=== PATIENT | female | born 1955 | race Caucasian/White ===

== ENCOUNTER → 2020-07-12 11:39 | Outpatient (BNVA) | payer MEDICARE, MEDICAID, SELFPAY | PROVIDERS: Family Provider General Practice; Referring Provider Family Medicine; Visit Provider Specialist | DX: M71.22 Synovial cyst of popliteal space [Baker], left knee (principal) | CPT/HCPCS: 73560; 73565 ==

== ENCOUNTER 2021-01-11 21:04 | Inpatient (IN) | payer MEDICARE, MEDICAID, SELFPAY ==
--- NOTE | 2021-01-11 21:05 | W.ED.GENADLT ---
Documented by User: Sandeep Waldron MD 01/14/21 09:36 HPI - General Adult General: Chief complaint: Chest Pain Stated complaint: RESP DISTRESS, PAIN BETWEEN SHOULDERS Time Seen by Provider: 01/11/21 21:04 History of Present Illness: HPI narrative: Ms. Lira is a 65-year-old lady with history of tobaccoism who presents emergency department due to shortness of breath. Symptom onset was 4 5 days ago and gradual. She initially endorses upper respiratory mild congestion and sore throat however this is since resolved. She does now have progressive worsening shortness of breath. There is no associated cough. Her symptoms are worse with exertion and what changed today that brought her in was midsternal chest pain with radiation to left arm. She denies history of chest pain. Overall the intensity symptoms is moderate to severe. The course has been worsening. She now requires supplemental oxygen. She denies other infectious symptoms or sick contacts. She has a throat swelling allergy to aspirin. Review of Systems General: Reports: 10 or more systems reviewed and unremarkable except in HPI and below PFSH ED PFSH: Medical History (Updated 01/12/21 @ 15:49 by Rose Mary Pan MD) Osteoarthritis of left knee Sciatic pain Surgical History History of History of partial hysterectomy Social History Smoking and tobacco status: current every day smoker cigarettes Packs smoked per day: 0.5 Second hand smoke exposure: Yes Alcohol intake: never Marital status: / Number of children: 2 Number of grandchildren: 8 Current occupational status: retired Physical Exam Narrative: EXAM NARRATIVE: GENERAL/CONSTITUTIONAL -mildly ill-appearing. No acute distress. Eyes - PERRL, no conjunctival injection ENMT - Atraumatic external nose and ears. Moist mucous membranes NECK - supple. trachea midline CARDIOVASCULAR - regular rate and rhythm. Peripheral pulses 2+ and equal RESPIRATORY -coarse to auscultation bilaterally. Diminished. Expiratory wheezes. Tachypnea with mild increased work at respiratory effort. ABDOMEN/GI - Nontender. Nondistended. No tenderness to percussion or evidence of peritonitis MSK - Extremities without obvious deformity or tenderness to palpation SKIN - Warm, Dry NEURO - alert and appropriately oriented. Moves all extremities equally. PSYCH - Appropriate mood and affect Course ED course: - Patient was seen and evaluated by me at bedside - Patient placed on cardiac monitors, IV access obtained - Initial evaluation notable for exam as noted above, increased respiratory effort with abnormal lung sounds concerning for COPD exacerbation versus infectious etiology versus other - Patient has allergies of throat swelling to aspirin. - Labs notable for No leukocytosis, No significant metabolic abnormality. Initial troponin is elevated, no evidence of STEMI correlating this on EKG. - Imaging notable for mild abnormalities as noted in x-ray read. Overall not impressive given patient's degree of respiratory symptoms. Given abnormal finding, elevated BNP and troponin CTA obtained for concern over PE. Negative for PE - Patient care handed off to Dr. Padilla pending repeat troponin for disposition. Vital Signs: Vital signs: Vital Signs Temperature 97.7 F 01/14/21 04:35 Pulse Rate 84 01/14/21 08:42 Respiratory Rate 26 H 01/14/21 08:42 Blood Pressure 105/65 01/14/21 08:42 Pulse Oximetry 95 01/14/21 08:42 [facility] - General Adult Medical Records: Attestation: I reviewed the patient's medical records. Lab Data: Attestation: I reviewed the patient's lab results. Labs: Lab Results 01/11/21 01/11/21 01/11/21 21:30 21:30 21:30 WBC 9.8 10^3/uL 10^3/ uL (4.0-10.0) RBC 4.16 10^6/uL 10^6 /uL (4.1-5.3) Hgb 13.3 g/dL g/dL (11.5-15.3) Hct 41.1 % % (37.0-47.0) MCV 98.8 fl fl (81-99) MCH 32.0 pg pg (28.0-34.0) MCHC 32.4 g/dL g/dL (30.0-36.0) RDW 13.2 % % (12.1-15.1) Plt Count 257 10^3/cmm 10^3 /cmm (130-400) MPV 9.6 fL fL (7.4-10.4) Neut % (Auto) 90.2 % % Lymph % (Auto) 5.4 % % [place] % (Auto) 3.6 % % Eos % (Auto) 0.0 % % Baso % (Auto) 0.5 % % Neut # (Auto) 8.79 10^3/uL H 10 ^3/uL (1.8-7.7) Lymph # (Auto) 0.5 10^3/uL L 10^ 3/uL (0.8-4.8) [place] # (Auto) 0.4 10^3/uL 10^3/ uL (0.2-0.9) Eos # (Auto) 0.0 10^3/uL 10^3/ uL (0.0-0.8) Baso # (Auto) 0.1 10^3/uL 10^3/ uL (0.0-0.1) Nucleated RBC % (a uto) 0 % % Nucleated RBCs # 0.0 /100WBC /100W BC Sodium 135 mmol/L L mmol /L (136-145) Potassium 4.6 mmol/L mmol/L (3.5-5.1) Chloride 95 mmol/L L mmol/ L (98-107) Carbon Dioxide 26 mmol/L mmol/L (22-29) Anion Gap 18.6 (5-19) BUN 11 mg/dL mg/dL (8-23) Creatinine 0.4 mg/dL L mg/dL (0.5-0.9) GFR Calculation 159.2 mL/min H mL /min (90-130) Glucose 130 mg/dL H mg/dL (65-115) Calculated Osmolal ity 281 mOsm/kg L mOs m/kg (285-295) Lactate 1.1 mmol/L mmol/L (0.5-2.2) Calcium 9.6 mg/dL mg/dL (8.5-10.5) Total Bilirubin 0.2 mg/dL mg/dL (0.15-1.2) AST 22 U/L U/L (0-32) ALT 13 U/L U/L (0-33) Alkaline Phosphata se 80 IU/L IU/L (35-105) Troponin T Baselin e Troponin T 120 Min [place] Troponin T C-Reactive Protein 1.8 mg/L mg/L (0.0-4.9) NT-Pro-B Natriuret Pep 341 pg/mL H pg/mL (0-125) Total Protein 7.5 g/dL g/dL (6.6-8.7) Albumin 4.3 g/dL g/dL (3.5-5.2) Globulin 3.2 g/dL g/dL (1.3-4.6) Procalcitonin 0.03 ng/mL ng/mL (0-0.5) SARS-CoV-2 RNA (RT -PCR) SARS-CoV-2 Ag (Rap id) 01/11/21 01/11/21 01/11/21 21:30 21:30 21:30 WBC RBC Hgb Hct MCV MCH MCHC RDW Plt Count MPV Neut % (Auto) Lymph % (Auto) [place] % (Auto) Eos % (Auto) Baso % (Auto) Neut # (Auto) Lymph # (Auto) [place] # (Auto) Eos # (Auto) Baso # (Auto) Nucleated RBC % (a uto) Nucleated RBCs # Sodium Potassium Chloride Carbon Dioxide Anion Gap BUN Creatinine GFR Calculation Glucose Calculated Osmolal ity Lactate Calcium Total Bilirubin AST ALT Alkaline Phosphata se Troponin T Baselin e 108 ng/L H* ng/L (0-10) Troponin T 120 Min [place] Troponin T C-Reactive Protein NT-Pro-B Natriuret Pep Total Protein Albumin Globulin Procalcitonin SARS-CoV-2 RNA (RT -PCR) Not detected (NOT DETECTED) SARS-CoV-2 Ag (Rap id) Negative (Negative) 01/11/21 23:27 WBC RBC Hgb Hct MCV MCH MCHC RDW Plt Count MPV Neut % (Auto) Lymph % (Auto) [place] % (Auto) Eos % (Auto) Baso % (Auto) Neut # (Auto) Lymph # (Auto) [place] # (Auto) Eos # (Auto) Baso # (Auto) Nucleated RBC % (a uto) Nucleated RBCs # Sodium Potassium Chloride Carbon Dioxide Anion Gap BUN Creatinine GFR Calculation Glucose Calculated Osmolal ity Lactate Calcium Total Bilirubin AST ALT Alkaline Phosphata se Troponin T Baselin e Troponin T 120 Min [place] 253.4 ng/L H ng/L (0-10) Delta Troponin T 145.4 ABS# H* ABS # (0-10) C-Reactive Protein NT-Pro-B Natriuret Pep Total Protein Albumin Globulin Procalcitonin SARS-CoV-2 RNA (RT -PCR) SARS-CoV-2 Ag (Rap id) EKG Data^: EKG 1: Attestation: I personally reviewed and interpreted this EKG as follows: EKG interpretation date: 01/11/21 EKG interpretation time: 21:17 Interpretation: Twelve-lead EKG shows regular sinus rhythm at a rate of 89. DE interval 183, QRS duration 97, QTc 421. Normal axis. Interpretation: Sinus rhythm, mild irregularity. Computer generated interpretation: Chest X-Ray 01/11/21 21:20 IMPRESSION: 1. Right hilar fullness with concern for potential right hilar mass or lymphadenopathy. 2. Marked bullous emphysema with probable associated COPD/chronic bronchitis. 3. Microcardia. 4. Arteriosclerosis. Chest CTA 01/11/21 22:32 IMPRESSION: 1. No visible evidence of pulmonary embolism/pulmonary arterial thrombus. 2. Advanced bullous emphysema with COPD/chronic bronchitis. 3. Bilateral upper lobe subsegmental alveolar airspace disease as detailed in text above. This finding could simply reflect parenchymal scar; however, without prior studies available for review unable to exclude early scar carcinoma and would recommend repeat imaging of the chest in 3-6 months to assess stability. 4. Cor pulmonale/pulmonary hypertension. 5. Marginally prominent mediastinal and hilar lymph nodes to include calcified complexes of antecedent granulomatous disease. Radiation Dose CTDIVOL = (mGy): DLP = 409.09 (mGy-cm) Gallbladder Ultrasound 01/14/21 06:00 IMPRESSION: No significant abnormality identified. Discharge Plan Discharge Patient Disposition: Admitted As Inpatient Admit Provider: Jh Phan Clinical Impression: NSTEMI (non-ST elevated myocardial infarction) Condition: Stable Coding Level of Care Code ED Plug Sorter for Chg Fwd Documented by User: Jagjit Padilla DO 01/12/21 03:08 HPI - General Adult General: Chief complaint: Chest Pain Stated complaint: RESP DISTRESS, PAIN BETWEEN SHOULDERS Time Seen by Provider: 01/11/21 21:04 PFSH ED PFSH: Medical History (Updated 01/12/21 @ 15:49 by Rose Mary Pan MD) Osteoarthritis of left knee Sciatic pain Surgical History History of History of partial hysterectomy Social History Smoking and tobacco status: current every day smoker cigarettes Packs smoked per day: 0.5 Second hand smoke exposure: Yes Alcohol intake: never Marital status: / Number of children: 2 Number of grandchildren: 8 Current occupational status: retired Course Consultations: Consultation #1: colten Vital Signs: Vital signs: Vital Signs Temperature 97.7 F 01/14/21 04:35 Pulse Rate 84 01/14/21 08:42 Respiratory Rate 26 H 01/14/21 08:42 Blood Pressure 105/65 01/14/21 08:42 Pulse Oximetry 95 01/14/21 08:42 MDM - General Adult MDM Narrative: Medical decision making narrative: 65-year-old female checked out to me by Dr. Waldron at shift change. This lady has had discomfort between her shoulder blades, and shortness of breath. Pain radiates to her left arm EKG shows a sinus rhythm with a normal axis. Rate is 90. There are no acute ST changes. First troponin is elevated above 100. 2-hour troponin change significantly to 253 other laboratory is benign. Chest x-ray is negative. She will be admitted for non-STEMI. She has been given Lovenox and Plavix in the ER. She is allergic to aspirin. Lab Data: Labs: Lab Results 01/11/21 01/11/21 01/11/21 21:30 21:30 21:30 WBC 9.8 10^3/uL 10^3/ uL (4.0-10.0) RBC 4.16 10^6/uL 10^6 /uL (4.1-5.3) Hgb 13.3 g/dL g/dL (11.5-15.3) Hct 41.1 % % (37.0-47.0) MCV 98.8 fl fl (81-99) MCH 32.0 pg pg (28.0-34.0) MCHC 32.4 g/dL g/dL (30.0-36.0) RDW 13.2 % % (12.1-15.1) Plt Count 257 10^3/cmm 10^3 /cmm (130-400) MPV 9.6 fL fL (7.4-10.4) Neut % (Auto) 90.2 % % Lymph % (Auto) 5.4 % % [place] % (Auto) 3.6 % % Eos % (Auto) 0.0 % % Baso % (Auto) 0.5 % % Neut # (Auto) 8.79 10^3/uL H 10 ^3/uL (1.8-7.7) Lymph # (Auto) 0.5 10^3/uL L 10^ 3/uL (0.8-4.8) [place] # (Auto) 0.4 10^3/uL 10^3/ uL (0.2-0.9) Eos # (Auto) 0.0 10^3/uL 10^3/ uL (0.0-0.8) Baso # (Auto) 0.1 10^3/uL 10^3/ uL (0.0-0.1) Nucleated RBC % (a uto) 0 % % Nucleated RBCs # 0.0 /100WBC /100W BC Sodium 135 mmol/L L mmol /L (136-145) Potassium 4.6 mmol/L mmol/L (3.5-5.1) Chloride 95 mmol/L L mmol/ L (98-107) Carbon Dioxide 26 mmol/L mmol/L (22-29) Anion Gap 18.6 (5-19) BUN 11 mg/dL mg/dL (8-23) Creatinine 0.4 mg/dL L mg/dL (0.5-0.9) GFR Calculation 159.2 mL/min H mL /min (90-130) Glucose 130 mg/dL H mg/dL (65-115) Calculated Osmolal ity 281 mOsm/kg L mOs m/kg (285-295) Lactate 1.1 mmol/L mmol/L (0.5-2.2) Calcium 9.6 mg/dL mg/dL (8.5-10.5) Total Bilirubin 0.2 mg/dL mg/dL (0.15-1.2) AST 22 U/L U/L (0-32) ALT 13 U/L U/L (0-33) Alkaline Phosphata se 80 IU/L IU/L (35-105) Troponin T Baselin e Troponin T 120 Min [place] Troponin T C-Reactive Protein 1.8 mg/L mg/L (0.0-4.9) NT-Pro-B Natriuret Pep 341 pg/mL H pg/mL (0-125) Total Protein 7.5 g/dL g/dL (6.6-8.7) Albumin 4.3 g/dL g/dL (3.5-5.2) Globulin 3.2 g/dL g/dL (1.3-4.6) Procalcitonin 0.03 ng/mL ng/mL (0-0.5) SARS-CoV-2 RNA (RT -PCR) SARS-CoV-2 Ag (Rap id) 01/11/21 01/11/21 01/11/21 21:30 21:30 21:30 WBC RBC Hgb Hct MCV MCH MCHC RDW Plt Count MPV Neut % (Auto) Lymph % (Auto) [place] % (Auto) Eos % (Auto) Baso % (Auto) Neut # (Auto) Lymph # (Auto) [place] # (Auto) Eos # (Auto) Baso # (Auto) Nucleated RBC % (a uto) Nucleated RBCs # Sodium Potassium Chloride Carbon Dioxide Anion Gap BUN Creatinine GFR Calculation Glucose Calculated Osmolal ity Lactate Calcium Total Bilirubin AST ALT Alkaline Phosphata se Troponin T Baselin e 108 ng/L H* ng/L (0-10) Troponin T 120 Min [place] Troponin T C-Reactive Protein NT-Pro-B Natriuret Pep Total Protein Albumin Globulin Procalcitonin SARS-CoV-2 RNA (RT -PCR) Not detected (NOT DETECTED) SARS-CoV-2 Ag (Rap id) Negative (Negative) 01/11/21 23:27 WBC RBC Hgb Hct MCV MCH MCHC RDW Plt Count MPV Neut % (Auto) Lymph % (Auto) [place] % (Auto) Eos % (Auto) Baso % (Auto) Neut # (Auto) Lymph # (Auto) [place] # (Auto) Eos # (Auto) Baso # (Auto) Nucleated RBC % (a uto) Nucleated RBCs # Sodium Potassium Chloride Carbon Dioxide Anion Gap BUN Creatinine GFR Calculation Glucose Calculated Osmolal ity Lactate Calcium Total Bilirubin AST ALT Alkaline Phosphata se Troponin T Baselin e Troponin T 120 Min [place] 253.4 ng/L H ng/L (0-10) [place] Troponin T 145.4 ABS# H* ABS # (0-10) C-Reactive Protein NT-Pro-B Natriuret Pep Total Protein Albumin Globulin Procalcitonin SARS-CoV-2 RNA (RT -PCR) SARS-CoV-2 Ag (Rap id) EKG Data^: EKG 1: Computer generated interpretation: Chest X-Ray 01/11/21 21:20 IMPRESSION: 1. Right hilar fullness with concern for potential right hilar mass or lymphadenopathy. 2. Marked bullous emphysema with probable associated COPD/chronic bronchitis. 3. Microcardia. 4. Arteriosclerosis. Chest CTA 01/11/21 22:32 IMPRESSION: 1. No visible evidence of pulmonary embolism/pulmonary arterial thrombus. 2. Advanced bullous emphysema with COPD/chronic bronchitis. 3. Bilateral upper lobe subsegmental alveolar airspace disease as detailed in text above. This finding could simply reflect parenchymal scar; however, without prior studies available for review unable to exclude early scar carcinoma and would recommend repeat imaging of the chest in 3-6 months to assess stability. 4. Cor pulmonale/pulmonary hypertension. 5. Marginally prominent mediastinal and hilar lymph nodes to include calcified complexes of antecedent granulomatous disease. Radiation Dose CTDIVOL = (mGy): DLP = 409.09 (mGy-cm) Gallbladder Ultrasound 01/14/21 06:00 IMPRESSION: No significant abnormality identified. Discharge Plan Discharge Patient Disposition: Admitted As Inpatient Admit Provider: Jh Phan Clinical Impression: NSTEMI (non-ST elevated myocardial infarction) Condition: Stable Coding Level of Care Code ED Plug Sorter for Laura Bonilla
[2021-01-11 21:07] VITALS: BP 199/83; PULSE 85; RESP 24; TEMP 36.6; O2SAT 98
[2021-01-11 21:20] VITALS: BP 199/83; PULSE 88; RESP 27; TEMP 37.1; O2SAT 97
--- NOTE | 2021-01-11 21:20 | ECG_ITS ---
[facility] Test Date: 2021-01-11 Pat Name: Sheba Lira Department: Room: Gender: Female Consulting Senior Practice Director: : 1955 Requested By: Sandeep Waldron Order Number: [id number] Latricia MD: JUSTIN BRIAN Measurements Intervals [place] Rate: 89 P: 78 MO: 183 QRS: 88 QRSD: 97 T: 86 QT: 344 QTc: 421 Interpretive Statements SINUS RHYTHM WITH OCCASIONAL SUPRAVENTRICULAR PREMATURE COMPLEXES POSSIBLE LEFT ATRIAL ENLARGEMENT [-0.1mV P-WAVE IN V1/V2] INCOMPLETE RIGHT BUNDLE BRANCH BLOCK [90+ ms QRS DURATION, TERMINAL R IN V1/V2, 40+ ms S IN I/aVL/V4/V5/V6] INTERPRETATION BASED ON A DEFAULT AGE OF 40 YEARS No previous ECG available for comparison Electronically Signed On 01-12-2021 18:23:57 CDT by JUSTIN BRIAN [id number] f
--- NOTE | 2021-01-11 21:20 | XRR_ITS ---
PROCEDURE INFORMATION: Exam: XR Chest Exam date and time: 01/11/2021 9:20 PM Age: 65 years old Clinical indication: Shortness of breath and wheezing; Additional info: SOB TECHNIQUE: Imaging protocol: XR of the chest. Views: 1 view. Total images: 1 COMPARISON: CR XR knees AP WB w LT lmt ORTH 07/12/2020 11:45 AM FINDINGS: Lungs: Marked bullous emphysema with probable associated COPD/chronic bronchitis.. Mild right upper lobe parenchymal scarring. Right hilar fullness with concern for potential right hilar mass or lymphadenopathy. Associated tracheal deviation to the right from potential traction. Pleural spaces: Unremarkable. No pleural effusion. No pneumothorax. Heart/Mediastinum: Microcardia. Arteriosclerosis. Bones/joints: Unremarkable. XR/XR chest 1V portable [id number] IMPRESSION: 1. Right hilar fullness with concern for potential right hilar mass or lymphadenopathy. 2. Marked bullous emphysema with probable associated COPD/chronic bronchitis. 3. Microcardia. 4. Arteriosclerosis.
[2021-01-11 21:52] VITALS: PULSE 118; RESP 26; O2SAT 95
[2021-01-11] MEDS: ipratropium-albuterol 3 mL Neb INHALATION (21:52)
[2021-01-11 21:54] LABS: Basophils # 0.1 10^3/uL (0.0-0.1); Basophils % 0.5 %; Hematocrit 41.1 % (37.0-47.0); Hemoglobin 13.3 g/dL (11.5-15.3); Lymphocytes # 0.5 10^3/uL (0.8-4.8); Lymphocytes % 5.4 %; Mean Corpuscular HGB Conc 32.4 g/dL (30.0-36.0); Mean Corpuscular Volume 98.8 fl (81-99); Mean Platelet Volume 9.6 fL (7.4-10.4); Monocytes # 0.4 10^3/uL (0.2-0.9); Monocytes % 3.6 %; Neutrophils # 8.79 10^3/uL (1.8-7.7); Neutrophils % 90.2 %; Nucleated Red Blood Cells % 0 %; Platelet Count 257 10^3/cmm (130-400); Red Blood Count 4.16 10^6/uL (4.1-5.3); Red Cell Distribution Width 13.2 % (12.1-15.1); White Blood Count 9.8 10^3/uL (4.0-10.0)
[2021-01-11 21:56] VITALS: PULSE 106; RESP 26; O2SAT 97
[2021-01-11 22:15] LABS: SARS Covid-2 Antigen Negative (Negative)
[2021-01-11 22:16] LABS: Lactate (Lactic Acid level) 1.1 mmol/L (0.5-2.2)
[2021-01-11 22:19] VITALS: BP 115/83; PULSE 91; RESP 29; O2SAT 96
[2021-01-11 22:21] LABS: Troponin(5th) Baseline 108 ng/L (0-10)
[2021-01-11 22:25] LABS: NT Pro B Type Natriuretic Pept 341 pg/mL (0-125); Procalcitonin 0.03 ng/mL (0-0.5)
--- NOTE | 2021-01-11 22:32 | CTR_ITS ---
PROCEDURE INFORMATION: Exam: CTA Chest With Contrast Exam date and time: 01/11/2021 10:32 PM Age: 65 years old Clinical indication: Pain; Shortness of breath; Radiating; Additional info: SOB, new o2 TECHNIQUE: Imaging protocol: Computed tomographic angiography of the chest with contrast. 3D rendering (Not supervised by radiologist): MIP and/or 3D reconstructed images were created by the technologist. Total images: 851 Radiation optimization: All CT scans at this facility use at least one of these dose optimization techniques: automated exposure control; mA and/or kV adjustment per patient size (includes targeted exams where dose is matched to clinical indication); or iterative reconstruction. Contrast material: OMNI 350; Contrast volume: 69 ml; Contrast route: INTRAVENOUS (IV); COMPARISON: CR (CHEST, ) 01/11/2021 9:29 PM RADIATION DOSE METRICS: Total DLP (mGy-cm): 409.09 FINDINGS: Pulmonary arteries: No visible evidence of pulmonary embolism/pulmonary arterial thrombus. Aorta: The thoracic aorta is nonaneurysmal. Mild arteriosclerosis. Lungs: Advanced bullous emphysema with COPD/chronic bronchitis. Bullous emphysema most advanced bilateral upper lobes, right greater than left. Significant bilateral apical parenchymal scarring, right greater than left. Bilateral upper lobe subsegmental alveolar airspace disease involving primarily the apical and posterior segment right upper lobe in the apicoposterior segment left upper lobe, right lung more involved than left. This finding could simply reflect parenchymal scar; however, without prior studies available for review unable to exclude early scar carcinoma and would recommend repeat imaging of the chest in 3-6 months to assess stability. Cor pulmonale/pulmonary hypertension. Pleural spaces: No pneumothorax. No pleural effusion. Heart: No cardiomegaly. No visible pericardial effusion. Coronary artery disease. Lymph nodes: Marginally prominent mediastinal and hilar lymph nodes. Calcified complexes of antecedent granulomatous disease. Bones/joints: No visible acute osseous abnormality. Soft tissues: Unremarkable. CT/CT angio chest PE protcl [id number] IMPRESSION: 1. No visible evidence of pulmonary embolism/pulmonary arterial thrombus. 2. Advanced bullous emphysema with COPD/chronic bronchitis. 3. Bilateral upper lobe subsegmental alveolar airspace disease as detailed in text above. This finding could simply reflect parenchymal scar; however, without prior studies available for review unable to exclude early scar carcinoma and would recommend repeat imaging of the chest in 3-6 months to assess stability. 4. Cor pulmonale/pulmonary hypertension. 5. Marginally prominent mediastinal and hilar lymph nodes to include calcified complexes of antecedent granulomatous disease. Radiation Dose CTDIVOL = (mGy): DLP = 409.09 (mGy-cm)
[2021-01-11 22:36] LABS: Alanine Aminotransferase 13 U/L (0-33); Albumin Level 4.3 g/dL (3.5-5.2); Alkaline Phosphatase 80 IU/L (35-105); Aspartate Amino Transferase 22 U/L (0-32); Blood Urea Nitrogen 11 mg/dL (8-23); C Reactive Protein 1.8 mg/L (0.0-4.9); Calcium 9.6 mg/dL (8.5-10.5); Carbon Dioxide 26 mmol/L (22-29); Chloride 95 mmol/L (98-107); Globulin 3.2 g/dL (1.3-4.6); Glomerular Filtration Rate 159.2 mL/min (90-130); Glucose 130 mg/dL (65-115); Osmolality Calculated 281 mOsm/kg (285-295); Sodium 135 mmol/L (136-145); Total Bilirubin 0.2 mg/dL (0.15-1.2); Total Protein 7.5 g/dL (6.6-8.7)
[2021-01-11 22:38] LABS: Anion Gap 18.6 (5-19); Potassium 4.6 mmol/L (3.5-5.1)
[2021-01-11] MEDS: iohexol 350 mg/mL 100 mL Btl IV (22:53)
[2021-01-11 23:17] VITALS: BP 127/78; PULSE 95; RESP 22; O2SAT 97
--- NOTE | 2021-01-11 23:20 | ECG_ITS ---
[facility] Test Date: 2021-01-11 Pat Name: Sheba Lira Department: Room: 108 Gender: Female Ocean Biologist: : 1955 Requested By: Sandeep Waldron Order Number: [id number] Reading MD: JUSTIN BRIAN Measurements Intervals [place] Rate: 89 P: 78 ID: [id number] QRS: 88 QRSD: 97 T: 86 QT: 344 QTc: 421 Interpretive Statements SINUS RHYTHM WITH OCCASIONAL SUPRAVENTRICULAR PREMATURE COMPLEXES POSSIBLE LEFT ATRIAL ENLARGEMENT [-0.1mV P-WAVE IN V1/V2] INCOMPLETE RIGHT BUNDLE BRANCH BLOCK [90+ ms QRS DURATION, TERMINAL R IN V1/V2, 40+ ms S IN I/aVL/V4/V5/V6] INTERPRETATION BASED ON A DEFAULT AGE OF 40 YEARS No previous ECG available for comparison Electronically Signed On 01-12-2021 18:25:49 CDT by JUSTIN BRIAN [id number] f
[2021-01-11 23:55] LABS: Troponin 5 2HR 253.4 ng/L (0-10); Troponin 5 2HR Delta 145.4 ABS# (0-10)
[2021-01-12] VITALS (18 sets, daily range): BP systolic 86–107; BP diastolic 6–73; PULSE 84–107; RESP 18–28; TEMP 36.6–36.8; O2SAT 91–99; BMI 25.0
[2021-01-12] MEDS: enoxaparin 60 mg/0.6 mL Syringe SUBCUT ×2 (01:04→14:04)
[2021-01-12] MEDS: clopidogrel 300 mg Tablet PO (01:04)
--- NOTE | 2021-01-12 01:35 | PM.HP ---
Providers/Chief Complaint Admitting Physician: Jh Phan Chief Complaint: RESP DISTRESS, PAIN BETWEEN SHOULDERS History of Present Illness 65-year-old female with past medical history significant for tobacco abuse wh presented to the hospital with Respiratory distress. Progressively worsening for the past week. Noted productive cough, No fever or chills. Denied nausea or vomiting. This was also associated with midsternal chest pain radiating to the left upper extremity. Patient stated some radiation to her back. No prior cardiac history. Laboratory workup on arrival showed a WBC of 9.8, hemoglobin of 13.3, hematocrit 41.1 and a platelet count of 257. Sodium 135, potassium 4.6, chloride 95, bicarb 26, BUN 11 and creatinine of 0.4. Lactic acid of 1.1. Covid-19 ag negative. Troponin T baseline of 108, increased to 253 at 2hr with a delta of 145.4. ProBnp of 341. Imaging studies included a chest x-ray which showed right hilar fullness considered for potential right hilar mass or lymphadenopathy with marked bolus emphysema.CTA of chest did not show any evidence of pulmonary embolism however was noted to have advanced bullous emphysema, bilateral upper lobe sub segmental alveolar airspace disease and evidence of pulmonary hypertension leading to cor pulmonale. In ER patient was given plavix 75 mg PO x 1 and lovenox 60 mg SQ x 1. Aspirin was not given due to prior hx of aspirin allergy. Review of Systems General: Reports: 10 or more systems reviewed and unremarkable except in HPI and below Medications/Allergies Allergies Allergy/AdvReac Type Severity Reaction Status Date / Time aspirin Allergy Intermediate ADR/ALGY-Pa Verified 08/13/20 11:11 lpitations codeine AdvReac ADR-Nausea Verified 08/13/20 11:11 PFSH Acute PFSH: Medical History (Updated 01/12/21 @ 03:08 by Jagjit Padilla DO) Osteoarthritis of left knee Sciatic pain Surgical History History of History of partial hysterectomy Social History Smoking and tobacco status: current every day smoker cigarettes Packs smoked per day: 0.5 Second hand smoke exposure: Yes Alcohol intake: never Marital status: / Number of children: 2 Number of grandchildren: 8 Current occupational status: retired Vitals/I&O/Wt Last Vital Signs Temp 98.7 F 01/11/21 21:20 Pulse 88 01/12/21 01:30 Resp 22 H 01/12/21 01:30 BP 99/53 01/12/21 01:30 Pulse Ox 99 01/12/21 01:30 Physical Exam Narrative: EXAM NARRATIVE: General : alert awake on o2 via NC HEENT : Grossly unremarkable CVS; NSR Chest : non labored respiration Abd Non-distended Ext no edema Data : 01/11/21 21:30 01/11/21 21:30 A&P Assessment and plan (1) NSTEMI (non-ST elevated myocardial infarction): Delta troponin 145.5 Follow up on 6hr Cardiac tele Lovenox 1mg/kg BID Aspirin allergy Plavix 300 mg PO x 1 in ER Nitro PRN for chest pain Cardiac tele ECHO Cardiology consulted Status: Acute (2) COPD exacerbation: Noted to have evidence of bullos emphysema on CT Duoneb q6hr O2 as needed Levaquin empirically Pro-marie in am Will need outpatient pulmonary folllow up Status: Acute Additional A&P Information DVT ppx - On full dose lovenox Attestations Medical Necessity Statement*: Will require over 2 midnight stay in hospital for eval and treatment Time Spent in Patient Care: Greater than 35 minutes (>than 50% of time spent in counselling and/or direct pt care on unit). Coding Level of Care Code Acute Placement Secretary for Laura Bonilla Diagnoses NSTEMI (non-ST elevated myocardial infarction) I21.4 COPD exacerbation J44.1
[2021-01-12] MEDS: levofloxacin-dextrose 5 % 750 MG/150 ML PREMIX 100 MG IV (01:56)
[2021-01-12] MEDS: ondansetron 2 mg/ML SDV 2 mL 4 MG IVP (01:56)
--- NOTE | 2021-01-12 03:20 | ECG_ITS ---
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
[2021-01-12 04:35] LABS: Troponin 5 6HR 350.4 ng/L (0-10); Troponin 5 6HR Delta 242.4 ng/L (0-12)
[2021-01-12] MEDS: nitroglycerin 0.4 mg sublingual Tablet SUBLINGUAL (06:10)
--- NOTE | 2021-01-12 06:12 | ECG_ITS ---
[facility] Test Date: 2021-01-12 Pat Name: Sheba Lira Department: Room: 108 Gender: Female Warehouseman: : 1955 Requested By: Jh Phan Order Number: [id number] Reading MD: JUSTIN BRIAN Measurements Intervals [place] Rate: 90 P: 76 WA: 169 QRS: 75 QRSD: 93 T: 88 QT: 369 QTc: 453 Interpretive Statements SINUS RHYTHM POSSIBLE RIGHT VENTRICULAR CONDUCTION DELAY [RSR (QR) IN V1/V2] SEPTAL MYOCARDIAL INFARCTION , OF INDETERMINATE AGE [40+ ms Q WAVE IN V1/V2] Compared to ECG 01/12/2021 03:13:33 No significant changes Electronically Signed On 01-12-2021 18:23:20 CDT by JUSTIN BRIAN [id number]
--- NOTE | 2021-01-12 06:20 | PC.NURSE ---
Patient c/o chest pain 10/20. EKG ordered. Patient given one SL nitro PRN. Patient states pain in now 07/21. Blood pressure 86/56. Dr. Phan notified that a second SL nitro was not given due to blood pressure. Patient states that this is a tolerable pain level for her. Ordered to continue to monitor.
--- NOTE | 2021-01-12 06:50 | PC.NURSE ---
Patient states, I don't take any medications at home except for a Tylenol or an Ibuprofen once in a while.
[2021-01-12] MEDS: pantoprazole DR 40 mg Tablet PO (08:27)
[2021-01-12] MEDS: pneumococcal (23 valent) SDV 0.5 mL IM (08:28)
--- NOTE | 2021-01-12 11:14 | P.PN_ITS ---
Subjective Medications: Medication Review Details: Seen this morning at bedside. Case also reviewed with Dr. Crum who was also present. Patient has been having chest pressure since morning and has had a positive delta troponin. Exertion makes the pain worse and rest relieves it. She also received 1 nitro overnight. Patient will be going for angiogram this afternoon. She did have wheezing on exam and is a smoker 1 pack/day. Vitals/I&O/Wt Last Vital Signs Temp 98.2 F 01/12/21 07:05 Pulse 107 H 01/12/21 07:05 Resp 22 H 01/12/21 07:05 BP 105/6 01/12/21 07:05 Pulse Ox 94 01/12/21 07:05 01/11/21 01/12/21 01/12/21 22:59 06:59 14:59 Intake Total 150 / 150 Balance 150 / 150 Weight last 48 hrs Weight 59.92 kg Weight 59.92 kg Physical Exam Narrative: EXAM NARRATIVE: General: Alert oriented x3, seen sitting up in bed complaining of chest pressure. HEENT: Normocephalic, atraumatic, EOMI, on nasal cannula Cardio: Regular rate rhythm, normal S1-S2, no murmurs rubs gallops, Respiratory: Significant wheezing bilaterally throughout all lung renee, GI: Abdomen soft, nontender, nondistended, bowel sounds + Behavior: Appropriate and cooperative Extremities: no edema, no cyanosis Data : 01/11/21 21:30 01/11/21 21:30 A&P Assessment and plan (1) COPD exacerbation: Status: Acute (2) NSTEMI (non-ST elevated myocardial infarction): Status: Acute Additional A&P Information Patient is having typical chest pain. Case reviewed with cardiology. She will be going for angiogram this afternoon. Delta troponin I 43. Rapid Covid test negative x2. PCR has been sent out to [facility] and is pending. Will back in 72 hours. I will put her on scheduled DuoNeb every 4 hours with respiratory therapy and ordered Solu-Medrol 40 mg daily. will check procal and bacterial antigens Fluids: None indicated Electrolytes: Replete as needed Nutrition: N.p.o. for procedure and afterwards cardiac diet Activity: Bedrest for now DVT prophylaxis: on full dose Lovenox. Attestations Medical Necessity Statement*: angiogram today Time Spent in Patient Care: 16 - 35 minutes Coding Level of Care Code Acute Respiratory Supervisor for Laura Fwd Diagnoses COPD exacerbation J44.1 NSTEMI (non-ST elevated myocardial infarction) I21.4
[2021-01-12 11:23] LABS: SARS Covid-2 Antigen Negative (Negative)
[2021-01-12] MEDS: ipratropium-albuterol 3 mL Neb INHALATION ×2 (11:49→18:03)
[2021-01-12 14:52] LABS: Procalcitonin 0.03 ng/mL (0-0.5)
--- NOTE | 2021-01-12 15:43 | PM.CONSULT ---
Providers/Reason For Consult Consulting Physician/Specialty*: Cardiology Reason for Consult*: Non-ST ovation OK Attending Physician: Babs Ayala MD History of Present Illness History of Present Illness Sheba Lira is a 65 year old female past medical history significant for continuous tobacco abuse COPD presented with worsening of shortness of breath and chest pain. She was noted to have non-ST elevation OK as she was ruled in. Due to respiratory distress she is on rule out for Covid. She is under Covid precautions however I saw the patient she denies any fever chills cough sputum sore throat. For strep a test is negative. At the moment she denies chest pain she is on anticoagulation aspirin beta-james and loaded with Plavix. She would like to eat now. We discussed regarding performing left heart cath for non-ST elevation OK. She understood all risk benefit and alternative for the procedure she would like to proceed with it. We are planning to proceed with left heart cath tomorrow morning. I will repeat Covid rapid stress test however PCR is pending which may not be available until next 72 hours due to weekend Review of Systems General: Reports: 10 or more systems reviewed and unremarkable except in HPI and below Meds/Allergies Home Medications and Allergies Allergies Allergy/AdvReac Type Severity Reaction Status Date / Time aspirin Allergy Intermediate ADR/ALGY-Pa Verified 08/13/20 11:11 lpitations codeine AdvReac ADR-Nausea Verified 08/13/20 11:11 Current Medications Current Medications Generic Name Dose Route Start Last Admin Trade Name Freq PRN Reason Stop Dose Admin Albuterol/Ipratropium 3 ml 01/12/21 01:29 01/12/21 11:49 Ipratropium-Albuterol 3 Ml Neb INHALATION 3 ml Q6H PRN Administration SHORTNESS OF BREATH Enoxaparin Sodium 60 mg 01/12/21 13:30 01/12/21 14:04 Enoxaparin 60 Mg/0.6 Ml Syringe SUBCUT 60 mg Q12H YARON Administration Levofloxacin/Dextrose 750 mg in 150 mls @ 100 mls/hr 01/12/21 01:30 01/12/21 03:29 Levaquin-D5w IV Infused Q24H YARON Infusion Protocol Nitroglycerin 0.4 mg 01/12/21 06:08 01/12/21 06:10 Nitroglycerin 0.4 Mg Sublingual Tablet SUBLINGUAL 1 tab Q5M PRN Administration CHEST PAIN Ondansetron HCl 4 mg 01/12/21 01:29 01/12/21 01:56 Ondansetron 2 Mg/Ml Sdv 2 Ml IVP 4 mg Q8H PRN Administration vomiting, or N/V if npo Pantoprazole Sodium 40 mg 01/12/21 09:00 01/12/21 08:[address] 40 Mg Tablet PO 40 mg DAILY YARON Administration Additional Medication Information Seen this morning at bedside. Case also reviewed with Dr. Crum who was also present. Patient has been having chest pressure since morning and has had a positive delta troponin. Exertion makes the pain worse and rest relieves it. She also received 1 nitro overnight. Patient will be going for angiogram this afternoon. She did have wheezing on exam and is a smoker 1 pack/day. PFSH Acute PFSH: Medical History (Updated 01/12/21 @ 15:49 by Rose Mary Pan MD) Osteoarthritis of left knee Sciatic pain Surgical History History of History of partial hysterectomy Social History Smoking and tobacco status: current every day smoker cigarettes Packs smoked per day: 0.5 Second hand smoke exposure: Yes Alcohol intake: never Marital status: / Number of children: 2 Number of grandchildren: 8 Current occupational status: retired Vitals/I&O/Wt Last Vital Signs Temp 98.2 F 01/12/21 07:05 Pulse 100 01/12/21 11:56 Resp 22 H 01/12/21 11:52 BP 105/6 01/12/21 07:05 Pulse Ox 96 01/12/21 11:52 01/12/21 01/12/21 01/12/21 06:59 14:59 22:59 Intake Total 150 / 150 360 / 360 Balance 150 / 150 360 / 360 Weight last 48 hrs Weight 132 lb 1.6 oz Weight 132 lb 1.6 oz Physical Exam Narrative: EXAM NARRATIVE: GENERAL: Patient is alert, awake and oriented x3. NECK: No jugular vein distension. HEENT: No cyanosis. No icterus. No pallor. HEART: Regular S1 and S2. No murmur, rub or gallop. LUNGS: Reduced breath sound bilaterally with wheezing and expiratory prolonged. ABDOMEN: Soft, nontender and nondistended. Positive bowel sounds. No guarding, rebound or tenderness. CENTRAL NERVOUS SYSTEM: Grossly nonfocal. EXTREMITIES: Lower extremities without edema bilaterally. A&P Assessment and plan (1) NSTEMI (non-ST elevated myocardial infarction): As defined above we will proceed with left heart cath. Continue aspirin statin and beta-james anticoagulation. Patient is going through acute COPD exacerbation she will not be able to lay flat on the bed. Once lungs are more clear hopefully by tomorrow we will plan to perform left heart cath. Until then continue current regimen. She is chest pain-free troponin is trending down from 350 downward. Status: Acute (2) COPD exacerbation: As per medicine Status: Acute (3) Acute maxillary sinusitis: Continue as per medicine Status: Acute Qualifiers: Recurrence: not specified as recurrent Qualified Code(s): J01.00 - Acute maxillary sinusitis, unspecified Consult Attestations Medical Necessity Statement: Patient require continuation hospitalization for above defined care. 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
--- NOTE | 2021-01-12 19:49 | PC.NURSE ---
Shift Note Frequent safety and comfort rounds continue. Orders and/or nursing care completed as indicated. Patient monitored for response to intervention and treatment(s). Education provided includes[pre-cardiac cath instructions]. Patient and/or route service representative verb understanding of instructions Will continue to monitor. pt c/o substernal chest tightness off and on today.no pain parse.cardiology consult with dr bender.pt to go to cardiac rags laborer tomorrow for angiogram
[2021-01-12] MEDS: atorvastatin 40 mg Tablet PO (20:25)
[2021-01-13] VITALS (47 sets, daily range): BP systolic 79–107; BP diastolic 55–72; PULSE 65–102; RESP 13–36; TEMP 36.4–36.8; O2SAT 78–100
[2021-01-13] MEDS: levofloxacin-dextrose 5 % 750 MG/150 ML PREMIX 100 MG IV (00:53)
[2021-01-13] MEDS: enoxaparin 60 mg/0.6 mL Syringe SUBCUT (01:19)
--- NOTE | 2021-01-13 01:42 | USCV_ITS ---
Sheba Lira Age: 65 Gender: F : 1955 Exam Date: 01/13/2021 07:03 Ordering Phys: Jh Phan MD Technologist: Rebecca Benson [place] [facility] [place]: Chest pain, NSTEMI BP: 91 / 60 HR: 69 Rhythm: Sinus Technical Quality: Suboptimal MEASUREMENTS (Male / Female) Normal Values 2D ECHO LV Diastolic Diameter PLAX 3.5 cm 4.2 - 5.9 / 3.9 - 5.3 cm LV Systolic Diameter PLAX 2.6 cm LV Chamber Size 4.2 cm IVS Diastolic Thickness 0.9 cm 0.6 - 1.0 / 0.6 - 0.9 cm IVS Systolic Thickness 1.8 cm LVPW Diastolic Thickness 1.3 cm 0.6 - 1.0 / 0.6 - 0.9 cm LVPW Systolic Thickness 1.1 cm RV Chamber Size 1.6 cm LVOT Diameter 2.0 cm LV Ejection Fraction 2D Teich 53.7 % LV Ejection Fraction MOD 2C 62.1 % LV Ejection Fraction 2C AL 61.6 % LA Diameter 2.1 cm LA Width 2.6 cm LA Height 2.9 cm RA Width 2.1 cm RA Height 3.1 cm M-MODE LV Diastolic Diameter MM 4.6 cm 4.2 - 5.9 / 3.9 - 5.3 cm LV Systolic Diameter MM 3.4 cm LV Ejection Fraction MM Teich 52.8 % IVS Diastolic Thickness MM 1.2 cm 0.6 - 1.0 / 0.6 - 0.9 cm IVS Systolic Thickness MM 1.5 cm LVPW Diastolic Thickness MM 1.1 cm 0.6 - 1.0 / 0.6 - 0.9 cm LVPW Systolic Thickness MM 1.2 cm Aortic Annulus Diameter 3.1 cm LA Ao Ratio MM 0.8 MV E Point Septal Separation 1.3 cm DOPPLER AV Peak Velocity 110.0 cm/s LVOT Peak Velocity 67.0 cm/s AV Area Cont Eq vti 2.1 cm squared AV Area Cont Eq pk 1.9 cm squared MV Area PHT 5.9 cm squared Mitral E to A Ratio 1.2 MV E' Velocity 37.0 cm/s Mitral E to MV E' Ratio 9.6 Mitral E to LV E' Lateral Ratio 9.8 Mitral E to LV E' Septal Ratio 9.6 TR Peak Velocity 279.0 cm/s TR Peak Gradient 31.1 mmHg TV Peak E Velocity 50.0 cm/s Right Atrial Pressure 3.0 mmHg Pulmonary Artery Systolic Pressu 34.1 mmHg PV Peak Velocity 57.0 cm/s QpQs Shunt Ratio 0.8 RV Acceleration Time 0.1 s RV Ejection Time 0.2 s RV AcT/ET 0.3 FINDINGS Left Ventricle Normal left ventricular cavity size. Moderately decreased left ventricular systolic function. Mid to distal anterior septal and apical hypokinesis.left ventricular ejection fraction is estimated at 40 %. There appeared to be foreshortening of apex therefore left ventricle ejection fraction may not be accurate.Grade II/IV diastolic dysfunction, moderately elevated filling pressures. Right Ventricle The right ventricle is normal in size and function. Mild pulmonary hypertension, RVSP 34.1 mmHg. Right Atrium The right atrium is normal in size. Left Atrium The left atrium is normal in size. Mitral Valve Structurally normal mitral valve without significant stenosis or prolapse. There is no mitral regurgitation. Aortic Valve Structurally normal aortic valve without significant sclerosis or stenosis. There is no aortic regurgitation. Tricuspid Valve Moderate tricuspid valve regurgitation. Pulmonic Valve Structurally normal pulmonic valve without significant stenosis. There is no pulmonic regurgitation. Pericardium Normal pericardium without effusion. Aorta Normal ascending aorta dimension. CONCLUSIONS 1-Normal left ventricular cavity size. Moderately decreased left ventricular systolic function. Mid to distal anterior septal and apical hypokinesis.left ventricular ejection fraction is estimated at 40 %. There appeared to be foreshortening of apex therefore left ventricle ejection fraction may not be accurate.Grade II/IV diastolic dysfunction, moderately elevated filling pressures. 2-Moderate tricuspid valve regurgitation. 3-The right ventricle is normal in size and function. Mild pulmonary hypertension, RVSP 34.1 mmHg plus RA pressure. 4-There is no pericardial effusion. 5-Right atrial pressure is around 15 mm of mercury. 6- There are no prior echocardiogram studies to compare. Rose Mary Pan MD (Electronically Signed) Final Date: 17 January 2021 16:28 S
[2021-01-13 04:19] LABS: Basophils % 0.1 %; Hematocrit 35.5 % (37.0-47.0); Hemoglobin 11.5 g/dL (11.5-15.3); Lymphocytes # 0.4 10^3/uL (0.8-4.8); Lymphocytes % 4.6 %; Mean Corpuscular HGB Conc 32.4 g/dL (30.0-36.0); Mean Corpuscular Volume 98.9 fl (81-99); Mean Platelet Volume 9.7 fL (7.4-10.4); Monocytes # 0.3 10^3/uL (0.2-0.9); Monocytes % 3.7 %; Neutrophils # 8.19 10^3/uL (1.8-7.7); Neutrophils % 91.3 %; Nucleated Red Blood Cells % 0 %; Platelet Count 242 10^3/cmm (130-400); Red Blood Count 3.59 10^6/uL (4.1-5.3); Red Cell Distribution Width 13.2 % (12.1-15.1)
[2021-01-13 04:47] LABS: Estmated Average Glucose 103; Hemoglobin A1C 5.2 % (4.0-6.0)
[2021-01-13 04:56] LABS: Chol HDL Ratio 2.54 mg/dL (0.0-4.40); Cholesterol 175 mg/dL (0-200); HDL Cholesterol 69 mg/dL (60-100); LDL Cholesterol Calculated 98 mg/dL (50-129); LDL HDL Ratio 1.42 RATIO (0.00-3.22); Triglycerides 42 mg/dL (0-150)
[2021-01-13 04:58] LABS: Procalcitonin 0.04 ng/mL (0-0.5)
[2021-01-13 05:07] LABS: Alanine Aminotransferase 20 U/L (0-33); Albumin Level 3.9 g/dL (3.5-5.2); Alkaline Phosphatase 69 IU/L (35-105); Anion Gap 13.4 (5-19); Aspartate Amino Transferase 41 U/L (0-32); Blood Urea Nitrogen 14 mg/dL (8-23); Calcium 9.3 mg/dL (8.5-10.5); Carbon Dioxide 30 mmol/L (22-29); Chloride 98 mmol/L (98-107); Glomerular Filtration Rate 123.1 mL/min (90-130); Glucose 112 mg/dL (65-115); Osmolality Calculated 285 mOsm/kg (285-295); Potassium 4.4 mmol/L (3.5-5.1); Sodium 137 mmol/L (136-145); Thyroid Stimulating Hormone 0.25 uIU/mL (0.27-4.20); Total Bilirubin 0.2 mg/dL (0.15-1.2); Total Protein 6.9 g/dL (6.6-8.7)
[2021-01-13] MEDS: sodium chloride 0.9% 1,000 ML 50 ML IV (05:14)
[2021-01-13] MEDS: diphenhydrAMINE 50 mg Capsule PO (07:13)
--- NOTE | 2021-01-13 07:39 | XACV_ITS ---
Exam Room: [facility] Ht: 155 cm Wt: 61 kg BSA: 1.63 m2 Gender: Female : 1955 Any Known Allergies: Codeine Exam Priority: Routine Procedure(s): Procedure Description: Diagnostic procedure Procedure Description: Left Heart Catheterization Procedure Description: Left ventriculography Procedure Description: Coronary Angiography PAULINAViviane MAN; Diagnostic Cath Status: Urgent Diagnostic Findings * No disease noted in the Left Main, Left Anterior Descending, Right, or Circumflex coronary arteries. * Coronary angiography shows right dominance. Conclusions 1. No disease noted in the Left Main, Left Anterior Descending, Right, or Circumflex coronary arteries. 2. The apex, mid posterior, mid septum, anterolateral, mid inferior brown are hypokinetic. 3. All other visualized brown normal. 4. Moderate left ventricular systolic dysfunction. Ejection fraction of 30%. Recommendations * Continue current medical management and risk factor modification. Ventriculography Ejection Fraction: 30.0 % Left Ventriculography Findings: * Severely depressed LV function with apical ballooning suggestive of Takotsubo syndrome. Left ventricular LV function around 30%. Pressures Phase:Rest AO : 106 / 68 ( 86 ) @ 8:16:00 AM 107 / 32 ( 62 ) @ 8:28:00 AM 106 / 66 ( 84 ) @ 8:29:00 AM LV : 104 / @ 8:27:00 AM 105 / @ 8:28:00 AM Clinical Evaluation EBL: 5mL-10mL Procedural Details Procedure Consent Obtained. Pre-Procedure Time Out. Identified patient by full name and date of as verbalized by the patient/guarantor. Does the consent match the physician's order: Yes. Accurate & Complete Informed Consent: Yes. Inpatient/Outpatient History & Physical on Chart: Yes. If H&P is completed, is and addenduem needed: No; If yes, is the addendum complete: N/A. Visualize and Verify Site with Patient/Guarantor: N/A. Relevant Radiology Images available: N/A. Pre-op teaching completed and patient verbalized understanding. The risks, benefits, and alternatives of sedation and/or procedure were discussed by physician. The patient agrees to continue. Equipment: 6F - Radial. Cardiac Cath Pack. ACIST Manifold Kit Model BT 2000. Heparinized Saline (2 units/mL), 1000 mL bag. Procedure started. [facility] Clinical Fraility Score: 3: Managing Well. Ems Helicopter Pilot Indications: ACS > 24 hours, NSTEMI. Chest Pain Symptom Assessment: Typical Angina Symptoms. Cardiovascular Instability: No. Correct patient, site and procedure confirmed by cath team. PERRLA. Strong, equal hand professor of theater bilaterally. Lungs clear x 5 lobes. IV Site on Arrival: 20 gauge in the left anticubital. IV Fluids: 0.9% NaCl at KVO. 0 mL infused prior to laborer brush clearing. Oxygen started at 2liters/min via nasal canula. right groin was prepped with chloroprep then draped in the usual sterile fashion. right radial was prepped with chloroprep then draped in the usual sterile fashion. Baseline sample Acquired. HR: 64 BPM. Physician notified. Physician arrived. Physician scrubbed in. Immediate Pre-Procedure Time Out. Correct Patient: Yes; Correct Procedure: Yes; Correct Site: Yes; Correct Patient Position: Yes; Correct Supplies: Yes; Dried Flammable Prep: Yes; Blood Products Available: N/A;. Lidocaine 1% infiltrated to the right radial. Arterial access obtained. A 5 monegasque TIG catheter in over wire. Multiple views taken of left coronary artery. Catheter redirected to the RCA. Multiple views taken of right coronary artery. Catheter removed over the exchange wire. A 5 monegasque Angled Pig catheter in over wire. LV gram performed in GARCIA @ 10 mL/second for a total of 20 mL. EDP Sample taken: LV 104/10,29; HR: 79 BPM; SpO2: 96%. EDP Sample taken: LV 105/10,29; HR: 77 BPM; SpO2: 97%. Pullback taken: LV Off; AO Off; Mean: , Peak to Peak: , SEP: ; HR: 78 BPM; SpO2: 97%. Catheter removed over the exchange wire. Physician scrubbed out. A TR Band was successful obtaining hemostatsis at the Right Radial artery insertion site. TR band placed. Hemostasis obtained. Post Procedure: Pulses reassessed and unchanged. PERRLA. Strong, equal hand professor of theater bilaterally. PERRLA. Strong, equal hand professor of theater bilaterally. No VTE prophylaxis required. Contrast type used: Visipaque 320 mgI/mL, 500 mL bottle. Medication's Wasted: Lidocaine 1% = 16 mg. Medication's Wasted: Heparin = 1000 units. Medication's Wasted: Other = fentanyl 100 mcg. Total IV fluids: 69 mL. Post-op diagnosis: takutsubo. Complications: none. Estimated blood loss: 5mL-10mL. Procedure completed. Patient transferred by wheelchair to 1st floor. Vital chart was stopped. Access Site Site: Right Radial artery Sheath Size: 6 Fr Hemostasis Method: TR Band Hemostasis Success: Successful Procedure Medications Start: 9:03 AM Stop: 9:03 AM Medication: Versed Amount: 1 mg Route: I.V. Start: 9:13 AM Stop: 9:13 AM Medication: Versed Amount: 1 mg Route: I.V. I, the attending physician, have reviewed and verified all procedure medications. Yes, all medications given per verbal order History/Risk Factors Hypertension: No Dyslipidemia: No Peripheral Arterial Disease (PAD): No Myocardial Infarction (LA): No Obesity: No Renal Disease: No Tobacco Use: Current/Recent(w/in 1 year) Prior Interventions PCI: No CABG: No Valve Surgery: No Report Signatures Finalized by Rose Mary Pan MD on 01/27/2021 05:55 PM
--- NOTE | 2021-01-13 07:46 | PC.NURSE ---
Shift Note Frequent safety and comfort rounds continue. Orders and/or nursing care completed as indicated. Patient monitored for response to intervention and treatment(s). Education provided includes plan of care. Patient and/or lead generation representative verbalized understanding. Will continue to monitor.
--- NOTE | 2021-01-13 08:27 | PM.PN ---
Subjective Subjective: Interval history: Seen and examined today after angiogram procedure. Approach was through the right wrist. Compression Band-Aid present. Nurse reported that coronary arteries per clean and no evidence of ischemic disease. Final report is pending. Patient appears very comfortable and is happy that her angiogram was okay. She states her breathing has improved. She is wondering when she can go home. She denies any recent stressors or anxiety or depression. Vitals/I&O/Wt Last Vital Signs Temp 97.5 F L 01/13/21 07:56 Pulse 89 01/13/21 08:10 Resp 18 01/13/21 08:10 BP 97/67 01/13/21 07:56 Pulse Ox 100 01/13/21 08:10 01/12/21 01/13/21 01/13/21 22:59 06:59 14:59 Intake Total 120 / 480 150 / 630 Balance 120 / 480 150 / 630 Weight last 48 hrs Weight 61.19 kg Weight 59.92 kg Weight 59.92 kg Physical Exam Narrative: EXAM NARRATIVE: General: Alert oriented x3, seen sitting up in bed eating breakfast appearing quite comfortable. HEENT: Normocephalic, atraumatic, EOMI, on nasal cannula Cardio: Regular rate rhythm, normal S1-S2, no murmurs rubs gallops, Respiratory: Mild rhonchi at bases of lungs bilaterally, rest clear to auscultation., GI: Abdomen soft, nontender, nondistended, bowel sounds + Behavior: Appropriate and cooperative Extremities: no edema, no cyanosis, right wrist compression bandage present. Data : 01/13/21 03:49 01/13/21 03:49 Micro: Microbiology 01/12/21 15:00 Legionella Urinary Antigen - Final Urine,Voided Bacterial Antigens - Final A&P Assessment and plan (1) COPD exacerbation: Status: Acute (2) NSTEMI (non-ST elevated myocardial infarction): Status: Acute Additional A&P Information Patient is having typical chest pain. Case reviewed with cardiology. Delta troponin I 43. Rapid Covid test negative x2. PCR has been sent out to [employer] and is pending. Will back in 72 hours. She was taken for angiogram this morning. Final report is pending. Nurse did report that she Morena from [employer] that coronary arteries were clean. CT scan chest did show bullous emphysema on admission. I will continue DuoNeb every 4 hours with respiratory therapy as needed. She did get Solu-Medrol 40 twice daily IV. I will switch her to prednisone 40 daily for total of 5 days. Procalcitonin negative. Will stop Levaquin at this time. Bacterial antigens were also negative. Fluids: None indicated Electrolytes: Replete as needed Nutrition: N.p.o. for procedure and afterwards cardiac diet Activity: Bedrest for now DVT prophylaxis: on full dose Lovenox. Attestations Medical Necessity Statement*: DC in AM Time Spent in Patient Care: 16 - 35 minutes Coding Level of Care Code Acute Vocational Training Instructor for [facility] Fwd Diagnoses COPD exacerbation J44.1 NSTEMI (non-ST elevated myocardial infarction) I21.4
--- NOTE | 2021-01-13 10:02 | PC.NURSE ---
return from cardiac geophysical laboratory chief at 0955 via w/c.report received .no intervention performed.pt is awake and alert and oriented x 4.sr on monitor.right wrist with tr band on and inflated.right hand is warm to touch and with brisk capillary refill.no hematoma noted.palpable radial pulse noted distal to tr band.instructed in activity restrictions..and instructed to notify staff for any bleeding,pain,numbness..or for any concerns at all.pt verb understanding of instructions
--- NOTE | 2021-01-13 11:20 | PM.PN ---
Subjective Subjective: Interval history: Status post left heart cath showing normal coronaries with moderately depressed LV function around 40%. Presentation consistent with stress-induced cardiomyopathy Takotsubo syndrome Medications: Medication Review Details: Seen this morning at bedside. Case also reviewed with Dr. Crum who was also present. Patient has been having chest pressure since morning and has had a positive delta troponin. Exertion makes the pain worse and rest relieves it. She also received 1 nitro overnight. Patient will be going for angiogram this afternoon. She did have wheezing on exam and is a smoker 1 pack/day. Vitals/I&O/Wt Last Vital Signs Temp 97.5 F L 01/13/21 07:56 Pulse 89 01/13/21 08:10 Resp 18 01/13/21 08:10 BP 97/67 01/13/21 07:56 Pulse Ox 100 01/13/21 08:10 01/12/21 01/13/21 01/13/21 22:59 06:59 14:59 Intake Total 120 / 480 150 / 630 Balance 120 / 480 150 / 630 Weight last 48 hrs Weight 134 lb 14.4 oz Weight 132 lb 1.6 oz Weight 132 lb 1.6 oz Physical Exam Narrative: EXAM NARRATIVE: GENERAL: Patient is alert, awake and oriented x3. NECK: No jugular vein distension. HEENT: No cyanosis. No icterus. No pallor. HEART: Regular S1 and S2. No murmur, rub or gallop. LUNGS: Reduced breath sound bilaterally with wheezing and expiratory prolonged. ABDOMEN: Soft, nontender and nondistended. Positive bowel sounds. No guarding, rebound or tenderness. CENTRAL NERVOUS SYSTEM: Grossly nonfocal. EXTREMITIES: Lower extremities without edema bilaterally. Data : 01/13/21 03:49 01/13/21 03:49 Micro: Microbiology 01/12/21 15:00 Legionella Urinary Antigen - Final Urine,Voided Bacterial Antigens - Final A&P Assessment and plan (1) NSTEMI (non-ST elevated myocardial infarction): Patient underwent left heart cath showing normal coronaries with moderately depressed LV function ballooning of apex consistent with Takotsubo. Advised beta-james aspirin statin and Plavix for 1 year. If blood pressure tolerates add lisinopril 2.5 mg once a day. Status: Acute (2) COPD exacerbation: As per medicine Status: Acute (3) Acute maxillary sinusitis: Continue as per medicine Status: Acute Qualifiers: Recurrence: not specified as recurrent Qualified Code(s): J01.00 - Acute maxillary sinusitis, unspecified Attestations Medical Necessity Statement*: Patient require continuation hospitalization for above defined care. Coding Level of Care Code Established Pt Acute Regional Geodetic Advisor for Laura Bonilla Patient Type Established History Detailed Exam Detailed Medical Decision Making Moderate Complexity Diagnoses NSTEMI (non-ST elevated myocardial infarction) I21.4 COPD exacerbation J44.1 Acute maxillary sinusitis J01.00 Recurrence: not specified as recurrent
--- NOTE | 2021-01-13 12:43 | PM.TOC ---
Transition of Care Summary Hospital Course: Patient is a 65-year-old female with past medical history significant for smoking, COPD who presented with worsening shortness of breath and chest pain. She was admitted for non-ST elevation [place]. She was placed on full dose Lovenox.. When seen she did complain of chest pressure. Patient did get nitroglycerin overnight which did relieve the pressure/pain a little bit. Case was discussed with cardiology and it was decided to take patient for angiogram but due to her COPD exacerbation and her being unable to lay flat it was deferred till the next morning. Patient did go for angiogram today and it was normal as per nursing staff. Final report is pending. There is a question of Takotsubo cardiomyopathy at this point. Echo is pending. From COPD exacerbation standpoint patient has improved. She is getting duo nebs every 4 hours and did get Solu-Medrol 40 twice daily initially. She has been switched to prednisone 40 oral daily. Patient was also placed on Levaquin initially as an empiric measure. Her procalcitonin is normal and I am not suspecting pneumonia at this time. I have discontinued that. Possible discharge tomorrow. Pending Results: Pending labs and procedures: Pending at discharge Category Date Time Status DIRECTOR WORKERS COMPENSATION request for service Routin e Exams 01/13/21 07:39 Ordered Basic Metabolic P uma AM LABS Lab 01/14/21 04:00 Ordered Complete Blood Co unt w/Auto AM LABS Lab 01/14/21 04:00 Ordered Free T4 Free Thyr oxine AM LABS Lab 01/14/21 04:00 Ordered [facility] SARS-CoV-2 RNA Stat Lab 01/11/21 21:30 Received Sputum Culture an d Gram Stain Stat Lab 01/12/21 16:42 Uncollected CV. echo complete * [id number] Routine Ultrasound 01/13/21 01:42 Taken Provider Assuming Care: Next clinician assuming care: Rose Mary Lira
[2021-01-13 14:47] LABS: Quest SARS-CoV-2 RNA NOT DETECTED (NOT DETECTED)
[2021-01-13] MEDS: lidocaine 2% viscous 15 ML, aluminum-mag hydrox-simethicon 30 ML, sucralfate oral liq 1 GM PO (14:48)
--- NOTE | 2021-01-13 14:54 | PC.NURSE ---
pt c/o right epigastric pain..radiating to chest and right neck area.rates 3/.vss.pt states this pain is similar to pain that brought her to the e.r..states if she rubs the area a bit..it eases up.dr dominguez notified.she ordered a gi cocktail and ultrasound of gallbladder
--- NOTE | 2021-01-13 15:20 | PC.NURSE ---
pt states gi cocktail relieved the epigastric pain.
[2021-01-13] MEDS: ipratropium-albuterol 3 mL Neb INHALATION (16:13)
--- NOTE | 2021-01-13 18:31 | PC.NURSE ---
Shift Note right wrist tr band was slowly deflated and finally removed at 1630.no hematoma noted.site dressed with 2 x 2 gauze and secured with biocclusive drsg. Frequent safety and comfort rounds continue. Orders and/or nursing care completed as indicated. Patient monitored for response to intervention and treatment(s). Education provided includes[medications and post angiogram instructions]. Patient and/or compliance representative verb understanding of instructions. Will continue to monitor.
[2021-01-13] MEDS: alum-mag-hydroxide-sime 30 mL UDC PO (20:23)
[2021-01-13] MEDS: atorvastatin 40 mg Tablet PO (20:23)
[2021-01-14] VITALS (9 sets, daily range): BP systolic 92–105; BP diastolic 55–72; PULSE 75–89; RESP 16–26; TEMP 36.5–36.8; O2SAT 87–96
[2021-01-14] MEDS: levofloxacin-dextrose 5 % 750 MG/150 ML PREMIX 100 MG IV (00:59)
[2021-01-14 04:52] LABS: Basophils % 0.5 %; Eosinophils # 0.1 10^3/uL (0.0-0.8); Eosinophils % 1.3 %; Hematocrit 36.5 % (37.0-47.0); Hemoglobin 11.7 g/dL (11.5-15.3); Lymphocytes # 1.1 10^3/uL (0.8-4.8); Lymphocytes % 14.4 %; Mean Corpuscular HGB Conc 32.1 g/dL (30.0-36.0); Mean Corpuscular Hemoglobin 32.1 pg (28.0-34.0); Mean Corpuscular Volume 100.3 fl (81-99); Mean Platelet Volume 9.5 fL (7.4-10.4); Monocytes # 0.7 10^3/uL (0.2-0.9); Monocytes % 9.3 %; Neutrophils # 5.68 10^3/uL (1.8-7.7); Neutrophils % 74.1 %; Nucleated Red Blood Cells % 0 %; Platelet Count 211 10^3/cmm (130-400); Red Blood Count 3.64 10^6/uL (4.1-5.3); Red Cell Distribution Width 13.3 % (12.1-15.1); White Blood Count 7.7 10^3/uL (4.0-10.0)
[2021-01-14 05:24] LABS: Anion Gap 10.9 (5-19); Blood Urea Nitrogen 16 mg/dL (8-23); Calcium 8.7 mg/dL (8.5-10.5); Carbon Dioxide 33 mmol/L (22-29); Chloride 100 mmol/L (98-107); Free T4 Free Thyroxine 1.29 ng/dL (0.82-1.77); Glomerular Filtration Rate 123.1 mL/min (90-130); Glucose 82 mg/dL (65-115); Osmolality Calculated 290 mOsm/kg (285-295); Potassium 3.9 mmol/L (3.5-5.1); Sodium 140 mmol/L (136-145)
--- NOTE | 2021-01-14 06:00 | US_ITS ---
WS: [id number] ABDOMINAL ULTRASOUND LIMITED REASON FOR VISIT: epigastric pain TECHNIQUE: Grayscale and Doppler ultrasound examination of the abdomen. FINDINGS: Pancreas: No mass, ductal dilatation, or calcification. Abdominal aorta and IVC: Normal Liver: Liver measures 15.6 cm in length. Normal echotexture without focal lesion. Gallbladder: Gallbladder wall thickness measures 0.1 mm. No calculi. Common bile duct measures 5 mm, within normal limits. Right kidney: Right kidney measures 11.0 cm x 4.9 cm x 4.1 cm. No mass, calculus, or hydronephrosis. US/US gall bladder [id number] IMPRESSION: No significant abnormality identified.
--- NOTE | 2021-01-14 06:41 | PC.NURSE ---
Shift Note Frequent safety and comfort rounds continue. Orders and/or nursing care completed as indicated. Patient monitored for response to intervention and treatment(s). Education provided includes plan of care. Patient and/or cash posting representative verbalized understanding. Will continue to monitor.
[2021-01-14] MEDS: predniSONE 20 mg Tablet 40 MG PO (08:07)
[2021-01-14] MEDS: pantoprazole DR 40 mg Tablet PO (08:08)
[2021-01-14] MEDS: azithromycin 250 mg Tablet PO (08:08)
--- NOTE | 2021-01-14 10:20 | PM.PN ---
Subjective Subjective: Interval history: Denies any complaint. Appear to be stable Medications: Medication Review Details: Seen this morning at bedside. Case also reviewed with Dr. Crum who was also present. Patient has been having chest pressure since morning and has had a positive delta troponin. Exertion makes the pain worse and rest relieves it. She also received 1 nitro overnight. Patient will be going for angiogram this afternoon. She did have wheezing on exam and is a smoker 1 pack/day. Vitals/I&O/Wt Last Vital Signs Temp 97.7 F 01/14/21 04:35 Pulse 84 01/14/21 08:42 Resp 26 H 01/14/21 08:42 BP 105/65 01/14/21 08:42 Pulse Ox 95 01/14/21 08:42 01/13/21 01/14/21 01/14/21 22:59 06:59 14:59 Intake Total 1360 / 1360 150 / 1510 Balance 1360 / 1360 150 / 1510 Weight last 48 hrs Weight 130 lb 12.8 oz Weight 134 lb 14.4 oz Physical Exam Narrative: EXAM NARRATIVE: GENERAL: Patient is alert, awake and oriented x3. NECK: No jugular vein distension. HEENT: No cyanosis. No icterus. No pallor. HEART: Regular S1 and S2. No murmur, rub or gallop. LUNGS: Reduced breath sound bilaterally with wheezing and expiratory prolonged. ABDOMEN: Soft, nontender and nondistended. Positive bowel sounds. No guarding, rebound or tenderness. CENTRAL NERVOUS SYSTEM: Grossly nonfocal. EXTREMITIES: Lower extremities without edema bilaterally. Data : 01/14/21 04:07 01/14/21 04:07 A&P Assessment and plan (1) NSTEMI (non-ST elevated myocardial infarction): Denies any chest pressure continue current regimen. Continue to optimize medicine Status: Resolved (2) COPD exacerbation: As per medicine Status: Resolved (3) Acute maxillary sinusitis: Continue as per medicine Status: Resolved Qualifiers: Recurrence: not specified as recurrent Qualified Code(s): J01.00 - Acute maxillary sinusitis, unspecified Attestations Medical Necessity Statement*: Patient require continuation hospitalization for above defined care. Coding Level of Care Code Established Pt Acute Raised Printer for Laura Bonilla Patient Type Established History Detailed Exam Detailed Medical Decision Making Moderate Complexity Diagnoses NSTEMI (non-ST elevated myocardial infarction) I21.4 COPD exacerbation J44.1 Acute maxillary sinusitis J01.00 Recurrence: not specified as recurrent
[2021-01-14] MEDS: metoprolol succinate ER (24 HR) 25 mg Tablet 12.5 MG PO (11:01)
--- NOTE | 2021-01-14 11:29 | PM.DCS ---
Discharge Providers Date of Admission: 01/12/21 00:49 Date of Discharge: January 14, 2021 Attending Provider at Admission: Jh Phan Attending Provider at Discharge: Rose Mary Lira MD Diagnoses at Discharge Discharge Diagnosis (1) NSTEMI (non-ST elevated myocardial infarction): Status: Acute (2) COPD exacerbation: Status: Acute (3) Acute maxillary sinusitis: Status: Acute Qualifiers: Recurrence: not specified as recurrent Qualified Code(s): J01.00 - Acute maxillary sinusitis, unspecified Reason for Visit Reason for Visit: RESP DISTRESS, PAIN BETWEEN SHOULDERS Hospital Course Hospital Course Patient is a 65-year-old female with past medical history significant for smoking, COPD who presented with worsening shortness of breath and chest pain. She was admitted for non-ST elevation [place]. She was placed on full dose Lovenox.. Case was discussed with cardiology and it was decided to take patient for angiogram but due to her COPD exacerbation and her being unable to lay flat it was deferred till the next morning. Patient did go for angiogram next day which was unremarkable. There is a question of Takotsubo cardiomyopathy at this point. Echo is pending. From COPD exacerbation standpoint patient has improved. She will be discharged on medications for COPD such as rescue inhaler, Symbicort, Medrol pack and azithromycin. She will also get lisinopril, Toprol, aspirin and Plavix because of significant troponin leakage Follow-up with insurance administrative assistant Did qualify for 2 L home O2 Physical Exam Narrative: EXAM NARRATIVE: Patient was saturating well on 2 L nasal cannula No active wheezing S1, S2 sinus rhythm Awake alert oriented x3 Abdomen soft No focal deficit Discharge Data Data Completed and Pending: Completed Studies During Hospitalization Category Date Time Status CT angio chest PE protcl [id number] Urge nt Cat Scan 01/11/21 22:32 Completed XR chest 1V [place] ble [id number] Urgent Exams 01/11/21 21:20 Completed US gall bladder 7 [id number] Routine Ultrasound 01/14/21 06:00 Completed Pending at discharge Category Date Time Status PRECISION DEVICES INSPECTOR/TESTER request for service Routin e Exams 01/13/21 07:39 Taken Sputum Culture an d Gram Stain Stat Lab 01/12/21 16:42 Uncollected CV. echo complete * [id number] Routine Ultrasound 01/13/21 01:42 Taken Labs from last 24 hours 10/08/0101/14/21 01/11/21 04:07 04:07 21:30 WBC 7.7 RBC 3.64 L Hgb 11.7 Hct 36.5 L MCV 100.3 H MCH 32.1 MCHC 32.1 RDW 13.3 Plt Count 211 MPV 9.5 Neut % (Auto) 74.1 Lymph % (Auto) 14.4 Coos % (Auto) 9.3 Eos % (Auto) 1.3 Baso % (Auto) 0.5 Neut # (Auto) 5.68 Lymph # (Auto) 1.1 [place]os # (Auto) 0.7 Eos # (Auto) 0.1 Baso # (Auto) 0.0 Nucleated RBC % (a uto) 0 Nucleated RBCs # 0.0 Sodium 140 Potassium 3.9 Chloride 100 Carbon Dioxide 33 H Anion Gap 10.9 BUN 16 Creatinine 0.5 GFR Calculation 123.1 Glucose 82 Calculated Osmolal ity 290 Calcium 8.7 Free T4 1.29 SARS-CoV-2 RNA (RT -PCR) Not detected Vitals: Last Vital Signs Temp 97.7 F 01/14/21 04:35 Pulse 89 01/14/21 09:10 Resp 18 01/14/21 09:10 BP 105/65 01/14/21 08:42 Pulse Ox 92 01/14/21 09:10 Discharge Plan Discharge Patient Disposition: Home Condition: Stable Prescriptions: New atorvastatin 40 mg Tablet 40 mg PO BEDTIME 30 Days Qty: 30 RF: 3 clopidogrel 75 mg tablet 75 mg PO DAILY 30 Days Qty: 90 RF: 4 metoprolol succinate 25 mg tablet extended release 24 hr 12.5 mg PO DAILY 30 Days Qty: 30 RF: 4 lisinopril 2.5 mg tablet 2.5 mg PO DAILY 30 Days Qty: 30 RF: 4 Aspirin Low Dose 81 mg tablet,delayed release (DR/EC) 81 mg PO DAILY Qty: 30 RF: 6 metoprolol succinate 25 mg Tablet Extended Release 24 Hr 12.5 mg PO DAILY 30 Days Qty: 30 RF: 0 lisinopril 2.5 mg Tablet 2.5 mg PO DAILY 30 Days Qty: 30 RF: 0 Plavix 75 mg tablet 75 mg PO DAILY 30 Days Qty: 30 RF: 3 Medrol (Yordan) 4 mg tablets,dose pack See Rx Instructions .ROUTE .COMPLEX Qty: 21 RF: 0 azithromycin 500 mg tablet 500 mg PO DAILY 3 Days Qty: 3 RF: 0 ProAir HFA 90 mcg/actuation HFA aerosol inhaler 2 inh inhalation Q8H PRN (Reason: shortness of breath or wheezing) Qty: 6.7 RF: 2 Symbicort 80-4.5 mcg/actuation HFA aerosol inhaler 2 inh inhalation BID Qty: 10.2 RF: 2 Discharge Orders: Discharge Order (Routine); Ordered 01/14/21 Ordered By: Rose Mary Lira Other Ambulatory Orders: CV. echo complete* [id number] (Routine) Timeframe: 3 Months Facility: [facility] - Location: Radiology Ordered By: Rose Mary Lira DME: Oxygen (Order) Location: None Selected Ordered By: Rose Mary Lira Referrals: Rose Mary Pan MD [Physician] - (You will see Dr. Pan on Thursday, March 11, at 3:45.) Lucia Myers FNP [Nurse Practitioner] - 6 Weeks (You have a follow up with Lucia Myers on Thursday, January 21, at 8:30 am. ) Discharge Diet: Cardiac and Low Salt Discharge Activity: Increase activity as tolerated Patient Instructions: Metoprolol (By mouth), Lisinopril (By mouth), Aspirin (By mouth), Atorvastatin (By mouth), Clopidogrel (By mouth), Opioid Safety Activity Restrictions/Additional Instructions: Follow-up with Ms. Lucia Myers cardiac with Dr. Pan in 6 to 8 weeks. You will be scheduled for echocardiogram in 3 months as an outpatient. If you have any question regarding medicine please call Dr. Pan's office. Discharge Attestations Time Spent in Discharge Care*: less than 30 min Quality Metrics Clinical Quality Measures During this hospital stay, did patient experience: None Coding Level of Care Code Acute [facility] note Diagnoses NSTEMI (non-ST elevated myocardial infarction) I21.4 COPD exacerbation J44.1 Acute maxillary sinusitis J01.00 Recurrence: not specified as recurrent
--- NOTE | 2021-01-14 13:46 | PC.NURSE ---
pt education provided. No questions or concerns, oxygen was delivered by HOME. Brother accompanied patient home.
--- NOTE | 2021-01-14 14:19 | PC.RESP ---
sent smoking cessation information
--- NOTE | 2021-01-15 13:34 | PC.SOCIAL ---
discharge follow up call made, spoke with sister. she reports patient is better, continues to cough. patient is able to hear nurse, she denies chest pain or sob, reports she is better. mediations were picked up from the pharmacy, patient is taking medications as prescribed. patient didn't get atorvastatin, nurse will call into the pharmacy. patient is aware of follow up appointments. patient and sister both deny questions or concerns.
--- NOTE | 2021-01-16 12:21 | PC.SOCIAL ---
policy writer called and gave patient her date and time for echo 04-16-21 @ 5638 and to check in at the main entrance of [facility].
== END 2021-01-14 13:47 | disposition home or self-care (01) | DRG 281 ==
LOC: ER 22:35 → CSU 01-12 01:08
PROVIDERS: Internal Medicine; Internal Medicine Cardiovascular Disease; Admitting Provider Hospitalist; Emergency Provider Emergency Medicine; Visit Provider Internal Medicine
PROC: 4A023N7 Measurement of Cardiac Sampling and Pressure, Left Heart, Percutaneous Approach (ICD-10-PCS; principal; 2021-01-13 08:00)
DX: I21.4 Non-ST elevation (NSTEMI) myocardial infarction (principal); I51.81 Takotsubo syndrome; J01.00 Acute maxillary sinusitis, unspecified; F17.210 Nicotine dependence, cigarettes, uncomplicated; J43.9 Emphysema, unspecified
CPT/HCPCS: 36415; 71045; 71275; 76705; 80048; 80053; 80061; 83036; 83605; 83735; 83880; 84145; 84439; 84443; 84484; 85025; 86140; 86403; 87426; 87449; 87635; 90471; 90732; 93005; 93306; 93452; 94640; 96372; 99285; C1769; C1887; C1894; J1644; J1650; J1956; J2250; J2405; J2920; J3010; J3490; J7030; J7512; Q0144; Q0163; Q9967

== ENCOUNTER → 2021-01-21 16:05 | Outpatient (BNVA) | payer MEDICARE, MEDICAID, SELFPAY | PROVIDERS: Visit Provider Nurse Practitioner Family | DX: Z09 Encounter for follow-up examination after completed treatment for conditions other than malignant neoplasm (principal); J44.9 Chronic obstructive pulmonary disease, unspecified; I51.81 Takotsubo syndrome | CPT/HCPCS: 80048 ==

== ENCOUNTER 2021-04-16 11:48 | Outpatient (CLI) | payer MEDICARE, MEDICAID, SELFPAY ==
--- NOTE | 2021-04-16 12:45 | USCV_ITS ---
Sheba Lira Age: 65 Gender: F : 1955 Exam Date: 04/16/2021 12:07 Ordering Phys: Rose Mary Lira MD Technologist: April Abdalla Exam Location: [facility] [place] Indication: NSTEMI BP: 118 / 58 HR: 50 Rhythm: Sinus Technical Quality: Poor secondary to COPD MEASUREMENTS (Male / Female) Normal Values 2D ECHO LV Diastolic Diameter PLAX 3.6 cm 4.2 - 5.9 / 3.9 - 5.3 cm LV Systolic Diameter PLAX 2.2 cm IVS Diastolic Thickness 1.0 cm 0.6 - 1.0 / 0.6 - 0.9 cm IVS Systolic Thickness 1.4 cm LVPW Diastolic Thickness 1.2 cm 0.6 - 1.0 / 0.6 - 0.9 cm LVPW Systolic Thickness 1.4 cm LVOT Diameter 2.0 cm LV Ejection Fraction 2D Teich 69.9 % LA Diameter 1.6 cm Aorta at Sinotubular Diameter 2.2 cm M-MODE Aortic Annulus Diameter 2.6 cm LA Ao Ratio MM 0.6 MV E Point Septal Separation 0.3 cm DOPPLER Right Atrial Pressure 3.0 mmHg PV Peak Velocity 75.0 cm/s RV Acceleration Time 0.1 s RV Ejection Time 0.4 s RV AcT/ET 0.2 FINDINGS Left Ventricle Normal left ventricular cavity size. Normal left ventricular systolic function. No regional wall motion abnormalities. Left ventricular ejection fraction is estimated at 60 %. Right Ventricle The right ventricle is normal in size and function. Right Atrium The right atrium is normal in size. Left Atrium The left atrium is normal in size. Mitral Valve Structurally normal mitral valve without significant stenosis or prolapse. There is no mitral regurgitation. Aortic Valve Moderate aortic valve calcification. No aortic valve stenosis. No aortic valve regurgitation. Tricuspid Valve Thickened tricuspid valve. Moderate tricuspid valve regurgitation. Pulmonic Valve Structurally normal pulmonic valve without significant stenosis. There is no pulmonic regurgitation. Pericardium Normal pericardium without effusion. Aorta Normal ascending aorta dimension. CONCLUSIONS 1-Normal left ventricular cavity size. Normal left ventricular systolic function. No regional wall motion abnormalities. Left ventricular ejection fraction is estimated at 60 %. 2-Thickened tricuspid valve. Moderate tricuspid valve regurgitation. 3-Moderate aortic valve calcification. No aortic valve stenosis. No aortic valve regurgitation. 4-There is no pericardial effusion. 5-Right atrial pressure is around 5 mm of mercury. 6-When compared to the prior echocardiogram dated January there is improvement in left ventricle function from moderately depressed 40% to normal 60% now Rose Mary Pan MD (Electronically Signed) Final Date: 16 April 2021 18:34 S
== END 2021-04-16 11:49 | disposition home or self-care (01) ==
LOC: RAD 11:50
PROVIDERS: PCP Family Medicine; Visit Provider Internal Medicine
DX: I21.4 Non-ST elevation (NSTEMI) myocardial infarction (principal); I08.2 Rheumatic disorders of both aortic and tricuspid valves
CPT/HCPCS: 93306

== ENCOUNTER → 2021-06-27 15:19 | Outpatient (BNVA) | payer MEDICARE, MEDICAID, SELFPAY | PROVIDERS: PCP Family Medicine; Visit Provider Nurse Practitioner Family | DX: M25.572 Pain in left ankle and joints of left foot (principal) | CPT/HCPCS: 73610; 73630 ==

== ENCOUNTER → 2021-08-01 00:01 | Outpatient (BNVA) | payer MEDICARE, MEDICAID, SELFPAY | PROVIDERS: PCP Family Medicine; Visit Provider Internal Medicine Critical Care Medicine | DX: J44.9 Chronic obstructive pulmonary disease, unspecified (principal) | CPT/HCPCS: 87635 ==

== ENCOUNTER → 2021-08-02 10:26 | Outpatient (BNVA) | payer MEDICARE, MEDICAID, SELFPAY | PROVIDERS: PCP Family Medicine; Visit Provider Internal Medicine Critical Care Medicine | DX: R06.02 Shortness of breath (principal); J44.9 Chronic obstructive pulmonary disease, unspecified; F17.210 Nicotine dependence, cigarettes, uncomplicated; I51.81 Takotsubo syndrome | CPT/HCPCS: 99214 ==

== ENCOUNTER 2021-08-08 11:02 | Outpatient (CLI) | payer MEDICARE, MEDICAID, SELFPAY ==
--- NOTE | 2021-08-08 13:02 | PFTS_ITS ---
Date of Study:08/08/21 Date of Dictation: 08/08/2021 MECHANICS: Postbronchodilator forced vital capacity (FVC) is normal. Postbronchodilator FEV1 is severely reduced 43% FEV1/FVC is reduced There is significant response to bronchodilators. FLOW VOLUME LOOP: Sloping of expiratory limb suggestive of severe airway obstruction LUNG VOLUMES: Total lung capacity (TLC) is increased. Residual volume (RV) is significantly increased. DIFFUSING CAPACITY FOR CARBON MONOXIDE: Moderately reduced . INTERPRETATION: The spirometry consistent with severe obstructive ventilatory disease.? There is significant response to bronchodilators.? Lung volumes suggestive of severe air trapping and hyperinflation There is moderate gas transfer defect. Constellation of findings suggestive of obstructive ventilatory disease is likely emphysema. Please correlate clinically. MTDD
== END 2021-08-08 11:03 | disposition home or self-care (01) ==
LOC: RT 11:04
PROVIDERS: PCP Family Medicine; Visit Provider Internal Medicine Critical Care Medicine
DX: J44.9 Chronic obstructive pulmonary disease, unspecified (principal)
CPT/HCPCS: 94060; 94726; 94729; J7611

== ENCOUNTER → 2021-11-01 11:15 | Outpatient (BNVA) | payer MEDICARE, MEDICAID, SELFPAY | PROVIDERS: PCP Family Medicine; Visit Provider Internal Medicine | DX: I95.0 Idiopathic hypotension (principal); I51.81 Takotsubo syndrome | CPT/HCPCS: 99214 ==

== ENCOUNTER 2022-02-16 17:12 | Emergency (ER) | payer MEDICARE, MEDICAID, SELFPAY ==
[2022-02-16] VITALS (7 sets, daily range): BP systolic 116–130; BP diastolic 62–77; PULSE 77–98; RESP 15–21; O2SAT 95–100
--- NOTE | 2022-02-16 17:26 | ECG_ITS ---
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 Measurements Intervals [place] Rate: 79 P: 50 IA: 131 QRS: 82 QRSD: 106 T: 73 QT: 379 QTc: 435 Interpretive Statements SINUS RHYTHM WITH OCCASIONAL SUPRAVENTRICULAR PREMATURE COMPLEXES INCOMPLETE RIGHT BUNDLE BRANCH BLOCK Compared to ECG 01/12/2021 06:23:06 Incomplete right bundle-branch block now present Myocardial infarct finding no longer present Electronically Signed On 02-18-2022 12:14:38 CLIENT TECHNOLOGIES ANALYST by Sapphire Harrison M.D. [id number]
--- NOTE | 2022-02-16 17:52 | CTR_ITS ---
PROCEDURE INFORMATION: Exam: CT Abdomen And Pelvis With Contrast Exam date and time: 02/16/2022 8:49 PM Age: 66 years old Clinical indication: Abdominal pain; Localized; Right; Prior surgery; Surgery date: 6+ months; Surgery type: Partial hysterectomy; Additional info: Right sided abdominal pain TECHNIQUE: Imaging protocol: Computed tomography of the abdomen and pelvis with contrast. Radiation optimization: All CT scans at this facility use at least one of these dose optimization techniques: automated exposure control; mA and/or kV adjustment per patient size (includes targeted exams where dose is matched to clinical indication); or iterative reconstruction. Contrast material: OMNI 350; Contrast volume: 100 ml; Contrast route: INTRAVENOUS (IV); COMPARISON: US gall bladder [id number] 01/14/2021 7:36 AM RADIATION DOSE METRICS: Total DLP (mGy-cm): 369.9 FINDINGS: Lungs: Lung bases are clear. Liver: There is geographic focal hypoattenuation of the liver parenchyma along the distal portion of the fissure for the falciform ligament consistent with focal fat infiltration. Gallbladder and bile ducts: The gallbladder is normal. There is no biliary dilation. Pancreas: The pancreas is unremarkable. Spleen: The spleen is unremarkable. Adrenal glands: The adrenal glands are unremarkable. Kidneys and ureters: The kidneys are unremarkable. No hydronephrosis or stones. No ureteral dilation. Stomach and bowel: The stomach is decompressed, preventing meaningful evaluation of wall thickness. The small bowel is nondilated. The colon is unremarkable. Appendix: The appendix is normal. Intraperitoneal space: There is no free air or significant intraperitoneal free fluid. Vasculature: There is moderate aortic atherosclerotic disease. The portal, splenic and superior mesenteric veins are patent. Lymph nodes: There is no lymphadenopathy in the retroperitoneum, mesentery, pelvis or inguinal regions. Urinary bladder: The urinary bladder is unremarkable. Reproductive: The remaining portion of the uterus is unremarkable. There is no adnexal mass or large cyst. Bones/joints: There is mild degenerative disease in the lumbar spine. The pelvis and hips are unremarkable. Soft tissues: The abdominal wall is intact. CT/CT abdomen pelvis w con* [id number] IMPRESSION: No acute findings.
--- NOTE | 2022-02-16 17:53 | ED_ITS ---
HPI - Abdominal Pain General: Chief Complaint: Abdominal Pain Stated Complaint: CHEST PAIN; SOB Time Seen by Provider: 02/16/22 17:38 History of Present Illness: 58-year-old female who comes in with onset of right upper quadrant and right upper quadrant abdominal pain. The pain started earlier this morning. She has had associated nausea but no vomiting. Bowel movements have been normal. No dysuria, hematuria increased urinary frequency. No fever. She states the pain is worse with walking and standing upright. She has had a previous but no other abdominal surgeries. Associated Symptoms: Reports nausea; Denies chills, constipation, diarrhea, dysuria, fever(s), hematuria and vomiting Review of Systems Const: Denies: fever(s), chills or change in appetite Eyes: Denies: yellow eyes Card: Denies: chest pain, dyspnea on exertion or orthopnea Resp: Reports: dyspnea, non-productive cough and wheezing GI: Reports: abdominal pain and nausea; Denies: vomiting, diarrhea or constipation : Reports: flank pain; Denies: dysuria, urinary frequency, urinary urgency or hematuria Musc: Denies: extremity pain or extremity swelling Skin/Breast: Denies: rash Bunny/Lymph: Denies: easy bruising PFSH ED PFSH: Medical History COPD (chronic obstructive pulmonary disease) Osteoarthritis of left knee Sciatic pain Takotsubo cardiomyopathy Surgical History History of History of partial hysterectomy Social History (Updated 01/14/22 @ 11:00 by Annie Jamil LPN, RT) Smoking and tobacco status: former smoker (quit 2 months ago) Quit status (tobacco): has quit using tobacco Year quit tobacco: quit 2 months ago Second hand smoke exposure: No Alcohol intake: never Marital status: / Number of children: 2 Number of grandchildren: 8 Current occupational status: retired Physical Exam Const: COMMON NORMALS: no acute distress, average body habitus, patient oriented x3, alert and well nourished HENMT: COMMON NORMALS: normocephalic, atraumatic and Normal external nose present HEAD & SCALP: normal to inspection, normocephalic and atraumatic NOSE: Normal external nose present MOUTH: Normal oral and palatal mucosa present Eye: COMMON NORMALS: Equal, round and reactive pupils present, EOMs intact bilaterally, conjunctivae normal and no scleral icterus CONJUNCTIVA: Yes conjunctivae normal PUPIL: Yes Equal, round and reactive pupils present Neck/C-Spine: COMMON NORMALS: full ROM and supple Resp: COMMON NORMALS: normal respiratory effort and No use of accessory mus cles; negative for clear to auscultation bilaterally AUSCULTATION: not clear to auscultation bilaterally and wheezes (Bilateral expiratory wheezes) Cardio: COMMON NORMALS: regular rate and regular rhythm RATE: regular rate RHYTHM: regular rhythm GI: COMMON NORMALS: Normal to inspection, nondistended, normoactive bowel sounds present and Soft to palpation; negative for non-tender (Diffuse tenderness, most tender in the right upper right lower quadrant. N) PALPATION: Yes Soft to palpation : OTHER: Bilateral CVA tenderness Extremity: OTHER: No deformity, no edema. Neuro: COMMON NORMALS: patient oriented x3 SENSORIUM/ORIENTATION: Yes alert Skin: COMMON NORMALS: no rashes or lesions noted GENERAL SKIN EXAM: no rashes or lesions noted Course ED course: Patient had an IV placed. She has been given IV Solu-Medrol. Laboratory studies have been obtained. She does have a urinary tract infection but otherwise her labs are fairly unremarkable. She does have mild hyponatrem ia. her chest x-ray shows hyperinflation, changes consistent with COPD as well as right upper lobe scarring versus infiltrate which is unchanged from prior. CT of her abdomen and pelvis has been obtained and is unremarkable. Patient's been given IV Rocephin for her urinary tract infection with 40-55 white blood cells, 4+ bacteria. Urine is contaminated with epithelial cells so culture has been sent. We will treat with Keflex. After IV Solu-Medrol and 2 DuoNeb treatments, the patient's breathing is much improved. Do not feel she needs antibiotics for pneumonia. We will treat her with prednisone taper for her COPD exacerbation. Have given her DuoNeb nebulizer solution to use 4 times daily and her nebulizer. I recommended she also take Flonase no spray as well as Mucinex to help with her's cough and sputum production. Return precautions have been discussed. Vital Signs: Vital signs: Vital Signs Pulse Rate 98 02/16/22 21:00 Respiratory Rate 21 H 02/16/22 21:00 Blood Pressure 116/62 02/16/22 21:00 Pulse Oximetry 98 02/16/22 21:00 Oxygen Delivery Me thod 02/16/22 20:25 Oxygen Flow Rate 4 02/16/22 20:25 MDM - Abdominal Pain Medical Decision Making Patient presents with right upper right lower quadrant abdominal pain. Abdomen is soft. She has a negative Terry sign. Diffuse tenderness on abdominal examination. Differential includes diverticulitis colitis, biliary colic, pancreatitis, constipation, urinary tract infection, kidney stone. We will place an IV and obtain labs. Will obtain a CT with contrast. Patient's pain is under control at this time. She was given pain medication per EMS. Lab Data : 02/16/22 17:25 02/16/22 17:25 Labs/Radiology: Radiology Impressions Abdomen/Pelvis CT 02/16/22 17:52 IMPRESSION: No acute findings. Chest X-Ray 02/16/22 21:37 IMPRESSION: No acute findings. Laboratory Results WBC 7.0 10^3/uL (4.0-10.0) 02/16/22 17:25 RBC 3.71 10^6/uL (4.1-5.3) L 02/16/22 17:25 Hgb 11.9 g/dL (11.5-15.3) 02/16/22 17:25 Hct 36.5 % (37.0-47.0) L 02/16/22 17:25 MCV 98.4 fl (81-99) 02/16/22 17:25 MCH 32.1 pg (28.0-34.0) 02/16/22 17:25 MCHC 32.6 g/dL (30.0-36.0) 02/16/22 17:25 RDW 12.4 % (12.1-15.1) 02/16/22 17:25 Plt Count 244 10^3/cmm (130-400) 02/16/22 17:25 MPV 10.3 fL (7.4-10.4) 02/16/22 17:25 Neut % (Auto) 74.2 % 02/16/22 17:25 Lymph % (Auto) 13.7 % 02/16/22 17:25 [place] % (Auto) 7.4 % 02/16/22 17:25 Eos % (Auto) 3.7 % 02/16/22 17:25 Baso % (Auto) 0.7 % 02/16/22 17:25 Neut # (Auto) 5.18 10^3/uL (1.8-7.7) 02/16/22 17:25 Lymph # (Auto) 1.0 10^3/uL (0.8-4.8) 02/16/22 17:25 [place] # (Auto) 0.5 10^3/uL (0.2-0.9) 02/16/22 17:25 Eos # (Auto) 0.3 10^3/uL (0.0-0.8) 02/16/22 17:25 Baso # (Auto) 0.1 10^3/uL (0.0-0.1) 02/16/22 17:25 Nucleated RBC % (auto) 0 % 02/16/22 17:25 Nucleated RBCs # 0.0 /100WBC 02/16/22 17:25 Sodium 131 mmol/L (136-145) L 02/16/22 17:25 Potassium 4.0 mmol/L (3.5-5.1) 02/16/22 17:25 Chloride 94 mmol/L (98-107) L 02/16/22 17:25 Carbon Dioxide 26 mmol/L (22-29) 02/16/22 17:25 Anion Gap 15.0 (5-19) 02/16/22 17:25 BUN 7 mg/dL (8-23) L 02/16/22 17:25 Creatinine 0.4 mg/dL (0.5-0.9) L 02/16/22 17:25 GFR Calculation 158.7 mL/min (90-130) H 02/16/22 17:25 Glucose 97 mg/dL (65-115) 02/16/22 17:25 Calculated Osmolality 270 mOsm/kg (285-295) L 02/16/22 17:25 Calcium 8.9 mg/dL (8.5-10.5) 02/16/22 17:25 Total Bilirubin 0.2 mg/dL (0.15-1.2) 02/16/22 17:25 AST 24 U/L (0-32) 02/16/22 17:25 ALT 12 U/L (0-33) 02/16/22 17:25 Alkaline Phosphatase 87 U/L (35-105) 02/16/22 17:25 Total Protein 6.9 g/dL (6.6-8.7) 02/16/22 17:25 Albumin 4.1 g/dL (3.5-5.2) 02/16/22 17:25 Globulin 2.8 g/dL (1.3-4.6) 02/16/22 17:25 Lipase 16 U/L (13-60) 02/16/22 17:25 Urine Color Yellow (Yellow) 02/16/22 19:35 Urine Appearance Sl hazy (CLEAR) A 02/16/22 19:35 Urine pH 5 (5-7) 02/16/22 19:35 Ur Specific [place] 1.020 (1.005-1.030) 02/16/22 19:35 Urine Protein Neg (Negative) 02/16/22 19:35 Urine Glucose (UA) Norm (Normal) 02/16/22 19:35 Urine Ketones 2+ (Negative) H 02/16/22 19:35 Urine Blood Neg (Negative) 02/16/22 19:35 Urine Nitrate Positive (Negative) H 02/16/22 19:35 Urine Bilirubin Neg (Negative) 02/16/22 19:35 Urine Urobilinogen Norm mg/dL (Negative) 02/16/22 19:35 Ur Leukocyte Esterase 1+ (Negative) H 02/16/22 19:35 Urine RBC None /hpf (0-2) 02/16/22 19:35 Urine WBC 40-55 /hpf (0-5) H 02/16/22 19:35 Ur Squamous Epith Cells 15-25 /hpf (0-5) H 02/16/22 19:35 Amorphous Sediment Not Reportable 02/16/22 19:35 Urine Bacteria 4+ /hpf (NONE) H 02/16/22 19:35 Imaging Data CXR: My impression: hyperinflation; flattened diaphragms; ? mass vs scarring in right upper lobe - unchanged from previous Discharge Plan Discharge Patient Disposition: Home Clinical Impression: Acute exacerbation of chronic obstructive pulmonary disease, Urinary tract infection Condition: Stable Prescriptions: New ipratropium-albuterol 0.5 mg-3 mg(2.5 mg base)/3 mL solution for nebulization 3 ml inhalation Q6H PRN (Reason: wheezing) Qty: 180 0RF cephalexin 500 mg tablet 500 mg PO Q8H 10 Days Qty: 30 0RF prednisone 10 mg tablets,dose pack See Rx Instructions .ROUTE .COMPLEX Qty: 48 0RF Rx Instructions: prednisone 5 mg: take 8 tablets (40 mg) for 2 days; 7 tablets (35 mg) for 2 days; then 6 tablets for 2 days; then decrease by 1 tablet every day until fi nished No Action budesonide-formoterol [Symbicort] 160-4.5 mcg/actuation HFA aerosol inhaler 2 puff inhalation BID Qty: 10.2 3RF azithromycin [Zithromax Z-Yordan] 250 mg tablet See Rx Instructions PO .COMPLEX Qty: 6 0RF Rx Instructions: take 500 mg today (day 1), then 250 mg for 4 days (days 2-5) PO (DME) nebulizer compressor with kit See Rx Instructions .Route .MEDSUPPLY Qty: 1 0RF Rx Instructions: As directed albuterol sulfate 2.5 mg /3 mL (0.083 %) solution for nebulization 2.5 mg inhalation Q6H PRN (Reason: shortness of breath or wheezing) Qty: 360 5RF (DME) nebulizer accessories Kit See Rx Instructions .Route Qty: 1 0RF Rx Instructions: nebulizer kit/accessories/tubing albuterol sulfate 90 mcg/actuation HFA aerosol inhaler See Rx Instructions .ROUTE .COMPLEX Qty: 8.5 0RF Dose Instruction: inhale TWO puffs BY MOUTH EVERY 8 HOURS NEEDED FOR SHORTNESS OF BREATH OR wheezing Rx Instructions: inhale TWO puffs BY MOUTH EVERY 8 HOURS NEEDED FOR SHORTNESS OF BREATH OR wheezing Discharge Orders: Discharge ED (Routine); Ordered 02/16/22 Ordered By: Alejandra Meredith Referrals: Jessi Prabhakar MD [Primary Care Provider] - Discharge Diet: Advance as tolerated Discharge Activity: Increase activity as tolerated Patient Instructions: Urinary Tract Infection in Women (ED), COPD (Chronic Obstructive Pulmonary Disease) (DC), Opioid Safety, Pain Management Activity Restrictions/Additional Instructions: Take the Keflex 3 times daily until gone. Taper the prednisone as prescribed. Continue your regular inhalers. Use the DuoNeb nebulizer solution in your nebulizer 4 times daily as needed. Use Flonase no spray twice daily. Take Mucinex twice daily. Take Zyrtec daily. Return if your symptoms are worsening. Follow-up this week with your primary care doctor. Coding Level of Care Code ED Unix Engineer for Laura Fwd Exam Comprehensive
[2022-02-16 18:09] LABS: Basophils # 0.1 10^3/uL (0.0-0.1); Basophils % 0.7 %; Eosinophils # 0.3 10^3/uL (0.0-0.8); Eosinophils % 3.7 %; Hematocrit 36.5 % (37.0-47.0); Hemoglobin 11.9 g/dL (11.5-15.3); Lymphocytes % 13.7 %; Mean Corpuscular HGB Conc 32.6 g/dL (30.0-36.0); Mean Corpuscular Hemoglobin 32.1 pg (28.0-34.0); Mean Corpuscular Volume 98.4 fl (81-99); Mean Platelet Volume 10.3 fL (7.4-10.4); Monocytes # 0.5 10^3/uL (0.2-0.9); Monocytes % 7.4 %; Neutrophils # 5.18 10^3/uL (1.8-7.7); Neutrophils % 74.2 %; Nucleated Red Blood Cells % 0 %; Platelet Count 244 10^3/cmm (130-400); Red Blood Count 3.71 10^6/uL (4.1-5.3); Red Cell Distribution Width 12.4 % (12.1-15.1)
[2022-02-16 18:24] LABS: Alanine Aminotransferase 12 U/L (0-33); Albumin Level 4.1 g/dL (3.5-5.2); Alkaline Phosphatase 87 U/L (35-105); Blood Urea Nitrogen 7 mg/dL (8-23); Calcium 8.9 mg/dL (8.5-10.5); Carbon Dioxide 26 mmol/L (22-29); Chloride 94 mmol/L (98-107); Globulin 2.8 g/dL (1.3-4.6); Glomerular Filtration Rate 158.7 mL/min (90-130); Glucose 97 mg/dL (65-115); Lipase 16 U/L (13-60); Osmolality Calculated 270 mOsm/kg (285-295); Sodium 131 mmol/L (136-145); Total Bilirubin 0.2 mg/dL (0.15-1.2); Total Protein 6.9 g/dL (6.6-8.7)
[2022-02-16 19:01] LABS: Aspartate Amino Transferase 24 U/L (0-32)
[2022-02-16] MEDS: iohexol 350 mg/mL 500 mL Btl (per mL) IV (19:46)
[2022-02-16] MEDS: ipratropium-albuterol 3 mL Neb INHALATION (20:25)
[2022-02-16 20:48] LABS: Glucose Urine UA Norm (Normal); Protein Urine Neg (Negative); Urine Appearance SL Hazy (CLEAR); Urine Color Yellow (Yellow); pH Urine 5 (5-7)
[2022-02-16 20:49] LABS: Add Urine Microscopic? YES; Bilirubin Urine Neg (Negative); Blood Urine Neg (Negative); Ketones Urine 2+ (Negative); Leukocyte Esterase Urine 1+ (Negative); Nitrate Urine Positive (Negative); Urobilinogen Urine Norm (Negative)
[2022-02-16 20:51] LABS: Add Urine Culture? No; Bacteria Urine 4+ /hpf; Squamous Epithelial Cell Urine 15-25 /hpf (0-5); WBC Urine 40-55 /hpf (0-5)
[2022-02-16] MEDS: cefTRIAXone 2,000 MG in sodium chloride 0.9% (plus) 50 ML 100 MG IV (21:32)
--- NOTE | 2022-02-16 21:37 | XRR_ITS ---
PROCEDURE INFORMATION: Exam: XR Chest Exam date and time: 02/16/2022 10:51 PM Age: 66 years old Clinical indication: Cough TECHNIQUE: Imaging protocol: Radiologic exam of the chest. Views: 1 view. COMPARISON: CR XR chest 1V portable [id number] 01/11/2021 9:29 PM FINDINGS: Lungs: There is mild bilateral apical subpleural scarring. There is no consolidation. There is architectural distortion in the right upper lobe which is stable. Pleural spaces: Unremarkable. No pleural effusion. No pneumothorax. Heart/Mediastinum: Cardiomediastinal contours are unremarkable. Bones/joints: Bones are unremarkable. XR/XR chest 1V portable [id number] IMPRESSION: No acute findings.
--- NOTE | 2022-02-17 10:35 | PC.NURSE ---
PT DID NOT RECEIVE HER PAPER PRESCRIPTIONS IN HER DISCHARGE PACKET PER PT AND HER FAMILY. [facility] in [facility], [place] on phone - verbal prescriptions given over the phone to pharmacist at [facility] Patient and family are aware that they are called in.
== END 2022-02-16 22:35 | disposition home or self-care (01) ==
PROVIDERS: Emergency Provider Emergency Medicine; PCP Family Medicine
DX: N39.0 Urinary tract infection, site not specified (principal); E87.1 Hypo-osmolality and hyponatremia; J44.9 Chronic obstructive pulmonary disease, unspecified; R10.31 Right lower quadrant pain
CPT/HCPCS: 71045; 74177; 80053; 81001; 83690; 85025; 93005; 94640; 96365; 96375; 99285; J0696; J2930; Q9967

== ENCOUNTER 2022-02-18 22:53 | Observation (INO) | payer MEDICARE, MEDICAID, SELFPAY ==
[2022-02-18 22:56] VITALS: BP 126/89; PULSE 93; RESP 22; TEMP 36.8; O2SAT 99; BMI 24.5
--- NOTE | 2022-02-18 22:59 | ECG_ITS ---
[facility] Test Date: 2022-02-18 Pat Name: Sheba Lira Department: Room: Gender: Female Header Operator: : 1955 Requested By: Karime Jaimes Order Number: [id number] Latricia MD: Sapphire Harrison M.D. Measurements Intervals [place] Rate: 86 P: HI: QRS: 77 QRSD: 106 T: 74 QT: 343 QTc: 410 Interpretive Statements ATRIAL FIBRILLATION POSSIBLE RIGHT VENTRICULAR CONDUCTION DELAY [RSR (QR) IN V1/V2] ABNORMAL RHYTHM ECG Compared to ECG 02/16/2022 17:26:21 Sinus rhythm no longer present Incomplete right bundle-branch block no longer present Electronically Signed On 02-20-2022 11:38:37 INSIDE [employer] by Sapphire Harrison M.D. [id number]
[2022-02-18 23:00] VITALS: BP 130/96; PULSE 89; RESP 23; O2SAT 98
--- NOTE | 2022-02-18 23:00 | XRR_ITS ---
PROCEDURE INFORMATION: Exam: XR Chest Exam date and time: 02/19/2022 12:09 AM Age: 66 years old Clinical indication: Shortness of breath; Patient HX: C/O SOB TECHNIQUE: Imaging protocol: Radiologic exam of the chest. Views: 1 view. COMPARISON: CR (CHEST, ) 02/16/2022 10:51 PM FINDINGS: Lungs: Stable right upper lobe airspace opacities may reflect a persistent pneumonic infiltrate with associated pleuroparenchymal scarring. Emphysematous changes. Pleural spaces: Unremarkable. No pleural effusion. No pneumothorax. Heart/Mediastinum: Cardiomegaly. Bones/joints: Unremarkable. XR/XR chest 1V portable [id number] IMPRESSION: 1. Stable right upper lobe airspace opacities may reflect a persistent pneumonic infiltrate with associated pleuroparenchymal scarring. 2. Emphysematous changes. 3. Cardiomegaly.
--- NOTE | 2022-02-18 23:05 | W.ED.SOB ---
HPI - SOB/Dyspnea General: Chief Complaint: Shortness of Breath/Dyspnea Stated Complaint: SOB Time Seen by Provider: 02/18/22 22:56 Source: patient and EMS Mode of arrival: EMS Limitations: no limitations History of Present Illness: HPI Narrative: 66-year-old female who states that she has been having cough along with increasing shortness of breath over the last 3 to 4 days she seen her 2 days ago states she has been using albuterol she is placed on a steroid she states she has had no improvement she is having some pain she has had a slight cough denies any fever denies any vomiting or diarrhea. Associated symptoms: Reports chest pain; Deny abdominal pain, fever(s), nausea or vomiting Review of Systems Const: Denies: fever(s), chills, body aches or change in appetite Eyes: Denies: blurry vision or eye discomfort ENMT: Denies: throat pain or dental pain Card: Reports: chest pain Resp: Reports: dyspnea GI: Denies: abdominal pain, nausea, vomiting or diarrhea : Denies: dysuria Musc: Denies: neck pain or back pain Skin/Breast: Denies: rash Neuro: Denies: headache(s) Psych: Denies: depression Bunny/Lymph: Denies: easy bruising All/Imm: Denies: urticaria PFSH ED PFSH: Medical History COPD (chronic obstructive pulmonary disease) Osteoarthritis of left knee Sciatic pain Takotsubo cardiomyopathy Surgical History History of History of partial hysterectomy Social History Smoking and tobacco status: former smoker (quit 2 months ago) Quit status (tobacco): has quit using tobacco Year quit tobacco: quit 2 months ago Second hand smoke exposure: No Alcohol intake: never Marital status: / Number of children: 2 Number of grandchildren: 8 Current occupational status: retired Physical Exam Const: COMMON NORMALS: patient oriented x3 GENERAL APPEARANCE: in distress and ill appearing HENMT: COMMON NORMALS: normocephalic and atraumatic HEAD & SCALP: normocephalic and atraumatic Eye: COMMON NORMALS: Equal, round and reactive pupils present and EOMs intact bilaterally PUPIL: Yes Equal, round and reactive pupils present Neck/C-Spine: COMMON NORMALS: full ROM and supple Chest: COMMONS NORMALS: normal inspection of the chest and normal palpation of entire chest wall Resp: COMMON NORMALS: No retractions EFFORT & INSPECTION: Yes tachypneic AUSCULTATION: wheezes Cardio: COMMON NORMALS: regular rate, regular rhythm and No murmurs present (Cardio) RATE: regular rate RHYTHM: regular rhythm GI: COMMON NORMALS: Normal to inspection, nondistended, normoactive bowel sounds present, Soft to palpation, non-tender and no masses PALPATION: Yes Soft to palpation Extremity: COMMON NORMALS: normal to inspection and full ROM Neuro: COMMON NORMALS: patient oriented x3, moves all extremities and no focal motor deficits Psych: COMMON NORMALS: mental status grossly normal, Normal thought process present and cooperative THOUGHT PROCESS: Normal thought process present Skin: COMMON NORMALS: no rashes or lesions noted and no wounds GENERAL SKIN EXAM: no rashes or lesions noted Course Vital Signs: Vital signs: Vital Signs Temperature 98.2 F 02/18/22 22:56 Pulse Rate 99 02/18/22 23:34 Respiratory Rate 24 H 02/18/22 23:34 Blood Pressure 130/96 02/18/22 23:00 Pulse Oximetry 100 02/18/22 23:34 Oxygen Delivery Me thod 02/18/22 23:34 Oxygen Flow Rate 2 02/18/22 23:34 MDM - SOB/Dyspnea Medical Decision Making Patient presents here with dyspnea with a history of COPD she is seen here 2 days ago has been on steroids she is requiring more oxygen at home states she usually only wears her oxygen as needed she did have to wear 2 L at all times CT does show a very small pneumothorax does not require chest tube will admit for observation. Lab Data : 02/18/22 23:03 02/18/22 23:03 Labs/Radiology: Radiology Impressions Chest X-Ray 02/18/22 23:00 IMPRESSION: 1. Stable right upper lobe airspace opacities may reflect a persistent pneumonic infiltrate with associated pleuroparenchymal scarring. 2. Emphysematous changes. 3. Cardiomegaly. Chest CTA 02/18/22 23:46 IMPRESSION: 1. Negative for pulmonary embolus. 2. Small left upper anterior lung field pneumothorax measuring 13 mm in thickness. 3. Emphysematous changes. 4. Patchy bilateral airspace infiltrates. 5. Several prominent mediastinal lymph nodes measuring 10 mm, nonspecific. ADDENDUM: 02/19/22 0043 THIS REPORT CONTAINS FINDINGS THAT MAY BE CRITICAL TO PATIENT CARE. The findings were verbally communicated via telephone conference with GRIFFIN LENNON at 12:42 AM OPERATIONS REPRESENTATIVE on 02/19/2022. The findings were acknowledged and understood. Laboratory Results WBC 11.9 10^3/uL (4.0-10.0) H 02/18/22 23:03 RBC 3.71 10^6/uL (4.1-5.3) L 02/18/22 23:03 Hgb 12.1 g/dL (11.5-15.3) 02/18/22 23:03 Hct 37.1 % (37.0-47.0) 02/18/22 23:03 MCV 100.0 fl (81-99) H 02/18/22 23:03 MCH 32.6 pg (28.0-34.0) 02/18/22 23:03 MCHC 32.6 g/dL (30.0-36.0) 02/18/22 23:03 RDW 12.6 % (12.1-15.1) 02/18/22 23:03 Plt Count 276 10^3/cmm (130-400) 02/18/22 23:03 MPV 9.2 fL (7.4-10.4) 02/18/22 23:03 Neut % (Auto) 82.5 % 02/18/22 23:03 Lymph % (Auto) 6.7 % 02/18/22 23:03 [place] % (Auto) 10.2 % 02/18/22 23:03 Eos % (Auto) 0.0 % 02/18/22 23:03 Baso % (Auto) 0.1 % 02/18/22 23:03 Neut # (Auto) 9.84 10^3/uL (1.8-7.7) H 02/18/22 23:03 Lymph # (Auto) 0.8 10^3/uL (0.8-4.8) 02/18/22 23:03 [place] # (Auto) 1.2 10^3/uL (0.2-0.9) H 02/18/22 23:03 Eos # (Auto) 0.0 10^3/uL (0.0-0.8) 02/18/22 23:03 Baso # (Auto) 0.0 10^3/uL (0.0-0.1) 02/18/22 23:03 Nucleated RBC % (auto) 0 % 02/18/22 23:03 Nucleated RBCs # 0.0 /100WBC 02/18/22 23:03 PT 14.00 SECONDS (12.1-14.9) 02/18/22 23:03 INR 1.05 (0.8-1.2) 02/18/22 23:03 Sodium 135 mmol/L (136-145) L 02/18/22 23:03 Potassium 4.2 mmol/L (3.5-5.1) 02/18/22 23:03 Chloride 92 mmol/L (98-107) L 02/18/22 23:03 Carbon Dioxide 33 mmol/L (22-29) H 02/18/22 23:03 Anion Gap 14.2 (5-19) 02/18/22 23:03 BUN 12 mg/dL (8-23) 02/18/22 23:03 Creatinine 0.4 mg/dL (0.5-0.9) L 02/18/22 23:03 GFR Calculation 158.7 mL/min (90-130) H 02/18/22 23:03 Glucose 130 mg/dL (65-115) H 02/18/22 23:03 Calculated Osmolality 282 mOsm/kg (285-295) L 02/18/22 23:03 Calcium 9.3 mg/dL (8.5-10.5) 02/18/22 23:03 Total Bilirubin 0.2 mg/dL (0.15-1.2) 02/18/22 23:03 AST 33 U/L (0-32) H 02/18/22 23:03 ALT 22 U/L (0-33) 02/18/22 23:03 Alkaline Phosphatase 86 U/L (35-105) 02/18/22 23:03 Troponin T Baseline 7 ng/L (0-10) 02/18/22 23:03 NT-Pro-B Natriuret Pep 1750 pg/mL (0-125) H 02/18/22 23:03 Total Protein 7.2 g/dL (6.6-8.7) 02/18/22 23:03 Albumin 4.1 g/dL (3.5-5.2) 02/18/22 23:03 Globulin 3.1 g/dL (1.3-4.6) 02/18/22 23:03 Lipase 215 U/L (13-60) H 02/18/22 23:03 EKG Data EKG 1: I personally reviewed and interpreted this EKG as follows: EKG Interpretation Date: 02/18/22 EKG interpretation time: 23:13 Interpretation: afib hr [address] or t wave abnormalities qrs 106 qtc 386 Discharge Plan Discharge Patient Disposition: Admitted As Inpatient Clinical Impression: COPD (chronic obstructive pulmonary disease), Dyspnea, Pneumothorax Condition: Stable Coding Level of Care Code ED Social Sciences Instructor for Chg Fwd Exam Comprehensive
[2022-02-18 23:12] LABS: Basophils % 0.1 %; Hematocrit 37.1 % (37.0-47.0); Hemoglobin 12.1 g/dL (11.5-15.3); Lymphocytes # 0.8 10^3/uL (0.8-4.8); Lymphocytes % 6.7 %; Mean Corpuscular HGB Conc 32.6 g/dL (30.0-36.0); Mean Corpuscular Hemoglobin 32.6 pg (28.0-34.0); Mean Platelet Volume 9.2 fL (7.4-10.4); Monocytes # 1.2 10^3/uL (0.2-0.9); Monocytes % 10.2 %; Neutrophils # 9.84 10^3/uL (1.8-7.7); Neutrophils % 82.5 %; Nucleated Red Blood Cells % 0 %; Platelet Count 276 10^3/cmm (130-400); Red Blood Count 3.71 10^6/uL (4.1-5.3); Red Cell Distribution Width 12.6 % (12.1-15.1); White Blood Count 11.9 10^3/uL (4.0-10.0)
[2022-02-18 23:25] LABS: INR 1.05 (0.8-1.2)
[2022-02-18] MEDS: ipratropium-albuterol 3 mL Neb INHALATION (23:30)
[2022-02-18 23:32] LABS: Troponin(5th) Baseline 7 ng/L (0-10)
[2022-02-18 23:34] VITALS: PULSE 99; RESP 24; O2SAT 100
--- NOTE | 2022-02-18 23:46 | CTR_ITS ---
PROCEDURE INFORMATION: Exam: CTA Chest With Contrast Exam date and time: 02/19/2022 12:03 AM Age: 66 years old Clinical indication: Cough and shortness of breath; Patient HX: Cough with SOB TECHNIQUE: Imaging protocol: Computed tomographic angiography of the chest with contrast. 3D rendering (Not supervised by radiologist): MIP and/or 3D reconstructed images were created by the technologist. Radiation optimization: All CT scans at this facility use at least one of these dose optimization techniques: automated exposure control; mA and/or kV adjustment per patient size (includes targeted exams where dose is matched to clinical indication); or iterative reconstruction. Contrast material: OMNI 350; Contrast volume: 72 ml; Contrast route: INTRAVENOUS (IV); COMPARISON: CT angio chest PE protcl [id number] 01/11/2021 10:51 PM RADIATION DOSE METRICS: Total DLP (mGy-cm): 207.45 FINDINGS: Pulmonary arteries: Normal. No pulmonary emboli. Aorta: Unremarkable. No aortic aneurysm. No aortic dissection. Lungs: Small left upper anterior lung field pneumothorax measuring 13 mm in thickness. Emphysematous changes. Patchy bilateral airspace infiltrates. Pleural spaces: See Lungs finding. Heart: Unremarkable. No cardiomegaly. No pericardial effusion. Lymph nodes: Several prominent mediastinal lymph nodes measuring 10 mm, nonspecific. Bones/joints: Unremarkable. No acute fracture. Soft tissues: Unremarkable. CT/CT angio chest PE protcl [id number] IMPRESSION: 1. Negative for pulmonary embolus. 2. Small left upper anterior lung field pneumothorax measuring 13 mm in thickness. 3. Emphysematous changes. 4. Patchy bilateral airspace infiltrates. 5. Several prominent mediastinal lymph nodes measuring 10 mm, nonspecific.
[2022-02-18 23:52] LABS: Alanine Aminotransferase 22 U/L (0-33); Albumin Level 4.1 g/dL (3.5-5.2); Alkaline Phosphatase 86 U/L (35-105); Anion Gap 14.2 (5-19); Aspartate Amino Transferase 33 U/L (0-32); Blood Urea Nitrogen 12 mg/dL (8-23); Calcium 9.3 mg/dL (8.5-10.5); Carbon Dioxide 33 mmol/L (22-29); Chloride 92 mmol/L (98-107); Globulin 3.1 g/dL (1.3-4.6); Glomerular Filtration Rate 158.7 mL/min (90-130); Glucose 130 mg/dL (65-115); Lipase 215 U/L (13-60); NT Pro B Type Natriuretic Pept 1750 pg/mL (0-125); Osmolality Calculated 282 mOsm/kg (285-295); Potassium 4.2 mmol/L (3.5-5.1); Sodium 135 mmol/L (136-145); Total Bilirubin 0.2 mg/dL (0.15-1.2); Total Protein 7.2 g/dL (6.6-8.7)
[2022-02-19] VITALS (15 sets, daily range): BP systolic 106–122; BP diastolic 61–81; PULSE 86–113; RESP 17–25; TEMP 36.4–37; O2SAT 94–100; BMI 26.4
--- NOTE | 2022-02-19 00:59 | ECG_ITS ---
[facility] Test Date: 2022-02-19 Pat Name: Sheba Lira Department: Room: Gender: Female Video Coordinator: : 1955 Requested By: Karime Jaimes Order Number: [id number] Latricia MD: Sapphire Harrison M.D. Measurements Intervals [place] Rate: 103 P: HI: QRS: 85 QRSD: 101 T: 77 QT: 311 QTc: 409 Interpretive Statements SINUS RHYTHM WITH FREQUENT PAC'S AND SHORT ATRIAL RUNS INCOMPLETE RIGHT BUNDLE BRANCH BLOCK [90+ ms QRS DURATION, TERMINAL R IN V1/V2, 40+ ms S IN I/aVL/V4/V5/V6] ABNORMAL RHYTHM ECG Compared to ECG 02/18/2022 23:13:34 Incomplete right bundle-branch block now present Electronically Signed On 02-20-2022 11:43:15 MOLD HOISTER by Sapphire Harrison M.D. [id number]
[2022-02-19] MEDS: cefTRIAXone 1,000 MG in sodium chloride 0.9% (plus) 50 ML 100 MG IV (01:10)
--- NOTE | 2022-02-19 01:21 | P.HP_ITS ---
Providers/Chief Complaint Primary Care Provider: Jessi Prabhakar MD Chief Complaint: SOB History of Present Illness Pleasant 58-year-old lady with history of COPD, normally using oxygen only as needed at home over the last week being more short of breath, with productive cough, was seen in ER on 03/18 found to be in COPD exacerbation, on antibiotic, prednisone, return to the hospital due to worsening shortness of breath, as well as pleuritic chest pain and upper chest, particular left side. In ER she is noted with respiratory rate in the low to mid 20s. Saturating in the 90s on 2 L nasal cannula. Again, the chest without PE but with small left Anterior pneumothorax showing 13 mm plate emphysema. Patchy bilateral airspace inf iltrates. Several prominent mediastinal lymph nodes measuring 10 mm, nonspecific. Review of Systems Const: Denies: fever(s), chills, body aches or malaise Eyes: Denies: change in vision, eye discomfort or eye redness ENMT: Denies: throat pain, oral sores or ear or mastoid pain Card: Denies: chest pain, edema, pre-syncope or dyspnea on exertion Resp: Reports: dyspnea, productive cough and pain on inspiration; Denies: hemoptysis GI: Denies: abdominal pain, nausea, vomiting, diarrhea, constipation, hematochezia or melena : Denies: flank pain, urinary frequency or hematuria Musc: Denies: back pain, joint swelling or joint redness Skin/Breast: Denies: rash or new lesions Neuro: Denies: headache(s), numbness in extremities, weakness in extremities, dizziness, confusion or seizure-like activity Endo: Denies: polyuria or polydipsia Bunny/Lymph: Denies: easy bleeding or tender lymph nodes All/Imm: Denies: urticaria or tongue swelling Medications/Allergies Home Medications Medication Instructions Recorded Confirmed Last Taken Type nebulizer compressor with kit #1 ea 02/18/21 11/01/21 Unknown Rx albuterol sulfate 2.5 mg/3 mL 2.5 mg (3 mL) inhalation Q6H PRN 08/06/21 11/01/21 Unknown Rx (0.083 %) solution for nebulization shortness of breath or wheezing #360 mL nebulizer accessories #1 ea 12/06/21 Unknown Rx albuterol sulfate 90 mcg/actuation See Rx Instructions .Route 01/13/22 Unknown Rx aerosol inhaler .COMPLEX #8.5 grams azithromycin 250 mg tablet See Rx Instructions PO .COMPLEX #6 01/14/22 01/14/22 Unknown Rx (Zithromax Z-Yordan) tabs budesonide-formoterol HFA 160 2 puff inhalation BID #10.2 grams 01/14/22 01/14/22 Unknown Rx mcg-4.5 mcg/actuation aerosol inhaler (Symbicort) Allergies Allergy/AdvReac Type Severity Reaction Status Date / Time aspirin Allergy Intermediate ADR/ALGY-Pa Verified 02/18/22 23:00 lpitations fluticasone furoate Allergy Intermediate hives Verified 02/18/22 23:00 [From Trelegy Ellipta] umeclidinium Allergy Intermediate hives Verified 02/18/22 23:00 [From Trelegy Ellipta] vilanterol Allergy Intermediate hives Verified 02/18/22 23:00 [From Trelegy Ellipta] codeine AdvReac ADR-Nausea Verified 02/18/22 23:00 PFSH Acute PFSH: Medical History COPD (chronic obstructive pulmonary disease) Osteoarthritis of left knee Sciatic pain Takotsubo cardiomyopathy Surgical History (Updated 02/19/22 @ 01:24 by Matheus Ross MD) H/O eye surgery History of History of partial hysterectomy Family History (Updated 02/19/22 @ 01:23 by Matheus Ross MD) Other CAD (coronary artery disease) Cancer Social History (Updated 02/19/22 @ 01:32 by Matheus Ross MD) Smoking and tobacco status: former smoker (quit 2 months ago) Quit status (tobacco): has quit using tobacco Year quit tobacco: quit 2 months ago Second hand smoke exposure: No Alcohol intake: never Lives independently: Yes Household members: none Marital status: / Number of children: 2 Number of grandchildren: 8 Current occupational status: retired Vitals/I&O/Wt Last Vital Signs Temp 98.2 F 02/18/22 22:56 Pulse 99 02/18/22 23:34 Resp 24 H 02/18/22 23:34 BP 130/96 02/18/22 23:00 Pulse Ox 100 02/18/22 23:34 O2 Del Method 02/18/22 23:34 O2 Flow Rate 2 02/18/22 23:34 Weight last 48 hrs Weight 58.967 kg Physical Exam Narrative: Family bedside Const: COMMON NORMALS: patient oriented x3 and alert GENERAL APPEARANCE: cooperative ORIENTATION/CONSCIOUSNESS: Yes awake HENMT: COMMON NORMALS: oropharynx normal Eye: OTHER: Min anisocoria, R>L Neck/C-Spine: COMMON NORMALS: no JVD Resp: AUSCULTATION: wheezes and diminished lung sounds Cardio: COMMON NORMALS: no JVD, regular rhythm, S1 normal heart sound present, S2 normal heart sound present and No murmurs present (Cardio) RHYTHM: regular rhythm HEART SOUNDS: S1 normal heart sound present and S2 normal heart sound present GI: COMMON NORMALS: Normal to inspection, nondistended, normoactive bowel sounds present, Soft to palpation and non-tender PALPATION: Yes Soft to palpation Extremity: COMMON NORMALS: no joint enlargement and no pedal edema Neuro: COMMON NORMALS: patient oriented x3 and moves all extremities SENSORIUM/ORIENTATION: Yes alert Skin: COMMON NORMALS: no rashes or lesions noted GENERAL SKIN EXAM: no rashes or lesions noted Data : 02/18/22 23:03 02/18/22 23:03 A&P Assessment and plan (1) Pneumothorax: Started on nonrebreather oxygen to help reduce size. We will follow-up chest x- ray in the morning. Noted emphysema. Depending on follow-up and condition consider discussing with pulmonology. (2) Acute exacerbation of chronic obstructive pulmonary disease: COPD is admission with wheezing, productive cough, improving so far since last visit. Does also have some patchy bilateral infiltrates. We will test for COVID/viral PCR. For now empirically coverage with ceftriaxone, azithromycin for possible superimposed pneumonia. Collect sputum culture. Discussed with her also with prednisone. Budesonide and DuoNeb Previously wearing oxygen only as needed. Recently has been having to wear 2 L at all times. Plan Mediastinal lymphadenopathy: Incidentally noted on CT, nonspecific, up to 2 mm. Lymph nodes. Consider outpatient follow-up She is recently quit smoking: Continue to support abstinence. COPD Takotsubo cardiomyopathy Other chronic problems noted Attestations Medical Necessity Statement*: Place in observation for reassessment of pneumothorax, treatment of COPD exacerbation. Coding Level of Care Code Acute Director Religious Education for [facility] Fwd Diagnoses Pneumothorax J93.9 Acute exacerbation of chronic obstructive pulmonary disease J44.1
[2022-02-19] MEDS: azithromycin 500 MG in sodium chloride 0.9% 250 ML 250 MG IV (01:33)
[2022-02-19 01:42] LABS: Troponin 5 2HR 8.45 ng/L (0-10)
[2022-02-19 01:57] LABS: Troponin 5 2HR Delta 1.45 ABS# (0-10)
[2022-02-19] MEDS: heparin 5,000 unit/mL INJ 1 mL 5000 UNIT SUBCUT ×2 (02:29→14:40)
--- NOTE | 2022-02-19 02:34 | PC.NURSE ---
Admission note: Patient is up to the floor, patient is currently on 15L nonrebreather. Patient is experiencing a productive cough, tachypnea and labored breathing. Physical assessment is and admission assessment are complete. Patient does have the following belongings in pixis: Purse with set of keys, checkbook and wallet with credit card, food stamp card and 20 dollar bill.
[2022-02-19] MEDS: ipratropium-albuterol 3 mL Neb INHALATION ×5 (02:42→19:43)
[2022-02-19 04:18] LABS: Adenovirus Not Detected (NOT DETECT); Chlamydia Pneumoniae Not Detected (NOT DETECT); Coronavirus 229E,HKU1,NL63,OC4 Not Detected (NOT DETECT); Human Metapneumovirus Not Detected (NOT DETECT); Human Rhinovirus/Enterovirus Not Detected (NOT DETECT); Influenza A Not Detected (NOT DETECT); Influenza A H1 Not Detected (NOT DETECT); Influenza A H1-2009 Not Detected (NOT DETECT); Influenza A H3 Not Detected (NOT DETECT); Influenza B Not Detected (NOT DETECT); Mycoplasma Pneumoniae Not Detected (NOT DETECT); Parainfluenza Virus Type 1 Not Detected (NOT DETECT); Parainfluenza Virus Type 2 Not Detected (NOT DETECT); Parainfluenza Virus Type 3 Not Detected (NOT DETECT); Parainfluenza Virus Type 4 Not Detected (NOT DETECT); Respiratory Syncytial Virus A Not Detected (NOT DETECT); Respiratory Syncytial Virus B Not Detected (NOT DETECT); SARS-COV-2 Not Detected (NOT DETECT)
--- NOTE | 2022-02-19 05:22 | ECG_ITS ---
[facility] Test Date: 2022-02-19 Pat Name: Sheba Lira Department: Room: Gender: Female Corporate Development Associate: : [id number] Requested By: Karime Jaimes Order Number: [id number] Latricia MD: Sapphire Harrison M.D. Measurements Intervals [place] Rate: 91 P: 78 MT: 137 QRS: 91 QRSD: 105 T: 66 QT: 334 QTc: 411 Interpretive Statements SINUS RHYTHM WITH OCCASIONAL VENTRICULAR PREMATURE COMPLEXES WITH FREQUENT SUPRAVENTRICULAR PREMATURE COMPLEXES BORDERLINE RIGHT AXIS DEVIATION [QRS AXIS > 90] INCOMPLETE RIGHT BUNDLE BRANCH BLOCK [90+ ms QRS DURATION, TERMINAL R IN V1/V2, 40+ ms S IN I/aVL/V4/V5/V6] ABNORMAL RHYTHM ECG Compared to ECG 02/19/2022 01:17:04 Ventricular premature complex(es) now present Atrial fibrillation no longer present Electronically Signed On 02-19-2022 8:50:05 BUSINESS INTELLIGENCE ADMINISTRATOR by Sapphire Harrison M.D. [id number]
[2022-02-19 06:11] LABS: Troponin 5 6HR 7.24 ng/L (0-10)
[2022-02-19 07:24] LABS: Troponin 5 6HR Delta 0.24 ng/L (0-12)
--- NOTE | 2022-02-19 07:59 | PC.PHAR ---
pt states she takes care of her own medications-pt states she is no longer taking metoprolol tartrate 25mg take 12.5mg bid ext med history shows last filled 11/01/21 30d/s pt states not taken in months-
[2022-02-19] MEDS: budesonide 0.5 mg/2 mL Neb 0.25 MG INHALATION ×2 (08:28→19:43)
--- NOTE | 2022-02-19 09:00 | XR_ITS ---
WS: [id number] Portable AP upright chest, 02/19/2022, 0850 hours Clinical Data: Follow up on PTX Comparison: Portable chest, are described today, 2422 hours Findings: There are parenchymal scars in the right upper lobe which have not changed. There is minima l scarring in the left upper lobe. The diaphragms are flattened. The heart is normal. No pneumothorax or pneumonia is seen. Monitor leads leads are on the chest wall. The pulmonary vascularity is not in creased. XR/XR chest 1V portable [id number] Impression: 1. Negative for pneumothorax. 2. No change in bilateral apical scarring.
--- NOTE | 2022-02-19 14:51 | PM.MISC ---
Miscellaneous Note Note: Continue management as per history physical. Transition to nasal cannula at this time. Pneumothorax has resolved on x-ray from today. Patient seen. Not in any respiratory distress appearing comfortable sitting up in bed.
[2022-02-19] MEDS: ALPRAZolam 0.5 mg Tablet 0.25 MG PO (16:27)
[2022-02-19] MEDS: acetaminophen 325 mg Tablet 650 MG PO (23:32)
[2022-02-20] VITALS (9 sets, daily range): BP systolic 116–131; BP diastolic 72–77; PULSE 67–99; RESP 17–26; TEMP 36.7–36.9; O2SAT 95–99; BMI 23.1
[2022-02-20] MEDS: ipratropium-albuterol 3 mL Neb INHALATION ×4 (00:58→11:27)
[2022-02-20] MEDS: heparin 5,000 unit/mL INJ 1 mL 5000 UNIT SUBCUT (02:01)
[2022-02-20] MEDS: acetaminophen 325 mg Tablet 650 MG PO (05:45)
[2022-02-20 06:06] LABS: Basophils # 0.1 10^3/uL (0.0-0.1); Basophils % 0.9 %; Eosinophils % 0.2 %; Hematocrit 38.5 % (37.0-47.0); Hemoglobin 12.1 g/dL (11.5-15.3); Lymphocytes # 1.1 10^3/uL (0.8-4.8); Lymphocytes % 13.4 %; Mean Corpuscular HGB Conc 31.4 g/dL (30.0-36.0); Mean Corpuscular Hemoglobin 32.3 pg (28.0-34.0); Mean Corpuscular Volume 102.7 fl (81-99); Mean Platelet Volume 9.5 fL (7.4-10.4); Monocytes # 0.8 10^3/uL (0.2-0.9); Monocytes % 9.7 %; Neutrophils # 6.21 10^3/uL (1.8-7.7); Neutrophils % 75.6 %; Nucleated Red Blood Cells % 0 %; Platelet Count 280 10^3/cmm (130-400); Red Blood Count 3.75 10^6/uL (4.1-5.3); Red Cell Distribution Width 12.7 % (12.1-15.1); White Blood Count 8.2 10^3/uL (4.0-10.0)
[2022-02-20 06:20] LABS: Alanine Aminotransferase 31 U/L (0-33); Albumin Level 3.9 g/dL (3.5-5.2); Alkaline Phosphatase 80 U/L (35-105); Anion Gap 9.3 (5-19); Aspartate Amino Transferase 34 U/L (0-32); Blood Urea Nitrogen 11 mg/dL (8-23); Calcium 9.2 mg/dL (8.5-10.5); Carbon Dioxide 39 mmol/L (22-29); Chloride 95 mmol/L (98-107); Globulin 2.7 g/dL (1.3-4.6); Glomerular Filtration Rate 158.7 mL/min (90-130); Glucose 107 mg/dL (65-115); Osmolality Calculated 288 mOsm/kg (285-295); Potassium 4.3 mmol/L (3.5-5.1); Sodium 139 mmol/L (136-145); Total Bilirubin 0.2 mg/dL (0.15-1.2); Total Protein 6.6 g/dL (6.6-8.7)
[2022-02-20] MEDS: budesonide 0.5 mg/2 mL Neb 0.25 MG INHALATION (08:12)
--- NOTE | 2022-02-20 09:58 | P.DS_ITS ---
Discharge Providers Date of Admission: 02/19/22 01:22 Date of Discharge: February 20, 2022 Attending Provider at Admission: Matheus Ross Attending Provider at Discharge: Babs Ayala MD Primary Care Provider: Jessi Prabhakar MD Diagnoses at Discharge Discharge Diagnosis (1) Pneumothorax: Status: Acute (2) Acute exacerbation of chronic obstructive pulmonary disease: Status: Acute Reason for Visit Reason for Visit: SOB Brief History: Pleasant 58-year-old lady with history of COPD, normally using oxygen only as needed at home over the last week being more short of breath, with productive cough, was seen in ER on 03/18 found to be in COPD exacerbation, on antibiotic, prednisone, return to the hospital due to worsening shortness of breath, as well as pleuritic chest pain and upper chest, particular left side.? In ER she is noted with respiratory rate in the low to mid 20s.? Saturating in the 90s on 2 L nasal cannula.? Again, the chest without PE but with small left Anterior pneumothorax showing 13 mm plate emphysema.? Patchy bilateral airspace infiltrates.? Several prominent mediastinal lymph nodes measuring 10 mm, nonspecific. Hospital Course Hospital Course Patient initially admitted for small pneumothorax and COPD exacerbation. COVID- negative. She was placed empirically on ceftriaxone and azithromycin for possible superimposed pneumonia. Patient had a repeat chest x-ray done which did not show any pneumothorax. Discussed with pulmonology as well. Recommended to send patient home on Yumegan, Perforomist, budesonide nebulizer and pulmonary rehab in there along with physical therapy. I also gave patient prednisone taper along with cefpodoxime and oral azithromycin at discharge. Patient on 2 L nasal cannula and is at her baseline. She states she would like to go home and feels comfortable. Sounds better on lung auscultation as well compared to yesterday. No longer wheezing. Does have mild rhonchi at bases. Has fair bilateral air entry. Patient to be discharged home in stable condition. She will follow-up with pulmonology as an outpatient. Physical Exam Const: COMMON NORMALS: patient oriented x3 and alert GENERAL APPEARANCE: cooperative ORIENTATION/CONSCIOUSNESS: Yes awake HENMT: COMMON NORMALS: oropharynx normal Eye: OTHER: Min anisocoria, R>L Neck/C-Spine: COMMON NORMALS: no JVD Resp: AUSCULTATION: diminished lung sounds and other (Very mild rhonchi at bases.) Cardio: COMMON NORMALS: no JVD, regular rhythm, S1 normal heart sound present, S2 normal heart sound present and No murmurs present (Cardio) RHYTHM: regular rhythm HEART SOUNDS: S1 normal heart sound present and S2 normal heart sound present GI: COMMON NORMALS: Normal to inspection, nondistended, normoactive bowel sounds present, Soft to palpation and non-tender PALPATION: Yes Soft to palpation Extremity: COMMON NORMALS: no joint enlargement and no pedal edema Neuro: COMMON NORMALS: patient oriented x3 and moves all extremities SENSORIUM/ORIENTATION: Yes alert Skin: COMMON NORMALS: no rashes or lesions noted GENERAL SKIN EXAM: no rashes or lesions noted Discharge Data Studies Completed and Pending Completed Studies During Hospitalization Category Date Time Status CTA chest [CT angio chest PE protcl [id number]] Stat Cat Scan 02/18/22 23:46 Completed CXRP [XR chest 1V portable [id number]] Routine Exams 02/19/22 09:00 Completed XR chest 1V portable [id number] Stat Exams 02/18/22 23:00 Completed Pending at discharge Category Date Time Status Blood Culture Stat Lab 02/18/22 23:31 Results Complete Blood Count w/Auto AM LABS Lab 02/21/22 04:00 Ordered Complete Blood Count w/Auto AM LABS Lab 02/22/22 04:00 Ordered Comprehensive Metabolic Panel AM LABS Lab 02/21/22 04:00 Ordered Comprehensive Metabolic Panel AM LABS Lab 02/22/22 04:00 Ordered Sputum Culture and Gram Stain Routine Lab 02/19/22 04:15 Results Radiology Impressions Chest CTA 02/18/22 23:46 IMPRESSION: 1. Negative for pulmonary embolus. 2. Small left upper anterior lung field pneumothorax measuring 13 mm in thickness. 3. Emphysematous changes. 4. Patchy bilateral airspace infiltrates. 5. Several prominent mediastinal lymph nodes measuring 10 mm, nonspecific. ADDENDUM: 02/19/22 0043 THIS REPORT CONTAINS FINDINGS THAT MAY BE CRITICAL TO PATIENT CARE. The findings were verbally communicated via telephone conference with GRIFFIN LENNON at 12:42 AM BRUSH FABRICATION SUPERVISOR on 02/19/2022. The findings were acknowledged and understood. Chest X-Ray 02/19/22 09:00 Impression: 1. Negative for pneumothorax. 2. No change in bilateral apical scarring. Laboratory Results WBC 8.2 10^3/uL (4.0-10.0) 02/20/22 05:47 RBC 3.75 10^6/uL (4.1-5.3) L 02/20/22 05:47 Hgb 12.1 g/dL (11.5-15.3) 02/20/22 05:47 Hct 38.5 % (37.0-47.0) 02/20/22 05:47 MCV 102.7 fl (81-99) H 02/20/22 05:47 MCH 32.3 pg (28.0-34.0) 02/20/22 05:47 MCHC 31.4 g/dL (30.0-36.0) 02/20/22 05:47 RDW 12.7 % (12.1-15.1) 02/20/22 05:47 Plt Count 280 10^3/cmm (130-400) 02/20/22 05:47 MPV 9.5 fL (7.4-10.4) 02/20/22 05:47 Neut % (Auto) 75.6 % 02/20/22 05:47 Lymph % (Auto) 13.4 % 02/20/22 05:47 [place] % (Auto) 9.7 % 02/20/22 05:47 Eos % (Auto) 0.2 % 02/20/22 05:47 Baso % (Auto) 0.9 % 02/20/22 05:47 Neut # (Auto) 6.21 10^3/uL (1.8-7.7) 02/20/22 05:47 Lymph # (Auto) 1.1 10^3/uL (0.8-4.8) 02/20/22 05:47 [place] # (Auto) 0.8 10^3/uL (0.2-0.9) 02/20/22 05:47 Eos # (Auto) 0.0 10^3/uL (0.0-0.8) 02/20/22 05:47 Baso # (Auto) 0.1 10^3/uL (0.0-0.1) 02/20/22 05:47 Nucleated RBC % (auto) 0 % 02/20/22 05:47 Nucleated RBCs # 0.0 /100WBC 02/20/22 05:47 PT 14.00 SECONDS (12.1-14.9) 02/18/22 23:03 INR 1.05 (0.8-1.2) 02/18/22 23:03 Sodium 139 mmol/L (136-145) 02/20/22 05:47 Potassium 4.3 mmol/L (3.5-5.1) 02/20/22 05:47 Chloride 95 mmol/L (98-107) L 02/20/22 05:47 Carbon Dioxide 39 mmol/L (22-29) H 02/20/22 05:47 Anion Gap 9.3 (5-19) 02/20/22 05:47 BUN 11 mg/dL (8-23) 02/20/22 05:47 Creatinine 0.4 mg/dL (0.5-0.9) L 02/20/22 05:47 GFR Calculation 158.7 mL/min (90-130) H 02/20/22 05:47 Glucose 107 mg/dL (65-115) 02/20/22 05:47 Calculated Osmolality 288 mOsm/kg (285-295) 02/20/22 05:47 Calcium 9.2 mg/dL (8.5-10.5) 02/20/22 05:47 Total Bilirubin 0.2 mg/dL (0.15-1.2) 02/20/22 05:47 AST 34 U/L (0-32) H 02/20/22 05:47 ALT 31 U/L (0-33) 02/20/22 05:47 Alkaline Phosphatase 80 U/L (35-105) 02/20/22 05:47 Troponin T Baseline 7 ng/L (0-10) 02/18/22 23:03 Troponin T 120 Minute 8.45 ng/L (0-10) 02/19/22 01:05 Delta Troponin T 1.45 ABS# (0-10) 02/19/22 01:05 Troponin T Hi Sens 6Hr 7.24 ng/L (0-10) 02/19/22 05:35 Troponin T Hi Sens 6Hr Delta 0.24 ng/L (0-12) 02/19/22 05:35 NT-Pro-B Natriuret Pep 1750 pg/mL (0-125) H 02/18/22 23:03 Total Protein 6.6 g/dL (6.6-8.7) 02/20/22 05:47 Albumin 3.9 g/dL (3.5-5.2) 02/20/22 05:47 Globulin 2.7 g/dL (1.3-4.6) 02/20/22 05:47 Lipase 215 U/L (13-60) H 02/18/22 23:03 Coronavirus 229E (PCR) Not detected (NOT DETECT) 02/19/22 02:30 SARS-CoV-2 (PCR) Not detected (NOT DETECT) 02/19/22 02:30 Vitals Last Vital Signs Temp 98.1 F 02/20/22 08:00 Pulse 77 02/20/22 08:22 Resp 22 H 02/20/22 08:22 BP 116/72 02/20/22 08:00 Pulse Ox 98 02/20/22 08:22 O2 Del Method 02/20/22 08:22 O2 Flow Rate 2 02/20/22 08:22 FiO2 100 02/19/22 02:36 Discharge Plan Discharge Patient Disposition: Home Condition: Stable Prescriptions: New azithromycin 500 mg tablet 500 mg PO DAILY 5 Days Qty: 5 0RF Yupelri 175 mcg/3 mL solution for nebulization 175 mcg inhalation DAILY 30 Days Qty: 90 0RF Pulmicort 0.5 mg/2 mL suspension for nebulization 0.5 mg inhalation BID 30 Days Qty: 120 0RF prednisone 10 mg tablet See Rx Instructions .ROUTE .COMPLEX 30 Days Qty: 60 0RF Rx Instructions: 40 mg x 3 days 30 mg x 3 days 20 mg x 3 days 10 mg x 3 days 5 mg daily cefpodoxime 200 mg tablet 200 mg PO BID 5 Days Qty: 10 0RF Rx Instructions: must administer with a meal/food Continued budesonide-formoterol [Symbicort] 160-4.5 mcg/actuation HFA aerosol inhaler 2 puff inhalation BID Qty: 10.2 3RF (DME) nebulizer compressor with kit See Rx Instructions .Route .MEDSUPPLY Qty: 1 0RF Rx Instructions: As directed albuterol sulfate 2.5 mg /3 mL (0.083 %) solution for nebulization 2.5 mg inhalation Q6H PRN (Reason: shortness of breath or wheezing) Qty: 360 5RF (DME) nebulizer accessories Kit See Rx Instructions .Route Qty: 1 0RF Rx Instructions: nebulizer kit/accessories/tubing ipratropium-albuterol 0.5 mg-3 mg(2.5 mg base)/3 mL solution for nebulization 3 ml INHALATION Q6H PRN (Reason: Wheezing) albuterol sulfate 90 mcg/actuation HFA aerosol inhaler 2 puff inhalation Q8H PRN (Reason: Shortness Of Breath) Discontinued prednisone 10 mg tablet See Rx Instructions .ROUTE .COMPLEX Rx Instructions: as directed cephalexin 500 mg capsule 500 mg PO Q8H Rx Instructions: for 10 days(rx filled 02/17/22) Discharge Orders: Discharge Order (Routine); Ordered 02/20/22 Ordered By: Babs Eastman Ambulatory Orders: Physical Therapy Eval and Treat Outpatient (Order) Timeframe: 4 Weeks Facility: [facility] - Location: Physical Therapy Ordered By: Babs Ayala Referrals: [facility] [Other] [facility] ([facility]) [Other] [facility] [Other] (Pulmonary rehab will be contacting you about a time to arrange your therapies at the [facility]. If you don't hear from them by 02/24/22 please call them at [phone] [phone].) Datar,Eb Higgins MD [Physician] - 04/24/22 2:30 pm Jessi Prabhakar MD [Primary Care Provider] - 02/24/22 10:40 am Discharge Diet: Usual diet Discharge Activity: Increase activity as tolerated and Oxygen as instructed Patient Instructions: COPD, Prednisone (By mouth), Azithromycin (By mouth), Cefpodoxime Proxetil (By mouth), Budesonide (By breathing), Revefenacin (By breathing) ( Yulpelri), Urinary Tract Infection in Women (ED), COPD Stoplight, Opioid Safety Discharge Attestations Time Spent in Discharge Care*: less than 30 min Quality Metrics Clinical Quality Measures [ No reported AMI, CVA or VTE this stay] Coding Level of Care Code Acute Chg FW DC note Diagnoses Pneumothorax J93.9 Acute exacerbation of chronic obstructive pulmonary disease J44.1
--- NOTE | 2022-02-20 11:02 | PC.CHAP ---
Pastoral Care Encounter/Spiritual Assessment Type of Contact [] Declined restorative care technician visit [] Patient/Family/Request visit [] Outpatient visit [] Follow-up visit [] Physician referral [] Code/Alert [x] Routine visit [] Staff referral [] Actively dying [] Patient sleeping [] Family support [] [] Out of room [] Palliative care [] [x] Receiving care in room [] Pre-surgical visit [] Trauma [x] Long length of stay [] ICU visit [] Other: Relational/Emotional Strength [x] Patient feels connected with others/family/visitors/staff [] Distress [] Loneliness/isolation [] Abandonment Spirituality of Patient [x] Person of Jeanie [] Attends Tenriism of their Jeanie [x] Believes in Prayer [] Reads Bible or Mormonism materials [] There are Spiritual issues to be addressed Digital Developer Interventions [x] Prayer [x] Active listening [x] Non-anxious presence [x] Spiritual/emotional support [] Crisis/trauma care [x] Spiritual counseling [] Bereavement support [] Provided bereavement packet [] Provided Bible/devotional materials [] Provided toy/stuffed animal, coloring book to patient or family member [] Provided Communion [] Anointing/Bus[place] [] Salvation [x] Completed spiritual assessment [] Other: Impact on Illness or Injury [] Angry [] Fearful [x] Anxious [] Often cries [] Exhaustion [x] Unable to work [] Unable to attend orthodox [] Unable to walk/stand [] Unable to read [] Unable to drive [] Unable to eat/drink [] Unable to sleep [] Unable to be with family [] Patient intubated [] Other: Summary SOB in some pain waiting to see if there can be anything to help will go home and deaL [facility] has good attitude Time spent with patient 10 mins
== END 2022-02-20 12:55 | disposition home or self-care (01) ==
LOC: ER 02-19 00:54 → MEDSURG 02-19 01:22
PROVIDERS: Admitting Provider Internal Medicine; Emergency Provider Emergency Medicine; PCP Family Medicine; Visit Provider Internal Medicine
DX: J93.9 Pneumothorax, unspecified (principal); J44.1 Chronic obstructive pulmonary disease with (acute) exacerbation; I51.81 Takotsubo syndrome; M71.20 Synovial cyst of popliteal space [Baker], unspecified knee; R53.1 Weakness; S93.402A Sprain of unspecified ligament of left ankle, initial encounter; Z99.81 Dependence on supplemental oxygen; Z87.891 Personal history of nicotine dependence
CPT/HCPCS: 36415; 71045; 71275; 80053; 83690; 83880; 84484; 85025; 85610; 87040; 87070; 87205; 87635; 93005; 94640; 94664; 96365; 96367; 96372; 99285; G0378; J0456; J0696; J1644; J7050; J7626; Q9967

== ENCOUNTER 2022-02-21 10:19 | Inpatient (IN) | payer MEDICARE, MEDICAID, SELFPAY ==
[2022-02-21] VITALS (62 sets, daily range): BP systolic 94–134; BP diastolic 55–82; PULSE 87–119; RESP 10–32; TEMP 36.6–36.9; O2SAT 78–98; BMI 24.5
--- NOTE | 2022-02-21 10:47 | XRR_ITS ---
PROCEDURE INFORMATION: Exam: XR Chest Exam date and time: 02/21/2022 12:00 PM Age: 66 years old Clinical indication: Dyspnea and shortness of breath; Patient HX: SOB, nauseous; Additional info: Dyspnea/cough TECHNIQUE: Imaging protocol: Radiologic exam of the chest. Views: 1 view. COMPARISON: 1. CR XR chest 1V portable [id number] 02/19/2022 8:[address] examination 02/19/2022 FINDINGS: Lungs: Chronic parenchymal densities are present in the right upper lobe stable since prior. The lungs are otherwise clear. Pleural spaces: Unremarkable. No pleural effusion. No pneumothorax. Heart/Mediastinum: Unremarkable. No cardiomegaly. Bones/joints: Unremarkable. XR/XR chest 1V portable [id number] IMPRESSION: 1. Chronic parenchymal density right upper lobe 2. Otherwise negative chest examination
[2022-02-21 11:21] LABS: Basophils % 0.3 %; Hematocrit 40.7 % (37.0-47.0); Hemoglobin 12.8 g/dL (11.5-15.3); Lymphocytes # 0.3 10^3/uL (0.8-4.8); Lymphocytes % 2.7 %; Mean Corpuscular HGB Conc 31.4 g/dL (30.0-36.0); Mean Corpuscular Hemoglobin 32.3 pg (28.0-34.0); Mean Corpuscular Volume 102.8 fl (81-99); Mean Platelet Volume 9.2 fL (7.4-10.4); Monocytes # 0.2 10^3/uL (0.2-0.9); Monocytes % 2.3 %; Neutrophils # 8.97 10^3/uL (1.8-7.7); Neutrophils % 94.2 %; Nucleated Red Blood Cells % 0 %; Platelet Count 279 10^3/cmm (130-400); Red Blood Count 3.96 10^6/uL (4.1-5.3); Red Cell Distribution Width 12.3 % (12.1-15.1); White Blood Count 9.5 10^3/uL (4.0-10.0)
--- NOTE | 2022-02-21 11:26 | ED_ITS ---
HPI - SOB/Dyspnea General: Chief Complaint: Shortness of Breath/Dyspnea Stated Complaint: SOB Time Seen by Provider: 02/21/22 10:22 Source: patient Mode of arrival: ambulatory History of Present Illness: HPI Narrative: 58-year-old female presents emergency room complaining of shortness of breath. She has a history of COPD and is on oxygen at home usually uses 2 L/min. She was discharged home yesterday with steroids and antibiotics sounds like she was hospitalized for an exacerbation of COPD. Her symptoms worsen overnight her normal 2 L/min is no longer adequately maintaining her oxygen saturation. MD elicited complaint: shortness of breath and cough Pertinent past history: COPD Onset (ago): day(s) Context: recent illness Timing: constant Severity: moderate Exacerbating factors: exertion and coughing Relieving factors: oxygen and bronchodilators Known history of: COPD Associated symptoms: Reports cough; Deny abdominal pain, chest congestion, chest pain, diaphoresis, dizziness, extremity pain, fever(s), hemoptysis, lightheadedness, myalgias, nausea, orthopnea, palpitations, paresthesias, polydipsia, polyuria, rash, sense of impending doom, syncope or vomiting Treatment prior to arrival: oxygen and bronchodilator Review of Systems Const: Denies: fever(s) or diaphoresis ENMT: Denies: throat pain, ear or mastoid pain, nasal discharge or nasal congestion Card: Denies: chest pain, palpitations, lightheadedness, syncope or orthopnea Resp: Denies: hemoptysis or chest congestion GI: Denies: abdominal pain, nausea or vomiting : Denies: flank pain, difficulty voiding, dysuria, urinary frequency or urinary urgency Musc: Denies: neck pain, back pain or extremity pain Skin/Breast: Denies: rash or pruritus Neuro: Denies: dizziness Endo: Denies: polyuria or polydipsia PFSH ED PFSH: Medical History COPD (chronic obstructive pulmonary disease) Osteoarthritis of left knee Sciatic pain Takotsubo cardiomyopathy Surgical History H/O eye surgery History of History of partial hysterectomy Family History Other CAD (coronary artery disease) Cancer Social History Smoking and tobacco status: former smoker (quit 2 months ago) Quit status (tobacco): has quit using tobacco Year quit tobacco: quit 2 months ago Second hand smoke exposure: No Alcohol intake: never Lives independently: Yes Household members: none Marital status: / Number of children: 2 Number of grandchildren: 8 Current occupational status: retired Physical Exam Const: GENERAL APPEARANCE: cooperative and comfortable ORIENTATION/CONSCIOUSNESS: Yes awake, Yes oriented to person, Yes oriented to pl cara and Yes oriented to time HENMT: COMMON NORMALS: normocephalic, atraumatic and hearing grossly normal bilaterally HEAD & SCALP: normocephalic and atraumatic Resp: AUSCULTATION: rhonchi and wheezes Cardio: COMMON NORMALS: regular rate, regular rhythm and No murmurs present (Cardio) RATE: regular rate RHYTHM: regular rhythm GI: COMMON NORMALS: Soft to palpation and No hepatosplenomegaly present AUSCULTATION: Yes normoactive bowel sounds PALPATION: Yes Soft to palpation, No Tenderness to palpation present (GI), No Guarding due to palpation present (GI) and Yes No hepatosplenomegaly present Extremity: COMMON NORMALS: normal to inspection, capillary refill normal, no clubbing, cyanosis or edema, no calf tenderness and no pedal edema Neuro: SENSORIUM/ORIENTATION: Yes oriented to person, Yes oriented to place and Yes oriented to time Skin: COMMON NORMALS: no rashes or lesions noted GENERAL SKIN EXAM: no rashes or lesions noted Course Vital Signs: Vital signs: Vital Signs Temperature 98.4 F 02/27/22 10:20 Pulse Rate 69 02/27/22 10:20 Respiratory Rate 17 02/27/22 10:20 Blood Pressure 137/74 02/27/22 03:29 Pulse Oximetry 86 L 02/27/22 10:20 Oxygen Delivery Me thod 02/27/22 07:33 Oxygen Flow Rate 2 02/27/22 07:33 Fraction of Inspir ed Oxygen 32 02/24/22 16:00 MDM - SOB/Dyspnea Medical Decision Making Acute exacerbation COPD with hypercapnic respiratory failure discussed with hospitalist will admit Medical Records I reviewed the patient's medical records. Lab Data I reviewed the patient's lab results. 02/27/22 05:10 02/27/22 05:10 Labs/Radiology: Radiology Impressions Chest X-Ray 02/23/22 14:44 IMPRESSION: 1. Stable COPD . 2. Continued [id number] paraseptal emphysema. 3. Continued chronic appearing pulmonary opacities in the upper lobes bilaterally, right greater than left. 4. Continued unusual right heart contour noted on previous CTA chest. THIS REPORT CONTAINS FINDINGS THAT MAY BE CRITICAL TO PATIENT CARE. The findings were verbally communicated via telephone conference with Dr. Soto at 3:29 PM KEYBOARDING TEACHER on 02/23/2022. The findings were acknowledged and understood. Laboratory Results WBC 9.5 10^3/uL (4.0-10.0) 02/21/22 11:14 RBC 3.96 10^6/uL (4.1-5.3) L 02/21/22 11:14 Hgb 12.8 g/dL (11.5-15.3) 02/21/22 11:14 Hct 40.7 % (37.0-47.0) 02/21/22 11:14 MCV 102.8 fl (81-99) H 02/21/22 11:14 MCH 32.3 pg (28.0-34.0) 02/21/22 11:14 MCHC 31.4 g/dL (30.0-36.0) 02/21/22 11:14 RDW 12.3 % (12.1-15.1) 02/21/22 11:14 Plt Count 279 10^3/cmm (130-400) 02/21/22 11:14 MPV 9.2 fL (7.4-10.4) 02/21/22 11:14 Neut % (Auto) 94.2 % 02/21/22 11:14 Lymph % (Auto) 2.7 % 02/21/22 11:14 [place] % (Auto) 2.3 % 02/21/22 11:14 Eos % (Auto) 0.0 % 02/21/22 11:14 Baso % (Auto) 0.3 % 02/21/22 11:14 Neut # (Auto) 8.97 10^3/uL (1.8-7.7) H 02/21/22 11:14 Lymph # (Auto) 0.3 10^3/uL (0.8-4.8) L 02/21/22 11:14 [place] # (Auto) 0.2 10^3/uL (0.2-0.9) 02/21/22 11:14 Eos # (Auto) 0.0 10^3/uL (0.0-0.8) 02/21/22 11:14 Baso # (Auto) 0.0 10^3/uL (0.0-0.1) 02/21/22 11:14 Nucleated RBC % (auto) 0 % 02/21/22 11:14 Nucleated RBCs # 0.0 /100WBC 02/21/22 11:14 Specimen Type Arterial 02/21/22 18:11 Sample Site Radial, right 02/21/22 18:11 ABG pH 7.32 (7.35-7.45) L 02/21/22 18:11 ABG pCO2 77.0 mmHg (35-45) H* 02/21/22 18:11 ABG pO2 65.7 mmHg (80.0-100.0) L 02/21/22 18:11 ABG HCO3 39.8 mmol/L (22-26) H 02/21/22 18:11 ABG O2 Saturation 92.9 02/21/22 18:11 ABG Base Excess 10.8 mmol/L (-2.0-2.0) H 02/21/22 18:11 Edgardo Test Pos 02/21/22 18:11 A-a O2 Gradient 7.4 mmHg (5-10) 02/21/22 18:11 Hematocrit 37.4 % (37-47) 02/21/22 18:11 Hgb O2 Saturation 91.4 % (95-100) L 02/21/22 18:11 Carboxyhemoglobin 1.3 %THgb (0.4-20.1) 02/21/22 18:11 Methemoglobin 0.3 % (0.4-1.5) L 02/21/22 18:11 Total Hemoglobin 12.2 g/dL (12-16) 02/21/22 18:11 Sodium 138.0 mmol/L (131-143) 02/21/22 18:11 Potassium 4.7 mmol/L (3.5-5.0) 02/21/22 18:11 Glucose 126.0 mg/dL (70-115) H 02/21/22 18:11 Ionized Calcium 1.2 mmol/L (1.1-1.4) 02/21/22 18:11 O2 Delivery Device Bipap 02/21/22 18:11 O2 Liters/Min 3.0 % 02/21/22 11:29 FiO2 30.0 % 02/21/22 18:11 Devops Developer ID Monro 02/21/22 18:11 Sodium 136 mmol/L (136-145) 02/21/22 11:14 Potassium 4.2 mmol/L (3.5-5.1) 02/21/22 11:14 Chloride 90 mmol/L (98-107) L 02/21/22 11:14 Carbon Dioxide 39 mmol/L (22-29) H 02/21/22 11:14 Anion Gap 11.2 (5-19) 02/21/22 11:14 BUN 7 mg/dL (8-23) L 02/21/22 11:14 Creatinine 0.4 mg/dL (0.5-0.9) L 02/21/22 11:14 GFR Calculation 158.7 mL/min (90-130) H 02/21/22 11:14 Glucose 150 mg/dL (65-115) H 02/21/22 11:14 Calculated Osmolality 283 mOsm/kg (285-295) L 02/21/22 11:14 Lactic Acid 0.8 mmol/L (0.5-2.2) 02/21/22 14:14 Calcium 9.6 mg/dL (8.5-10.5) 02/21/22 11:14 Magnesium 2.2 mg/dL (1.7-2.3) 02/21/22 11:14 Total Bilirubin 0.2 mg/dL (0.15-1.2) 02/21/22 11:14 AST 26 U/L (0-32) 02/21/22 11:14 ALT 27 U/L (0-33) 02/21/22 11:14 Alkaline Phosphatase 88 U/L (35-105) 02/21/22 11:14 Troponin T Baseline 6 ng/L (0-10) 02/21/22 11:14 Troponin T 120 Minute 6.33 ng/L (0-10) 02/21/22 13:29 Delta Troponin T 0.33 ABS# (0-10) 02/21/22 13:29 Troponin T Hi Sens 6Hr 6.00 ng/L (0-10) 02/21/22 17:01 Troponin T Hi Sens 6Hr Delta 0 ng/L (0-12) 02/21/22 17:01 NT-Pro-B Natriuret Pep 539 pg/mL (0-125) H 02/21/22 11:14 Total Protein 7.3 g/dL (6.6-8.7) 02/21/22 11:14 Albumin 4.3 g/dL (3.5-5.2) 02/21/22 11:14 Globulin 3.0 g/dL (1.3-4.6) 02/21/22 11:14 Procalcitonin 0.02 ng/mL (0-0.5) 02/21/22 11:14 Urine Color Straw (Yellow) 02/21/22 11:00 Urine Appearance Clear (CLEAR) 02/21/22 11:00 Urine pH 7 (5-7) 02/21/22 11:00 Ur Specific [place] 1.015 (1.005-1.030) 02/21/22 11:00 Urine Protein Neg (Negative) 02/21/22 11:00 Urine Glucose (UA) Norm (Normal) 02/21/22 11:00 Urine Ketones Negative (Negative) 02/21/22 11:00 Urine Blood Neg (Negative) 02/21/22 11:00 Urine Nitrate Negative (Negative) 02/21/22 11:00 Urine Bilirubin Neg (Negative) 02/21/22 11:00 Urine Urobilinogen Neg mg/dL (Negative) 02/21/22 11:00 Ur Leukocyte Esterase Negative (Negative) 02/21/22 11:00 Discharge Plan Discharge Patient Disposition: Admitted As Inpatient Admit Provider: Babs Ayala Clinical Impression: Acute exacerbation of chronic obstructive airways disease, Acute hypercapnic respiratory failure Condition: Stable Discharge Diet: Cardiac Discharge Activity: Resume usual activity Coding Level of Care Code ED Aoc Operations Intelligence Chief for Laura Bonilla
[2022-02-21 11:38] LABS: Troponin(5th) Baseline 6 ng/L (0-10)
[2022-02-21 11:39] LABS: Alanine Aminotransferase 27 U/L (0-33); Albumin Level 4.3 g/dL (3.5-5.2); Alkaline Phosphatase 88 U/L (35-105); Anion Gap 11.2 (5-19); Aspartate Amino Transferase 26 U/L (0-32); Blood Urea Nitrogen 7 mg/dL (8-23); Calcium 9.6 mg/dL (8.5-10.5); Carbon Dioxide 39 mmol/L (22-29); Chloride 90 mmol/L (98-107); Glomerular Filtration Rate 158.7 mL/min (90-130); Glucose 150 mg/dL (65-115); Osmolality Calculated 283 mOsm/kg (285-295); Potassium 4.2 mmol/L (3.5-5.1); Sodium 136 mmol/L (136-145); Total Bilirubin 0.2 mg/dL (0.15-1.2); Total Protein 7.3 g/dL (6.6-8.7)
[2022-02-21 11:40] LABS: ABG PCO2 88.8 mmHg (35-45); ABG PH Result 7.26 (7.35-7.45); Alveolar-Arterial Oxygen Gradi 5.9 mmHg (5-10); Arterial Blood Gas Hematocrit 39.1 % (37-47); Base Excess ABG 9.3 mmol/L (-2.0-2.0); Blood Gas Allen Test Pos; Blood Gas Operator Identificat CAK; Blood Gas Sample Site Brachial, left; Blood Gas Sample Type Arterial; Carboxyhemoglobin 1.1 %THgb (0.4-20.1); HCO3 ABG 39.8 mmol/L (22-26); HGB O2 Sat 92.7 % (95-100); Ionized Calcium Level - ABG 1.3 mmol/L (1.1-1.4); Methemoglobin 0.8 % (0.4-1.5); Oxygen Device NC; Oxygen Saturation ABG 94.6; PO2 ABG 76.6 mmHg (80.0-100.0); Total Hemoglobin 12.7 g/dL (12-16)
--- NOTE | 2022-02-21 12:47 | ECG_ITS ---
[facility] Test Date: 2022-02-21 Pat Name: Sheba Lira Department: Room: Gender: Female Currency Examiner: : 1955 Requested By: Kyler Webster Order Number: [id number] Latricia MD: Shan Hernandez M.D. Measurements Intervals [place] Rate: 89 P: 82 VT: 146 QRS: 86 QRSD: 102 T: 74 QT: 338 QTc: 413 Interpretive Statements SINUS RHYTHM WITH FREQUENT SUPRAVENTRICULAR PREMATURE COMPLEXES INCOMPLETE RIGHT BUNDLE BRANCH BLOCK [90+ ms QRS DURATION, TERMINAL R IN V1/V2, 40+ ms S IN I/aVL/V4/V5/V6] ABNORMAL RHYTHM ECG Compared to ECG 02/19/2022 05:22:45 Ventricular premature complex(es) no longer present Electronically Signed On 02-22-2022 14:49:33 ACCOUNTING SYSTEMS MANAGER by Shan Hernandez M.D. [id number]
--- NOTE | 2022-02-21 12:47 | ECG_ITS ---
[facility] Test Date: 2022-02-21 Pat Name: Sheba Lira Department: Room: Gender: Female Bun Panner: : 1955 Requested By: Kyler Webster Order Number: [id number] Latricia MD: Shan Hernandez M.D. Measurements Intervals [place] Rate: 89 P: 0 SD: 0 QRS: 85 QRSD: 100 T: 81 QT: 340 QTc: 415 Interpretive Statements Sinus rhythm with frequent PACs in the form of trigeminy NINCOMPLETE RIGHT BUNDLE BRANCH BLOCK [90+ ms QRS DURATION, TERMINAL R IN V1/V2, 40+ ms S IN I/aVL/V4/V5/V6] ABNORMAL RHYTHM ECG Compared to ECG 02/21/2022 12:47:03 Sinus rhythm no longer present Electronically Signed On 02-22-2022 15:25:24 PARCEL CARRIER by Shan Hernandez M.D. [id number]
--- NOTE | 2022-02-21 13:36 | PM.HP ---
Providers/Chief Complaint Primary Care Provider: Jessi Prabhakar MD Chief Complaint: SOB History of Present Illness Sheba Lira is a 66 year old female with past medical history of COPD, osteoarthritis presented to the hospital today for shortness of breath. She is usually at 2 L of nasal cannula [id number] at home. She was discharged yesterday with prednisone taper, nebulized inhalation treatments, referral to pulmonary rehab and antibiotics to cover empirically for pneumonia. Patient presented back to the hospital today for worsening of symptoms overnight and not adequately maintaining her saturations. She is well known to me from previous admissions and will be admitted at this time for AHHRF. Will place on bipap. ROS negative except noted above. Family states he could not get all the prescribed medications yesterday. They are requesting to transfer patient to [place]. ER physician and myself and told him that it will be difficult to do so due to bed availability. We will be discussing the case with pulmonology here. Discussed with comfort station attendant on-call. He will see the patient in consultation. Medications/Allergies Home Medications Medication Instructions Recorded Confirmed Last Taken Type nebulizer compressor with kit #1 ea 02/18/21 02/21/22 Unknown Rx albuterol sulfate 2.5 mg/3 mL 2.5 mg (3 mL) inhalation Q6H PRN 08/06/21 02/21/22 02/21/22 Rx (0.083 %) solution for nebulization shortness of breath or wheezing #360 mL nebulizer accessories #1 ea 12/06/21 02/21/22 Unknown Rx budesonide-formoterol HFA 160 2 puff inhalation BID #10.2 grams 01/14/22 02/21/22 Unknown Rx mcg-4.5 mcg/actuation aerosol inhaler (Symbicort) albuterol sulfate 90 mcg/actuation 2 puff inhalation Q8H PRN 02/19/22 02/21/22 02/21/22 History aerosol inhaler Shortness Of Breath ipratropium 0.5 mg-albuterol 3 mg 3 ml inhalation Q6H PRN Wheezing 02/19/22 02/21/22 Unknown History (2.5 mg base)/3 mL nebulization soln budesonide 0.5 mg/2 mL suspension 0.5 mg (2 mL) inhalation BID 30 1102/21/22 02/21/22 Rx for nebulization (Pulmicort) days #120 mL cefpodoxime 200 mg tablet 200 mg PO BID 5 days #10 tabs 02/20/22 02/21/22 02/21/22 Rx revefenacin 175 mcg/3 mL solution 175 mcg (3 mL) inhalation DAILY 30 02/20/22 02/21/22 02/21/22 Rx for nebulization (Yupelri) days #90 mL Allergies Allergy/AdvReac Type Severity Reaction Status Date / Time aspirin Allergy Intermediate ADR/ALGY-Pa Verified 02/21/22 10:52 lpitations fluticasone furoate Allergy Intermediate hives Verified 02/21/22 10:52 [From Trelegy Ellipta] umeclidinium Allergy Intermediate hives Verified 02/21/22 10:52 [From Trelegy Ellipta] vilanterol Allergy Intermediate hives Verified 02/21/22 10:52 [From Trelegy Ellipta] codeine AdvReac ADR-Nausea Verified 02/21/22 10:52 PFSH Acute PFSH: Medical History (Updated 02/21/22 @ 13:52 by Babs Ayala MD) COPD (chronic obstructive pulmonary disease) Osteoarthritis of left knee Sciatic pain Takotsubo cardiomyopathy Surgical History (Updated 02/19/22 @ 01:24 by Matheus Ross MD) H/O eye surgery History of History of partial hysterectomy Family History (Updated 02/19/22 @ 01:23 by Matheus Ross MD) Other CAD (coronary artery disease) Cancer Social History (Updated 02/19/22 @ 01:32 by Matheus Ross MD) Smoking and tobacco status: former smoker (quit 2 months ago) Quit status (tobacco): has quit using tobacco Year quit tobacco: quit 2 months ago Second hand smoke exposure: No Alcohol intake: never Lives independently: Yes Household members: none Marital status: / Number of children: 2 Number of grandchildren: 8 Current occupational status: retired Vitals/I&O/Wt Last Vital Signs Temp 98.5 F 02/21/22 10:23 Pulse 101 H 02/21/22 11:57 Resp 20 H 02/21/22 10:23 BP 128/69 02/21/22 10:23 Pulse Ox 96 02/21/22 11:57 O2 Del Method 02/21/22 10:23 O2 Flow Rate 4 02/21/22 10:23 FiO2 40 02/21/22 11:57 Weight last 48 hrs Weight 58.967 kg Physical Exam Narrative: General: Alert oriented x3, seen laying in bed with BiPAP placed. Appears comfortable. Not altered. HEENT: Normocephalic, atraumatic, EOMI, on nasal cannula Cardio: Regular rate rhythm, normal S1-S2, no murmurs rubs gallops, Respiratory: Rhonchi bilaterally diffusely present. GI: Abdomen soft, nontender, nondistended, bowel sounds + Behavior: Appropriate and cooperative Extremities: no cyanosis, right wrist compression bandage present. B/l LE edema present trace. Data : 02/21/22 11:14 02/21/22 11:14 A&P Assessment and plan (1) Acute exacerbation of chronic obstructive pulmonary disease: (2) COPD (chronic obstructive pulmonary disease): (3) Respiratory failure: Plan #Acute hypercapnic hypoxic respiratory failure, requiring bipap #COPD Exacerbation - Solumedrol 40 q8H IV. Solumedrol 125 x1 now - Duoneb q4H scheduled - Pulmicort BID inh scheduled - Continue bipap- ABG . - Resp eval and tx - Diet after bipap - Continue empiric pneumonia coverage. Ceftriaxone + azithro - Check MRSA nares, legionella, strep, sputum culture gm stain - Consult pulmnology. #Mediastinal lymphadenopathy: Incidentally noted on CT, nonspecific, up to 2 mm.? Lymph nodes.? Consider outpatient follow-up #She is recently quit smoking: Continue to support abstinence. FUll Code DVT PPX: heparin Attestations Medical Necessity Statement*: Will cross > 2 midnight stay for management of COPD exacerbation and AHRF. Coding Level of Care Code Acute Weapons Specialist for Laura Bonilla Diagnoses Acute exacerbation of chronic obstructive pulmonary disease J44.1 COPD (chronic obstructive pulmonary disease) J44.9 Respiratory failure J96.90
[2022-02-21 13:54] LABS: Troponin 5 2HR 6.33 ng/L (0-10)
[2022-02-21 14:01] LABS: Troponin 5 2HR Delta 0.33 ABS# (0-10)
[2022-02-21 14:09] LABS: NT Pro B Type Natriuretic Pept 539 pg/mL (0-125); Procalcitonin 0.02 ng/mL (0-0.5)
[2022-02-21] MEDS: cefTRIAXone 1,000 MG in sodium chloride 0.9% (plus) 50 ML 100 MG IV (14:14)
[2022-02-21] MEDS: pantoprazole 40 mg SDV IVP (14:17)
[2022-02-21] MEDS: heparin 5,000 unit/mL INJ 1 mL 5000 UNIT SUBCUT (14:18)
[2022-02-21 14:20] LABS: Magnesium 2.2 mg/dL (1.7-2.3)
--- NOTE | 2022-02-21 14:38 | USCV_ITS ---
Sheba Lira Age: 66 Gender: F : 1955 Exam Date: 02/21/2022 14:52 Ordering Phys: Babs Ayala MD Technologist: KEISHA Exam Location: [facility] [place] Indication: HEART FAILURE BP: 113 / 67 HR: 97 Rhythm: Sinus Technical Quality: Very poor MEASUREMENTS (Male / Female) Normal Values 2D ECHO LVOT Diameter 2.0 cm LA Diameter 2.3 cm Aorta at Sinotubular Diameter 2.7 cm IVC Diameter 1.3 cm M-MODE Aortic Annulus Diameter 2.9 cm LA Ao Ratio MM 0.8 MV E Point Septal Separation 0.4 cm DOPPLER TR Peak Velocity 317.5 cm/s TR Peak Gradient 40.3 mmHg TR Mean Velocity 258.2 cm/s TR Mean Gradient 30.1 mmHg TR Velocity Time Integral 76.4 cm Right Atrial Pressure 3.0 mmHg Pulmonary Artery Systolic Pressu 43.3 mmHg PV Peak Velocity 137.0 cm/s RV Acceleration Time 0.1 s RV Ejection Time 0.2 s RV AcT/ET 0.7 FINDINGS Left Ventricle Normal left ventricular size and systolic function, EF 60%.mild left ventricular hypertrophy. No regional wall motion abnormalities. Right Ventricle The right ventricle is normal in size and function. Right Atrium The right atrium is normal in size. Left Atrium The left atrium is normal in size. Mitral Valve No gross abnormalities noted Aortic Valve Thickened aortic valve. Tricuspid Valve Trace to mild tricuspid valve regurgitation. Pulmonic Valve Pulmonic valve sclerosis. Pericardium Normal pericardium without effusion. Aorta Normal ascending aorta dimension. IVC The inferior vena cava appears normal. CONCLUSIONS Normal left ventricular size and systolic function, EF 60%.mild left ventricular hypertrophy. No regional wall motion abnormalities. Trace to mild tricuspid valve regurgitation. Thickened aortic valve. There is no pericardial effusion. There are no intracardiac masses. Technically difficult study because of the poor ultrasonic window. Compared to the study from 04/16/2021, there may not be significant change Dr Shan Hernandez MD [facility] (Electronically Signed) Final Date: 24 February 2022 08:16 S
[2022-02-21 14:45] LABS: Add Urine Microscopic? NO; Charge for UA Resulting for Rev
[2022-02-21 14:46] LABS: Lactic Sepsis W/Reflex 0.8 mmol/L (0.5-2.2)
[2022-02-21 14:51] LABS: Bilirubin Urine Neg (Negative); Blood Urine Neg (Negative); Glucose Urine UA Norm (Normal); Ketones Urine Negative (Negative); Leukocyte Esterase Urine Negative (Negative); Nitrate Urine Negative (Negative); Protein Urine Neg (Negative); Specific Gravity, Urine 1.015 (1.005-1.030); Urine Appearance Clear (CLEAR); Urine Color Straw (Yellow); Urobilinogen Urine Neg (Negative); pH Urine 7 (5-7)
[2022-02-21 15:23] LABS: ABG PH Result 7.28 (7.35-7.45); Alveolar-Arterial Oxygen Gradi 13.5 mmHg (5-10); Arterial Blood Gas Hematocrit 38.3 % (37-47); Blood Gas Allen Test Pos; Blood Gas Operator Identificat CAK; Blood Gas Sample Site Brachial, left; Blood Gas Sample Type Arterial; Carboxyhemoglobin 1.2 %THgb (0.4-20.1); HGB O2 Sat 93.6 % (95-100); Ionized Calcium Level - ABG 1.2 mmol/L (1.1-1.4); Methemoglobin 0.9 % (0.4-1.5); Oxygen Device BIPAP; Oxygen Saturation ABG 95.6; PO2 ABG 79.6 mmHg (80.0-100.0); Potassium Level - ABG 4.8 mmol/L (3.5-5.0); Total Hemoglobin 12.5 g/dL (12-16)
--- NOTE | 2022-02-21 15:41 | PC.SOCIAL ---
Dr. Buitrago spoke to ALY and states that patient is staying that she was delivered an empty tank yesterday and her home tanks are empty and patient is back in the ER. ALY spoke to Configuration Management Analyst Nicki and notified her of the issue. ALY called HOME and spoke to Dawson and updated him of the information and that if patient discharges from the ER that they will likely be calling him to bring over a tank for her to discharge with. He verbalized an understanding.
[2022-02-21] MEDS: azithromycin 500 MG in sodium chloride 0.9% 250 ML 250 MG IV (15:52)
[2022-02-21] MEDS: ipratropium-albuterol 3 mL Neb INHALATION ×3 (16:30→23:20)
--- NOTE | 2022-02-21 16:47 | ECG_ITS ---
[facility] Test Date: 2022-02-21 Pat Name: Sheba Lira Department: Room: Gender: Female Profile Grinder Technician: : 1955 Requested By: Kyler Webster Order Number: [id number] Latricia MD: Shan Hernandez M.D. Measurements Intervals [place] Rate: 95 P: 0 CO: 0 QRS: 81 QRSD: 102 T: 78 QT: 334 QTc: 420 Interpretive Statements Sinus rhythm with a frequent PACs in the form of trigeminy INCOMPLETE RIGHT BUNDLE BRANCH BLOCK [90+ ms QRS DURATION, TERMINAL R IN V1/V2, 40+ ms S IN I/aVL/V4/V5/V6] ABNORMAL RHYTHM ECG Compared to ECG 02/21/2022 14:08:48 No significant changes Electronically Signed On 02-22-2022 15:29:11 MOTOR HOME ELECTRICAL FOREMAN by Shan Hernandez M.D. [id number]
[2022-02-21 18:12] LABS: Troponin 5 6HR Delta 0 ng/L (0-12)
[2022-02-21 18:23] LABS: ABG PH Result 7.32 (7.35-7.45); Arterial Blood Gas Hematocrit 37.4 % (37-47); Base Excess ABG 10.8 mmol/L (-2.0-2.0); Blood Gas Allen Test Pos; Blood Gas Sample Type Arterial; Carboxyhemoglobin 1.3 %THgb (0.4-20.1); HCO3 ABG 39.8 mmol/L (22-26); HGB O2 Sat 91.4 % (95-100); Ionized Calcium Level - ABG 1.2 mmol/L (1.1-1.4); Methemoglobin 0.3 % (0.4-1.5); Oxygen Saturation ABG 92.9; PO2 ABG 65.7 mmHg (80.0-100.0); Potassium Level - ABG 4.7 mmol/L (3.5-5.0); Total Hemoglobin 12.2 g/dL (12-16)
[2022-02-21 18:25] LABS: Alveolar-Arterial Oxygen Gradi 7.4 mmHg (5-10); Blood Gas Operator Identificat MONRO; Blood Gas Sample Site Radial, right; Oxygen Device BIPAP
[2022-02-21] MEDS: budesonide 0.5 mg/2 mL Neb INHALATION (19:48)
--- NOTE | 2022-02-21 21:11 | PM.CONSULT ---
Providers/Reason For Consult Consulting Physician/Specialty*: Eb Soto MD/Pulmonary Reason for Consult*: COPD exacerbation Requesting Physician: Babs Ayala MD Attending Physician: Babs Ayala MD Primary Care Provider: Jessi Prabhakar MD History of Present Illness History of Present Illness Sheba Lira is a 66 year old female with past medical history of Severe COPD, chronic hypoxic respiratory failure, Takotsubo Cardiomyopathy came to ER for worsening shortness of breath and wheezing admitted for COPD exacerbation. Upon review of records patient had a PFT July 2021 which showed severe airflow obstruction with FEV1 770 cc 37% predicted and FVC 1.94 L 74% predicted with FEV1/FVC ratio 40. There is significant response to bronchodilators. Lung volumes suggestive of severe air trapping and hyperinflation. Gas transfer is significantly gas transfer is moderately reduced at 49%. Constellation of findings consistent with advanced obstructive ventilatory diseases like emphysema. She was previously seen by Dr. Orozco as outpatient and recommended Perforomist and revefenacin nebulization but her insurance did not approve when she started using Incruse, which she stopped as she did not like dry powder. She was using only albuterol and later followed up with her PCP January 14, 2022 who has given her supplemental oxygen as she was desaturating to 82% on exercise. She was given prescription for Symbicort She had an ED visit on 02/16/2022 - with COPD exacerbation responded to IV Steroids, Duoneb nebulizations, and was discharged with keflex and Po steroids. she is requiring 2L Nasal cannula. she comes back again on 02/18/2022 with worsening shortness of breath and pleuritic chest pain. This time CT chest ruled out PE but showed small left anterior pneumothorax showing 13 and diffuse emphysema. There are patchy bilateral airspace infiltrates. several non specific prominent mediastinal lymph nodes seen. she admitted this time treated with scheduled nebulizations, iv steroids, antibiotics. Patient had a repeat chest x-ray done which did not show any pneumothorax.?Once clinically improved she was discharged home yesterday on 2L nasal cannula, with Cefpodoxime, oral azithromycin, with prescriptions for Yupelri, Perforomist, budesonide nebulizer and referral to start pulmonary rehab along with physical therapy in her home town [place]. She returns to ED today with worsening shortness of breath and wheezing. Patient's sister and brother were at bedside and her daughter came from [place]. Family were concerned about patient's recurrent admissions and daughter wanted to transfer patient to [place] as it would be easy for her and her family to take care of her there. ED physician has tried contacting several places in [place] but there was no bed available. Pulmonary consulted for recurrent COPD admission. Patient reports having dyspnea and wheezing.Her ABG on arrival showed ph 7.26 and PCO2 88; she was given nebulizations and iv steroids, and placed on BIPAP 20/8 fio2 40%. On BiPAP for 3 hrs - ABG slightly improved to 7.28 with PCO2 85, -IPAP increased to 22 - and repeat ABG after 3 hrs showed PH 7.32 and PCO2 77. Chest x ray did not show any new infiltrate. there is chronic parenchymal density in right upper lobe. She was started on ceftriaxone and azithromycin and scheduled for nebulizations and IV steroids. Upon inquiry with patient's sister and brother, who took her home after yesterday's discharge, informed that patient did not get her prescribed medications Yupelri, Perforomist, budesonide and her home oxygen tank and the one delivered from [facility] both were empty. Overnight patient did not take any treatment and without supplemental oxygen her breathing just got worse and so they had to bring her to emergency room.She had extensive history of smoking 1.5 pack for 42 years and continues to smoke 5 cigarettes a day. I had an extensive discussion with patient's daughter about current medical condition, her advance COPD-that it is not safe for daughter to take patient to [place] in this condition and it is better to stay in the hospital and get treated over the weekend for COPD exacerbation and once patient has clinically improved-we will again involve our case management/social organization professor to make arrangements for safe discharge to home. At that point daughter can take her to [place] and establish care with a entertainment musician and pulmonary rehabilitation. Accordingly patient was admitted to [facility] floor. Patient had hospitalization in January 2021 with chest pain-cardiac cath at that time did not show any evidence of CAD but showed moderate LV systolic dysfunction with EF 30%. Repeat CV echo April 16, 2021 showed normal LV size and systolic function with EF 60%. Moderate aortic valve calcification. EF has improved compared to January 2021. Other labs and imaging reviewed. Review of Systems General: Reports: 10 or more systems reviewed and unremarkable except in HPI and below Medications/Allergies Home Medications Medication Instructions Recorded Confirmed Last Taken Type nebulizer compressor with kit #1 ea 02/18/21 02/21/22 Unknown Rx albuterol sulfate 2.5 mg/3 mL 2.5 mg (3 mL) inhalation Q6H PRN 08/06/21 02/21/22 02/21/22 Rx (0.083 %) solution for nebulization shortness of breath or wheezing #360 mL nebulizer accessories #1 ea 12/06/21 02/21/22 Unknown Rx budesonide-formoterol HFA 160 2 puff inhalation BID #10.2 grams 01/14/22 02/21/22 Unknown Rx mcg-4.5 mcg/actuation aerosol inhaler (Symbicort) albuterol sulfate 90 mcg/actuation 2 puff inhalation Q8H PRN 02/19/22 02/21/22 02/21/22 History aerosol inhaler Shortness Of Breath ipratropium 0.5 mg-albuterol 3 mg 3 ml inhalation Q6H PRN Wheezing 02/19/22 02/21/22 Unknown History (2.5 mg base)/3 mL nebulization soln budesonide 0.5 mg/2 mL suspension 0.5 mg (2 mL) inhalation BID 30 02/20/22 02/21/22 02/21/22 Rx for nebulization (Pulmicort) days #120 mL cefpodoxime 200 mg tablet 200 mg PO BID 5 days #10 tabs 02/20/22 02/21/22 02/21/22 Rx revefenacin 175 mcg/3 mL solution 175 mcg (3 mL) inhalation DAILY 30 02/20/22 02/21/22 02/21/22 Rx for nebulization (Yupelri) days #90 mL Allergies Allergy/AdvReac Type Severity Reaction Status Date / Time aspirin Allergy Intermediate ADR/ALGY-Pa Verified 02/21/22 10:52 lpitations fluticasone furoate Allergy Intermediate hives Verified 02/21/22 10:52 [From Trelegy Ellipta] umeclidinium Allergy Intermediate hives Verified 02/21/22 10:52 [From Trelegy Ellipta] vilanterol Allergy Intermediate hives Verified 02/21/22 10:52 [From Trelegy Ellipta] codeine AdvReac ADR-Nausea Verified 02/21/22 10:52 Current Medications Generic Name Dose Route Start Last Admin Trade Name Janeth PRN Reason Stop Dose Admin Albuterol/Ipratropium 3 ml 02/21/22 16:00 02/21/22 19:48 Ipratropium-Albuterol 3 Ml Neb INHALATION 3 ml QID.RESPIRATORY YARON Administration Budesonide 0.5 mg 02/21/22 20:00 02/21/22 19:48 Budesonide 0.5 Mg/2 Ml Neb INHALATION 0.5 mg BID.RESPIRATORY YARON Administration Heparin Sodium (Porcine) 5,000 unit 02/21/22 13:45 02/21/22 14:18 Heparin 5,000 Unit/Ml Inj 1 Ml SUBCUT 5,000 unit Q12H YARON Administration Azithromycin 500 mg/ Sodium 250 mls @ 250 mls/hr 02/21/22 14:00 02/21/22 16:52 Chloride IV Infused Q24H YARON Infusion Protocol Pantoprazole Sodium 40 mg 02/21/22 13:45 02/21/22 14:17 Pantoprazole 40 Mg Sdv IVP 40 mg Q24H YARON Administration PFSH Acute PFSH: Medical History COPD (chronic obstructive pulmonary disease) Osteoarthritis of left knee Sciatic pain Takotsubo cardiomyopathy Surgical History H/O eye surgery History of History of partial hysterectomy Family History Other CAD (coronary artery disease) Cancer Social History Smoking and tobacco status: former smoker (quit 2 months ago) Quit status (tobacco): has quit using tobacco Year quit tobacco: quit 2 months ago Second hand smoke exposure: No Alcohol intake: never Lives independently: Yes Household members: none Marital status: / Number of children: 2 Number of grandchildren: 8 Current occupational status: retired Vitals/I&O/Wt Last Vital Signs Temp 97.8 F 02/21/22 20:00 Pulse 94 02/21/22 20:00 Resp 18 02/21/22 20:00 BP 123/58 02/21/22 20:00 Pulse Ox 94 02/21/22 20:00 O2 Del Method 02/21/22 20:45 O2 Flow Rate 2 02/21/22 21:00 FiO2 30 02/21/22 16:32 02/21/22 02/21/22 02/21/22 06:59 14:59 22:59 Intake Total 50 / 50 250 / 300 Balance 50 / 50 250 / 300 Weight last 48 hrs Weight 130 lb Physical Exam Narrative: General: alert, NAD HEENT: conj clear, EOMI, PERRL, mmm, Neck: supple, no meningismus Heme: no cervical LAP Respiratory: Inspection: No visible deformity of the chest wall Palpation: Trachea is mildly deviated to the right, bilateral symmetric expansion Percussion: Bilateral tympanic percussion note both anterior and posteriorly Auscultation: Bilateral diffuse wheeze on auscultation both anterior and posteriorly, no crackles wheezing or rhonchi Cardiovascular: rrr, nl s1s2, no mrg Abdomen: soft, nt, nd, no r/g, bs+ Extremities: pulses +, no edema, no c/c : no CVA tenderness Skin: intact, no rash MSK: no back or neck pain Neurologic: grossly intact Data : 02/21/22 11:14 02/21/22 11:14 Other Labs: Radiology Impressions Chest X-Ray 02/21/22 10:47 IMPRESSION: 1. Chronic parenchymal density right upper lobe 2. Otherwise negative chest examination Laboratory Results WBC 9.5 10^3/uL (4.0-10.0) 02/21/22 11:14 RBC 3.96 10^6/uL (4.1-5.3) L 02/21/22 11:14 Hgb 12.8 g/dL (11.5-15.3) 02/21/22 11:14 Hct 40.7 % (37.0-47.0) 02/21/22 11:14 MCV 102.8 fl (81-99) H 02/21/22 11:14 MCH 32.3 pg (28.0-34.0) 02/21/22 11:14 MCHC 31.4 g/dL (30.0-36.0) 02/21/22 11:14 RDW 12.3 % (12.1-15.1) 02/21/22 11:14 Plt Count 279 10^3/cmm (130-400) 02/21/22 11:14 MPV 9.2 fL (7.4-10.4) 02/21/22 11:14 Neut % (Auto) 94.2 % 02/21/22 11:14 Lymph % (Auto) 2.7 % 02/21/22 11:14 Ritchie % (Auto) 2.3 % 02/21/22 11:14 Eos % (Auto) 0.0 % 02/21/22 11:14 Baso % (Auto) 0.3 % 02/21/22 11:14 Neut # (Auto) 8.97 10^3/uL (1.8-7.7) H 02/21/22 11:14 Lymph # (Auto) 0.3 10^3/uL (0.8-4.8) L 02/21/22 11:14 Ritchie # (Auto) 0.2 10^3/uL (0.2-0.9) 02/21/22 11:14 Eos # (Auto) 0.0 10^3/uL (0.0-0.8) 02/21/22 11:14 Baso # (Auto) 0.0 10^3/uL (0.0-0.1) 02/21/22 11:14 Nucleated RBC % (auto) 0 % 02/21/22 11:14 Nucleated RBCs # 0.0 /100WBC 02/21/22 11:14 Specimen Type Arterial 02/21/22 18:11 Sample Site Radial, right 02/21/22 18:11 ABG pH 7.32 (7.35-7.45) L 02/21/22 18:11 ABG pCO2 77.0 mmHg (35-45) H* 02/21/22 18:11 ABG pO2 65.7 mmHg (80.0-100.0) L 02/21/22 18:11 ABG HCO3 39.8 mmol/L (22-26) H 02/21/22 18:11 ABG O2 Saturation 92.9 02/21/22 18:11 ABG Base Excess 10.8 mmol/L (-2.0-2.0) H 02/21/22 18:11 Edgardo Test Pos 02/21/22 18:11 A-a O2 Gradient 7.4 mmHg (5-10) 02/21/22 18:11 Hematocrit 37.4 % (37-47) 02/21/22 18:11 Hgb O2 Saturation 91.4 % (95-100) L 02/21/22 18:11 Carboxyhemoglobin 1.3 %THgb (0.4-20.1) 02/21/22 18:11 Methemoglobin 0.3 % (0.4-1.5) L 02/21/22 18:11 Total Hemoglobin 12.2 g/dL (12-16) 02/21/22 18:11 Sodium 138.0 mmol/L (131-143) 02/21/22 18:11 Potassium 4.7 mmol/L (3.5-5.0) 02/21/22 18:11 Glucose 126.0 mg/dL (70-115) H 02/21/22 18:11 Ionized Calcium 1.2 mmol/L (1.1-1.4) 02/21/22 18:11 O2 Delivery Device Bipap 02/21/22 18:11 O2 Liters/Min 3.0 % 02/21/22 11:29 FiO2 30.0 % 02/21/22 18:11 Asphalt Plant Operator ID Monro 02/21/22 18:11 Sodium 136 mmol/L (136-145) 02/21/22 11:14 Potassium 4.2 mmol/L (3.5-5.1) 02/21/22 11:14 Chloride 90 mmol/L (98-107) L 02/21/22 11:14 Carbon Dioxide 39 mmol/L (22-29) H 02/21/22 11:14 Anion Gap 11.2 (5-19) 02/21/22 11:14 BUN 7 mg/dL (8-23) L 02/21/22 11:14 Creatinine 0.4 mg/dL (0.5-0.9) L 02/21/22 11:14 GFR Calculation 158.7 mL/min (90-130) H 02/21/22 11:14 Glucose 150 mg/dL (65-115) H 02/21/22 11:14 Calculated Osmolality 283 mOsm/kg (285-295) L 02/21/22 11:14 Lactic Acid 0.8 mmol/L (0.5-2.2) 02/21/22 14:14 Calcium 9.6 mg/dL (8.5-10.5) 02/21/22 11:14 Magnesium 2.2 mg/dL (1.7-2.3) 02/21/22 11:14 Total Bilirubin 0.2 mg/dL (0.15-1.2) 02/21/22 11:14 AST 26 U/L (0-32) 02/21/22 11:14 ALT 27 U/L (0-33) 02/21/22 11:14 Alkaline Phosphatase 88 U/L (35-105) 02/21/22 11:14 Troponin T Baseline 6 ng/L (0-10) 02/21/22 11:14 Troponin T 120 Minute 6.33 ng/L (0-10) 02/21/22 13:29 Delta Troponin T 0.33 ABS# (0-10) 02/21/22 13:29 Troponin T Hi Sens 6Hr 6.00 ng/L (0-10) 02/21/22 17:01 Troponin T Hi Sens 6Hr Delta 0 ng/L (0-12) 02/21/22 17:01 NT-Pro-B Natriuret Pep 539 pg/mL (0-125) H 02/21/22 11:14 Total Protein 7.3 g/dL (6.6-8.7) 02/21/22 11:14 Albumin 4.3 g/dL (3.5-5.2) 02/21/22 11:14 Globulin 3.0 g/dL (1.3-4.6) 02/21/22 11:14 Procalcitonin 0.02 ng/mL (0-0.5) 02/21/22 11:14 Urine Color Straw (Yellow) 02/21/22 11:00 Urine Appearance Clear (CLEAR) 02/21/22 11:00 Urine pH 7 (5-7) 02/21/22 11:00 Ur Specific [place] 1.015 (1.005-1.030) 02/21/22 11:00 Urine Protein Neg (Negative) 02/21/22 11:00 Urine Glucose (UA) Norm (Normal) 02/21/22 11:00 Urine Ketones Negative (Negative) 02/21/22 11:00 Urine Blood Neg (Negative) 02/21/22 11:00 Urine Nitrate Negative (Negative) 02/21/22 11:00 Urine Bilirubin Neg (Negative) 02/21/22 11:00 Urine Urobilinogen Neg mg/dL (Negative) 02/21/22 11:00 Ur Leukocyte Esterase Negative (Negative) 02/21/22 11:00 Micro: Microbiology 02/21/22 14:14 Blood Culture - Preliminary Blood SPECIMEN COLLECTED 02/21/22 14:04 Blood Culture - Preliminary Blood SPECIMEN COLLECTED A&P Assessment and plan (1) Acute exacerbation of chronic obstructive pulmonary disease: (2) Acute on chronic respiratory failure with hypoxia and hypercapnia: (3) Nicotine addiction: Plan #Acute hypoxic/hypercapnic respiratory failure in patient with underlying severe COPD -PFTs July 2021 showed severe obstructive ventilatory disease with moderate gas transfer defect and severe air trapping -Recent CT angiogram 02/18/2022-ruled out PE, showed right upper lobe chronic disease-no evidence of pneumonia -ABG on admission pH 7.26/PCO2 88-improved with BiPAP and 40% FiO2 for few hours to pH 7.32/PCO2 77-recommended to continue BiPAP overnight -Recommended to continue DuoNeb nebulization every 4 hour scheduled and budesonide 0.5 mg twice daily -Continue Rocephin and azithromycin -IV Solu-Medrol 40 Mg every 8 hours scheduled -Patient had prescriptions for Pulmicort/Perforomist/Yupelri during discharge along with tapering dose of p.o. steroids; and supplemental oxygen -She needs pulmonary rehabilitation as well as use BiPAP at nighttime at home to prevent recurrent exacerbations and admissions -Once patient clinically improves-need social organization professor evaluation for safe discharge #Elevated BNP -Current troponins are negative -Patient's echocardiogram in April showed normal ejection fraction 60% which has improved from 40% in January 2021 and at that time cardiac cath negative for CAD Medical condition and plan of care discussed in detail with patient's daughter and family. She verbalized understanding and agreed with the plan Recommendations conveyed to hospitalist, RT taking care of the patient Consult Attestations Medical Necessity Statement: Needs close monitoring for COPD exacerbation Time Spent in Patient Care: Greater than 35 minutes (>than 50% of time spent in counselling and/or direct pt care on unit). Critical Care Time: The high probability of a clinically significant, sudden or life threatening deterioration of the patient's [respiratory] system(s) required my full and direct attention, intervention and personal management. The critical care time is as shown. This time is in addition to time spent performing any reported procedures but includes the following: [x] Data and vital sign review and interpretation [x] Patient assessment, examination and intervention [x] Documentation [x] Medication orders and management Critical Care Time (min): 65 Coding Level of Care Code New Pt Acute Upholste[employer] [place] for Chg Fwd Patient Type New History Comprehensive Exam Comprehensive Medical Decision Making High Complexity Diagnoses Acute exacerbation of chronic obstructive pulmonary disease J44.1 Acute on chronic respiratory failure with hypoxia and hypercapnia J96.21; J96.22 Nicotine addiction F17.200 Time Spent (min) 65 Comment Including family meeting
[2022-02-21 23:12] LABS: Adenovirus Not Detected (NOT DETECT); Chlamydia Pneumoniae Not Detected (NOT DETECT); Coronavirus 229E,HKU1,NL63,OC4 Not Detected (NOT DETECT); Human Metapneumovirus Not Detected (NOT DETECT); Human Rhinovirus/Enterovirus Not Detected (NOT DETECT); Influenza A Not Detected (NOT DETECT); Influenza A H1 Not Detected (NOT DETECT); Influenza A H1-2009 Not Detected (NOT DETECT); Influenza A H3 Not Detected (NOT DETECT); Influenza B Not Detected (NOT DETECT); Mycoplasma Pneumoniae Not Detected (NOT DETECT); Parainfluenza Virus Type 1 Not Detected (NOT DETECT); Parainfluenza Virus Type 2 Not Detected (NOT DETECT); Parainfluenza Virus Type 3 Not Detected (NOT DETECT); Parainfluenza Virus Type 4 Not Detected (NOT DETECT); Respiratory Syncytial Virus A Not Detected (NOT DETECT); Respiratory Syncytial Virus B Not Detected (NOT DETECT); SARS-COV-2 Not Detected (NOT DETECT)
[2022-02-22] VITALS (17 sets, daily range): BP systolic 114–129; BP diastolic 66–73; PULSE 94–121; RESP 16–26; TEMP 36.4–36.9; O2SAT 90–99
[2022-02-22] MEDS: heparin 5,000 unit/mL INJ 1 mL 5000 UNIT SUBCUT ×2 (00:48→14:22)
[2022-02-22] MEDS: guaiFENesin 600 mg Tablet PO ×2 (01:33→18:30)
--- NOTE | 2022-02-22 02:15 | XRR_ITS ---
PROCEDURE INFORMATION: Exam: XR Chest Exam date and time: 02/22/2022 4:28 AM Age: 66 years old Clinical indication: Other: Hypoxia; Additional info: Hypoxia reassessment TECHNIQUE: Imaging protocol: Radiologic exam of the chest. Views: 1 view. COMPARISON: CR XR chest 1V portable [id number] 02/21/2022 12:00 PM FINDINGS: Lungs: Hyperinflation of the lungs with changes of COPD/emphysema. Chronic appearing pleuroparenchymal changes noted at the lung apices, similar to prior exam. Superimposed infiltrates not excluded. Pleural spaces: No large pneumothorax. Heart/Mediastinum: No cardiomegaly. Bones/joints: No acute fracture. XR/XR chest 1V portable [id number] IMPRESSION: 1. Chronic appearing pleuroparenchymal changes noted at the lung apices, similar to prior exam. Superimposed infiltrates not excluded. 2. Previously demonstrated small anterior left pneumothorax on recent chest CT is not identified on radiographs.
--- NOTE | 2022-02-22 02:27 | ECG_ITS ---
[facility] Test Date: 2022-02-22 Pat Name: Sheba Lira Department: Room: 262 Gender: Female Apple Turner: : 1955 Requested By: Matheus Ross Order Number: [id number] Latricia MD: Shan Hernandez M.D. Measurements Intervals [place] Rate: 96 P: 0 OR: 0 QRS: 78 QRSD: 102 T: 72 QT: 317 QTc: 402 Interpretive Statements Multifocal atrial rhythm INCOMPLETE RIGHT BUNDLE BRANCH BLOCK [90+ ms QRS DURATION, TERMINAL R IN V1/V2, 40+ ms S IN I/aVL/V4/V5/V6] ABNORMAL RHYTHM ECG Compared to ECG 02/21/2022 16:57:48 No significant changes Electronically Signed On 02-22-2022 15:09:35 TRIPE COOKER by Shan Hernandez M.D. [email or web address] Healthsimpson general hospitalBeijing Yiyang Huizhi Technologyselect medical specialty hospital - [facility] [place].PlasmaSi/store/OM/[id number]
[2022-02-22 02:48] LABS: Basophils % 0.1 %; Hematocrit 37.9 % (37.0-47.0); Hemoglobin 11.7 g/dL (11.5-15.3); Lymphocytes # 0.2 10^3/uL (0.8-4.8); Lymphocytes % 3.1 %; Mean Corpuscular HGB Conc 30.9 g/dL (30.0-36.0); Mean Corpuscular Hemoglobin 31.9 pg (28.0-34.0); Mean Corpuscular Volume 103.3 fl (81-99); Mean Platelet Volume 9.6 fL (7.4-10.4); Monocytes # 0.4 10^3/uL (0.2-0.9); Monocytes % 5.1 %; Neutrophils # 6.74 10^3/uL (1.8-7.7); Neutrophils % 90.8 %; Nucleated Red Blood Cells % 0 %; Platelet Count 263 10^3/cmm (130-400); Red Blood Count 3.67 10^6/uL (4.1-5.3); Red Cell Distribution Width 12.2 % (12.1-15.1); White Blood Count 7.4 10^3/uL (4.0-10.0)
[2022-02-22 03:08] LABS: Alanine Aminotransferase 38 U/L (0-33); Albumin Level 3.8 g/dL (3.5-5.2); Alkaline Phosphatase 84 U/L (35-105); Aspartate Amino Transferase 37 U/L (0-32); Blood Urea Nitrogen 11 mg/dL (8-23); Calcium 9.3 mg/dL (8.5-10.5); Carbon Dioxide 40 mmol/L (22-29); Chloride 90 mmol/L (98-107); Globulin 2.8 g/dL (1.3-4.6); Glomerular Filtration Rate 122.7 mL/min (90-130); Glucose 154 mg/dL (65-115); Magnesium 1.9 mg/dL (1.7-2.3); Osmolality Calculated 282 mOsm/kg (285-295); Sodium 135 mmol/L (136-145); Total Bilirubin 0.2 mg/dL (0.15-1.2); Total Protein 6.6 g/dL (6.6-8.7)
[2022-02-22 03:09] LABS: Troponin(5th) Baseline 7 ng/L (0-10)
[2022-02-22 03:11] LABS: Anion Gap 9.4 (5-19); Potassium 4.4 mmol/L (3.5-5.1)
[2022-02-22] MEDS: ipratropium-albuterol 3 mL Neb INHALATION ×5 (03:14→19:39)
--- NOTE | 2022-02-22 03:21 | ECG_ITS ---
[facility] Test Date: 2022-02-22 Pat Name: Sheba Lira Department: Room: 262 Gender: Female Sports Broadcaster: : 1955 Requested By: Matheus Ross Order Number: [id number] Reading MD: Shan Hernandez M.D. Measurements Intervals [place] Rate: 102 P: 71 WI: 132 QRS: 83 QRSD: 104 T: 79 QT: 313 QTc: 408 Interpretive Statements SINUS TACHYCARDIA WITH OCCASIONAL VENTRICULAR PREMATURE COMPLEXES WITH OCCASIONAL SUPRAVENTRICULAR PREMATURE COMPLEXES INCOMPLETE RIGHT BUNDLE BRANCH BLOCK [90+ ms QRS DURATION, TERMINAL R IN V1/V2, 40+ ms S IN I/aVL/V4/V5/V6] ABNORMAL RHYTHM ECG Compared to ECG 02/22/2022 02:27:05 Ventricular premature complex(es) now present Atrial fibrillation no longer present Electronically Signed On 02-22-2022 15:31:14 MIXER WET POUR by Shan Hernandez M.D. [id number]
--- NOTE | 2022-02-22 04:09 | PC.NURSE ---
Patient found without oxygen, oxygen sats were in the 60's patient complaining of chest pain. Telemetry sinus tach 118 with PAC's placed on 4L of oxygen sats improved to 91%. Dr. Gonzalez notified orders received, patient placed on continuous pulse ox, labs drawn and EKG performed. Will continue to monitor patient.
[2022-02-22 05:16] LABS: Troponin 5 2HR 6.91 ng/L (0-10)
[2022-02-22 05:22] LABS: Troponin 5 2HR Delta -0.09 ABS# (0-10)
--- NOTE | 2022-02-22 08:15 | ECG_ITS ---
[facility] Test Date: 2022-02-22 Pat Name: Sheba Lira Department: Room: 262 Gender: Female Sign Manufacturer: : 1955 Requested By: Matheus Ross Order Number: [id number] Reading MD: Shan Hernandez M.D. Measurements Intervals [place] Rate: 95 P: 0 LA: 0 QRS: 144 QRSD: 98 T: 150 QT: 320 QTc: 403 Interpretive Statements Multifocal atrial rhythm INCOMPLETE RIGHT BUNDLE BRANCH BLOCK [90+ ms QRS DURATION, TERMINAL R IN V1/V2, 40+ ms S IN I/aVL/V4/V5/V6] POSSIBLE RIGHT VENTRICULAR HYPERTROPHY [SOME/ALL OF: PROMINENT R IN V1, LATE TRANSITION, RAD, MARIAELENA, SSS] Compared to ECG 02/22/2022 03:21:40 Sinus tachycardia no longer present Ventricular premature complex(es) no longer present Electronically Signed On 02-22-2022 15:32:42 PROPELLER LAYOUT WORKER by Shan Hernandez M.D. [email or web address] Search/[id number]
[2022-02-22] MEDS: budesonide 0.5 mg/2 mL Neb INHALATION ×2 (08:21→19:39)
--- NOTE | 2022-02-22 08:21 | XRR_ITS ---
PROCEDURE INFORMATION: Exam: XR Chest Exam date and time: 02/22/2022 9:50 AM Age: 66 years old Clinical indication: Condition or disease; Lung condition and disease; Pneumothorax; Additional info: Follow up on left apical pneumo TECHNIQUE: Imaging protocol: Radiologic exam of the chest. Views: 1 view. COMPARISON: CR (CHEST, ) 02/22/2022 4:28 AM FINDINGS: Lungs: Similar chronic biapical pleuroparenchymal scarring, right greater than left. No focal airspace consolidation. The lungs appear hyperinflated. Calcified hilar lymph node. Pleural spaces: Unremarkable. No pleural effusion. No pneumothorax. Heart/Mediastinum: Unremarkable. No cardiomegaly. Bones/joints: Unremarkable. XR/XR chest 1V portable [id number] IMPRESSION: No acute findings.
[2022-02-22] MEDS: acetaminophen 325 mg Tablet 650 MG PO (08:30)
[2022-02-22 09:29] LABS: Troponin 5 6HR 7.68 ng/L (0-10)
[2022-02-22 09:37] LABS: Troponin 5 6HR Delta 0.68 ng/L (0-12)
[2022-02-22] MEDS: lanolin oint 7 gm 1 APPLIC TOPICAL (11:19)
[2022-02-22] MEDS: ALPRAZolam 0.5 mg Tablet 0.25 MG PO ×2 (11:19→18:30)
--- NOTE | 2022-02-22 12:46 | P.PN_ITS ---
Subjective Subjective: seen this am at bedside overnight event noted. possible MAT Patient did not wear her bipap overnight she says she is claustrophobic and hates that mask she is very anxious. she is ok with trying xanax she feels short of breath plan to go to [facility] after this hospitalization Vitals/I&O/Wt Last Vital Signs Temp 98.4 F 02/22/22 12:30 Pulse 97 02/22/22 12:30 Resp 16 02/22/22 12:30 BP 126/73 02/22/22 12:30 Pulse Ox 96 02/22/22 12:30 O2 Del Method 02/22/22 11:34 O2 Flow Rate 3 02/22/22 08:20 FiO2 30 02/22/22 11:35 02/21/22 02/22/22 02/22/22 22:59 06:59 14:59 Intake Total 610 / 660 240 / 900 Balance 610 / 660 240 / 900 Weight last 48 hrs Weight 58.967 kg Physical Exam Narrative: General: Alert oriented x3, seen sitting up in bed, appears slightly anxious HEENT: Normocephalic, atraumatic, EOMI, on nasal cannula Cardio: Regular rate rhythm, normal S1-S2, no murmurs rubs gallops, Respiratory: Rhonchi bilaterally diffusely present. B/l decreased air entry with wheezes present. b/l chest rise symmetric GI: Abdomen soft, nontender, nondistended, bowel sounds + Behavior: Appropriate and cooperative Extremities: no cyanosis, right wrist compression bandage present. B/l LE edema present trace. Data : 02/22/22 02:32 02/22/22 02:32 Micro: Microbiology 02/21/22 11:00 Legionella Urinary Antigen - Final Urine,Voided 02/21/22 14:14 Blood Culture - Preliminary Blood SPECIMEN COLLECTED 02/21/22 14:04 Blood Culture - Preliminary Blood SPECIMEN COLLECTED A&P Assessment and plan (1) Acute exacerbation of chronic obstructive pulmonary disease: (2) COPD (chronic obstructive pulmonary disease): (3) Respiratory failure: Plan #Acute hypercapnic hypoxic respiratory failure, requiring bipap #COPD Exacerbation - Solumedrol 40 q8H IV. - Duoneb q6H scheduled - Pulmicort BID inh scheduled - Continue bipap as needed for respiratory distress. Patient may need to be intubated if she continues to refuse bipap and respiratory status worsens. Discussed this with her at admission as well. - Start xanax .25 TID PRN for anxiety. - Resp eval and tx - Continue empiric pneumonia coverage. Ceftriaxone + azithro - Check MRSA nares, legionella, strep, sputum culture gm stain - Consult pulmnology. Recommendations appreciated - Patient will need pulm rehab, night time bipap, pulmicort/yupleri/perforomist nebs at discharge. - Family planning to take her to [facility] after discharge so she can be closer to her daughter. - Echo ordered repeat is pending but echo from apr showed improved EF to 60%. SEe reports. #Mediastinal lymphadenopathy: Incidentally noted on CT, nonspecific, up to 2 mm.? Lymph nodes.? Consider outpatient follow-up #She is recently quit smoking 3 weeks ago: Continue to support abstinence. FUll Code DVT PPX: heparin Family updated at bedside. Attestations Medical Necessity Statement*: Will cross > 2 midnight stay for management of COPD exacerbation and AHRF. Coding Level of Care Code Acute Interventional Radiology Rn for Laura Bonilla Diagnoses Acute exacerbation of chronic obstructive pulmonary disease J44.1 COPD (chronic obstructive pulmonary disease) J44.9 Respiratory failure J96.90
[2022-02-22] MEDS: azithromycin 500 MG in sodium chloride 0.9% 250 ML 250 MG IV (14:22)
[2022-02-22] MEDS: pantoprazole 40 mg SDV IVP (14:22)
[2022-02-22] MEDS: ondansetron 2 mg/ML SDV 2 mL 4 MG IVP (18:30)
--- NOTE | 2022-02-22 18:48 | PC.NURSE ---
Notified Dr. Ayala about Xanax order. She gave verbal today for 0.25 TID PRN. This evening she changed order verbally for Xanax 0.25 Q8H. Keo in Pharmacy dosed order.
[2022-02-23] VITALS (16 sets, daily range): BP systolic 108–134; BP diastolic 59–74; PULSE 72–112; RESP 17–28; TEMP 36.4–36.8; O2SAT 92–99
[2022-02-23] MEDS: ALPRAZolam 0.5 mg Tablet 0.25 MG PO (02:17)
[2022-02-23] MEDS: heparin 5,000 unit/mL INJ 1 mL 5000 UNIT SUBCUT ×2 (02:17→13:45)
[2022-02-23] MEDS: ipratropium-albuterol 3 mL Neb INHALATION ×4 (05:41→19:44)
[2022-02-23] MEDS: budesonide 0.5 mg/2 mL Neb INHALATION ×2 (07:56→19:44)
--- NOTE | 2022-02-23 08:05 | PC.NURSE ---
Patient received at 0415. She was resting quietly at that time but shortly after c/o of shortness of breath and being concerned about her oxygen saturation being low. The [employer] IN[employer] showed 85% but when probe was secured it came up to mid 90s. Patient appeared more relaxed after seeing higher oxygen saturation level. She was adamant about now BiPap for now.
[2022-02-23] MEDS: ALPRAZolam 0.5 mg Tablet PO ×2 (10:19→21:05)
--- NOTE | 2022-02-23 11:30 | P.PN_ITS ---
Subjective Subjective: Patient seen at bedside-sitting in her bed breathing comfortably currently on 2.5 L oxygen Did not wear BiPAP overnight-reported she is not comfortable wearing it -Yesterday Xanax 0.25 helped her with anxiety for couple of hours - Medications: Reviewed: Yes Vitals/I&O/Wt Last Vital Signs Temp 97.9 F 02/23/22 11:27 Pulse 103 H 02/23/22 11:27 Resp 20 H 02/23/22 11:27 BP 130/70 02/23/22 11:27 Pulse Ox 96 02/23/22 11:27 O2 Del Method 02/23/22 11:27 O2 Flow Rate 2.5 02/23/22 11:27 FiO2 40 02/23/22 02:44 02/22/22 02/23/22 02/23/22 22:59 06:59 14:59 Intake Total 250 / 250 500 / 750 480 / 480 Output Total 1200 / 1200 1500 / 2700 Balance -950 / -950 -1000 / -1950 480 / 480 Physical Exam Narrative: General: alert, NAD HEENT: conj clear, EOMI, PERRL, mmm, Neck: supple, no meningismus Heme: no cervical LAP Respiratory: Inspection: No visible deformity of the chest wall Palpation: Trachea is mildly deviated to the right, bilateral symmetric expansion Percussion: Bilateral tympanic percussion note both anterior and posteriorly Auscultation: Bilateral diffuse wheeze on auscultation both anterior and posteriorly, no crackles wheezing or rhonchi Cardiovascular: rrr, nl s1s2, no mrg Abdomen: soft, nt, nd, no r/g, bs+ Extremities: pulses +, no edema, no c/c : no CVA tenderness Skin: intact, no rash MSK: no back or neck pain Neurologic: grossly intact Data : 02/22/22 02:32 02/22/22 02:32 Other Labs: Radiology Impressions Chest X-Ray 02/22/22 08:21 IMPRESSION: No acute findings. Laboratory Results WBC 7.4 10^3/uL (4.0-10.0) 02/22/22 02:32 RBC 3.67 10^6/uL (4.1-5.3) L 02/22/22 02:32 Hgb 11.7 g/dL (11.5-15.3) 02/22/22 02:32 Hct 37.9 % (37.0-47.0) 02/22/22 02:32 MCV 103.3 fl (81-99) H 02/22/22 02:32 MCH 31.9 pg (28.0-34.0) 02/22/22 02:32 MCHC 30.9 g/dL (30.0-36.0) 02/22/22 02:32 RDW 12.2 % (12.1-15.1) 02/22/22 02:32 Plt Count 263 10^3/cmm (130-400) 02/22/22 02:32 MPV 9.6 fL (7.4-10.4) 02/22/22 02:32 Neut % (Auto) 90.8 % 02/22/22 02:32 Lymph % (Auto) 3.1 % 02/22/22 02:32 Hanson % (Auto) 5.1 % 02/22/22 02:32 Eos % (Auto) 0.0 % 02/22/22 02:32 Baso % (Auto) 0.1 % 02/22/22 02:32 Neut # (Auto) 6.74 10^3/uL (1.8-7.7) 02/22/22 02:32 Lymph # (Auto) 0.2 10^3/uL (0.8-4.8) L 02/22/22 02:32 Hanson # (Auto) 0.4 10^3/uL (0.2-0.9) 02/22/22 02:32 Eos # (Auto) 0.0 10^3/uL (0.0-0.8) 02/22/22 02:32 Baso # (Auto) 0.0 10^3/uL (0.0-0.1) 02/22/22 02:32 Nucleated RBC % (auto) 0 % 02/22/22 02:32 Nucleated RBCs # 0.0 /100WBC 02/22/22 02:32 Specimen Type Arterial 02/21/22 18:11 Sample Site Radial, right 02/21/22 18:11 ABG pH 7.32 (7.35-7.45) L 02/21/22 18:11 ABG pCO2 77.0 mmHg (35-45) H* 02/21/22 18:11 ABG pO2 65.7 mmHg (80.0-100.0) L 02/21/22 18:11 ABG HCO3 39.8 mmol/L (22-26) H 02/21/22 18:11 ABG O2 Saturation 92.9 02/21/22 18:11 ABG Base Excess 10.8 mmol/L (-2.0-2.0) H 02/21/22 18:11 Edgardo Test Pos 02/21/22 18:11 A-a O2 Gradient 7.4 mmHg (5-10) 02/21/22 18:11 Hematocrit 37.4 % (37-47) 02/21/22 18:11 Hgb O2 Saturation 91.4 % (95-100) L 02/21/22 18:11 Carboxyhemoglobin 1.3 %THgb (0.4-20.1) 02/21/22 18:11 Methemoglobin 0.3 % (0.4-1.5) L 02/21/22 18:11 Total Hemoglobin 12.2 g/dL (12-16) 02/21/22 18:11 Sodium 138.0 mmol/L (131-143) 02/21/22 18:11 Potassium 4.7 mmol/L (3.5-5.0) 02/21/22 18:11 Glucose 126.0 mg/dL (70-115) H 02/21/22 18:11 Ionized Calcium 1.2 mmol/L (1.1-1.4) 02/21/22 18:11 O2 Delivery Device Bipap 02/21/22 18:11 O2 Liters/Min 3.0 % 02/21/22 11:29 FiO2 30.0 % 02/21/22 18:11 Fiscal Services Manager ID Monro 02/21/22 18:11 Sodium 135 mmol/L (136-145) L 02/22/22 02:32 Potassium 4.4 mmol/L (3.5-5.1) 02/22/22 02:32 Chloride 90 mmol/L (98-107) L 02/22/22 02:32 Carbon Dioxide 40 mmol/L (22-29) H 02/22/22 02:32 Anion Gap 9.4 (5-19) 02/22/22 02:32 BUN 11 mg/dL (8-23) 02/22/22 02:32 Creatinine 0.5 mg/dL (0.5-0.9) 02/22/22 02:32 GFR Calculation 122.7 mL/min (90-130) 02/22/22 02:32 Glucose 154 mg/dL (65-115) H 02/22/22 02:32 Calculated Osmolality 282 mOsm/kg (285-295) L 02/22/22 02:32 Lactic Acid 0.8 mmol/L (0.5-2.2) 02/21/22 14:14 Calcium 9.3 mg/dL (8.5-10.5) 02/22/22 02:32 Magnesium 1.9 mg/dL (1.7-2.3) 02/22/22 02:32 Total Bilirubin 0.2 mg/dL (0.15-1.2) 02/22/22 02:32 AST 37 U/L (0-32) H 02/22/22 02:32 ALT 38 U/L (0-33) H 02/22/22 02:32 Alkaline Phosphatase 84 U/L (35-105) 02/22/22 02:32 Troponin T Baseline 7 ng/L (0-10) 02/22/22 02:32 Troponin T 120 Minute 6.91 ng/L (0-10) 02/22/22 04:30 Delta Troponin T -0.09 ABS# (0-10) L 02/22/22 04:30 Troponin T Hi Sens 6Hr 7.68 ng/L (0-10) 02/22/22 08:29 Troponin T Hi Sens 6Hr Delta 0.68 ng/L (0-12) 02/22/22 08:29 NT-Pro-B Natriuret Pep 539 pg/mL (0-125) H 02/21/22 11:14 Total Protein 6.6 g/dL (6.6-8.7) 02/22/22 02:32 Albumin 3.8 g/dL (3.5-5.2) 02/22/22 02:32 Globulin 2.8 g/dL (1.3-4.6) 02/22/22 02:32 Procalcitonin 0.02 ng/mL (0-0.5) 02/21/22 11:14 Urine Color Straw (Yellow) 02/21/22 11:00 Urine Appearance Clear (CLEAR) 02/21/22 11:00 Urine pH 7 (5-7) 02/21/22 11:00 Ur Specific [place] 1.015 (1.005-1.030) 02/21/22 11:00 Urine Protein Neg (Negative) 02/21/22 11:00 Urine Glucose (UA) Norm (Normal) 02/21/22 11:00 Urine Ketones Negative (Negative) 02/21/22 11:00 Urine Blood Neg (Negative) 02/21/22 11:00 Urine Nitrate Negative (Negative) 02/21/22 11:00 Urine Bilirubin Neg (Negative) 02/21/22 11:00 Urine Urobilinogen Neg mg/dL (Negative) 02/21/22 11:00 Ur Leukocyte Esterase Negative (Negative) 02/21/22 11:00 Coronavirus 229E (PCR) Not detected (NOT DETECT) 02/21/22 21:15 SARS-CoV-2 (PCR) Not detected (NOT DETECT) 02/21/22 21:15 Micro: Microbiology 02/22/22 00:50 Gram Stain - Final Sputum - Expectorated Sputum Sputum Culture - Preliminary 02/21/22 21:15 MRSA Culture - Final Nose 02/21/22 14:14 Blood Culture - Preliminary Blood NEGATIVE TO DATE 02/21/22 14:04 Blood Culture - Preliminary Blood NEGATIVE TO DATE A&P Assessment and plan (1) Acute exacerbation of chronic obstructive pulmonary disease: (2) Acute on chronic respiratory failure with hypoxia and hypercapnia: (3) Nicotine addiction: (4) Physical deconditioning: (5) Anxiety: Plan #Acute hypoxic/hypercapnic respiratory failure in patient with underlying severe COPD about #Anxiety #COPD deconditioning -PFTs July 2021 showed severe obstructive ventilatory disease with moderate gas transfer defect and severe air trapping -Recent CT angiogram 02/18/2022-ruled out PE, showed right upper lobe chronic disease-no evidence of pneumonia -ABG on admission pH 7.26/PCO2 88-improved with BiPAP and 40% FiO2 for few hours to pH 7.32/PCO2 77-recommended to continue BiPAP overnight but patient refuses to wear and says it makes her claustrophobic -Recommended to continue DuoNeb nebulization every 4 hour scheduled and budesonide 0.5 mg twice daily -Continue Rocephin and azithromycin -IV Solu-Medrol 40 Mg every 8 hours scheduled and taper as needed -Patient has significant anxiety-recommended Xanax 0.5 mg 3 times daily as needed anxiety -Given her low FEV1 on her previous PFTs-I would recommend Pulmicort/Perforomist/Shadi during discharge along with tapering dose of p.o. steroids; and supplemental oxygen -She needs pulmonary rehabilitation as well as use BiPAP at nighttime at home to prevent recurrent exacerbations and admissions -Once patient clinically improves-she needs to subacute rehab for deconditioning -Had extensive discussion with the patient's daughter at bedside-about compliance with BiPAP at nighttime as well as placement to a subacute rehab. Daughter agreed to patient was discharged to subacute rehab nearby [place] so that they can visit her. Also conveyed the same to the rehabilitation caseworker taking care of the patient. #Elevated BNP -Current troponins are negative -Patient's echocardiogram in April showed normal ejection fraction 60% which has improved from 40% in January 2021 and at that time cardiac cath negative for CAD -Clinically she is euvolemic Medical condition and plan of care discussed in detail with patient's daughter and family. She verbalized understanding and agreed with the plan Recommendations conveyed to hospitalist, RT taking care of the patient Attestations Medical Necessity Statement*: Needs 24-48 hrs hospitalization Coding Level of Care Code Acute Stock Transfer Clerk for Laura Bonilla Diagnoses Acute exacerbation of chronic obstructive pulmonary disease J44.1 Acute on chronic respiratory failure with hypoxia and hypercapnia J96.21; J96.22 Nicotine addiction F17.200 Physical deconditioning R53.81 Anxiety F41.9
--- NOTE | 2022-02-23 11:44 | P.PN_ITS ---
Subjective Subjective: sitting up in bed with NC on 2.5-3L. Did not wear bipap overnight. Sister at bedside trying to tell patient the importance of bipap xanax helped. will be going up on dose today pt plans to go to SNF around [facility]. case mgmt working on this. Vitals/I&O/Wt Last Vital Signs Temp 97.9 F 02/23/22 11:27 Pulse 103 H 02/23/22 11:27 Resp 20 H 02/23/22 11:27 BP 130/70 02/23/22 11:27 Pulse Ox 96 02/23/22 11:27 O2 Del Method 02/23/22 11:27 O2 Flow Rate 2.5 02/23/22 11:27 FiO2 40 02/23/22 02:44 02/22/22 02/23/22 02/23/22 22:59 06:59 14:59 Intake Total 250 / 250 500 / 750 480 / 480 Output Total 1200 / 1200 1500 / 2700 Balance -950 / -950 -1000 / -1950 480 / 480 Physical Exam Narrative: General: Alert oriented x3, seen sitting up in bed, appears slightly anxious but generally comfrotable HEENT: Normocephalic, atraumatic, EOMI, on nasal cannula Cardio: Regular rate rhythm, normal S1-S2, no murmurs rubs gallops, Respiratory: Wheezing bilaterally diffusely present. B/l decreased air entryb/l chest rise symmetric GI: Abdomen soft, nontender, nondistended, bowel sounds + Behavior: Appropriate and cooperative Extremities: no cyanosis, right wrist compression bandage present. B/l LE edema present trace. Data : 02/22/22 02:32 02/22/22 02:32 Micro: Microbiology 02/22/22 00:50 Gram Stain - Final Sputum - Expectorated Sputum Sputum Culture - Preliminary 02/21/22 21:15 MRSA Culture - Final Nose 02/21/22 14:14 Blood Culture - Preliminary Blood NEGATIVE TO DATE 02/21/22 14:04 Blood Culture - Preliminary Blood NEGATIVE TO DATE A&P Assessment and plan (1) Acute exacerbation of chronic obstructive pulmonary disease: (2) COPD (chronic obstructive pulmonary disease): (3) Respiratory failure: Plan #Acute hypercapnic hypoxic respiratory failure, requiring bipap #COPD Exacerbation #Physical deconditioning - Solumedrol 40 q8H IV. - Duoneb q6H scheduled - Pulmicort BID inh scheduled - Continue bipap as needed for respiratory distress. Patient may need to be intubated if she continues to refuse bipap and respiratory status worsens. Discussed this with her at admission as well. - Continue xanax 0.5 TID scheduled for anxiety. - Resp eval and tx - Continue empiric pneumonia coverage. Ceftriaxone + azithro - Check MRSA nares, legionella, strep, sputum culture gm stain - Consult pulmnology. Recommendations appreciated - Patient will need pulm rehab, night time bipap, pulmicort/yupleri/perforomist nebs at discharge. - Family planning to take her to [facility] after discharge so she can be closer to her daughter. - Echo ordered repeat is pending but echo from apr showed improved EF to 60%. SEe reports. #Mediastinal lymphadenopathy: Incidentally noted on CT, nonspecific, up to 2 mm.? Lymph nodes.? Consider outpatient follow-up #She is recently quit smoking 3 weeks ago: Continue to support abstinence. FUll Code DVT PPX: heparin Family updated at bedside. Attestations Medical Necessity Statement*: Needs 24-48 hrs hospitalization Coding Level of Care Code Acute Customer Services Supervisor for [facility] Fwd Diagnoses Acute exacerbation of chronic obstructive pulmonary disease J44.1 COPD (chronic obstructive pulmonary disease) J44.9 Respiratory failure J96.90
[2022-02-23] MEDS: pantoprazole 40 mg SDV IVP (13:44)
[2022-02-23] MEDS: azithromycin 500 MG in sodium chloride 0.9% 250 ML 250 MG IV (13:44)
--- NOTE | 2022-02-23 14:44 | XRR_ITS ---
PROCEDURE INFORMATION: Exam: XR Chest Exam date and time: 02/23/2022 3:51 PM Age: 66 years old Clinical indication: Pain; Angina pectoris; Additional info: Chest pain TECHNIQUE: Imaging protocol: Radiologic exam of the chest. Views: 1 view. COMPARISON: CR XR chest 1V portable [id number] 02/22/2022 9:50 AM FINDINGS: Lungs: Stable COPD . Continued [id number] paraseptal emphysema. Continued chronic appearing pulmonary opacities in the upper lobes bilaterally, right greater than left. Pleural spaces: Unremarkable. No pleural effusion. No pneumothorax. Heart/Mediastinum: Continued unusual right heart contour noted on previous CTA chest. Bones/joints: Unremarkable. XR/XR chest 1V portable [id number] IMPRESSION: 1. Stable COPD . 2. Continued [id number] paraseptal emphysema. 3. Continued chronic appearing pulmonary opacities in the upper lobes bilaterally, right greater than left. 4. Continued unusual right heart contour noted on previous CTA chest. THIS REPORT CONTAINS FINDINGS THAT MAY BE CRITICAL TO PATIENT CARE. The findings were verbally communicated via telephone conference with Dr. Soto at 3:29 PM SECURITY PATROL OFFICER on 02/23/2022. The findings were acknowledged and understood.
--- NOTE | 2022-02-23 14:44 | ECG_ITS ---
[facility] Test Date: 2022-02-23 Pat Name: Sheba Lira Department: Room: 262 Gender: Female Public Transit Specialist: : [id number] Requested By: Babs Ayala Order Number: [id number] Latricia MD: Shan Hernandez M.D. Measurements Intervals [place] Rate: 96 P: 0 [place]: 0 QRS: 78 QRSD: 106 T: 72 QT: 322 QTc: 408 Interpretive Statements Sinus rhythm with a frequent supraventricular ectopics, ABERRANT CONDUCTION OR VENTRICULAR PREMATURE COMPLEXES INCOMPLETE RIGHT BUNDLE BRANCH BLOCK [90+ ms QRS DURATION, TERMINAL R IN V1/V2, 40+ ms S IN I/aVL/V4/V5/V6] ABNORMAL RHYTHM ECG Compared to ECG 02/22/2022 08:34:56 Ventricular premature complex(es) now present Aberrant conduction of supraventricular beat(s) now present Atrial abnormality no longer present Electronically Signed On 02-23-2022 22:20:52 PAPERHANGER PIPE by Shan Hernandez M.D. [email or web address].Sant[employer]/store/[id number]
[2022-02-23 15:30] LABS: Troponin(5th) Baseline 7 ng/L (0-10)
--- NOTE | 2022-02-23 16:44 | ECG_ITS ---
[facility] Test Date: 2022-02-23 Pat Name: Sheba Lira Department: Room: 262 Gender: Female Railroad Shop Inspector: : 1955 Requested By: Babs Ayala Order Number: [id number] Latricia MD: Shan Hernandez M.D. Measurements Intervals [place] Rate: 94 P: 0 PA: 0 QRS: 70 QRSD: 96 T: 63 QT: 330 QTc: 413 Interpretive Statements Multifocal atrial rhythm INCOMPLETE RIGHT BUNDLE BRANCH BLOCK [90+ ms QRS DURATION, TERMINAL R IN V1/V2, 40+ ms S IN I/aVL/V4/V5/V6] ABNORMAL RHYTHM ECG Compared to ECG 02/23/2022 14:51:23 Ventricular premature complex(es) no longer present Aberrant conduction of supraventricular beat(s) no longer present Electronically Signed On 02-23-2022 22:26:09 TOLL RELIEF OPERATOR by Shan Hernandez M.D. [email or web address] UniverseColtello Ristorantef[facility].[employer]/store/OM/[id number]
[2022-02-23 17:20] LABS: Troponin 5 2HR 7.53 ng/L (0-10)
[2022-02-23 18:21] LABS: Troponin 5 2HR Delta 0.53 ABS# (0-10)
--- NOTE | 2022-02-23 20:44 | ECG_ITS ---
[facility] Test Date: 2022-02-23 Pat Name: Sheba Lira Department: Room: 262 Gender: Female Chemical Project Engineer: : 1955 Requested By: Babs Ayala Order Number: [id number] Latricia MD: Shan Hernandez M.D. Measurements Intervals [place] Rate: 109 P: 0 PA: 0 QRS: 75 QRSD: 87 T: 58 QT: 293 QTc: 396 Interpretive Statements Possible ATRIAL FIBRILLATION WITH RAPID VENTRICULAR RESPONSE POSSIBLE RIGHT VENTRICULAR CONDUCTION DELAY [RSR (QR) IN V1/V2] ABNORMAL RHYTHM ECG Compared to ECG 02/23/2022 16:37:09 Incomplete right bundle-branch block no longer present Electronically Signed On 02-23-2022 22:28:15 LIQUID WASTE TREATMENT PLANT OPERATOR by Shan Hernandez M.D. [email or web address] Countcopiah county medical centerXpliantcoshoct[facility].[employer]/store/[id number]
[2022-02-23] MEDS: acetaminophen 325 mg Tablet 650 MG PO (21:04)
[2022-02-23 21:05] LABS: Troponin 5 6HR 7.29 ng/L (0-10)
[2022-02-23 21:14] LABS: Troponin 5 6HR Delta 0.29 ng/L (0-12)
--- NOTE | 2022-02-23 22:33 | PC.NURSE ---
Addendum entered by Linda Felipe RN 02/23/22 22:56: Doctor ordered to make sure her saturations are running 88-92% not higher to reduce CO2 retention Addendum entered by Linda Felipe RN 02/23/22 22:39: Dr. Ross notified. Original Note: Patient wore Bipap approximately 15 minutes and pulled it off. Patient's family member at bedside stated to patient if you don't wear it, they might have to intubate you. Patient states I don't care, I can't wear that thing no more. Patient currently A&Ox4.
--- NOTE | 2022-02-23 23:09 | PC.NURSE ---
Patient states I am not going to wear that thing on my head. If it is my time, then it's my time. Patient states I'm not suicidal, but I'm not gonna life my life with that thing on my head, that's not a life.
--- NOTE | 2022-02-23 23:20 | PC.NURSE ---
Patient's oxygen saturation 97 percent on 3 liters nasal cannula. Oxygen turned down to one liter.
[2022-02-24] VITALS (15 sets, daily range): BP systolic 124–131; BP diastolic 68–78; PULSE 69–111; RESP 16–24; TEMP 36.6–36.9; O2SAT 92–97
[2022-02-24] MEDS: heparin 5,000 unit/mL INJ 1 mL 5000 UNIT SUBCUT ×2 (00:47→13:22)
[2022-02-24 05:05] LABS: Basophils % 0.1 %; Hematocrit 38.9 % (37.0-47.0); Hemoglobin 11.8 g/dL (11.5-15.3); Lymphocytes # 0.4 10^3/uL (0.8-4.8); Lymphocytes % 3.6 %; Mean Corpuscular HGB Conc 30.3 g/dL (30.0-36.0); Mean Corpuscular Hemoglobin 31.8 pg (28.0-34.0); Mean Corpuscular Volume 104.9 fl (81-99); Mean Platelet Volume 9.8 fL (7.4-10.4); Monocytes # 0.6 10^3/uL (0.2-0.9); Monocytes % 5.2 %; Neutrophils # 10.03 10^3/uL (1.8-7.7); Neutrophils % 90.2 %; Nucleated Red Blood Cells % 0 %; Platelet Count 248 10^3/cmm (130-400); Red Blood Count 3.71 10^6/uL (4.1-5.3); Red Cell Distribution Width 12.5 % (12.1-15.1); White Blood Count 11.1 10^3/uL (4.0-10.0)
--- NOTE | 2022-02-24 06:30 | PC.NURSE ---
Patient asking to have heated high flow taken off. Patient placed back on one liter nasal cannula.
[2022-02-24 06:52] LABS: Blood Urea Nitrogen 10 mg/dL (8-23); Calcium 9.5 mg/dL (8.5-10.5); Carbon Dioxide 39 mmol/L (22-29); Chloride 87 mmol/L (98-107); Glomerular Filtration Rate 158.7 mL/min (90-130); Glucose 115 mg/dL (65-115); Osmolality Calculated 272 mOsm/kg (285-295); Sodium 131 mmol/L (136-145)
[2022-02-24 06:57] LABS: Anion Gap 9.3 (5-19); Potassium 4.3 mmol/L (3.5-5.1)
[2022-02-24] MEDS: ipratropium-albuterol 3 mL Neb INHALATION ×4 (07:45→20:23)
[2022-02-24] MEDS: budesonide 0.5 mg/2 mL Neb INHALATION ×2 (07:45→20:23)
[2022-02-24] MEDS: guaiFENesin 600 mg Tablet PO ×2 (08:49→17:39)
[2022-02-24] MEDS: ALPRAZolam 0.5 mg Tablet PO ×3 (09:09→21:32)
--- NOTE | 2022-02-24 09:53 | PC.SOCIAL ---
Imm update Imm updated with patient at bedside Family present in room. Copy of page 2 provided. patient verbalized understanding. Copy in chart initialed dated and timed.
--- NOTE | 2022-02-24 10:52 | PC.NURSE ---
oxygen pt family put nasal canula on her per her request.
[2022-02-24] MEDS: pantoprazole 40 mg SDV IVP (13:23)
[2022-02-24] MEDS: azithromycin 500 MG in sodium chloride 0.9% 250 ML 250 MG IV (13:23)
--- NOTE | 2022-02-24 13:31 | PM.PN ---
Subjective Subjective: Patient was seen this morning, patient's family members at bedside, patient again overnight declined BiPAP use, with patient's family at bedside, I discussed the importance of BiPAP use, importance to prevent hypercarbia, worsening respiratory failure, and intubation, decreasing her risk of morbidity and mortality. I spent over 35 minutes COVID over this in detail, having a detailed discussion with patient and their family. She is still very hesitant about wearing a BiPAP mask, as she has severe claustrophobia, she tells me that she is willing to be intubated if needed be, she says that she will try BiPAP mask tonight. I discussed morbidity and mortality associate with respiratory failure hypercarbia, emergent intubation, cardiac complication, neurologic complications, patient and family voiced understanding, all questions answered. She tells that she will try to use a BiPAP mask tonight, but cannot make any promises Vitals/I&O/Wt Last Vital Signs Temp 98.4 F 02/24/22 11:51 Pulse 100 02/24/22 12:22 Resp 18 02/24/22 12:00 BP 124/71 02/24/22 11:51 Pulse Ox 94 02/24/22 12:00 O2 Del Method 02/24/22 12:00 O2 Flow Rate 2 02/24/22 12:00 FiO2 28 02/24/22 08:41 02/23/22 02/24/22 02/24/22 22:59 06:59 14:59 Intake Total 850 / 850 Output Total 450 / 450 Balance -450 / 30 850 / 850 Physical Exam Const: COMMON NORMALS: no acute distress and patient oriented x3 Resp: COMMON NORMALS: normal respiratory effort, No retractions, No use of accessory muscles and clear to auscultation bilaterally AUSCULTATION: clear to auscultation bilaterally Cardio: COMMON NORMALS: regular rate, regular rhythm, S1 normal heart sound present and S2 normal heart sound present RATE: regular rate RHYTHM: regular rhythm HEART SOUNDS: S1 normal heart sound present and S2 normal heart sound present GI: COMMON NORMALS: Normal to inspection, nondistended, normoactive bowel sounds present and non-tender Extremity: COMMON NORMALS: no pedal edema Neuro: COMMON NORMALS: patient oriented x3 Data : 02/24/22 04:53 02/24/22 06:21 Micro: Microbiology 02/22/22 00:50 Gram Stain - Final Sputum - Expectorated Sputum Sputum Culture - Final 02/21/22 11:00 Legionella Urinary Antigen - Final Urine,Voided Bacterial Antigens - Final A&P Assessment and plan (1) Acute exacerbation of chronic obstructive pulmonary disease: (2) COPD (chronic obstructive pulmonary disease): (3) Respiratory failure: Plan #Acute hypercapnic hypoxic respiratory failure, requiring bipap #COPD Exacerbation #Physical deconditioning - Solumedrol 40 q8H IV. - Duoneb q6H scheduled - Pulmicort BID inh scheduled - Continue bipap as needed for respiratory distress. Patient may need to be intubated if she continues to refuse bipap and respiratory status worsens. Discussed this with her at admission as well. - Continue xanax 0.5 TID scheduled for anxiety. - Resp eval and tx - Continue empiric pneumonia coverage. Ceftriaxone + azithro - Check MRSA nares, legionella, strep, sputum culture gm stain - Consult pulmnology. Recommendations appreciated - Patient will need pulm rehab, night time bipap, pulmicort/yupleri/perforomist nebs at discharge. - Family planning to take her to [facility] after discharge so she can be closer to her daughter. - Echo ordered repeat is pending but echo from apr showed improved EF to 60%. SEe reports. #Mediastinal lymphadenopathy: Incidentally noted on CT, nonspecific, up to 2 mm.? Lymph nodes.? Consider outpatient follow-up #She is recently quit smoking 3 weeks ago: Continue to support abstinence. FUll Code DVT PPX: heparin Family updated at bedside. 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
--- NOTE | 2022-02-24 16:24 | P.PN_ITS ---
Subjective Subjective: -Patient continues to decline using BiPAP -Currently on 2 L nasal cannula saturating 96% -Her wheezing has significantly improved -Currently she is awaiting placement to senior living facility Medications: Reviewed: Yes Vitals/I&O/Wt Last Vital Signs Temp 98.4 F 02/24/22 11:51 Pulse 110 H 02/24/22 16:01 Resp 18 02/24/22 15:54 BP 124/71 02/24/22 11:51 Pulse Ox 97 02/24/22 15:54 O2 Del Method 02/24/22 15:54 O2 Flow Rate 30 02/24/22 15:54 FiO2 32 02/24/22 15:54 02/24/22 02/24/22 02/24/22 06:59 14:59 22:59 Intake Total 1330 / 1330 250 / 1580 Output Total 450 / 450 Balance -450 / 30 1330 / 1330 250 / 1580 Physical Exam Narrative: General: alert, NAD HEENT: conj clear, EOMI, PERRL, mmm, Neck: supple, no meningismus Heme: no cervical LAP Respiratory: Inspection: No visible deformity of the chest wall Palpation: Trachea is mildly deviated to the right, bilateral symmetric expan mychal Percussion: Bilateral tympanic percussion note both anterior and posteriorly Auscultation: Significantly improved bilateral wheeze Cardiovascular: rrr, nl s1s2, no mrg Abdomen: soft, nt, nd, no r/g, bs+ Extremities: pulses +, no edema, no c/c : no CVA tenderness Skin: intact, no rash MSK: no back or neck pain Neurologic: grossly intact Data 02/24/22 04:53 02/24/22 06:21 Other Labs: Radiology Impressions Chest X-Ray 02/23/22 14:44 IMPRESSION: 1. Stable COPD . 2. Continued [id number] paraseptal emphysema. 3. Continued chronic appearing pulmonary opacities in the upper lobes bilaterally, right greater than left. 4. Continued unusual right heart contour noted on previous CTA chest. THIS REPORT CONTAINS FINDINGS THAT MAY BE CRITICAL TO PATIENT CARE. The findings were verbally communicated via telephone conference with Dr. Soto at 3:29 PM TOWEL [employer]AVER on 02/23/2022. The findings were acknowledged and understood. Laboratory Results WBC 11.1 10^3/uL (4.0-10.0) H 02/24/22 04:53 RBC 3.71 10^6/uL (4.1-5.3) L 02/24/22 04:53 Hgb 11.8 g/dL (11.5-15.3) 02/24/22 04:53 Hct 38.9 % (37.0-47.0) 02/24/22 04:53 MCV 104.9 fl (81-99) H 02/24/22 04:53 MCH 31.8 pg (28.0-34.0) 02/24/22 04:53 MCHC 30.3 g/dL (30.0-36.0) 02/24/22 04:53 RDW 12.5 % (12.1-15.1) 02/24/22 04:53 Plt Count 248 10^3/cmm (130-400) 02/24/22 04:53 MPV 9.8 fL (7.4-10.4) 02/24/22 04:53 Neut % (Auto) 90.2 % 02/24/22 04:53 Lymph % (Auto) 3.6 % 02/24/22 04:53 [place] % (Auto) 5.2 % 02/24/22 04:53 Eos % (Auto) 0.0 % 02/24/22 04:53 Baso % (Auto) 0.1 % 02/24/22 04:53 Neut # (Auto) 10.03 10^3/uL (1.8-7.7) H 02/24/22 04:53 Lymph # (Auto) 0.4 10^3/uL (0.8-4.8) L 02/24/22 04:53 [place] # (Auto) 0.6 10^3/uL (0.2-0.9) 02/24/22 04:53 Eos # (Auto) 0.0 10^3/uL (0.0-0.8) 02/24/22 04:53 Baso # (Auto) 0.0 10^3/uL (0.0-0.1) 02/24/22 04:53 Nucleated RBC % (auto) 0 % 02/24/22 04:53 Nucleated RBCs # 0.0 /100WBC 02/24/22 04:53 Specimen Type Arterial 02/21/22 18:11 Sample Site Radial, right 02/21/22 18:11 ABG pH 7.32 (7.35-7.45) L 02/21/22 18:11 ABG pCO2 77.0 mmHg (35-45) H* 02/21/22 18:11 ABG pO2 65.7 mmHg (80.0-100.0) L 02/21/22 18:11 ABG HCO3 39.8 mmol/L (22-26) H 02/21/22 18:11 ABG O2 Saturation 92.9 02/21/22 18:11 ABG Base Excess 10.8 mmol/L (-2.0-2.0) H 02/21/22 18:11 Edgardo Test Pos 02/21/22 18:11 A-a O2 Gradient 7.4 mmHg (5-10) 02/21/22 18:11 Hematocrit 37.4 % (37-47) 02/21/22 18:11 Hgb O2 Saturation 91.4 % (95-100) L 02/21/22 18:11 Carboxyhemoglobin 1.3 %THgb (0.4-20.1) 02/21/22 18:11 Methemoglobin 0.3 % (0.4-1.5) L 02/21/22 18:11 Total Hemoglobin 12.2 g/dL (12-16) 02/21/22 18:11 Sodium 138.0 mmol/L (131-143) 02/21/22 18:11 Potassium 4.7 mmol/L (3.5-5.0) 02/21/22 18:11 Glucose 126.0 mg/dL (70-115) H 02/21/22 18:11 Ionized Calcium 1.2 mmol/L (1.1-1.4) 02/21/22 18:11 O2 Delivery Device Bipap 02/21/22 18:11 O2 Liters/Min 3.0 % 02/21/22 11:29 FiO2 30.0 % 02/21/22 18:11 Ski Lift 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 ID [place] 02/21/22 18:11 Sodium 131 mmol/L (136-145) L 02/24/22 06:21 Potassium 4.3 mmol/L (3.5-5.1) 02/24/22 06:21 Chloride 87 mmol/L (98-107) L 02/24/22 06:21 Carbon Dioxide 39 mmol/L (22-29) H 02/24/22 06:21 Anion Gap 9.3 (5-19) 02/24/22 06:21 BUN 10 mg/dL (8-23) 02/24/22 06:21 Creatinine 0.4 mg/dL (0.5-0.9) L 02/24/22 06:21 GFR Calculation 158.7 mL/min (90-130) H 02/24/22 06:21 Glucose 115 mg/dL (65-115) 02/24/22 06:21 Calculated Osmolality 272 mOsm/kg (285-295) L 02/24/22 06:21 Lactic Acid 0.8 mmol/L (0.5-2.2) 02/21/22 14:14 Calcium 9.5 mg/dL (8.5-10.5) 02/24/22 06:21 Magnesium 1.9 mg/dL (1.7-2.3) 02/22/22 02:32 Total Bilirubin 0.2 mg/dL (0.15-1.2) 02/22/22 02:32 AST 37 U/L (0-32) H 02/22/22 02:32 ALT 38 U/L (0-33) H 02/22/22 02:32 Alkaline Phosphatase 84 U/L (35-105) 02/22/22 02:32 Troponin T Baseline 7 ng/L (0-10) 02/23/22 15:02 Troponin T 120 Minute 7.53 ng/L (0-10) 02/23/22 16:55 Delta Troponin T 0.53 ABS# (0-10) 02/23/22 16:55 Troponin T Hi Sens 6Hr 7.29 ng/L (0-10) 02/23/22 20:35 Troponin T Hi Sens 6Hr Delta 0.29 ng/L (0-12) 02/23/22 20:35 NT-Pro-B Natriuret Pep 539 pg/mL (0-125) H 02/21/22 11:14 Total Protein 6.6 g/dL (6.6-8.7) 02/22/22 02:32 Albumin 3.8 g/dL (3.5-5.2) 02/22/22 02:32 Globulin 2.8 g/dL (1.3-4.6) 02/22/22 02:32 Procalcitonin 0.02 ng/mL (0-0.5) 02/21/22 11:14 Urine Color Straw (Yellow) 02/21/22 11:00 Urine Appearance Clear (CLEAR) 02/21/22 11:00 Urine pH 7 (5-7) 02/21/22 11:00 Ur Specific Lysite 1.015 (1.005-1.030) 02/21/22 11:00 Urine Protein Neg (Negative) 02/21/22 11:00 Urine Glucose (UA) Norm (Normal) 02/21/22 11:00 Urine Ketones Negative (Negative) 02/21/22 11:00 Urine Blood Neg (Negative) 02/21/22 11:00 Urine Nitrate Negative (Negative) 02/21/22 11:00 Urine Bilirubin Neg (Negative) 02/21/22 11:00 Urine Urobilinogen Neg mg/dL (Negative) 02/21/22 11:00 Ur Leukocyte Esterase Negative (Negative) 02/21/22 11:00 Coronavirus 229E (PCR) Not detected (NOT DETECT) 02/21/22 21:15 SARS-CoV-2 (PCR) Not detected (NOT DETECT) 02/21/22 21:15 Micro: Microbiology 02/22/22 00:50 Gram Stain - Final Sputum - Expectorated Sputum Sputum Culture - Final 02/21/22 11:00 Legionella Urinary Antigen - Final Urine,Voided Bacterial Antigens - Final A&P Assessment and plan (1) Acute exacerbation of chronic obstructive pulmonary disease: (2) Acute on chronic respiratory failure with hypoxia and hypercapnia: (3) Nicotine addiction: (4) Physical deconditioning: (5) Anxiety: Plan #Acute hypoxic/hypercapnic respiratory failure in patient with underlying severe COPD-clinically improving #Anxiety #COPD deconditioning -PFTs July 2021 showed severe obstructive ventilatory disease with moderate gas transfer defect and severe air trapping -Recent CT angiogram 02/18/2022-ruled out PE, showed right upper lobe chronic disease-no evidence of pneumonia -ABG on admission pH 7.26/PCO2 88-improved with BiPAP and 40% FiO2 for few hours to pH 7.32/PCO2 77-recommended to continue BiPAP overnight but patient refuses to wear and says it makes her claustrophobic -Recommended to continue DuoNeb nebulization every 4 hour scheduled and budeso nide 0.5 mg twice daily -Continue Rocephin and azithromycin -IV Solu-Medrol 40 Mg every 12 hours scheduled and taper as needed -Patient has significant anxiety-currently on Xanax 0.5 mg 3 times daily as needed anxiety-that seems to help -Given her low FEV1 on her previous PFTs-I would recommend Pulm icort/Perforomist/Shadi during discharge along with tapering dose of p.o. 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 -Encouraged her to use supplemental oxygen 2 L all the times and 3 to 4 L on exertion; -Encouraged her to take flu shot and pneumonia shot at PCP office and stay up-to-date #Elevated BNP -Current troponins are negative -Patient's echocardiogram in April showed normal ejection fraction 60% which has improved from 40% in January 2021 and at that time cardiac cath negative for CAD -Clinically she is euvolemic Medical condition and plan of care discussed in detail with patient's daughter and family. She verbalized understanding and agreed with the plan Recommendations conveyed to hospitalist, RT taking care of the patient I am going to sign off this case as patient has clinically improved with significant improvement in her wheeze with nebulizations, steroids and antibiotics. Currently she is awaiting placement. Please feel free to reconsult if necessary. 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
[2022-02-25] VITALS (12 sets, daily range): BP systolic 107–138; BP diastolic 61–77; PULSE 72–107; RESP 14–22; TEMP 36.5–36.8; O2SAT 90–98
[2022-02-25] MEDS: heparin 5,000 unit/mL INJ 1 mL 5000 UNIT SUBCUT ×2 (01:04→14:35)
[2022-02-25 05:59] LABS: Alanine Aminotransferase 108 U/L (0-33); Albumin Level 3.6 g/dL (3.5-5.2); Alkaline Phosphatase 72 U/L (35-105); Aspartate Amino Transferase 46 U/L (0-32); Blood Urea Nitrogen 15 mg/dL (8-23); Calcium 9.3 mg/dL (8.5-10.5); Carbon Dioxide 37 mmol/L (22-29); Chloride 92 mmol/L (98-107); Globulin 2.4 g/dL (1.3-4.6); Glomerular Filtration Rate 158.7 mL/min (90-130); Glucose 124 mg/dL (65-115); Osmolality Calculated 282 mOsm/kg (285-295); Sodium 135 mmol/L (136-145); Total Bilirubin 0.2 mg/dL (0.15-1.2)
[2022-02-25 06:01] LABS: Anion Gap 10.2 (5-19); Potassium 4.2 mmol/L (3.5-5.1)
[2022-02-25] MEDS: ALPRAZolam 0.5 mg Tablet PO ×3 (06:04→21:33)
[2022-02-25 06:46] LABS: Basophils % 0.1 %; Hematocrit 38.1 % (37.0-47.0); Lymphocytes # 0.4 10^3/uL (0.8-4.8); Lymphocytes % 3.9 %; Mean Corpuscular HGB Conc 31.5 g/dL (30.0-36.0); Mean Corpuscular Volume 101.6 fl (81-99); Mean Platelet Volume 9.5 fL (7.4-10.4); Monocytes # 0.8 10^3/uL (0.2-0.9); Monocytes % 7.8 %; Neutrophils # 8.55 10^3/uL (1.8-7.7); Neutrophils % 86.4 %; Nucleated Red Blood Cells % 0 %; Platelet Count 231 10^3/cmm (130-400); Red Blood Count 3.75 10^6/uL (4.1-5.3); Red Cell Distribution Width 12.9 % (12.1-15.1); White Blood Count 9.9 10^3/uL (4.0-10.0)
[2022-02-25] MEDS: guaiFENesin 600 mg Tablet PO (08:15)
[2022-02-25] MEDS: ipratropium-albuterol 3 mL Neb INHALATION ×3 (09:07→19:39)
[2022-02-25] MEDS: budesonide 0.5 mg/2 mL Neb INHALATION ×2 (09:07→19:39)
--- NOTE | 2022-02-25 12:27 | PM.PN ---
Subjective Subjective: Patient was seen this morning no fevers, no chills, has wheezing, she tells me that that is normal for her, Vitals/I&O/Wt Last Vital Signs Temp 98.0 F 02/25/22 10:48 Pulse 106 H 02/25/22 11:34 Resp 22 H 02/25/22 11:29 BP 125/67 02/25/22 10:48 Pulse Ox 97 02/25/22 11:29 O2 Del Method 02/25/22 11:29 O2 Flow Rate 2 02/25/22 11:29 FiO2 32 02/24/22 16:00 02/24/22 02/25/22 02/25/22 22:59 06:59 14:59 Intake Total 970 / 2300 480 / 480 Balance 970 / 2300 480 / 480 Physical Exam Const: COMMON NORMALS: no acute distress and patient oriented x3 Resp: AUSCULTATION: wheezes Cardio: COMMON NORMALS: regular rate, regular rhythm, S1 normal heart sound present and S2 normal heart sound present RATE: regular rate RHYTHM: regular rhythm HEART SOUNDS: S1 normal heart sound present and S2 normal heart sound present GI: COMMON NORMALS: Normal to inspection, nondistended, normoactive bowel sounds present and non-tender Extremity: COMMON NORMALS: no pedal edema Neuro: COMMON NORMALS: patient oriented x3 Psych: COMMON NORMALS: mental status grossly normal Data 02/25/22 06:28 02/25/22 05:12 Micro: Microbiology 02/22/22 00:50 Gram Stain - Final Sputum - Expectorated Sputum Sputum Culture - Final A&P Assessment and plan (1) Acute exacerbation of chronic obstructive pulmonary disease: (2) COPD (chronic obstructive pulmonary disease): (3) Respiratory failure: Plan #Acute hypercapnic hypoxic respiratory failure, requiring bipap #COPD Exacerbation #Physical deconditioning - Solumedrol 40 every 12 hours - Duoneb q6H scheduled - Pulmicort BID inh scheduled - Continue bipap as needed for respiratory distress. Patient may need to be intubated if she continues to refuse bipap and respiratory status worsens. Discussed this with her at admission as well. - Continue xanax 0.5 TID scheduled for anxiety. - Resp eval and tx -De-escalate antibiotics to p.o. azithromycin - Check MRSA nares, legionella, strep, sputum culture gm stain - Consult pulmnology. Recommendations appreciated - Patient will need pulm rehab, night time bipap, pulmicort/yupleri/perforomist nebs at discharge. - Family planning to take her to [facility] after discharge so she can be closer to her daughter. - Echo ordered repeat is pending but echo from apr showed improved EF to 60%. SEe reports. -Planning on discharging to senior living facility tomorrow #Mediastinal lymphadenopathy: Incidentally noted on CT, nonspecific, up to 2 mm.? Lymph nodes.? Consider outpatient follow-up #She is recently quit smoking 3 weeks ago: Continue to support abstinence. FUll Code DVT PPX: heparin Family updated at bedside. 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
[2022-02-25] MEDS: azithromycin 250 mg Tablet 500 MG PO (14:34)
[2022-02-25] MEDS: pantoprazole 40 mg SDV IVP (14:35)
[2022-02-26] VITALS (12 sets, daily range): BP systolic 128–133; BP diastolic 72–77; PULSE 67–90; RESP 14–20; TEMP 36.6–37.3; O2SAT 94–97
[2022-02-26] MEDS: heparin 5,000 unit/mL INJ 1 mL 5000 UNIT SUBCUT ×2 (00:55→15:48)
[2022-02-26] MEDS: ALPRAZolam 0.5 mg Tablet PO ×3 (05:31→20:49)
[2022-02-26 06:23] LABS: Basophils % 0.2 %; Hematocrit 38.7 % (37.0-47.0); Hemoglobin 12.1 g/dL (11.5-15.3); Lymphocytes # 0.4 10^3/uL (0.8-4.8); Lymphocytes % 4.6 %; Mean Corpuscular HGB Conc 31.3 g/dL (30.0-36.0); Mean Corpuscular Hemoglobin 31.7 pg (28.0-34.0); Mean Corpuscular Volume 101.3 fl (81-99); Mean Platelet Volume 9.8 fL (7.4-10.4); Monocytes # 0.6 10^3/uL (0.2-0.9); Monocytes % 5.8 %; Neutrophils # 8.19 10^3/uL (1.8-7.7); Neutrophils % 87.1 %; Nucleated Red Blood Cells % 0 %; Platelet Count 234 10^3/cmm (130-400); Red Blood Count 3.82 10^6/uL (4.1-5.3); Red Cell Distribution Width 13.1 % (12.1-15.1); White Blood Count 9.4 10^3/uL (4.0-10.0)
[2022-02-26 06:37] LABS: Alanine Aminotransferase 160 U/L (0-33); Albumin Level 3.6 g/dL (3.5-5.2); Alkaline Phosphatase 75 U/L (35-105); Anion Gap 10.5 (5-19); Aspartate Amino Transferase 80 U/L (0-32); Blood Urea Nitrogen 15 mg/dL (8-23); Calcium 9.1 mg/dL (8.5-10.5); Carbon Dioxide 39 mmol/L (22-29); Chloride 95 mmol/L (98-107); Globulin 2.4 g/dL (1.3-4.6); Glomerular Filtration Rate 158.7 mL/min (90-130); Glucose 113 mg/dL (65-115); Osmolality Calculated 292 mOsm/kg (285-295); Potassium 4.5 mmol/L (3.5-5.1); Sodium 140 mmol/L (136-145); Total Bilirubin 0.2 mg/dL (0.15-1.2)
[2022-02-26] MEDS: budesonide 0.5 mg/2 mL Neb INHALATION ×2 (07:57→21:38)
[2022-02-26] MEDS: ipratropium-albuterol 3 mL Neb INHALATION ×3 (07:57→21:38)
--- NOTE | 2022-02-26 08:59 | PM.DCS ---
Discharge Providers Date of Admission: 02/21/22 18:16 Date of Discharge: February 26, 2022 Attending Provider at Admission: Babs Ayala MD Attending Provider at Discharge: Shukri Ellsworth MD Primary Care Provider: Jessi Prabhakar MD Diagnoses at Discharge Discharge Diagnosis (1) Acute exacerbation of chronic obstructive pulmonary disease: Status: Inactive (2) COPD (chronic obstructive pulmonary disease): Status: Acute (3) Respiratory failure: Status: Acute Reason for Visit Reason for Visit: SOB Hospital Course Hospital Course Sheba Lira is a 66 year old female with past medical history of COPD, osteoarthritis presented to the hospital today for shortness of breath. Patient presented to [facility] for acute on chronic hypoxic hypercapnic respiratory failure secondary to COPD, required steroid therapy, inhaler therapy, antibiotic therapy and clinically monitored. Patient would refuse BiPAP therapy, due to claustrophobia, was placed on Xanax scheduled however continued at times to refuse BiPAP. Advised of compliance. Overall patient's clinical status improved, discharged to group home facility on prednisone taper. For her mediastinal lymphadenopathy, she should follow-up with primary care and/or pulmonary for monitoring. She quit smoking 3 weeks ago continue quitting smoking. Physical Exam Const: COMMON NORMALS: no acute distress and patient oriented x3 Resp: COMMON NORMALS: normal respiratory effort, No retractions, No use of accessory muscles and clear to auscultation bilaterally AUSCULTATION: clear to auscultation bilaterally Cardio: COMMON NORMALS: regular rate, regular rhythm, S1 normal heart sound present and S2 normal heart sound present RATE: regular rate RHYTHM: regular rhythm HEART SOUNDS: S1 normal heart sound present and S2 normal heart sound present GI: COMMON NORMALS: Normal to inspection, nondistended, normoactive bowel sounds present and non-tender Extremity: COMMON NORMALS: no pedal edema Neuro: COMMON NORMALS: patient oriented x3 Psych: COMMON NORMALS: mental status grossly normal Discharge Data Studies Completed and Pending Completed Studies During Hospitalization Category Date Time Status CXRP [XR chest 1V portable [id number]] Routine Exams 02/22/22 02:15 Completed CXRP [XR chest 1V portable [id number]] Stat Exams 02/23/22 14:44 Completed XR chest 1V portable [id number] Stat Exams 02/21/22 10:47 Completed XR chest 1V portable [id number] Stat Exams 02/22/22 08:21 Completed CV. echo complete* [id number] Stat Ultrasound 02/21/22 14:38 Completed Pending at discharge Category Date Time Status Blood Culture Routine Lab 02/21/22 14:14 Results Complete Blood Count w/Auto AM LABS Lab 02/27/22 04:00 Ordered Comprehensive Metabolic Panel AM LABS Lab 02/27/22 04:00 Ordered SARS Covid-2 Antigen Routine Lab 02/26/22 08:26 Uncollected Radiology Impressions Chest X-Ray 02/23/22 14:44 IMPRESSION: 1. Stable COPD . 2. Continued omlz-et-xfeccfsm paraseptal emphysema. 3. Continued chronic appearing pulmonary opacities in the upper lobes bilaterally, right greater than left. 4. Continued unusual right heart contour noted on previous CTA chest. THIS REPORT CONTAINS FINDINGS THAT MAY BE CRITICAL TO PATIENT CARE. The findings were verbally communicated via telephone conference with Dr. Soto at 3:29 PM [employer] CONSULTANT on 02/23/2022. The findings were acknowledged and understood. Laboratory Results WBC 9.4 10^3/uL (4.0-10.0) 02/26/22 06:02 Corrected WBC Cancelled 02/25/22 05:12 RBC 3.82 10^6/uL (4.1-5.3) L 02/26/22 06:02 Hgb 12.1 g/dL (11.5-15.3) 02/26/22 06:02 Hct 38.7 % (37.0-47.0) 02/26/22 06:02 MCV 101.3 fl (81-99) H 02/26/22 06:02 MCH 31.7 pg (28.0-34.0) 02/26/22 06:02 MCHC 31.3 g/dL (30.0-36.0) 02/26/22 06:02 RDW 13.1 % (12.1-15.1) 02/26/22 06:02 Plt Count 234 10^3/cmm (130-400) 02/26/22 06:02 MPV 9.8 fL (7.4-10.4) 02/26/22 06:02 Gran % Cancelled 02/25/22 05:12 Neut % (Auto) 87.1 % 02/26/22 06:02 Lymph % (Auto) 4.6 % 02/26/22 06:02 [place] % (Auto) 5.8 % 02/26/22 06:02 Eos % (Auto) 0.0 % 02/26/22 06:02 Baso % (Auto) 0.2 % 02/26/22 06:02 Neut # (Auto) 8.19 10^3/uL (1.8-7.7) H 02/26/22 06:02 Lymph # (Auto) 0.4 10^3/uL (0.8-4.8) L 02/26/22 06:02 [place] # (Auto) 0.6 10^3/uL (0.2-0.9) 02/26/22 06:02 Eos # (Auto) 0.0 10^3/uL (0.0-0.8) 02/26/22 06:02 Baso # (Auto) 0.0 10^3/uL (0.0-0.1) 02/26/22 06:02 Absolute Gran (auto) Cancelled 02/25/22 05:12 Nucleated RBC % (auto) 0 % 02/26/22 06:02 Nucleated RBCs # 0.0 /100WBC 02/26/22 06:02 Specimen Type Arterial 02/21/22 18:11 Sample Site Radial, right 02/21/22 18:11 ABG pH 7.32 (7.35-7.45) L 02/21/22 18:11 ABG pCO2 77.0 mmHg (35-45) H* 02/21/22 18:11 ABG pO2 65.7 mmHg (80.0-100.0) L 02/21/22 18:11 ABG HCO3 39.8 mmol/L (22-26) H 02/21/22 18:11 ABG O2 Saturation 92.9 02/21/22 18:11 ABG Base Excess 10.8 mmol/L (-2.0-2.0) H 02/21/22 18:11 Edgardo Test Pos 02/21/22 18:11 A-a O2 Gradient 7.4 mmHg (5-10) 02/21/22 18:11 Hematocrit 37.4 % (37-47) 02/21/22 18:11 Hgb O2 Saturation 91.4 % (95-100) L 02/21/22 18:11 Carboxyhemoglobin 1.3 %THgb (0.4-20.1) 02/21/22 18:11 Methemoglobin 0.3 % (0.4-1.5) L 02/21/22 18:11 Total Hemoglobin 12.2 g/dL (12-16) 02/21/22 18:11 Sodium 138.0 mmol/L (131-143) 02/21/22 18:11 Potassium 4.7 mmol/L (3.5-5.0) 02/21/22 18:11 Glucose 126.0 mg/dL (70-115) H 02/21/22 18:11 Ionized Calcium 1.2 mmol/L (1.1-1.4) 02/21/22 18:11 O2 Delivery Device Bipap 02/21/22 18:11 O2 Liters/Min 3.0 % 02/21/22 11:29 FiO2 30.0 % 02/21/22 18:11 Solid Waste Facility Operator ID [place] 02/21/22 18:11 Sodium 140 mmol/L (136-145) 02/26/22 06:02 Potassium 4.5 mmol/L (3.5-5.1) 02/26/22 06:02 Chloride 95 mmol/L (98-107) L 02/26/22 06:02 Carbon Dioxide 39 mmol/L (22-29) H 02/26/22 06:02 Anion Gap 10.5 (5-19) 02/26/22 06:02 BUN 15 mg/dL (8-23) 02/26/22 06:02 Creatinine 0.4 mg/dL (0.5-0.9) L 02/26/22 06:02 GFR Calculation 158.7 mL/min (90-130) H 02/26/22 06:02 Glucose 113 mg/dL (65-115) 02/26/22 06:02 Calculated Osmolality 292 mOsm/kg (285-295) 02/26/22 06:02 Lactic Acid 0.8 mmol/L (0.5-2.2) 02/21/22 14:14 Calcium 9.1 mg/dL (8.5-10.5) 02/26/22 06:02 Magnesium 1.9 mg/dL (1.7-2.3) 02/22/22 02:32 Total Bilirubin 0.2 mg/dL (0.15-1.2) 02/26/22 06:02 AST 80 U/L (0-32) H 02/26/22 06:02 ALT 160 U/L (0-33) H 02/26/22 06:02 Alkaline Phosphatase 75 U/L (35-105) 02/26/22 06:02 Troponin T Baseline 7 ng/L (0-10) 02/23/22 15:02 Troponin T 120 Minute 7.53 ng/L (0-10) 02/23/22 16:55 Delta Troponin T 0.53 ABS# (0-10) 02/23/22 16:55 Troponin T Hi Sens 6Hr 7.29 ng/L (0-10) 02/23/22 20:35 Troponin T Hi Sens 6Hr Delta 0.29 ng/L (0-12) 02/23/22 20:35 NT-Pro-B Natriuret Pep 539 pg/mL (0-125) H 02/21/22 11:14 Total Protein 6.0 g/dL (6.6-8.7) L 02/26/22 06:02 Albumin 3.6 g/dL (3.5-5.2) 02/26/22 06:02 Globulin 2.4 g/dL (1.3-4.6) 02/26/22 06:02 Procalcitonin 0.02 ng/mL (0-0.5) 02/21/22 11:14 Urine Color Straw (Yellow) 02/21/22 11:00 Urine Appearance Clear (CLEAR) 02/21/22 11:00 Urine pH 7 (5-7) 02/21/22 11:00 Ur Specific [place] 1.015 (1.005-1.030) 02/21/22 11:00 Urine Protein Neg (Negative) 02/21/22 11:00 Urine Glucose (UA) Norm (Normal) 02/21/22 11:00 Urine Ketones Negative (Negative) 02/21/22 11:00 Urine Blood Neg (Negative) 02/21/22 11:00 Urine Nitrate Negative (Negative) 02/21/22 11:00 Urine Bilirubin Neg (Negative) 02/21/22 11:00 Urine Urobilinogen Neg mg/dL (Negative) 02/21/22 11:00 Ur Leukocyte Esterase Negative (Negative) 02/21/22 11:00 Coronavirus 229E (PCR) Not detected (NOT DETECT) 02/21/22 21:15 SARS-CoV-2 (PCR) Not detected (NOT DETECT) 02/21/22 21:15 Vitals Last Vital Signs Temp 98.1 F 02/26/22 08:00 Pulse 86 02/26/22 08:05 Resp 18 02/26/22 08:00 BP 133/76 02/26/22 08:00 Pulse Ox 95 02/26/22 08:00 O2 Del Method 02/26/22 08:00 O2 Flow Rate 2 02/26/22 08:00 FiO2 32 02/24/22 16:00 Discharge Plan Discharge Patient Disposition: Xfer SNF Condition: Stable Prescriptions: New Mucinex 600 mg Tablet Extended Release 12hr 600 mg PO BID PRN (Reason: congestion) 14 Days Qty: 28 0RF prednisone 5 mg tablet See Rx Instructions .ROUTE .COMPLEX Qty: 145 0RF Rx Instructions: prednisone 5 mg: take 8 tablets (40 mg) on Day 1; 6 tablets (30 mg) on Day 6; then decrease by 1 tablet every 5 days until finished doxycycline hyclate 100 mg tablet 100 mg PO BID 5 Days Qty: 10 0RF alprazolam 0.5 mg Tablet 0.5 mg PO Q8H PRN (Reason: anxiety) 7 Days Qty: 21 0RF Continued budesonide-formoterol [Symbicort] 160-4.5 mcg/actuation HFA aerosol inhaler 2 puff inhalation BID Qty: 10.2 3RF (DME) nebulizer compressor with kit See Rx Instructions .Route .MEDSUPPLY Qty: 1 0RF Rx Instructions: As directed albuterol sulfate 2.5 mg /3 mL (0.083 %) solution for nebulization 2.5 mg inhalation Q6H PRN (Reason: shortness of breath or wheezing) Qty: 360 5RF (DME) nebulizer accessories Kit See Rx Instructions .Route Qty: 1 0RF Rx Instructions: nebulizer kit/accessories/tubing ipratropium-albuterol 0.5 mg-3 mg(2.5 mg base)/3 mL solution for nebulization 3 ml INHALATION Q6H PRN (Reason: Wheezing) albuterol sulfate 90 mcg/actuation HFA aerosol inhaler 2 puff inhalation Q8H PRN (Reason: Shortness Of Breath) Yaniralri 175 mcg/3 mL solution for nebulization 175 mcg inhalation DAILY 30 Days Qty: 90 0RF budesonide [Pulmicort] 0.5 mg/2 mL suspension for nebulization 0.5 mg inhalation BID 30 Days Qty: 120 0RF Discontinued cefpodoxime 200 mg tablet 200 mg PO BID 5 Days Qty: 10 0RF Rx Instructions: must administer with a meal/food Discharge Orders: Discharge Order (Routine); Ordered 02/26/22 Ordered By: Shukri Ellsworth Other Ambulatory Orders: DME: Hakeem (Order) Location: None Selected Ordered By: Babs Ayala Referrals: Jessi Prabhakar MD [Primary Care Provider] - 02/28/22 9:00 am Discharge Diet: Cardiac Discharge Activity: Resume usual activity Patient Instructions: Opioid Safety Discharge Attestations Time Spent in Discharge Care*: less than 30 min Quality Metrics Clinical Quality Measures [ No reported AMI, CVA or VTE this stay] Coding Level of Care Code Acute Chg FW DC note Diagnoses Acute exacerbation of chronic obstructive pulmonary disease J44.1 COPD (chronic obstructive pulmonary disease) J44.9 Respiratory failure J96.90
--- NOTE | 2022-02-26 08:59 | PC.SOCIAL ---
IMM update IMM updated with patient and family at bedside. Verbalized an understanding. Copy Pg 2 provided. Initialled, dated, timed, and placed in chart.
[2022-02-26 10:24] LABS: SARS Covid-2 Antigen Negative (Negative)
[2022-02-26] MEDS: pantoprazole 40 mg SDV IVP (15:49)
[2022-02-26] MEDS: azithromycin 250 mg Tablet 500 MG PO (15:51)
[2022-02-27] VITALS: BP 124/73; PULSE 68; RESP 20; TEMP 36.4; O2SAT 96
[2022-02-27] MEDS: heparin 5,000 unit/mL INJ 1 mL 5000 UNIT SUBCUT (00:33)
[2022-02-27 03:29] VITALS: BP 137/74; PULSE 71; RESP 20; TEMP 36.6; O2SAT 91
[2022-02-27] MEDS: ALPRAZolam 0.5 mg Tablet PO (05:18)
[2022-02-27 05:28] LABS: Basophils % 0.1 %; Hematocrit 39.8 % (37.0-47.0); Hemoglobin 12.5 g/dL (11.5-15.3); Lymphocytes # 0.4 10^3/uL (0.8-4.8); Lymphocytes % 3.7 %; Mean Corpuscular HGB Conc 31.4 g/dL (30.0-36.0); Mean Corpuscular Hemoglobin 32.1 pg (28.0-34.0); Mean Corpuscular Volume 102.1 fl (81-99); Mean Platelet Volume 9.8 fL (7.4-10.4); Monocytes # 0.5 10^3/uL (0.2-0.9); Monocytes % 5.2 %; Neutrophils # 8.93 10^3/uL (1.8-7.7); Neutrophils % 89.3 %; Nucleated Red Blood Cells % 0 %; Platelet Count 198 10^3/cmm (130-400); Red Cell Distribution Width 13.2 % (12.1-15.1)
[2022-02-27 05:47] LABS: Alanine Aminotransferase 255 U/L (0-33); Albumin Level 3.5 g/dL (3.5-5.2); Alkaline Phosphatase 78 U/L (35-105); Aspartate Amino Transferase 122 U/L (0-32); Blood Urea Nitrogen 14 mg/dL (8-23); Calcium 9.2 mg/dL (8.5-10.5); Carbon Dioxide 36 mmol/L (22-29); Chloride 96 mmol/L (98-107); Globulin 2.5 g/dL (1.3-4.6); Glomerular Filtration Rate 158.7 mL/min (90-130); Glucose 122 mg/dL (65-115); Osmolality Calculated 292 mOsm/kg (285-295); Sodium 140 mmol/L (136-145); Total Bilirubin 0.3 mg/dL (0.15-1.2)
[2022-02-27 05:59] LABS: Anion Gap 12.5 (5-19)
[2022-02-27 06:00] VITALS: PULSE 67
[2022-02-27 06:00] LABS: Potassium 4.5 mmol/L (3.5-5.1)
[2022-02-27 07:33] VITALS: PULSE 73; RESP 20; O2SAT 97
[2022-02-27] MEDS: budesonide 0.5 mg/2 mL Neb INHALATION (07:33)
[2022-02-27] MEDS: ipratropium-albuterol 3 mL Neb INHALATION (07:33)
[2022-02-27 08:00] VITALS: PULSE 69; RESP 17; TEMP 36.9; O2SAT 86
--- NOTE | 2022-02-27 09:57 | P.PN_ITS ---
Subjective Subjective: This is progress note from 02/26/2022 patient was seen this morning, plan on discharging, she is doing well, no fevers, chills, later on the evening, the plan was patient to be discharged and transported by family however it was too dark for family to drive up Vitals/I&O/Wt Last Vital Signs Temp 98.4 F 02/27/22 08:00 Pulse 69 02/27/22 08:00 Resp 17 02/27/22 08:00 BP 137/74 02/27/22 03:29 Pulse Ox 86 L 02/27/22 08:00 O2 Del Method 02/27/22 07:33 O2 Flow Rate 2 02/27/22 07:33 FiO2 32 02/24/22 16:00 02/26/22 02/27/22 02/27/22 22:59 06:59 14:59 Intake Total 300 / 1260 240 / 1500 Output Total 3000 / 3000 400 / 3400 Balance -2700 / -1740 -160 / -1900 Physical Exam Const: COMMON NORMALS: no acute distress and patient oriented x3 Resp: COMMON NORMALS: normal respiratory effort and No retractions AUSCULTATION: wheezes Cardio: COMMON NORMALS: regular rate, regular rhythm, S1 normal heart sound present and S2 normal heart sound present RATE: regular rate RHYTHM: regular rhythm HEART SOUNDS: S1 normal heart sound present and S2 normal heart sound present GI: COMMON NORMALS: Normal to inspection, nondistended, normoactive bowel sounds present and non-tender Extremity: COMMON NORMALS: no pedal edema Neuro: COMMON NORMALS: patient oriented x3 Psych: COMMON NORMALS: mental status grossly normal Data 02/27/22 05:10 02/27/22 05:10 Micro: Microbiology 02/21/22 14:14 Blood Culture - Final Blood NO GROWTH AFTER 5 DAYS 02/21/22 14:04 Blood Culture - Final Blood NO GROWTH AFTER 5 DAYS A&P Assessment and plan (1) Acute exacerbation of chronic obstructive pulmonary disease: (2) COPD (chronic obstructive pulmonary disease): (3) Respiratory failure: Plan #Acute hypercapnic hypoxic respiratory failure, requiring bipap #COPD Exacerbation #Physical deconditioning - Solumedrol 40 every 12 hours - Duoneb q6H scheduled - Pulmicort BID inh scheduled - Continue bipap as needed for respiratory distress. Patient may need to be int ubated if she continues to refuse bipap and respiratory status worsens. Discussed this with her at admission as well. - Continue xanax 0.5 TID scheduled for anxiety. - Resp eval and tx -De-escalate antibiotics to p.o. azithromycin - Check MRSA nares, legionella, strep, sputum culture gm stain - Consult pulmnology. Recommendations appreciated - Patient will need pulm rehab, night time bipap, pulmicort/yupleri/perforomist nebs at discharge. - Family planning to take her to [facility] after discharge so she can be closer to her daughter. - Echo ordered repeat is pending but echo from apr showed improved EF to 60%. SEe reports. -Planning on discharging to long term facility tomorrow #Mediastinal lymphadenopathy: Incidentally noted on CT, nonspecific, up to 2 mm.? Lymph nodes.? Consider outpatient follow-up #She is recently quit smoking 3 weeks ago: Continue to support abstinence. FUll Code DVT PPX: heparin Family updated at bedside. Attestations Medical Necessity Statement*: Patient will be discharged tomorrow Coding Level of Care Code Acute Skilled Nursing Professional for g Fwd Diagnoses Acute exacerbation of chronic obstructive pulmonary disease J44.1 COPD (chronic obstructive pulmonary disease) J44.9 Respiratory failure J96.90
[2022-02-27 10:20] VITALS: PULSE 69; RESP 17; TEMP 36.9; O2SAT 86
== END 2022-02-27 09:30 | disposition skilled nursing facility (03) | DRG 190 ==
LOC: ER 15:23 → MEDSURG 18:16
PROVIDERS: Internal Medicine; Internal Medicine Pulmonary Disease; Admitting Provider Internal Medicine; Emergency Provider Family Medicine; PCP Family Medicine; Visit Provider Family Medicine
DX: J43.9 Emphysema, unspecified (principal); J18.9 Pneumonia, unspecified organism; J96.22 Acute and chronic respiratory failure with hypercapnia; J96.21 Acute and chronic respiratory failure with hypoxia; I51.81 Takotsubo syndrome; M17.9 Osteoarthritis of knee, unspecified; Z87.891 Personal history of nicotine dependence; Z91.198 Patient's noncompliance with other medical treatment and regimen for other reason; R59.0 Localized enlarged lymph nodes; F40.240 Claustrophobia; F41.9 Anxiety disorder, unspecified; Z75.1 Person awaiting admission to adequate facility elsewhere; Z79.51 Long term (current) use of inhaled steroids
CPT/HCPCS: 36415; 36600; 71045; 71275; 80048; 80051; 80053; 81003; 82330; 82805; 83605; 83690; 83735; 83880; 84145; 84484; 85025; 85610; 86403; 87040; 87070; 87205; 87426; 87449; 87635; 87641; 93005; 93306; 94640; 94660; 94664; 94762; 96365; 96367; 96372; 96375; 97110; 97116; 97161; 97530; 99285; 99291; C9113; G0378; J0456; J0696; J1644; J2405; J2920; J2930; J7050; J7626; Q0144; Q9967

== ENCOUNTER → 2022-09-10 09:20 | Outpatient (BNVA) | payer MEDICARE, MEDICAID, SELFPAY | PROVIDERS: PCP Family Medicine; Visit Provider Family Medicine | DX: J44.9 Chronic obstructive pulmonary disease, unspecified (principal) | CPT/HCPCS: 71046 ==

== ENCOUNTER 2024-09-27 10:14 | Inpatient (IN) | payer MEDICARE, MEDICAID, SELFPAY ==
[2024-09-27] VITALS (129 sets, daily range): BP systolic 102–168; BP diastolic 52–88; PULSE 70–98; RESP 16–26; TEMP 36.7–37.6; O2SAT 86–100
--- NOTE | 2024-09-27 10:22 | XRR_ITS ---
PROCEDURE INFORMATION: Exam: XR Chest Exam date and time: 09/27/2024 10:28 AM Age: 68 years old Clinical indication: Pain; Chest pressure; Additional info: Chest pain TECHNIQUE: Imaging protocol: Radiologic exam of the chest. Views: 1 view. COMPARISON: 1. CR XR chest 2V* [id number] 09/10/2022 9:[address] angio chest PE protcl [id number] 02/19/2022 12:03 AM FINDINGS: Lungs: Extensive pulmonary abnormalities again noted including areas of interstitial reticulation, pulmonary hyperexpansion and irregular and nodular opacities projects over the lung apices. The dominant focal irregular opacity along the superior aspect of the right hilum is without definite interval change given portable technique. Pleural spaces: No pleural effusion. Heart/Mediastinum: Markedly enlarged right heart seen on prior CT again noted. Bones/joints: No significant pathology. XR/XR chest 1V portable [id number] IMPRESSION: No acute pathology or significant change given technique.
--- NOTE | 2024-09-27 10:28 | ECG_ITS ---
[facility]: 2024-[facility]27 Pat Name: Sheba Lira Department: Room: Gender: Female General Dentist/Owner: : 1955 Requested By: Melany Santana Order Number: [id number] Latricia MD: Shan Hernandez M.D. Measurements Intervals [place] Rate: 83 P: 85 NC: 144 QRS: 83 QRSD: 106 T: 80 QT: 347 QTc: 409 Interpretive Statements SINUS RHYTHM POSSIBLE LEFT ATRIAL ENLARGEMENT [-0.1mV P-WAVE IN V1/V2] INCOMPLETE RIGHT BUNDLE BRANCH BLOCK [90+ ms QRS DURATION, TERMINAL R IN V1/V2, 40+ ms S IN I/aVL/V4/V5/V6] Compared to ECG 02/23/2022 19:54:06 Incomplete right bundle-branch block now present Electronically Signed On 09-29-2024 06:18:56 CDT by Shan Hernandez M.D. [email or web address]
[2024-09-27 10:47] LABS: Basophils % 0.4 %; Hematocrit 40.1 % (36-47); Lymphocytes # 0.4 10^3/uL (0.8-4.8); Lymphocytes % 5.4 %; Mean Corpuscular HGB Conc 30.7 g/dL (30-55); Mean Corpuscular Hemoglobin 30.3 pg (27-33); Mean Corpuscular Volume 98.8 fl (85-98); Mean Platelet Volume 9.6 fL (7.4-10.4); Monocytes # 0.6 10^3/uL (0.2-0.9); Monocytes % 6.9 %; Neutrophils # 7.15 10^3/uL (1.8-7.7); Neutrophils % 86.9 %; Nucleated Red Blood Cells % 0 %; Platelet Count 150 10^3/cmm (157-399); Red Blood Count 4.06 10^6/uL (3.85-5.65); Red Cell Distribution Width 12.7 % (12.1-15.1); White Blood Count 8.22 10^3/uL (3.29-11.43)
--- NOTE | 2024-09-27 10:51 | CTR_ITS ---
PROCEDURE INFORMATION: Exam: CTA Chest With Contrast Exam date and time: 09/27/2024 5:05 PM Age: 68 years old Clinical indication: Dyspnea; Additional info: Covid, hypoxia TECHNIQUE: Imaging protocol: Computed tomographic angiography of the chest with contrast. Exam focused on the arteries. 3D rendering (Not supervised by radiologist): MIP and/or 3D reconstructed images were created by the technologist. Radiation optimization: All CT scans at this facility use at least one of these dose optimization techniques: automated exposure control; mA and/or kV adjustment per patient size (includes targeted exams where dose is matched to clinical indication); or iterative reconstruction. Contrast material: OMNI 350; Contrast volume: 65 ml; Contrast route: INTRAVENOUS (IV); COMPARISON: CT angio chest PE protcl [id number] 02/19/2022 12:03 AM RADIATION DOSE METRICS: Total DLP (mGy-cm): 271.69 FINDINGS: Pulmonary arteries: No pulmonary embolism evident. Aorta: No evidence of thoracic aortic aneurysm. Thyroid: No significant thyroid pathology. Lungs: Extensive pulmonary abnormalities are again noted. Abnormalities include areas of peripheral consolidation focal irregular opacity at the right lung apex, consolidation and ground-glass opacity at the posterior aspect of the left lung apex, reticulation and ground-glass opacities in superior segments of the lower lobes and pulmonary emphysema. Right hilar peribronchovascular soft tissue thickening greatest along the superior aspect of the hilum with superior hilar retraction again seen. Pleural spaces: Interval resolution of the small left pneumothorax. No evidence of pleural effusion. Heart: Marked dilatation of the right heart again seen. Lymph nodes: No adenopathy. Diaphragm: Small hiatal hernia. Liver: Hepatic steatosis. Bones/joints: Mild degenerative change present in the spine. Soft tissues: Small bilateral fat containing Bochdalek's hernias. Other findings: Evaluation limited by respiratory degradation. CT/CT angio chest PE protcl [id number] IMPRESSION: 1. No evidence of pulmonary embolism. 2. Extensive pulmonary abnormalities again noted without significant change compared with 02/19/2022. No new or increasing pulmonary abnormality. 3. Interval resolution of small left pneumothorax. 4. Minor findings noted above including marked dilatation of the right heart hepatic steatosis. COMMENTS: The presence of pulmonary emphysema on CT is an independent risk factor for lung cancer. In the absence of a history or active diagnosis of lung cancer, it is recommended that this patient with emphysema be evaluated for enrollment in a low dose CT lung cancer screening program.
--- NOTE | 2024-09-27 10:52 | W.ED.SOB ---
Documented by User: PEGGY Ramos 09/27/24 12:35 HPI - SOB/Dyspnea General: Chief Complaint: Shortness of Breath/Dyspnea Stated Complaint: SOB Time Seen by Provider: 09/27/24 10:21 Source: patient Mode of arrival: EMS Limitations: no limitations History of Present Illness: HPI Narrative: Patient is a 68-year-old female who presents to the ED today for the complaint of shortness of breath and difficulty breathing. Patient states she has chronic COPD. States she occasionally will wear 2 to 3 L of oxygen at home but often times can go without. Patient states she has been to the [place] emergency department twice over the past several days. She states she did test positive for COVID. States she was discharged home with antibiotics (doxycycline). Patient states she has continued to decline. At time of my initial examination, she is satting 65% on 2 L of oxygen and was placed on a nonrebreather. MD elicited complaint: shortness of breath Pertinent past history: COPD Onset (ago): day(s) Context: recent illness (COVID +) Timing: constant Severity: severe Relieving factors: oxygen Known history of: COPD Associated symptoms: Reports chest congestion and chest pain; Deny abdominal pain, dizziness, extremity pain, fever(s), lightheadedness, nausea, palpitations, syncope or vomiting Treatment prior to arrival: oxygen Related Data Previous Rx's ?Medication ?Instructions ?Recorded nebulizer compressor with kit #1 ea 02/18/21 nebulizer accessories #1 ea 12/06/21 oxygen small portable concentrator #1 ea 01/07/23 budesonide-formoterol HFA 160 2 puff inhalation BID #10.2 grams 09/21/23 mcg-4.5 mcg/actuation aerosol inhaler (Symbicort) albuterol sulfate 90 mcg/actuation 2 puff inhalation Q8H PRN 12/17/23 aerosol inhaler Shortness Of Breath #6.7 grams Allergies Allergy/AdvReac Type Severity Reaction Status Date / Time aspirin Allergy Intermediate ADR/ALGY-Pa Verified 12/15/23 14:01 lpitations fluticasone furoate (From Allergy Intermediate hives Verified 12/15/23 14:01 Trelegy Ellipta) umeclidinium (From Trelegy Allergy Intermediate hives Verified 12/15/23 14:01 Ellipta) vilanterol (From Trelegy Allergy Intermediate hives Verified 12/15/23 14:01 Ellipta) roflumilast (From Dalires) AdvReac Intermediate ADR-Abdominal Verified 12/15/23 14:01 Pain codeine AdvReac ADR-Nausea Verified 12/15/23 14:01 Review of Systems Const: Denies: fever(s), chills, body aches, fatigue or malaise Card: Reports: chest pain and dyspnea on exertion; Denies: palpitations, irregular heart rhythm, edema, swelling of feet/ankles, lightheadedness, syncope or pre-syncope Resp: Reports: dyspnea, non-productive cough and chest congestion; Denies: wheezing GI: Denies: abdominal pain, nausea, vomiting, diarrhea or change in bowel habits : Denies: flank pain, difficulty voiding, dysuria, urinary frequency or urinary urgency Musc: Denies: neck pain, back pain, extremity pain, extremity swelling, joint pain or joint swelling Skin/Breast: Denies: rash Neuro: Denies: headache(s), numbness in extremities, weakness in extremities, sensory changes or dizziness PFSH ED PFSH: Medical History Enrolled in chronic care management Takotsubo cardiomyopathy COPD (chronic obstructive pulmonary disease) Sciatic pain Osteoarthritis of left knee Surgical History H/O eye surgery History of History of partial hysterectomy Family History Other CAD (coronary artery disease) Cancer Social History Smoking and tobacco/nicotine status: former use of tobacco/nicotine Quit status (tobacco/nicotine): has quit using Year quit tobacco: quit 2 months ago Second hand smoke exposure: No Alcohol intake: never Substance/Drug Use: never Lives independently: Yes Household members: none Marital status: / Number of children: 2 Number of grandchildren: 8 Current occupational status: retired Physical Exam Const: COMMON NORMALS: patient oriented x3, no limitations, alert and well nourished GENERAL APPEARANCE: cooperative and in distress (acute respiratory distress) ORIENTATION/CONSCIOUSNESS: Yes awake, Yes oriented to person, Yes oriented to place and Yes oriented to time HENMT: COMMON NORMALS: normocephalic and atraumatic HEAD & SCALP: normal to inspection, normocephalic and atraumatic Neck/C-Spine: GENERAL: Yes normal visual inspection Chest: COMMONS NORMALS: normal inspection of the chest and normal palpation of entire chest wall Resp: EFFORT & INSPECTION: Yes tachypneic, Yes respiratory distress, Yes labored, Yes Actively coughing and Yes uses accessory muscles AUSCULTATION: rhonchi OTHER: satting 65% on 2L O2 Cardio: COMMON NORMALS: regular rate and regular rhythm RATE: regular rate RHYTHM: regular rhythm GI: COMMON NORMALS: Normal to inspection, nondistended, normoactive bowel sounds present, Soft to palpation and non-tender PALPATION: Yes Soft to palpation Extremity: COMMON NORMALS: no clubbing, cyanosis or edema, no calf tenderness and no pedal edema GENERAL: Yes normal exam except as noted Neuro: COMMON NORMALS: patient oriented x3, moves all extremities, no focal motor deficits and no sensory deficits noted SENSORIUM/ORIENTATION: Yes alert, Yes oriented to person, Yes oriented to place and Yes oriented to time Skin: COMMON NORMALS: no rashes or lesions noted GENERAL SKIN EXAM: no rashes or lesions noted Course Consultations: Consultation #1: Dr. Ross-accepts admission to ICU Vital Signs: Vital signs: Vital Signs Temperature 98.1 F 09/27/24 10:22 Pulse Rate 98 09/27/24 13:58 Respiratory Rate 16 09/27/24 12:12 Blood Pressure 140/76 09/27/24 15:45 Pulse Oximetry 92 09/27/24 15:30 Oxygen Delivery Me thod BiPAP 09/27/24 13:46 Oxygen Flow Rate 15 09/27/24 11:12 Fraction of Inspir ed Oxygen 30 09/27/24 13:58 MDM - SOB/Dyspnea Medical Decision Making Patient is a 68-year-old female with chronic COPD here stating she tested positive for COVID 2 days ago. She is in hypercapnic respiratory failure with a CO2 of 68 and a pH of 7.2. She was hypoxic upon arrival satting 65% on RA. She was eventually placed on BiPAP and will be admitted to ICU. Medical Records I reviewed the patient's medical records. Lab Data I reviewed the patient's lab results. 09/27/24 10:41 09/27/24 10:41 Labs/Radiology: Radiology Impressions Chest X-Ray 09/27/24 10:22 IMPRESSION: No acute pathology or significant change given technique. Laboratory Results WBC 8.22 10^3/uL (3.29-11.43) 09/27/24 10:41 RBC 4.06 10^6/uL (3.85-5.65) 09/27/24 10:41 Hgb 12.30 g/dL (11.27-16.99) 09/27/24 10:41 Hct 40.1 % (36-47) 09/27/24 10:41 MCV 98.8 fl (85-98) H 09/27/24 10:41 MCH 30.3 pg (27-33) 09/27/24 10:41 MCHC 30.7 g/dL (30-55) 09/27/24 10:41 RDW 12.7 % (12.1-15.1) 09/27/24 10:41 Plt Count 150 10^3/cmm (157-399) L 09/27/24 10:41 MPV 9.6 fL (7.4-10.4) 09/27/24 10:41 Neut % (Auto) 86.9 % 09/27/24 10:41 Lymph % (Auto) 5.4 % 09/27/24 10:41 Nuckolls % (Auto) 6.9 % 09/27/24 10:41 Eos % (Auto) 0.0 % 09/27/24 10:41 Baso % (Auto) 0.4 % 09/27/24 10:41 Neut # (Auto) 7.15 10^3/uL (1.8-7.7) 09/27/24 10:41 Lymph # (Auto) 0.4 10^3/uL (0.8-4.8) L 09/27/24 10:41 Nuckolls # (Auto) 0.6 10^3/uL (0.2-0.9) 09/27/24 10:41 Eos # (Auto) 0.0 10^3/uL (0.0-0.8) 09/27/24 10:41 Baso # (Auto) 0.0 10^3/uL (0.0-0.1) 09/27/24 10:41 Nucleated RBC % (auto) 0 % 09/27/24 10:41 Nucleated RBCs # 0.0 /100WBC 09/27/24 10:41 D-Dimer <= 0.27 ug/mLFEU (0-0.59) 09/27/24 10:41 Specimen Type Arterial 09/27/24 11:08 Sample Site Radial, right 09/27/24 11:08 ABG pH 7.24 (7.35-7.45) L 09/27/24 11:08 ABG pCO2 68.0 mmHg (35-45) H* 09/27/24 11:08 ABG pO2 374.0 mmHg (80.0-100.0) H 09/27/24 11:08 ABG HCO3 29.4 mmol/L (22-26) H 09/27/24 11:08 ABG O2 Saturation > 99.1 09/27/24 11:08 ABG Base Excess 0.4 mmol/L (-2.0-2.0) 09/27/24 11:08 Edgardo Test Pos 09/27/24 11:08 A-a O2 Gradient Not Reportable 09/27/24 11:08 Hematocrit 40.1 % (37-47) 09/27/24 11:08 Hgb O2 Saturation 98.0 % (95-100) 09/27/24 11:08 Carboxyhemoglobin 1.3 %THgb (0.4-20.1) 09/27/24 11:08 Methemoglobin 1.0 % (0.4-1.5) 09/27/24 11:08 Total Hemoglobin 13.1 g/dL (12-16) 09/27/24 11:08 Sodium 137.0 mmol/L (131-143) 09/27/24 11:08 Potassium 4.2 mmol/L (3.5-5.0) 09/27/24 11:08 Glucose 101.0 mg/dL (70-115) 09/27/24 11:08 Ionized Calcium 1.2 mmol/L (1.1-1.4) 09/27/24 11:08 O2 Delivery Device Nrb 09/27/24 11:08 O2 Liters/Min 15.0 % 09/27/24 11:08 Funeral Sales Manager ID Walci 09/27/24 11:08 Sodium 135 mmol/L (136-145) L 09/27/24 10:41 Potassium 4.6 mmol/L (3.5-5.1) 09/27/24 10:41 Chloride 90 mmol/L (98-107) L 09/27/24 10:41 Carbon Dioxide 34 mmol/L (22-29) H 09/27/24 10:41 Anion Gap 15.6 (5-19) 09/27/24 10:41 BUN 10 mg/dL (8-23) 09/27/24 10:41 Creatinine 0.3 mg/dL (0.5-0.9) L 09/27/24 10:41 GFR Calculation 219.9 mL/min (90-130) H 09/27/24 10:41 Glucose 96 mg/dL (65-115) 09/27/24 10:41 Calculated Osmolality 279 mOsm/kg (285-295) L 09/27/24 10:41 Calcium 9.1 mg/dL (8.5-10.5) 09/27/24 10:41 Total Bilirubin 0.3 mg/dL (0.15-1.2) 09/27/24 10:41 AST 34 U/L (0-32) H 09/27/24 10:41 ALT 46 U/L (0-33) H 09/27/24 10:41 Alkaline Phosphatase 86 U/L (35-105) 09/27/24 10:41 Troponin T Baseline 8 ng/L (0-10) 09/27/24 10:41 Total Protein 6.6 g/dL (6.6-8.7) 09/27/24 10:41 Albumin 4.1 g/dL (3.5-5.2) 09/27/24 10:41 Globulin 2.5 g/dL (1.3-4.6) 09/27/24 10:41 All radiology interpretation(s) finalized by discharge Discharge Plan Discharge Patient Disposition: Admitted As Inpatient Admit Provider: Matheus Ross Clinical Impression: Acute hypercapnic respiratory failure, Acute exacerbation of chronic obstructive airways disease, COVID Condition: Stable Coding Level of Care Code ED Teacher Visually Impaired for Chg Fwd Documented by User: Kyler Bernal, 09/27/24 16:01 HPI - SOB/Dyspnea General: Chief Complaint: Shortness of Breath/Dyspnea Stated Complaint: SOB Time Seen by Provider: 09/27/24 10:21 Related Data Previous Rx's ?Medication ?Instructions ?Recorded nebulizer compressor with kit #1 ea 02/18/21 nebulizer accessories #1 ea 12/06/21 oxygen small portable concentrator #1 ea 01/07/23 budesonide-formoterol HFA 160 2 puff inhalation BID #10.2 grams 09/21/23 mcg-4.5 mcg/actuation aerosol inhaler (Symbicort) albuterol sulfate 90 mcg/actuation 2 puff inhalation Q8H PRN 12/17/23 aerosol inhaler Shortness Of Breath #6.7 grams Allergies Allergy/AdvReac Type Severity Reaction Status Date / Time aspirin Allergy Intermediate ADR/ALGY-Pa Verified 12/15/23 14:01 lpitations fluticasone furoate (From Allergy Intermediate hives Verified 12/15/23 14:01 Trelegy Ellipta) umeclidinium (From Trelegy Allergy Intermediate hives Verified 12/15/23 14:01 Ellipta) vilanterol (From Trelegy Allergy Intermediate hives Verified 12/15/23 14:01 Ellipta) roflumilast (From Daliresp) AdvReac Intermediate ADR-Abdominal Verified 12/15/23 14:01 Pain codeine AdvReac ADR-Nausea Verified 12/15/23 14:01 PFSH ED PFSH: Medical History Enrolled in chronic care management Takotsubo cardiomyopathy COPD (chronic obstructive pulmonary disease) Sciatic pain Osteoarthritis of left knee Surgical History H/O eye surgery History of History of partial hysterectomy Family History Other CAD (coronary artery disease) Cancer Social History Smoking and tobacco/nicotine status: former use of tobacco/nicotine Quit status (tobacco/nicotine): has quit using Year quit tobacco: quit 2 months ago Second hand smoke exposure: No Alcohol intake: never Substance/Drug Use: never Lives independently: Yes Household members: none Marital status: / Number of children: 2 Number of grandchildren: 8 Current occupational status: retired Course Vital Signs: Vital signs: Vital Signs Temperature 98.1 F 09/27/24 10:22 Pulse Rate 98 09/27/24 13:58 Respiratory Rate 16 09/27/24 12:12 Blood Pressure 140/76 09/27/24 15:45 Pulse Oximetry 92 09/27/24 15:30 Oxygen Delivery Me thod BiPAP 09/27/24 13:46 Oxygen Flow Rate 15 09/27/24 11:12 Fraction of Inspir ed Oxygen 30 09/27/24 13:58 MDM - SOB/Dyspnea Medical Decision Making Patient is a 68-year-old female with chronic COPD here stating she tested positive for COVID 2 days ago. She is in hypercapnic respiratory failure with a CO2 of 68 and a pH of 7.2. She was hypoxic upon arrival satting 65% on RA. She was eventually placed on BiPAP and will be admitted to ICU. Chart reviewed and patient discussed with midlevel. Agree with assessment and plan. Lab Data 09/27/24 10:41 09/27/24 10:41 Labs/Radiology: Radiology Impressions Chest X-Ray 09/27/24 10:22 IMPRESSION: No acute pathology or significant change given technique. Laboratory Results WBC 8.22 10^3/uL (3.29-11.43) 09/27/24 10:41 RBC 4.06 10^6/uL (3.85-5.65) 09/27/24 10:41 Hgb 12.30 g/dL (11.27-16.99) 09/27/24 10:41 Hct 40.1 % (36-47) 09/27/24 10:41 MCV 98.8 fl (85-98) H 09/27/24 10:41 MCH 30.3 pg (27-33) 09/27/24 10:41 MCHC 30.7 g/dL (30-55) 09/27/24 10:41 RDW 12.7 % (12.1-15.1) 09/27/24 10:41 Plt Count 150 10^3/cmm (157-399) L 09/27/24 10:41 MPV 9.6 fL (7.4-10.4) 09/27/24 10:41 Neut % (Auto) 86.9 % 09/27/24 10:41 Lymph % (Auto) 5.4 % 09/27/24 10:41 Nuckolls % (Auto) 6.9 % 09/27/24 10:41 Eos % (Auto) 0.0 % 09/27/24 10:41 Baso % (Auto) 0.4 % 09/27/24 10:41 Neut # (Auto) 7.15 10^3/uL (1.8-7.7) 09/27/24 10:41 Lymph # (Auto) 0.4 10^3/uL (0.8-4.8) L 09/27/24 10:41 Nuckolls # (Auto) 0.6 10^3/uL (0.2-0.9) 09/27/24 10:41 Eos # (Auto) 0.0 10^3/uL (0.0-0.8) 09/27/24 10:41 Baso # (Auto) 0.0 10^3/uL (0.0-0.1) 09/27/24 10:41 Nucleated RBC % (auto) 0 % 09/27/24 10:41 Nucleated RBCs # 0.0 /100WBC 09/27/24 10:41 D-Dimer <= 0.27 ug/mLFEU (0-0.59) 09/27/24 10:41 Specimen Type Arterial 09/27/24 11:08 Sample Site Radial, right 09/27/24 11:08 ABG pH 7.24 (7.35-7.45) L 09/27/24 11:08 ABG pCO2 68.0 mmHg (35-45) H* 09/27/24 11:08 ABG pO2 374.0 mmHg (80.0-100.0) H 09/27/24 11:08 ABG HCO3 29.4 mmol/L (22-26) H 09/27/24 11:08 ABG O2 Saturation > 99.1 09/27/24 11:08 ABG Base Excess 0.4 mmol/L (-2.0-2.0) 09/27/24 11:08 Edgardo Test Pos 09/27/24 11:08 A-a O2 Gradient Not Reportable 09/27/24 11:08 Hematocrit 40.1 % (37-47) 09/27/24 11:08 Hgb O2 Saturation 98.0 % (95-100) 09/27/24 11:08 Carboxyhemoglobin 1.3 %THgb (0.4-20.1) 09/27/24 11:08 Methemoglobin 1.0 % (0.4-1.5) 09/27/24 11:08 Total Hemoglobin 13.1 g/dL (12-16) 09/27/24 11:08 Sodium 137.0 mmol/L (131-143) 09/27/24 11:08 Potassium 4.2 mmol/L (3.5-5.0) 09/27/24 11:08 Glucose 101.0 mg/dL (70-115) 09/27/24 11:08 Ionized Calcium 1.2 mmol/L (1.1-1.4) 09/27/24 11:08 O2 Delivery Device Nrb 09/27/24 11:08 O2 Liters/Min 15.0 % 09/27/24 11:08 Funeral Sales Manager ID Walci 09/27/24 11:08 Sodium 135 mmol/L (136-145) L 09/27/24 10:41 Potassium 4.6 mmol/L (3.5-5.1) 09/27/24 10:41 Chloride 90 mmol/L (98-107) L 09/27/24 10:41 Carbon Dioxide 34 mmol/L (22-29) H 09/27/24 10:41 Anion Gap 15.6 (5-19) 09/27/24 10:41 BUN 10 mg/dL (8-23) 09/27/24 10:41 Creatinine 0.3 mg/dL (0.5-0.9) L 09/27/24 10:41 GFR Calculation 219.9 mL/min (90-130) H 09/27/24 10:41 Glucose 96 mg/dL (65-115) 09/27/24 10:41 Calculated Osmolality 279 mOsm/kg (285-295) L 09/27/24 10:41 Calcium 9.1 mg/dL (8.5-10.5) 09/27/24 10:41 Total Bilirubin 0.3 mg/dL (0.15-1.2) 09/27/24 10:41 AST 34 U/L (0-32) H 09/27/24 10:41 ALT 46 U/L (0-33) H 09/27/24 10:41 Alkaline Phosphatase 86 U/L (35-105) 09/27/24 10:41 Troponin T Baseline 8 ng/L (0-10) 09/27/24 10:41 Total Protein 6.6 g/dL (6.6-8.7) 09/27/24 10:41 Albumin 4.1 g/dL (3.5-5.2) 09/27/24 10:41 Globulin 2.5 g/dL (1.3-4.6) 09/27/24 10:41 Discharge Plan Discharge Patient Disposition: Admitted As Inpatient Admit Provider: Matheus Ross Clinical Impression: Acute hypercapnic respiratory failure, Acute exacerbation of chronic obstructive airways disease, COVID Condition: Stable Coding Level of Care Code ED Teacher Visually Impaired for Laura Bonilla
[2024-09-27] MEDS: methylPREDNISolone sod succ 125 mg/2 mL INJ 80 MG IVP (11:04)
[2024-09-27] MEDS: ipratropium-albuterol 3 mL Neb INHALATION ×3 (11:12→20:09)
[2024-09-27 11:19] LABS: ABG PH Result 7.24 (7.35-7.45); Arterial Blood Gas Hematocrit 40.1 % (37-47); Base Excess ABG 0.4 mmol/L (-2.0-2.0); Blood Gas Allen Test Pos; Blood Gas Operator Identificat WALCI; Blood Gas Sample Site Radial, right; Blood Gas Sample Type Arterial; Carboxyhemoglobin 1.3 %THgb (0.4-20.1); HCO3 ABG 29.4 mmol/L (22-26); Ionized Calcium Level - ABG 1.2 mmol/L (1.1-1.4); Oxygen Device NRB; Oxygen Saturation ABG > 99.1; Potassium Level - ABG 4.2 mmol/L (3.5-5.0); Total Hemoglobin 13.1 g/dL (12-16)
[2024-09-27 11:27] LABS: Troponin(5th) Baseline 8 ng/L (0-10)
[2024-09-27] MEDS: LORazepam 1 MG/0.5 ML injection IVP (12:19)
--- NOTE | 2024-09-27 12:22 | ECG_ITS ---
[facility] Date: 2024-09-27 Pat Name: Sheba Lira Department: Room: ICU12 Gender: Female Global Mobility Specialist: : [id number] Requested By: Melany Santana Order Number: [id number] Latricai MD: Shan Hernandez M.D. Measurements Intervals [place] Rate: 83 P: 78 [place]: 156 QRS: 82 QRSD: 102 T: 82 QT: 345 QTc: 406 Interpretive Statements SINUS RHYTHM POSSIBLE LEFT ATRIAL ENLARGEMENT [-0.1mV P-WAVE IN V1/V2] POSSIBLE RIGHT VENTRICULAR CONDUCTION DELAY [RSR (QR) IN V1/V2] Compared to ECG 09/27/2024 10:28:19 Incomplete right bundle-branch block no longer present Electronically Signed On 09-29-2024 06:31:00 CDT by Shan Hernandez M.D. [email or web address]
[2024-09-27 12:30] LABS: Alanine Aminotransferase 46 U/L (0-33); Albumin Level 4.1 g/dL (3.5-5.2); Alkaline Phosphatase 86 U/L (35-105); Aspartate Amino Transferase 34 U/L (0-32); Blood Urea Nitrogen 10 mg/dL (8-23); Calcium 9.1 mg/dL (8.5-10.5); Carbon Dioxide 34 mmol/L (22-29); Chloride 90 mmol/L (98-107); Creatinine Clr Calc Pharmacy 58.2278; Globulin 2.5 g/dL (1.3-4.6); Glomerular Filtration Rate 219.9 mL/min (90-130); Glucose 96 mg/dL (65-115); Osmolality Calculated 279 mOsm/kg (285-295); Sodium 135 mmol/L (136-145); Total Bilirubin 0.3 mg/dL (0.15-1.2); Total Protein 6.6 g/dL (6.6-8.7)
[2024-09-27 12:31] LABS: Anion Gap 15.6 (5-19); Potassium 4.6 mmol/L (3.5-5.1)
[2024-09-27] MEDS: cefTRIAXone 1,000 mg SDV 1000 MG IVP (13:08)
[2024-09-27 13:20] LABS: D Dimer <= 0.27 ug/mLFEU (0-0.59)
[2024-09-27 13:24] LABS: ABG PCO2 59.1 mmHg (35-45); ABG PH Result 7.29 (7.35-7.45); Alveolar-Arterial Oxygen Gradi 8.9 mmHg (5-10); Base Excess ABG 0.6 mmol/L (-2.0-2.0); Blood Gas Allen Test Pos; Blood Gas Operator Identificat WALCI; Blood Gas Sample Site Radial, right; Blood Gas Sample Type Arterial; Carboxyhemoglobin 1.6 %THgb (0.4-20.1); HCO3 ABG 28.4 mmol/L (22-26); Ionized Calcium Level - ABG 1.2 mmol/L (1.1-1.4); Methemoglobin 0.9 % (0.4-1.5); Oxygen Device BIPAP; Oxygen Saturation ABG 94.3; PO2 ABG 72.7 mmHg (80.0-100.0); PO2 FiO2 Ratio Arterial Blood 242; Potassium Level - ABG 4.4 mmol/L (3.5-5.0)
[2024-09-27 13:34] LABS: Troponin 5 2HR 6.54 ng/L (0-10)
[2024-09-27 13:41] LABS: Troponin 5 2HR Delta -1.46 ABS# (0-10)
--- NOTE | 2024-09-27 13:45 | PC.NURSE ---
arrived from ED AO x4 on bipap
[2024-09-27 14:07] LABS: NT Pro B Type Natriuretic Pept 379 pg/mL (0-125); Procalcitonin 0.02 ng/mL (0-0.5)
[2024-09-27 14:36] LABS: MRSA PCR OZH (swab) NOT DETECTED (Not Detecte)
[2024-09-27 14:47] LABS: Magnesium 1.6 mg/dL (1.7-2.3)
[2024-09-27 15:14] LABS: Adenovirus Not Detected (NOT DETECT); Chlamydia Pneumoniae Not Detected (NOT DETECT); Coronavirus 229E,HKU1,NL63,OC4 Not Detected (NOT DETECT); Human Metapneumovirus Not Detected (NOT DETECT); Human Rhinovirus/Enterovirus Not Detected (NOT DETECT); Influenza A Not Detected (NOT DETECT); Influenza A H1 Not Detected (NOT DETECT); Influenza A H1-2009 Not Detected (NOT DETECT); Influenza A H3 Not Detected (NOT DETECT); Influenza B Not Detected (NOT DETECT); Mycoplasma Pneumoniae Not Detected (NOT DETECT); Parainfluenza Virus Type 1 Not Detected (NOT DETECT); Parainfluenza Virus Type 2 Not Detected (NOT DETECT); Parainfluenza Virus Type 3 Not Detected (NOT DETECT); Parainfluenza Virus Type 4 Not Detected (NOT DETECT); Respiratory Syncytial Virus A Not Detected (NOT DETECT); Respiratory Syncytial Virus B Not Detected (NOT DETECT)
[2024-09-27] MEDS: enoxaparin 40 mg/0.4 mL Syringe SUBCUT (15:19)
[2024-09-27] MEDS: methylPREDNISolone sod succ 40 mg/mL INJ IVP ×2 (15:20→21:56)
--- NOTE | 2024-09-27 15:27 | P.HP_ITS ---
Providers/Chief Complaint 2 Admitting Physician: Matheus Ross Primary Care Provider: Gerson Alfred MD Chief Complaint: SOB History of Present Illness Sheba Lira is a 68 year old female with a history of COPD and Takotsubo cardiomyopathy, presenting with worsening shortness of breath and dyspnea. The patient is a former smoker and uses home oxygen (2-3 liters via nasal cannula). Over the past couple of weeks, the patient has experienced intermittent but persistent symptoms, leading to multiple recent emergency department visits, including at an outside facility where she was diagnosed with COVID-19 and prescribed doxycycline. She also received a course of Levaquin and prednisone earlier in September. The current episode has not improved, prompting another ED visit. On arrival, the patient was found to have severe hypoxemia (oxygen saturation 65% on 2L nasal cannula), respiratory acidosis (ABG: pH 7.24, PCO2 68), and hypoxia (PO2 72 on 15L). She reports cough with phlegm that is difficult to expectorate, headache, but denies fever, nausea, vomiting, chest pain, abdominal pain, diarrhea, blood in stool, or urinary symptoms. She sometimes experiences pain in her side that resolves with position change. She denies current smoking, alcohol, or illicit drug use. No history of stroke. She lives alone; her brother and daughter live elsewhere. She has been using her home nebulizer and inhalers as needed. The patient reports no swelling in her extremities. She is currently on BiPAP in the ED and is being evaluated for possible pulmonary embolism and severe COVID-19 infection. Repeat ABG showed some improvement. She is on clear liquids for now due to concern for possible worsening respiratory status. Review of Systems 2 Const: Denies: fever(s), chills, body aches or malaise ENMT: Denies: throat pain Card: Denies: chest pain, edema, pre-syncope or dyspnea on exertion Resp: Reports: dyspnea and productive cough (With difficult to expectorate phlegm); Denies: hemoptysis GI: Denies: abdominal pain, nausea, vomiting, diarrhea, constipation, hematochezia or melena : Denies: flank pain, urinary frequency or hematuria Musc: Denies: back pain, joint swelling or joint redness Skin/Breast: Denies: rash or new lesions Neuro: Reports: headache(s); Denies: confusion Medications/Allergies Home Medications ?Medication ?Instructions ?Recorded ?Confirmed ?Last Taken ?Type nebulizer compressor with kit #1 ea 02/18/21 09/27/24 Unknown Rx nebulizer accessories #1 ea 12/06/21 09/27/24 Unkn own Rx oxygen small portable concentrator #1 ea 01/07/2309/11 Unknown Rx budesonide-formoterol HFA 160 2 puff inhalation BID #1 0.2 grams 09/21/23 09/27/24 Unknown Rx mcg-4.5 mcg/actuation aerosol inhaler (Symbicort) albuterol sulfate 90 mcg/actuation 2 puff inhalation Q 8H PRN 12/17/23 09/27/24 Unknown Rx aerosol inhaler Shortness Of Breath #6.7 gra ms Allergies Allergy/AdvReac Type Severity Reaction Status Date / Time aspirin Allergy Intermediate ADR/ALGY-Pa Verified 12/15/23 14:01 lpitations fluticasone furoate (From Allergy Intermediate hives Verified 12/15/23 14:01 Trelegy Ellipta) umeclidinium (From Trelegy Allergy Intermediate hives Verified 12/15/23 14:01 Ellipta) vilanterol (From Trelegy Allergy Intermediate hives Verified 12/15/23 14:01 Ellipta) roflumilast (From Daliresp) AdvReac Intermediate ADR-Abdominal Verified 12/15/23 14:01 Pain codeine AdvReac ADR-Nausea Verified 12/15/23 14:01 PFSH Acute 2 PFSH: Medical History Enrolled in chronic care management Takotsubo cardiomyopathy COPD (chronic obstructive pulmonary disease) Sciatic pain Osteoarthritis of left knee Surgical History H/O eye surgery History of History of partial hysterectomy Family History Other CAD (coronary artery disease) Cancer Social History Smoking and tobacco/nicotine status: former use of tobacco/nicotine Quit status (tobacco/nicotine): has quit using Year quit tobacco: quit 2 months ago Second hand smoke exposure: No Alcohol intake: never Substance/Drug Use: never Lives independently: Yes Household members: none Marital status: / Number of children: 2 Number of grandchildren: 8 Current occupational status: retired Vitals/I&O/Wt Last Vital Signs Temp 98.1 F 09/27/24 10:22 Pulse 98 09/27/24 13:58 Resp 16 09/27/24 12:12 BP 116/69 09/27/24 13:42 Pulse Ox 97 09/27/24 13:58 O2 Del Method BiPAP 09/27/24 13:46 O2 Flow Rate 15 09/27/24 11:12 FiO2 30 09/27/24 13:58 Weight last 48 hrs Weight 65.771 kg Physical Exam 2 Narrative: BiPAP Const: COMMON NORMALS: patient oriented x3 and alert GENERAL APPEARANCE: c ooperative ORIENTATION/CONSCIOUSNESS: Yes awake HENMT: COMMON NORMALS: oropharynx normal Neck/C-Spine: COMMON NORMALS: no JVD Cardio: COMMON NORMALS: no JVD, regular rhythm, S1 normal heart sound present, S2 normal heart sound present and No murmurs present (Cardio) RHYTHM: regular rhythm HEART SOUNDS: S1 normal heart sound present and S2 normal heart sound present GI: COMMON NORMALS: Normal to inspection, nondistended, normoactive bowel sounds present, Soft to palpation and non-tender PALPATION: Yes Soft to palpation Extremity: COMMON NORMALS: no joint enlargement and no pedal edema Neuro: COMMON NORMALS: patient oriented x3 and moves all extremities S ENSORIUM/ORIENTATION: Yes alert Skin: COMMON NORMALS: no rashes or lesions noted GENERAL SKIN EXAM: no rashes or lesions noted Data 09/27/24 10:41 09/27/24 10:41 A&P Assessment and plan (1) Acute respiratory failure with hypoxia and hypercapnia: Acute on chronic hypoxemic and hypercapnic respiratory failure (COPD exacerbation, possible COVID-19) : The patient presented with worsening shortness of breath, cough with phlegm, and severe hypoxemia. She has a history of COPD and Takotsubo cardiomyopathy. On arrival, she was found to have respiratory acidosis and hypoxemia, requiring nonrebreather mask 15 L, then BiPAP. There is no evidence of pneumonia on chest x-ray, but a CT angiogram was ordered to rule out pulmonary embolism. The patient has been using home nebulizer and inhalers. She received recent courses of doxycycline, Levaquin, and prednisone. The provider suspects a COPD exacerbation, possibly triggered by infection (COVID-19 or bacterial). Differential includes COPD exacerbation, COVID-19 pneumonia, and pulmonary embolism. No fever or leukocytosis. Mild transaminitis noted. No chest pain or other systemic symptoms. Repeat ABG showed improvement. Reviewed vitals, CBC, ABG, CMP, troponin, EKG, chest x-ray, ED provider note, discussed with ED provider. - Continue BiPAP support as needed, wean off to heated high flow when tolerating. Target O2 saturation 88-92%. Avoid hyperoxia. - Continue corticosteroids, with IV corticosteroid, Solu-Medrol, monitor for risk of hyperglycemia, gastritis, encephalopathy, hypertension. - Continue/adjust antibiotics as indicated, ceftriaxone at this time - Continue home inhalers and nebulizer treatments -Treatment for severe COVID-19 with hypoxic respiratory failure. Reviewed D- dimer. Follow-up for follow-up D-dimer levels. Treated with remdesivir, corticosteroid as above with Solu-Medrol. - Monitor ABG and clinical status - CT angiogram to rule out pulmonary embolism - Monitor for improvement to transition back to nasal cannula - Clear liquid diet for now due to risk of respiratory deterioration - Obtain sputum sample for culture if possible -MRSA PCR -Discussed with her, CLD only for now - ICU admission. (2) Acute exacerbation of chronic obstructive airways disease: Severe exacerbation of COPD with dyspnea, hypoxic and hypercapnic respiratory failure with respiratory acidosis. As above. (3) COVID: Severe COVID-19 with hypoxic respiratory failure as above. Requiring 15 L nonrebreather on presentation. BiPAP. Plan History of Takotsubo cardiomyopathy. Currently without chest pain or pressure, without signs of acute decompensated congestive heart failure. NT proBNP with mild elevation 379, likely related to lung disease. Currently without indication recurrence of Takotsubo cardiomyopathy. Troponins without elevation. Monitor for change in symptoms. PDMP PDMP Reviewed: Not Reviewed Attestations 2 Medical Necessity Statement*: Admission over 2 midnights anticipated for assessment management of respiratory failure with hypoxia and hypercapnia with respiratory stenosis, severe exacerbation of COPD, severe COVID-19 infection. Coding Level of Care Code Critical Care >/= 30 minutes Critical care time (in minutes): 35 The high probability of a clinically significant, sudden or life threatening deterioration, as referenced in this documentation, required my full and direct attention, intervention and personal management. The critical care time shown is in addition to time spent performing any reported separately billable procedures and includes the following: [x] Data and vital sign review and interpretation [x ] Patient assessment, examination and intervention [x] Medication orders and management [x] Patient/Family updates as able [x] Care Coordination and Documentation. Diagnoses Acute respiratory failure with hypoxia and hypercapnia J96.01; J96.02 Acute exacerbation of chronic obstructive airways disease J44.1 COVID U07.1
[2024-09-27] MEDS: remdesivir 200 MG in sodium chloride 0.9% (100 ml) 60 ML 100 MG IV (16:29)
[2024-09-27] MEDS: magnesium sulfate premix 2 GM/50 ML PIGGYBACK IV (16:38)
[2024-09-27] MEDS: guaiFENesin 600 mg Tablet 1200 MG PO (17:59)
[2024-09-27 18:39] LABS: SARS-COV-2 Detected (NOT DETECT)
[2024-09-27 19:32] LABS: Troponin 5 6HR < 6.0 ng/L (0-10)
[2024-09-27 19:34] LABS: Troponin 5 6HR Delta -2.00001 ng/L (0-12)
[2024-09-28] VITALS (148 sets, daily range): BP systolic 93–163; BP diastolic 54–132; PULSE 70–102; RESP 15–26; TEMP 36.3–37.6; O2SAT 82–100; BMI 24.7
[2024-09-28] MEDS: ipratropium-albuterol 3 mL Neb INHALATION ×4 (02:04→20:11)
[2024-09-28] MEDS: methylPREDNISolone sod succ 40 mg/mL INJ IVP ×4 (04:00→23:38)
[2024-09-28 04:12] LABS: Basophils % 0.3 %; Lymphocytes # 0.2 10^3/uL (0.8-4.8); Lymphocytes % 6.8 %; Mean Corpuscular HGB Conc 31.3 g/dL (30-55); Mean Corpuscular Hemoglobin 30.5 pg (27-33); Mean Corpuscular Volume 97.6 fl (85-98); Mean Platelet Volume 9.8 fL (7.4-10.4); Monocytes # 0.1 10^3/uL (0.2-0.9); Monocytes % 2.3 %; Neutrophils % 90.3 %; Nucleated Red Blood Cells % 0 %; Platelet Count 151 10^3/cmm (157-399); Red Cell Distribution Width 12.5 % (12.1-15.1); White Blood Count 3.54 10^3/uL (3.29-11.43)
[2024-09-28 04:30] LABS: D Dimer 0.31 ug/mLFEU (0-0.59)
[2024-09-28 04:39] LABS: Alanine Aminotransferase 37 U/L (0-33); Alkaline Phosphatase 86 U/L (35-105); Aspartate Amino Transferase 22 U/L (0-32); Blood Urea Nitrogen 9 mg/dL (8-23); Carbon Dioxide 37 mmol/L (22-29); Chloride 91 mmol/L (98-107); Creatinine Clr Calc Pharmacy 56.3535; Globulin 2.9 g/dL (1.3-4.6); Glomerular Filtration Rate 157.8 mL/min (90-130); Glucose 131 mg/dL (65-115); Osmolality Calculated 284 mOsm/kg (285-295); Sodium 137 mmol/L (136-145); Total Bilirubin 0.2 mg/dL (0.15-1.2); Total Protein 6.9 g/dL (6.6-8.7)
[2024-09-28 04:50] LABS: Magnesium 2.3 mg/dL (1.7-2.3)
--- NOTE | 2024-09-28 06:27 | PC.NURSE ---
Patient rested well. She took bipap off at 0230 and refused to put it back on but did want to wear nasal canula.
[2024-09-28 07:24] LABS: Glucose Point of Care 134 mg/dL (70-110)
[2024-09-28] MEDS: cefTRIAXone 1,000 mg SDV 1000 MG IVP (08:34)
[2024-09-28] MEDS: guaiFENesin 600 mg Tablet 1200 MG PO (08:35)
[2024-09-28] MEDS: CLONazepam 0.5 mg Tablet PO ×2 (08:41→20:27)
--- NOTE | 2024-09-28 12:01 | PM.PN ---
Subjective Subjective: She feels she is gradually improving. Is able to come off of BiPAP today. Having less cough. Vitals/I&O/Wt Last Vital Signs Temp 98.2 F 09/28/24 08:30 Pulse 84 09/28/24 11:00 Resp 19 H 09/28/24 11:00 BP 124/83 09/28/24 11:48 Pulse Ox 96 09/28/24 11:48 O2 Del Method Nasal Cannula 09/28/24 09:06 O2 Flow Rate 3 09/28/24 09:06 FiO2 30 09/28/24 02:04 09/27/24 09/28/24 09/28/24 22:59 06:59 14:59 Intake Total 150 / 150 120 / 270 120 / 120 Output Total 500 / 500 Balance 150 / 150 -380 / -230 120 / 120 Weight last 48 hrs Weight 61.5 kg Weight 61.235 kg Weight 65.771 kg Physical Exam Narrative: NC Const: COMMON NORMALS: patient oriented x3 and alert GENERAL APPEARANCE: cooperative ORIENTATION/CONSCIOUSNESS: Yes awake HENMT: COMMON NORMALS: oropharynx normal Neck/C-Spine: COMMON NORMALS: no JVD Resp: AUSCULTATION: wheezes (faint) and diminished lung sounds Cardio: COMMON NORMALS: no JVD, regular rhythm, S1 normal heart sound present, S2 normal heart sound present and No murmurs present (Cardio) RHYTHM: regular rhythm HEART SOUNDS: S1 normal heart sound present and S2 normal heart sound present GI: COMMON NORMALS: Normal to inspection, nondistended, normoactive bowel sounds present, Soft to palpation and non-tender PALPATION: Yes Soft to palpation Extremity: COMMON NORMALS: no joint enlargement and no pedal edema Neuro: COMMON NORMALS: patient oriented x3 and moves all extremities SENSORIUM/ORIENTATION: Yes alert Skin: COMMON NORMALS: no rashes or lesions noted GENERAL SKIN EXAM: no rashes or lesions noted Data 09/28/24 03:59 09/28/24 03:59 A&P Assessment and plan (1) Acute respiratory failure with hypoxia and hypercapnia: Showing gradual improvement. Was able to wean off of BiPAP. On nasal cannula. Discussed with respiratory therapy. Continue treatment of severe exacerbation of COPD, severe COVID-19. Discussed with nursing, nurse outreach case manager and her daughter. Continue IV corticosteroids, monitor for risk of hyperglycemia, hypertension, gastritis, encephalopathy, continue breathing treatments, continue empiric antibiotic coverage with ceftriaxone. Continue remdesivir for COVID-19. Reviewed D-dimer. Not elevated. Continue VTE prophylaxis. Can transfer out of ICU. Advance diet - Obtain sputum sample for culture if possible Reviewed MRSA PCR (2) Acute exacerbation of chronic obstructive airways disease: Continue IV corticosteroids, monitor for risk of hyperglycemia, hypertension, gastritis, encephalopathy, continue breathing treatments, continue empiric antibiotic coverage with ceftriaxone. Severe exacerbation of COPD with dyspnea, hypoxic and hypercapnic respiratory failure with respiratory acidosis. As above. (3) COVID: Severe COVID-19 with hypoxic respiratory failure as above. Continue remdesivir, corticosteroid. DVT prophylaxis. Reviewed D-dimer. Continue oxygen support. Plan History of Takotsubo cardiomyopathy. Currently without chest pain or pressure, without signs of acute decompensated congestive heart failure. NT proBNP with mild elevation 379, likely related to lung disease. Currently without indication recurrence of Takotsubo cardiomyopathy. Troponins without elevation. Monitor for change in symptoms. PDMP PDMP Reviewed: Not Reviewed Attestations Medical Necessity Statement*: Continue admission for assessment and management of respiratory failure. and High MDM includes amount and/or complexity of data reviewed/ordered [ resulted lab(s)/test(s), ordered lab(s)/test(s) and other healthcare professional discussion] and described risk of complication, morbidity or mortality of management as documented Diagnoses Acute respiratory failure with hypoxia and hypercapnia J96.01; J96.02 Acute exacerbation of chronic obstructive airways disease J44.1 COVID U07.1
[2024-09-28] MEDS: enoxaparin 40 mg/0.4 mL Syringe SUBCUT (14:37)
--- NOTE | 2024-09-28 17:00 | PC.NURSE ---
Patient transferred to [facility]. Report called to JARRET Handley. Patient tolerated well.
[2024-09-28] MEDS: remdesivir 100 MG in sodium chloride 0.9% (100 ml) 80 ML IV (18:47)
[2024-09-29] VITALS (13 sets, daily range): BP systolic 115–147; BP diastolic 63–78; PULSE 73–98; RESP 16–18; TEMP 36.4–36.6; O2SAT 93–98
[2024-09-29] MEDS: ipratropium-albuterol 3 mL Neb INHALATION ×4 (01:28→20:04)
[2024-09-29] MEDS: methylPREDNISolone sod succ 40 mg/mL INJ IVP ×4 (04:42→21:40)
[2024-09-29 06:11] LABS: Hematocrit 35.6 % (36-47); Lymphocytes # 0.2 10^3/uL (0.8-4.8); Lymphocytes % 2.6 %; Mean Corpuscular HGB Conc 31.7 g/dL (30-55); Mean Corpuscular Hemoglobin 30.6 pg (27-33); Mean Corpuscular Volume 96.5 fl (85-98); Mean Platelet Volume 9.5 fL (7.4-10.4); Monocytes # 0.3 10^3/uL (0.2-0.9); Monocytes % 3.1 %; Neutrophils # 8.42 10^3/uL (1.8-7.7); Neutrophils % 93.9 %; Nucleated Red Blood Cells % 0 %; Platelet Count 162 10^3/cmm (157-399); Red Blood Count 3.69 10^6/uL (3.85-5.65); Red Cell Distribution Width 12.5 % (12.1-15.1); White Blood Count 8.97 10^3/uL (3.29-11.43)
[2024-09-29 06:27] LABS: D Dimer <= 0.27 ug/mLFEU (0-0.59)
[2024-09-29 06:50] LABS: Alanine Aminotransferase 33 U/L (0-33); Albumin Level 3.7 g/dL (3.5-5.2); Alkaline Phosphatase 78 U/L (35-105); Anion Gap 9.8 (5-19); Aspartate Amino Transferase 20 U/L (0-32); Blood Urea Nitrogen 10 mg/dL (8-23); Calcium 8.9 mg/dL (8.5-10.5); Carbon Dioxide 39 mmol/L (22-29); Chloride 94 mmol/L (98-107); Creatinine Clr Calc Pharmacy 58.6025; Globulin 1.9 g/dL (1.3-4.6); Glomerular Filtration Rate 219.9 mL/min (90-130); Glucose 116 mg/dL (65-115); Osmolality Calculated 286 mOsm/kg (285-295); Potassium 4.8 mmol/L (3.5-5.1); Sodium 138 mmol/L (136-145); Total Bilirubin 0.2 mg/dL (0.15-1.2); Total Protein 5.6 g/dL (6.6-8.7)
[2024-09-29] MEDS: cefTRIAXone 1,000 mg SDV 1000 MG IVP (08:52)
--- NOTE | 2024-09-29 11:18 | P.PN_ITS ---
Subjective 2 Subjective: She is gradually improving. Still getting easily dyspneic with exertion and while speaking. Ambulated over to the chair next to the bed with nasal cannula. Vitals/I&O/Wt Last Vital Signs Temp 97.8 F 09/29/24 07:11 Pulse 79 09/29/24 08:35 Resp 18 09/29/24 08:35 BP 134/74 09/29/24 07:11 Pulse Ox 97 09/29/24 08:35 O2 Del Method Nasal Cannula 09/29/24 08:35 O2 Flow Rate 3 09/29/24 08:35 FiO2 30 09/28/24 02:04 09/28/24 09/29/24 09/29/24 22:59 06:59 14:59 Intake Total 460 / 820 360 / 360 Balance 460 / 820 360 / 360 Weight last 48 hrs Weight 66.678 kg Weight 61.5 kg Weight 61.235 kg Physical Exam 2 Narrative: NC Const: COMMON NORMALS: patient oriented x3 and alert GENERAL APPEARANCE: c ooperative ORIENTATION/CONSCIOUSNESS: Yes awake HENMT: COMMON NORMALS: oropharynx normal Neck/C-Spine: COMMON NORMALS: no JVD Resp: AUSCULTATION: wheezes (faint) OTHER: Improving air entry, but still diminished Cardio: COMMON NORMALS: no JVD, regular rhythm, S1 normal heart sound present, S2 normal heart sound present and No murmurs present (Cardio) RHYTHM: regular rhythm HEART SOUNDS: S1 normal heart sound present and S2 normal heart sound present GI: COMMON NORMALS: Normal to inspection, nondistended, normoactive bowel sounds present, Soft to palpation and non-tender PALPATION: Yes Soft to palpation Extremity: COMMON NORMALS: no joint enlargement and no pedal edema Neuro: COMMON NORMALS: patient oriented x3 and moves all extremities S ENSORIUM/ORIENTATION: Yes alert Skin: COMMON NORMALS: no rashes or lesions noted GENERAL SKIN EXAM: no rashes or lesions noted Data 09/29/24 05:53 09/29/24 05:53 Micro: Microbiology 09/28/24 13:58 Gram Stain - Final Sputum - Expectorated Sputum 09/27/24 12:40 Blood Culture - Preliminary Blood SPECIMEN COLLECTED 09/27/24 12:35 Blood Culture - Preliminary Blood SPECIMEN COLLECTED A&P Assessment and plan (1) Acute respiratory failure with hypoxia and hypercapnia: Gradually improving, so far not requiring going back on BiPAP, however, still getting dyspneic with exertion and speaking. Still diminished, mild wheeze. Continue treatment of underlying conditions as below. Discussed with nursing, case supervisor. Reviewed vitals, CBC, D-dimer, CMP, sputum culture, noted few normal cindy present. Follow-up. Few yeast. Continue treatment of severe exacerbation of COPD, severe COVID-19. Discussed with nursing, case supervisor and her daughter. Continue IV corticosteroids, monitor for risk of hyperglycemia, hypertension, gastritis, encephalopathy, continue breathing treatments, continue empiric antibiotic coverage with ceftriaxone. Continue remdesivir for COVID-19. Reviewed D-dimer. Not elevated. Continue VTE prophylaxis. (2) Acute exacerbation of chronic obstructive airways disease: Continue IV steroid at this time due to still persistent decreased air entry, wheezing, easy dyspnea with exertion speaking. Continue IV corticosteroids, monitor for risk of hyperglycemia, hypertension, gastritis, encephalopathy, continue breathing treatments, continue empiric antibiotic coverage with ceftriaxone. Severe exacerbation of COPD with dyspnea, hypoxic and hypercapnic respiratory failure with respiratory acidosis. As above. (3) COVID: Reviewed D-dimer. Severe COVID-19 with hypoxic respiratory failure as above. Continue remdesivir, corticosteroid. DVT prophylaxis. Reviewed D-dimer. Continue oxygen support. Plan History of Takotsubo cardiomyopathy. Currently without chest pain or pressure, without signs of acute decompensated congestive heart failure. NT proBNP with mild elevation 379, likely related to lung disease. Currently without indication recurrence of Takotsubo cardiomyopathy. Troponins without elevation. Monitor for change in symptoms. PDMP PDMP Reviewed: Not Reviewed Attestations 2 Medical Necessity Statement*: Continue admission for assessment management of severe COVID-19 infection, severe COPD exacerbation. Diagnoses Acute respiratory failure with hypoxia and hypercapnia J96.01; J96.02 Acute exacerbation of chronic obstructive airways disease J44.1 COVID U07.1
[2024-09-29] MEDS: enoxaparin 40 mg/0.4 mL Syringe SUBCUT (15:22)
[2024-09-29] MEDS: pantoprazole DR 40 mg Tablet PO (15:22)
[2024-09-29] MEDS: remdesivir 100 MG in sodium chloride 0.9% (100 ml) 80 ML IV (17:47)
[2024-09-29] MEDS: CLONazepam 0.5 mg Tablet PO (21:40)
[2024-09-30] VITALS (11 sets, daily range): BP systolic 121–168; BP diastolic 70–81; PULSE 62–91; RESP 15–20; TEMP 36.2–37; O2SAT 91–97
[2024-09-30] MEDS: ipratropium-albuterol 3 mL Neb INHALATION ×4 (01:23→19:53)
[2024-09-30] MEDS: methylPREDNISolone sod succ 40 mg/mL INJ IVP ×3 (04:43→15:33)
[2024-09-30 05:26] LABS: Hematocrit 36.4 % (36-47); Lymphocytes # 0.3 10^3/uL (0.8-4.8); Lymphocytes % 2.8 %; Mean Corpuscular Hemoglobin 30.8 pg (27-33); Mean Corpuscular Volume 99.2 fl (85-98); Monocytes # 0.4 10^3/uL (0.2-0.9); Monocytes % 4.6 %; Neutrophils # 8.21 10^3/uL (1.8-7.7); Neutrophils % 92.2 %; Nucleated Red Blood Cells % 0 %; Platelet Count 154 10^3/cmm (157-399); Red Blood Count 3.67 10^6/uL (3.85-5.65); Red Cell Distribution Width 12.6 % (12.1-15.1); White Blood Count 8.91 10^3/uL (3.29-11.43)
[2024-09-30 05:37] LABS: D Dimer 0.28 ug/mLFEU (0-0.59)
[2024-09-30 05:50] LABS: Alanine Aminotransferase 31 U/L (0-33); Albumin Level 3.7 g/dL (3.5-5.2); Alkaline Phosphatase 73 U/L (35-105); Anion Gap 10.5 (5-19); Aspartate Amino Transferase 18 U/L (0-32); Blood Urea Nitrogen 13 mg/dL (8-23); Calcium 8.9 mg/dL (8.5-10.5); Carbon Dioxide 39 mmol/L (22-29); Chloride 94 mmol/L (98-107); Creatinine Clr Calc Pharmacy 58.6025; Glomerular Filtration Rate 157.8 mL/min (90-130); Glucose 125 mg/dL (65-115); Osmolality Calculated 290 mOsm/kg (285-295); Potassium 4.5 mmol/L (3.5-5.1); Sodium 139 mmol/L (136-145); Total Bilirubin 0.2 mg/dL (0.15-1.2); Total Protein 5.7 g/dL (6.6-8.7)
[2024-09-30] MEDS: pantoprazole DR 40 mg Tablet PO (09:33)
[2024-09-30] MEDS: cefTRIAXone 1,000 mg SDV 1000 MG IVP (09:33)
[2024-09-30] MEDS: CLONazepam 0.5 mg Tablet PO ×2 (09:39→20:18)
--- NOTE | 2024-09-30 10:26 | PC.SOCIAL ---
IMM Updated Updated pt on IMM. no questions voiced. Provided pt a copy. Initialed, dated, & timed a copy & placed in chart.
[2024-09-30] MEDS: enoxaparin 40 mg/0.4 mL Syringe SUBCUT (15:33)
[2024-09-30] MEDS: remdesivir 100 MG in sodium chloride 0.9% (100 ml) 80 ML IV (17:58)
--- NOTE | 2024-09-30 17:59 | P.PN_ITS ---
Subjective 2 Subjective: She is feeling not much better. Did not sleep well at night. Bouts of bad cough. Vitals/I&O/Wt Last Vital Signs Temp 97.8 F 09/30/24 15:36 Pulse 78 09/30/24 15:36 Resp 16 09/30/24 15:36 BP 168/81 09/30/24 15:36 Pulse Ox 94 09/30/24 15:36 O2 Del Method Room Air 09/30/24 15:36 O2 Flow Rate 2 09/30/24 14:00 FiO2 30 09/28/24 02:04 09/30/24 09/30/24 09/30/24 06:59 14:59 22:59 Intake Total 240 / 1660 600 / 600 Output Total 400 / 400 Balance -160 / 1260 600 / 600 Weight last 48 hrs Weight 66.678 kg Weight 66.678 kg Physical Exam 2 Narrative: NC Const: COMMON NORMALS: patient oriented x3 and alert GENERAL APPEARANCE: c ooperative ORIENTATION/CONSCIOUSNESS: Yes awake HENMT: COMMON NORMALS: oropharynx normal Neck/C-Spine: COMMON NORMALS: no JVD Resp: AUSCULTATION: wheezes and diminished lung sounds Cardio: COMMON NORMALS: no JVD, regular rhythm, S1 normal heart sound present, S2 normal heart sound present and No murmurs present (Cardio) RHYTHM: regular rhythm HEART SOUNDS: S1 normal heart sound present and S2 normal heart sound present GI: COMMON NORMALS: Normal to inspection, nondistended, normoactive bowel sounds present, Soft to palpation and non-tender PALPATION: Yes Soft to palpation Extremity: COMMON NORMALS: no joint enlargement and no pedal edema Neuro: COMMON NORMALS: patient oriented x3 and moves all extremities S ENSORIUM/ORIENTATION: Yes alert Skin: COMMON NORMALS: no rashes or lesions noted GENERAL SKIN EXAM: no rashes or lesions noted Data 09/30/24 05:09 09/30/24 05:09 Micro: Microbiology 09/28/24 13:58 Gram Stain - Final Sputum - Expectorated Sputum Sputum Culture - Final A&P Assessment and plan (1) Acute respiratory failure with hypoxia and hypercapnia: Bouts of bothersome cough, still getting very dyspneic with exertion. Tight sounding and with wheezing on exam. Increase Solu-Medrol dose to 60 mg every 6 hours. Monitor for risk of hypertension, hyperglycemia, encephalopathy, gastritis. Add scheduled antitussive. Continue breathing treatments, ceftriaxone. Continue remdesivir. VTE prophylaxis. Continue treatment of severe exacerbation of COPD, severe COVID-19. Discussed with nursing, case folder (2) Acute exacerbation of chronic obstructive airways disease: Continue IV steroid at this time due to still persistent decreased air entry, wheezing, easy dyspnea with exertion speaking. Reviewed sputum culture, blood culture. Noted few normal cindy on sputum culture. Few yeast. Continue ceftriaxone. Continue IV corticosteroids, increase as above, monitor for risk of hyperglycemia, hypertension, gastritis, encephalopathy, continue breathing treatments, continue empiric antibiotic coverage with ceftriaxone. Severe exacerbation of COPD with dyspnea, hypoxic and hypercapnic respiratory failure with respiratory acidosis. As above. (3) COVID: Reviewed D-dimer. Remains normal. Continue remdesivir. DVT prophylaxis. Scheduled Giurgius dose of as above. Severe COVID-19 with hypoxic respiratory failure as above. Continue remdesivir, corticosteroid. DVT prophylaxis. Reviewed D-dimer. Continue oxygen support. Plan History of Takotsubo cardiomyopathy. Currently without chest pain or pressure, without signs of acute decompensated congestive heart failure. NT proBNP with mild elevation 379, likely related to lung disease. Currently without indication recurrence of Takotsubo cardiomyopathy. Troponins without elevation. Monitor for change in symptoms. PDMP PDMP Reviewed: Not Reviewed Attestations 2 Medical Necessity Statement*: Continue admission for assessment management of severe COVID-19 infection, severe COPD exacerbation. and High MDM includes amount and/or complexity of data reviewed/ordered [ resulted lab(s)/test(s), ordered lab(s)/test(s) and other healthcare professional discussion] and described risk of complication, morbidity or mortality of management as documented Diagnoses Acute respiratory failure with hypoxia and hypercapnia J96.01; J96.02 Acute exacerbation of chronic obstructive airways disease J44.1 COVID U07.1
[2024-09-30] MEDS: benzonatate 100 mg Capsule 200 MG PO (20:18)
[2024-09-30] MEDS: methylPREDNISolone sod succ 40 mg/mL INJ 60 MG IVP (20:45)
[2024-10-01] VITALS (8 sets, daily range): BP systolic 115–148; BP diastolic 57–79; PULSE 61–80; RESP 16–19; TEMP 36.4–36.6; O2SAT 86–98
[2024-10-01] MEDS: ipratropium-albuterol 3 mL Neb INHALATION ×3 (01:48→13:58)
[2024-10-01 04:00] LABS: Lymphocytes # 0.2 10^3/uL (0.8-4.8); Lymphocytes % 3.1 %; Mean Corpuscular HGB Conc 32.3 g/dL (30-55); Mean Corpuscular Hemoglobin 30.8 pg (27-33); Mean Corpuscular Volume 95.4 fl (85-98); Mean Platelet Volume 10.2 fL (7.4-10.4); Monocytes # 0.2 10^3/uL (0.2-0.9); Monocytes % 2.9 %; Neutrophils # 7.12 10^3/uL (1.8-7.7); Neutrophils % 93.5 %; Nucleated Red Blood Cells % 0 %; Platelet Count 140 10^3/cmm (157-399); Red Blood Count 3.67 10^6/uL (3.85-5.65); Red Cell Distribution Width 12.4 % (12.1-15.1); White Blood Count 7.62 10^3/uL (3.29-11.43)
[2024-10-01 04:24] LABS: Anion Gap 11.7 (5-19); Blood Urea Nitrogen 14 mg/dL (8-23); Calcium 8.7 mg/dL (8.5-10.5); Carbon Dioxide 38 mmol/L (22-29); Chloride 96 mmol/L (98-107); Creatinine Clr Calc Pharmacy 58.6025; Glomerular Filtration Rate 219.9 mL/min (90-130); Glucose 129 mg/dL (65-115); Osmolality Calculated 294 mOsm/kg (285-295); Potassium 4.7 mmol/L (3.5-5.1); Sodium 141 mmol/L (136-145)
[2024-10-01] MEDS: methylPREDNISolone sod succ 40 mg/mL INJ 60 MG IVP ×2 (04:53→10:40)
[2024-10-01] MEDS: pantoprazole DR 40 mg Tablet PO (09:16)
[2024-10-01] MEDS: benzonatate 100 mg Capsule 200 MG PO (09:16)
[2024-10-01] MEDS: cefTRIAXone 1,000 mg SDV 1000 MG IVP (09:16)
[2024-10-01] MEDS: CLONazepam 0.5 mg Tablet PO (10:40)
--- NOTE | 2024-10-01 11:11 | PM.DCS ---
Discharge Providers Date of Admission: 09/27/24 12:35 Date of Discharge: October 01, 2024 Attending Provider at Admission: Matheus Ross Attending Provider at Discharge: Shukri Ellsworth MD Primary Care Provider: Gerson Alfred MD Diagnoses at Discharge Discharge Diagnosis (1) Acute respiratory failure with hypoxia and hypercapnia: Status: Acute (2) Acute exacerbation of chronic obstructive airways disease: Status: Acute (3) COVID: Status: Acute Reason for Visit Reason for Visit: SOB Hospital Course Hospital Course This is a 68-year-old female with a past medical history of COPD, chronic hypercapnic respiratory failure, history of Takotsubo cardiomyopathy, who presents [facility] for shortness of breath Patient was admitted to [facility] for acute on chronic hypoxic hypercapnic respiratory failure secondary to COPD, COVID-19 pneumonia, she was monitored as inpatient, received IV remdesivir, IV Rocephin, IV steroids and clinically monitored. Patient overall clinically improved, discharged on 3 L, prednisone taper, doxycycline, with a close follow-up with primary care provider as outpatient Discussed with patient hypercoagulable risk associate with COVID-19 pneumonia, discussed with patient to continue to remain ambulatory, monitor for hypercoagulable events. If she develops any chest pain, shortness of breath, hemoptysis, calf pain or calf swelling to immediately call 911 or come to the emergency room. Follow-up with primary care provider in 1 week Physical Exam Const: COMMON NORMALS: no acute distress and patient oriented x3 Resp: COMMON NORMALS: normal respiratory effort, No retractions and No use of accessory muscles AUSCULTATION: crackles and wheezes Cardio: COMMON NORMALS: regular rate, regular rhythm, S1 normal heart sound present and S2 normal heart sound present RATE: regular rate RHYTHM: regular rhythm HEART SOUNDS: S1 normal heart sound present and S2 normal heart sound present GI: COMMON NORMALS: Normal to inspection, nondistended, normoactive bowel sounds present and non-tender Extremity: COMMON NORMALS: no pedal edema Neuro: COMMON NORMALS: patient oriented x3 Psych: COMMON NORMALS: mental status grossly normal Discharge Data Studies Completed and Pending Completed Studies During Hospitalization Category Date Time Status CTA chest [CT angio chest PE protcl [id number]] Stat Cat Scan 09/27/24 10:51 Completed XR chest 1V portable [id number] Urgent Exams 09/27/24 10:22 Completed Pending at discharge Category Date Time Status Blood Culture Stat Lab 09/27/24 12:40 Results Urinalysis Stat Lab 09/27/24 10:51 Uncollected Radiology Impressions Chest X-Ray 09/27/24 10:22 IMPRESSION: No acute pathology or significant change given technique. Chest CTA 09/27/24 10:51 IMPRESSION: 1. No evidence of pulmonary embolism. 2. Extensive pulmonary abnormalities again noted without significant change compared with 02/19/2022. No new or increasing pulmonary abnormality. 3. Interval resolution of small left pneumothorax. 4. Minor findings noted above including marked dilatation of the right heart hepatic steatosis. COMMENTS: The presence of pulmonary emphysema on CT is an independent risk factor for lung cancer. In the absence of a history or active diagnosis of lung cancer, it is recommended that this patient with emphysema be evaluated for enrollment in a low dose CT lung cancer screening program. Laboratory Results WBC 7.62 10^3/uL (3.29-11.43) 10/01/24 03:09 RBC 3.67 10^6/uL (3.85-5.65) L 10/01/24 03:09 Hgb 11.30 g/dL (11.27-16.99) 10/01/24 03:09 Hct 35.0 % (36-47) L 10/01/24 03:09 MCV 95.4 fl (85-98) 10/01/24 03:09 MCH 30.8 pg (27-33) 10/01/24 03:09 MCHC 32.3 g/dL (30-55) 10/01/24 03:09 RDW 12.4 % (12.1-15.1) 10/01/24 03:09 Plt Count 140 10^3/cmm (157-399) L 10/01/24 03:09 MPV 10.2 fL (7.4-10.4) 10/01/24 03:09 Neut % (Auto) 93.5 % 10/01/24 03:09 Lymph % (Auto) 3.1 % 10/01/24 03:09 [place] % (Auto) 2.9 % 10/01/24 03:09 Eos % (Auto) 0.0 % 10/01/24 03:09 Baso % (Auto) 0.0 % 10/01/24 03:09 Neut # (Auto) 7.12 10^3/uL (1.8-7.7) 10/01/24 03:09 Lymph # (Auto) 0.2 10^3/uL (0.8-4.8) L 10/01/24 03:09 [place] # (Auto) 0.2 10^3/uL (0.2-0.9) 10/01/24 03:09 Eos # (Auto) 0.0 10^3/uL (0.0-0.8) 10/01/24 03:09 Baso # (Auto) 0.0 10^3/uL (0.0-0.1) 10/01/24 03:09 Nucleated RBC % (auto) 0 % 10/01/24 03:09 Nucleated RBCs # 0.0 /100WBC 10/01/24 03:09 D-Dimer 0.28 ug/mLFEU (0-0.59) 09/30/24 05:09 Specimen Type Arterial 09/27/24 13:14 Sample Site Radial, right 09/27/24 13:14 ABG pH 7.29 (7.35-7.45) L 09/27/24 13:14 ABG pCO2 59.1 mmHg (35-45) H 09/27/24 13:14 ABG pO2 72.7 mmHg (80.0-100.0) L 09/27/24 13:14 ABG PO2/FiO2 Ratio 242 09/27/24 13:14 ABG HCO3 28.4 mmol/L (22-26) H 09/27/24 13:14 ABG O2 Saturation 94.3 09/27/24 13:14 ABG Base Excess 0.6 mmol/L (-2.0-2.0) 09/27/24 13:14 Edgardo Test Pos 09/27/24 13:14 A-a O2 Gradient 8.9 mmHg (5-10) 09/27/24 13:14 Hematocrit 40.0 % (37-47) 09/27/24 13:14 Hgb O2 Saturation 92.0 % (95-100) L 09/27/24 13:14 Carboxyhemoglobin 1.6 %THgb (0.4-20.1) 09/27/24 13:14 Methemoglobin 0.9 % (0.4-1.5) 09/27/24 13:14 Total Hemoglobin 13.0 g/dL (12-16) 09/27/24 13:14 Sodium 136.0 mmol/L (131-143) 09/27/24 13:14 Potassium 4.4 mmol/L (3.5-5.0) 09/27/24 13:14 Glucose 113.0 mg/dL (70-115) 09/27/24 13:14 Ionized Calcium 1.2 mmol/L (1.1-1.4) 09/27/24 13:14 O2 Delivery Device Bipap 09/27/24 13:14 O2 Liters/Min 15.0 % 09/27/24 11:08 FiO2 30.0 % 09/27/24 13:14 Community Service Worker ID [place] 09/27/24 13:14 Sodium 141 mmol/L (136-145) 10/01/24 03:09 Potassium 4.7 mmol/L (3.5-5.1) 10/01/24 03:09 Chloride 96 mmol/L (98-107) L 10/01/24 03:09 Carbon Dioxide 38 mmol/L (22-29) H 10/01/24 03:09 Anion Gap 11.7 (5-19) 10/01/24 03:09 BUN 14 mg/dL (8-23) 10/01/24 03:09 Creatinine 0.3 mg/dL (0.5-0.9) L 10/01/24 03:09 GFR Calculation 219.9 mL/min (90-130) H 10/01/24 03:09 Glucose 129 mg/dL (65-115) H 10/01/24 03:09 POC Glucose 134 mg/dL (70-110) H 09/28/24 07:20 Calculated Osmolality 294 mOsm/kg (285-295) 10/01/24 03:09 Calcium 8.7 mg/dL (8.5-10.5) 10/01/24 03:09 Magnesium 2.3 mg/dL (1.7-2.3) 09/28/24 03:59 Total Bilirubin 0.2 mg/dL (0.15-1.2) 09/30/24 05:09 AST 18 U/L (0-32) 09/30/24 05:09 ALT 31 U/L (0-33) 09/30/24 05:09 Alkaline Phosphatase 73 U/L (35-105) 09/30/24 05:09 Troponin T Baseline 8 ng/L (0-10) 09/27/24 10:41 Troponin T 120 Minute 6.54 ng/L (0-10) 09/27/24 13:06 Delta Troponin T -1.46 ABS# (0-10) L 09/27/24 13:06 Troponin T Hi Sens 6Hr < 6.0 ng/L (0-10) 09/27/24 18:23 Troponin T Hi Sens 6Hr Delta -2.21517 ng/L (0-12) L 09/27/24 18:23 NT-Pro-B Natriuret Pep 379 pg/mL (0-125) H 09/27/24 13:06 Total Protein 5.7 g/dL (6.6-8.7) L 09/30/24 05:09 Albumin 3.7 g/dL (3.5-5.2) 09/30/24 05:09 Globulin 2.0 g/dL (1.3-4.6) 09/30/24 05:09 Procalcitonin 0.02 ng/mL (0-0.5) 09/27/24 13:06 Nasal MRSA (PCR) Not detected (Not Detecte) 09/27/24 13:03 Coronavirus 229E (PCR) Not detected (NOT DETECT) 09/27/24 13:03 SARS-CoV-2 (PCR) Detected (NOT DETECT) A 09/27/24 13:03 Vitals Last Vital Signs Temp 97.6 F 10/01/24 07:31 Pulse 75 10/01/24 09:00 Resp 18 10/01/24 09:00 BP 148/79 10/01/24 07:31 Pulse Ox 86 L 10/01/24 09:42 O2 Del Method Nasal Cannula 10/01/24 09:00 O2 Flow Rate 3 10/01/24 09:42 FiO2 30 09/28/24 02:04 Discharge Plan Discharge Patient Disposition: Home Condition: Stable Prescriptions: New prednisone 10 mg tablet 10 mg PO DIRECTED Qty: 53 0RF Rx Instructions: 4tabs a day for 5 days, 3tab for 5 days, 2 tab for 5 days, 1 tab for 5 days, 0.5 tab for 5 days benzonatate 100 mg Capsule 200 mg PO TID 7 Days Qty: 42 0RF doxycycline hyclate 100 mg tablet 100 mg PO BID 7 Days Qty: 14 0RF Continued (DME) oxygen small portable concentrator See Rx Instructions .Route .MEDSUPPLY Qty: 1 0RF Rx Instructions: As directed budesonide-formoterol [Symbicort] 160-4.5 mcg/actuation HFA aerosol inhaler 2 puff inhalation BID Qty: 10.2 3RF (DME) nebulizer compressor with kit See Rx Instructions .Route .MEDSUPPLY Qty: 1 0RF Rx Instructions: As directed (DME) nebulizer accessories Kit See Rx Instructions .Route Qty: 1 0RF Rx Instructions: nebulizer kit/accessories/tubing albuterol sulfate 90 mcg/actuation HFA aerosol inhaler 2 puff inhalation Q8H PRN (Reason: Shortness Of Breath) Qty: 6.7 2RF clonazepam 0.5 mg tablet 0.5 mg PO BID PRN (Reason: Anxiety) Discharge Orders: Discharge Order (Routine); Ordered 10/01/24 Ordered By: Shukri Ellsworth Referrals: Jessi Prabhakar MD [Physician, Family Practice] - 1 week Referral Note: We have notified your physician's clinic of the need for a follow-up appointment to be scheduled. If you have not heard from them within the next 2 business days, please call them directly. Discharge Diet: Cardiac Discharge Activity: Resume usual activity Patient Instructions: Benzonatate (By mouth), Doxycycline (By mouth), Prednisone (By mouth), COPD (Chronic Obstructive Pulmonary Disease) (DC), COPD Stoplight, Opioid Safety Activity Restrictions/Additional Instructions: - Please monitor for calf pain or calf swelling or sudden onset shortness of breath or hemoptysis if so please go to the emergency room - You have an increased risk of blood clots and adverse cardiovascular events given your recent COVID-19 infection, please monitor for chest pain, and above findings if so immediately call [phone] - Please take steroids antibiotics as prescribed - Follow-up with primary care provider in a week Discharge Attestations Time Spent in Discharge Care*: greater than 30 min Quality Metrics Clinical Quality Measures [ No reported AMI, CVA or VTE this stay] Coding Level of Care Code 05165 Total time (in minutes) for Discharge: 45 Diagnoses Acute respiratory failure with hypoxia and hypercapnia J96.01; J96.02 Acute exacerbation of chronic obstructive airways disease J44.1 COVID U07.1
== END 2024-10-01 15:35 | disposition home health service (06) | DRG 177 ==
LOC: ER 12:35 → ICU 13:09 → MEDSURG 09-28 17:04
PROVIDERS: Admitting Provider Internal Medicine; Emergency Provider Physician Assistant; PCP Internal Medicine; Visit Provider Family Medicine
DX: U07.1 COVID-19 (principal); J12.82 Pneumonia due to coronavirus disease 2019; J96.22 Acute and chronic respiratory failure with hypercapnia; J96.21 Acute and chronic respiratory failure with hypoxia; J44.1 Chronic obstructive pulmonary disease with (acute) exacerbation; I51.81 Takotsubo syndrome; E87.29 Other acidosis; Z99.81 Dependence on supplemental oxygen; Z87.891 Personal history of nicotine dependence
CPT/HCPCS: 36415; 36416; 36600; 71045; 71275; 80048; 80051; 80053; 82330; 82805; 82962; 83735; 83880; 84145; 84484; 85025; 85378; 87040; 87070; 87205; 87635; 93005; 94640; 94660; 94664; 94760; 96372; 96374; 96375; 96376; 99291; J0248; J0696; J1650; J2060; J2919; J3475; J9999

== ENCOUNTER 2024-10-02 21:15 | Inpatient (IN) | payer MEDICARE, MEDICAID, SELFPAY ==
[2024-10-02] VITALS (9 sets, daily range): BP systolic 104–142; BP diastolic 67–86; PULSE 79–119; RESP 20–24; TEMP 36.8–37.1; O2SAT 93–97; BMI 27.3
--- NOTE | 2024-10-02 21:25 | XRR_ITS ---
PROCEDURE INFORMATION: Exam: XR Chest Exam date and time: 10/02/2024 9:35 PM Age: 68 years old Clinical indication: Shortness of breath; Additional info: SOB TECHNIQUE: Imaging protocol: Radiologic exam of the chest. Views: 1 view. COMPARISON: CT angio chest PE protcl [id number] 09/27/2024 5:05 PM FINDINGS: Lungs: Nonspecific prominence of the pulmonary interstitium. Similar focal opacity in the right upper lung paramedian area. No new focal airspace abnormality. Pleural spaces: Unremarkable. No pleural effusion. No pneumothorax. Heart/Mediastinum: Unremarkable. No cardiomegaly. Bones/joints: Unremarkable. XR/XR chest 1V portable [id number] IMPRESSION: As above.
--- NOTE | 2024-10-02 21:26 | ECG_ITS ---
[facility] Test Date: 2024-10-02 Pat Name: Sheba Lira Department: Room: Gender: Female Electric Motor Analyst: : 1955 Requested By: Jagjit Tapia Order Number: [id number] Latricia MD: Kilo Dangelo M.D. Measurements Intervals [place] Rate: 83 P: 62 NM: 122 QRS: 73 QRSD: 110 T: 72 QT: 343 QTc: 403 Interpretive Statements SINUS RHYTHM POSSIBLE LEFT ATRIAL ENLARGEMENT [-0.1mV P-WAVE IN V1/V2] INCOMPLETE RIGHT BUNDLE BRANCH BLOCK [90+ ms QRS DURATION, TERMINAL R IN V1/V2, 40+ ms S IN I/aVL/V4/V5/V6] Compared to ECG 09/27/2024 13:45:46 Incomplete right bundle-branch block now present Electronically Signed On 10-04-2024 17:29:24 CDT by Kilo Dangelo M.D. [id number]
[2024-10-02] MEDS: ondansetron 2 mg/ML SDV 2 mL 4 MG IVP (21:40)
[2024-10-02] MEDS: methylPREDNISolone sod succ 125 mg/2 mL INJ IV (21:40)
[2024-10-02] MEDS: ipratropium-albuterol 3 mL Neb INHALATION (21:42)
[2024-10-02 21:47] LABS: Hematocrit 38.3 % (36-47); Lymphocytes # 0.7 10^3/uL (0.8-4.8); Lymphocytes % 7.4 %; Mean Corpuscular HGB Conc 32.1 g/dL (30-55); Mean Corpuscular Hemoglobin 30.8 pg (27-33); Mean Corpuscular Volume 95.8 fl (85-98); Mean Platelet Volume 10.4 fL (7.4-10.4); Monocytes # 0.9 10^3/uL (0.2-0.9); Monocytes % 9.8 %; Neutrophils # 7.69 10^3/uL (1.8-7.7); Neutrophils % 82.3 %; Nucleated Red Blood Cells % 0 %; Platelet Count 177 10^3/cmm (157-399); Red Cell Distribution Width 12.6 % (12.1-15.1); White Blood Count 9.35 10^3/uL (3.29-11.43)
[2024-10-02 21:53] LABS: ABG PCO2 72.6 mmHg (35-45); ABG PH Result 7.37 (7.35-7.45); Arterial Blood Gas Hematocrit 38.6 % (37-47); Base Excess ABG 13.2 mmol/L (-2.0-2.0); Blood Gas Operator Identificat AMH; Blood Gas Sample Site Brachial, left; Blood Gas Sample Type Arterial; Carboxyhemoglobin 1.2 %THgb (0.4-20.1); HCO3 ABG 41.7 mmol/L (22-26); HGB O2 Sat 94.7 % (95-100); Methemoglobin 0.8 % (0.4-1.5); Oxygen Device NC; PO2 ABG 85.6 mmHg (80.0-100.0); PO2 FiO2 Ratio Arterial Blood 267; Total Hemoglobin 12.6 g/dL (12-16)
[2024-10-02 22:05] LABS: Lactic Sepsis W/Reflex 0.9 mmol/L (0.5-2.2)
[2024-10-02 22:06] LABS: Alanine Aminotransferase 72 U/L (0-33); Albumin Level 3.8 g/dL (3.5-5.2); Alkaline Phosphatase 76 U/L (35-105); Blood Urea Nitrogen 13 mg/dL (8-23); Calcium 9.1 mg/dL (8.5-10.5); Carbon Dioxide 36 mmol/L (22-29); Chloride 89 mmol/L (98-107); Creatinine Clr Calc Pharmacy 56.8023; Globulin 2.6 g/dL (1.3-4.6); Glomerular Filtration Rate 219.9 mL/min (90-130); Glucose 102 mg/dL (65-115); Osmolality Calculated 276 mOsm/kg (285-295); Sodium 133 mmol/L (136-145); Total Bilirubin 0.4 mg/dL (0.15-1.2); Total Protein 6.4 g/dL (6.6-8.7)
[2024-10-02 22:07] LABS: Anion Gap 12.6 (5-19); Aspartate Amino Transferase 39 U/L (0-32); Potassium 4.6 mmol/L (3.5-5.1); Troponin(5th) Baseline < 6 ng/L (0-10)
[2024-10-02 22:45] LABS: NT Pro B Type Natriuretic Pept 368 pg/mL (0-125)
--- NOTE | 2024-10-02 22:46 | W.ED.SOB ---
HPI - SOB/Dyspnea General: Chief Complaint: ER Hold Stated Complaint: SOB Time Seen by Provider: 10/02/24 21:17 History of Present Illness: HPI Narrative: 68-year-old female discharged from the hospital yesterday. She has a history of COPD. She was here with COVID-19 pneumonia, COPD exacerbation. She presents with worsening shortness of breath over the course of the day today. She has a terrible cough still she says. Thick sputum production with some posttussive vomiting. No fever. No swelling. She does have some chest discomfort with cough. Related Data Home Medications ?Medication ?Instructions ?Recorded ?Confirmed clonazepam 0.5 mg tablet 0.5 mg PO BID PRN Anxiety 09/28/24 09/28/24 Previous Rx's ?Medication ?Instructions ?Recorded nebulizer compressor with kit #1 ea 02/18/21 nebulizer accessories #1 ea 12/06/21 oxygen small portable concentrator #1 ea 01/07/23 budesonide-formoterol HFA 160 2 puff inhalation BID #10.2 grams 09/21/23 mcg-4.5 mcg/actuation aerosol inhaler (Symbicort) albuterol sulfate 90 mcg/actuation 2 puff inhalation Q8H PRN 12/17/23 aerosol inhaler Shortness Of Breath #6.7 grams benzonatate 100 mg capsule 200 mg (2 x 100 mg) PO TID 7 days 10/01/24 #42 caps doxycycline hyclate 100 mg tablet 100 mg PO BID 7 days #14 tabs 10/01/24 prednisone 10 mg tablet 10 mg PO DIRECTED #53 tabs 10/01/24 Allergies Allergy/AdvReac Type Severity Reaction Status Date / Time aspirin Allergy Intermediate ADR/ALGY-Pa Verified 12/15/23 14:01 lpitations fluticasone furoate (From Allergy Intermediate hives Verified 12/15/23 14:01 Trelegy Ellipta) umeclidinium (From Trelegy Allergy Intermediate hives Verified 12/15/23 14:01 Ellipta) vilanterol (From Trelegy Allergy Intermediate hives Verified 12/15/23 14:01 Ellipta) roflumilast (From Daliresp) AdvReac Intermediate ADR-Abdominal Verified 12/15/23 14:01 Pain codeine AdvReac ADR-Nausea Verified 12/15/23 14:01 [facility] ED PFS: Medical History Enrolled in chronic care management Takotsubo cardiomyopathy COPD (chronic obstructive pulmonary disease) Sciatic pain Osteoarthritis of left knee Surgical History H/O eye surgery History of History of partial hysterectomy Family History Other CAD (coronary artery disease) Cancer Social History Smoking and tobacco/nicotine status: former use of tobacco/nicotine Quit status (tobacco/nicotine): has quit using Year quit tobacco: quit 2 months ago Second hand smoke exposure: No Alcohol intake: never Substance/Drug Use: never Lives independently: Yes Household members: none Marital status: / Number of children: 2 Number of grandchildren: 8 Current occupational status: retired Physical Exam Const: GENERAL APPEARANCE: cooperative, in distress, ill appearing and frail appearing HENMT: COMMON NORMALS: normocephalic, atraumatic and Normal external nose present HEAD & SCALP: normocephalic and atraumatic FACE & SINUS: normal facial exam and face symmetric NOSE: Normal external nose present Eye: COMMON NORMALS: Equal, round and reactive pupils present and EOMs intact bilaterally PUPIL: Yes Equal, round and reactive pupils present Neck/C-Spine: GENERAL: Yes trachea midline Chest: CHEST: Yes Symmetrical chest wall rise Resp: EFFORT & INSPECTION: Yes tachypneic, Yes labored and Yes uses accessory muscles AUSCULTATION: rhonchi and wheezes Cardio: COMMON NORMALS: regular rate and regular rhythm RATE: regular rate RHYTHM: regular rhythm GI: COMMON NORMALS: Soft to palpation PALPATION: Yes Soft to palpation Extremity: COMMON NORMALS: no pedal edema Course Vital Signs: Vital signs: Vital Signs Temperature 98.2 F 10/02/24 21:15 Pulse Rate 112 H 10/02/24 23:46 Respiratory Rate 20 H 10/02/24 23:46 Blood Pressure 114/67 10/02/24 23:00 Pulse Oximetry 97 10/03/24 00:11 Oxygen Delivery Me thod Nasal Cannula 10/03/24 00:11 Oxygen Flow Rate 3 06/23/25 00:11 MDM - SOB/Dyspnea Medical Decision Making 68-year-old female with COPD. Worsening shortness of breath at home. She has cough with sputum that is very thick here. Blood gas shows a compensated respiratory acidosis, but with remaining high CO2 in the 70s. Lactic acid is normal. Chest x-ray is unchanged. BNP is essentially normal, troponin is nondetectable. She has received 2 breathing treatments here. She is somewhat improved. She has also received Solu-Medrol here. Will repeat breathing treatment in the ER. Repeat blood gas to see if she is improved. She tells me she does not want to be on BiPAP unless she absolutely has to, and with her thick sputum, this may be a problem. Spoke with hospitalist. She will be admitted Lab Data 10/02/24 21:10/02/24: Labs/Radiology: Radiology Impressions Chest X-Ray 10/02/24 IMPRESSION: As above. Laboratory Results WBC 9.35 10^3/uL (3.29-11.43) 10/02/24: RBC 4.00 10^6/uL (3.85-5.65) 10/02/24: Hgb 12.30 g/dL (11.27-16.99) 10/02/24: Hct 38.3 % (36-47) 10/02/24: MCV 95.8 fl (85-98) 10/02/24: MCH 30.8 pg (27-33) 10/02/24: MCHC 32.1 g/dL (30-55) 10/02/24: RDW 12.6 % (12.1-15.1) 10/02/24: Plt Count 177 10^3/cmm (157-399) 10/02/24: MPV 10.4 fL (7.4-10.4) 10/02/24: Neut % (Auto) 82.3 % 10/02/24: Lymph % (Auto) 7.4 % 10/02/24: [place] % (Auto) 9.8 % 10/02/24: Eos % (Auto) 0.0 % 10/02/24: Baso % (Auto) 0.0 % 10/02/24: Neut # (Auto) 7.69 10^3/uL (1.8-7.7) 10/02/24: Lymph # (Auto) 0.7 10^3/uL (0.8-4.8) L 10/02/24: [place] # (Auto) 0.9 10^3/uL (0.2-0.9) 10/02/24: Eos # (Auto) 0.0 10^3/uL (0.0-0.8) 10/02/24: Baso # (Auto) 0.0 10^3/uL (0.0-0.1) 10/02/24: Nucleated RBC % (auto) 0 % 10/02/24 Nucleated RBCs # 0.0 /100WBC 10/02/24: Specimen Type Arterial 10/02/24: Sample Site Brachial, left 10/02/24 23: ABG pH 7.32 (7.35-7.45) L 10/02/24: ABG pCO2 82.1 mmHg (35-45) H* 10/02/24: ABG pO2 99.3 mmHg (80.0-100.0) 10/02/24: ABG PO2/FiO2 Ratio 310 10/02/24: ABG HCO3 42.3 mmol/L (22-26) H 10/02/24: ABG Base Excess 12.7 mmol/L (-2.0-2.0) H 10/02/24 23: Edgardo Test N/a 10/02/24: Hematocrit 38.9 % (37-47) 10/02/24: Hgb O2 Saturation 94.7 % (95-100) L 10/02/24 21:42 Carboxyhemoglobin 1.2 %THgb (0.4-20.1) 10/02/24 21: Methemoglobin 0.8 % (0.4-1.5) 10/02/24 21: Total Hemoglobin 12.6 g/dL (12-16) 10/02/24 21:42 O2 Delivery Device Nc 10/02/24 23:29 O2 Liters/Min 3.0 % 10/02/24 23: FiO2 32.0 % 10/02/24: Sheet Metal Fabricator ID Amh 10/02/24 23: Sodium 133 mmol/L (136-145) L 10/02/24: Potassium 4.6 mmol/L (3.5-5.1) 10/02/24: Chloride 89 mmol/L (98-107) L 10/02/24: Carbon Dioxide 36 mmol/L (22-29) H 10/02/24: Anion Gap 12.6 (5-19) 10/02/24: BUN 13 mg/dL (8-23) 10/02/24: Creatinine 0.3 mg/dL (0.5-0.9) L 10/02/24: GFR Calculation 219.9 mL/min (90-130) H 10/02/24: Glucose 102 mg/dL (65-115) 10/02/24: Calculated Osmolality 276 mOsm/kg (285-295) L 10/02/24: Lactic Acid 0.9 mmol/L (0.5-2.2) 10/02/24: Calcium 9.1 mg/dL (8.5-10.5) 10/02/24: Total Bilirubin 0.4 mg/dL (0.15-1.2) 10/02/24: AST 39 U/L (0-32) H 10/02/24: ALT 72 U/L (0-33) H 10/02/24: Alkaline Phosphatase 76 U/L (35-105) 10/02/24: Troponin T Baseline < 6 ng/L (0-10) 10/02/24: Troponin T 120 Minute 6.11 ng/L (0-10) 10/02/24: Delta Troponin T 0.17615 ABS# (0-10) 10/02/24: NT-Pro-B Natriuret Pep 368 pg/mL (0-125) H 10/02/24: Total Protein 6.4 g/dL (6.6-8.7) L 06/22/25 21:29 Albumin 3.8 g/dL (3.5-5.2) 10/02/24 21:29 Globulin 2.6 g/dL (1.3-4.6) 10/02/24 21:29 All radiology interpretation(s) finalized by discharge Discharge Plan Discharge Patient Disposition: Admitted As Inpatient Admit Provider: Nanci Caal Clinical Impression: Acute exacerbation of chronic obstructive airways disease, Acute hypercapnic respiratory failure Condition: Fair Coding Level of Care Code ED Creative Services Designer for Laura Bonilla
--- NOTE | 2024-10-02 23:26 | ECG_ITS ---
[facility]: [facility]02 Pat Name: Sheba Lira Department: Room: Gender: Female Operator Bearer Systems: : 1955 Requested By: Jagjit Tapia Order Number: [id number] Latricia MD: Kilo Dangelo M.D. Measurements Intervals [place] Rate: 79 P: 58 HI: 123 QRS: 73 QRSD: 106 T: 75 QT: 346 QTc: 397 Interpretive Statements SINUS RHYTHM POSSIBLE LEFT ATRIAL ENLARGEMENT [-0.1mV P-WAVE IN V1/V2] INCOMPLETE RIGHT BUNDLE BRANCH BLOCK [90+ ms QRS DURATION, TERMINAL R IN V1/V2, 40+ ms S IN I/aVL/V4/V5/V6] Compared to ECG 10/02/2024 21:49:40 No significant changes Electronically Signed On 10-04-2024 17:51:46 CDT by Kilo Dangelo M.D. [id number]
[2024-10-02] MEDS: albuterol 2.5 mg/3 mL Neb INHALATION (23:30)
[2024-10-02 23:40] LABS: ABG PH Result 7.32 (7.35-7.45); Arterial Blood Gas Hematocrit 38.9 % (37-47); Base Excess ABG 12.7 mmol/L (-2.0-2.0); Blood Gas Operator Identificat AMH; Blood Gas Sample Site Brachial, left; Blood Gas Sample Type Arterial; HCO3 ABG 42.3 mmol/L (22-26); Oxygen Device NC; PO2 ABG 99.3 mmHg (80.0-100.0); PO2 FiO2 Ratio Arterial Blood 310
[2024-10-02 23:41] LABS: ABG PCO2 82.1 mmHg (35-45)
[2024-10-03] VITALS (16 sets, daily range): BP systolic 100–117; BP diastolic 61–82; PULSE 62–92; RESP 16–23; TEMP 36.5–36.7; O2SAT 93–99; BMI 28.1
--- NOTE | 2024-10-03 00:03 | P.HP_ITS ---
Providers/Chief Complaint 2 Admitting Physician: Nanci Caal MD--seen before midnight Primary Care Provider: Gerson Alfred MD Chief Complaint: SOB History of Present Illness Sheba Lira is a 68 year old female with medical history significant for COPD who had presented to the emergency room 2 days ago and was admitted to the hospital after she had been found to have COVID and requiring more oxygen. Patient is on chronic home oxygen at 2 L at home. She was in-house optimize and then discharged with inhaler and steroid therapy to go home. Patient was discharged a day before Thursday to come back to the emergency room today because of shortness of breath that is not improving at home. I have seen and evaluated patient she was coughing up very thick sputum continuously. Chest x-ray was done and there was no significant difference patient did have right upper lobe medially some opacity that has a surrounding ring like us to is a cavity most likely will need a CT scan to further evaluate. Patient had COVID get into now a week and was treated in the last hospitalization with supportive care. I do not have any thing new to active care patient will be on COVID prednisone therapy of the 6 mg once daily anticoagulation with heparin for DVT prophylaxis protocol. And empiric antibiotics with azithromycin. Patient at this time is feeling much better patient needs further optimization of care with supportive therapy of supplemental oxygen steroid therapy anticoagulation and also to trend the inflammatory indicis. I have ordered C-reactive protein sed rate D-dimers and this could be used to target the progress of illness. Review of Systems 2 Narrative: Generally system review upon 10 organ system where entirely unremarkable except for respiratory failure. Medications/Allergies Home Medications ?Medication ?Instructions ?Recorded ?Confirmed ?Last Taken ?Type nebulizer compressor with kit #1 ea 02/18/21 09/27/24 Unknown Rx nebulizer accessories #1 ea 12/06/21 09/27/24 Unkn own Rx oxygen small portable concentrator #1 ea 01/07/2309/11 Unknown Rx budesonide-formoterol HFA 160 2 puff inhalation BID #1 0.2 grams 09/21/23 09/27/24 Unknown Rx mcg-4.5 mcg/actuation aerosol inhaler (Symbicort) albuterol sulfate 90 mcg/actuation 2 puff inhalation Q 8H PRN 12/17/23 09/27/24 Unknown Rx aerosol inhaler Shortness Of Breath #6.7 gra ms clonazepam 0.5 mg tablet 0.5 mg PO BID PRN Anxiety 09/28/24 09/27/24 History benzonatate 100 mg capsule 200 mg (2 x 100 mg) PO TID 7 days 10/01/24 Unknown Rx #42 caps doxycycline hyclate 100 mg tablet 100 mg PO BID 7 days #14 tabs 10/01/24 Unknown Rx prednisone 10 mg tablet 10 mg PO DIRECTED #53 tab s 10/01/24 Unknown Rx Allergies Allergy/AdvReac Type Severity Reaction Status Date / Time aspirin Allergy Intermediate ADR/ALGY-Pa Verified 12/15/23 14:01 lpitations fluticasone furoate (From Allergy Intermediate hives Verified 12/15/23 14:01 Trelegy Ellipta) umeclidinium (From Trelegy Allergy Intermediate hives Verified 12/15/23 14:01 Ellipta) vilanterol (From Trelegy Allergy Intermediate hives Verified 12/15/23 14:01 Ellipta) roflumilast (From Daliresp) AdvReac Intermediate ADR-Abdominal Verified 12/15/23 14:01 Pain codeine AdvReac ADR-Nausea Verified 12/15/23 14:01 PFSH Acute 2 PFSH: Medical History Enrolled in chronic care management Takotsubo cardiomyopathy COPD (chronic obstructive pulmonary disease) Sciatic pain Osteoarthritis of left knee Surgical History H/O eye surgery History of History of partial hysterectomy Family History Other CAD (coronary artery disease) Cancer Social History Smoking and tobacco/nicotine status: former use of tobacco/nicotine Quit status (tobacco/nicotine): has quit using Year quit tobacco: quit 2 months ago Second hand smoke exposure: No Alcohol intake: never Substance/Drug Use: never Lives independently: Yes Household members: none Marital status: / Number of children: 2 Number of grandchildren: 8 Current occupational status: retired Vitals/I&O/Wt Last Vital Signs Temp 98.2 F 10/02/24 21:15 Pulse 112 H 10/02/24 23:46 Resp 20 H 10/02/24 23:46 BP 114/67 10/02/24 23:00 Pulse Ox 97 10/02/24 23:46 O2 Del Method Nasal Cannula 10/02/24 23:46 O2 Flow Rate 3 10/02/24 23:46 Weight last 48 hrs Weight 65.771 kg Physical Exam 2 Narrative: Generally patient is in no apparent distress at this time. However patient is constantly coughing and slightly short of breath but feeling much better than earlier upon presentation. HEENT normocephalic/atraumatic neck neck is supple cardiovascular heart rate is regular lungs are coarse breath sounds abdomen soft nontender nondistended unremarkable extremities are intact no edema has good pulses neurology there is no focality lab studies lab studies via unremarkable. Patient had no white count electrolytes are entirely unremarkable. Data 10/02/24 21:29 10/02/24 21:29 Micro: Microbiology 10/02/24 22:12 Blood Culture - Preliminary Blood SPECIMEN COLLECTED 10/02/24 22:03 Blood Culture - Preliminary Blood SPECIMEN COLLECTED A&P Assessment and plan (1) Pneumonia due to COVID-19 virus: Patient had some significant hypoxemia and hypercapnia respiratory failure Supportive care with supplemental oxygen Steroid therapy with prednisone 6 mg daily x 10 days Antibiotics for associated bronchitis with azithromycin Anticoagulation for DVT prophylaxis with heparin Anti-inflammatory Inflammatory indices to tag the progress of the treatment will continue to monitor. In need for BiPAP the patient is refusing the use of BiPAP will repeat ABG again should this get worse patient will have to hopefully we are going to encourage. This is COVID-pneumonia. Must continue to optimize. ABG with significant for hypercapnic Respiratory failure Patient refused to wear any BiPAP. Will be repeating ABG and if he improves with P if he does not we will try to convince the patient to wear BiPAP and especially at sleep and at bedtime at this time. BiPAP should be continuous and if that is the case patient will go to stepdown unit currently patient is desiring to go to general medical floor. Will continue steroid therapy. (2) Acute hypercapnic respiratory failure: Will use BiPAP should the respiratory hypercapnic worsens. At this time patient can wear BiPAP but refusing to do so. Must continue to treat and optimize. Patient is heavily compensated for respiratory acidosis. Patient has a normal pH and has good oxygenation with a PO2 of 85. PCO2 of 70s. (3) Acute bronchitis: For acute bronchitis treat with the regimen that had been aforementioned. (4) Acute exacerbation of chronic obstructive airways disease: Will continue to follow through and optimize. Continue supplemental oxygen, steroid therapy, anticoagulant, anti-inflammatory, albuterol inhaler puff, may avoid nebulizing treatment to prevent aerosolization of the nebulizing treatment and having to spread more of the virus. Antibiotics for associated bronchitis. Plan GI and DVT prophylaxis in place PDMP PDMP Reviewed: Last Reviewed 10/03/24 00:24 by Nanci Caal MD Attestations 2 Medical Necessity Statement*: This is a 68-year-old female with COPD exacerbation and COVID infection with COVID pneumonia with much oxygen requirement following the baseline of 2 L of oxygen at home chronically does deserve to have a minimum of 2 midnights stay in the hospital and this qualifies patient for inpatient stay. Coding Level of Care Code 33949 Diagnoses Pneumonia due to COVID-19 virus U07.1; J12.82 Acute hypercapnic respiratory failure J96.02 Acute bronchitis J20.9 Acute exacerbation of chronic obstructive airways disease J44.1 Time Spent (min) 60
[2024-10-03 00:05] LABS: Troponin 5 2HR 6.11 ng/L (0-10); Troponin 5 2HR Delta 0.11001 ABS# (0-10)
[2024-10-03] MEDS: sodium chloride 0.9% 1,000 ML 75 ML IV (02:18)
[2024-10-03] MEDS: AZITHROMYCIN ADD-Vantage 500 MG in 0.9% NaCl ADD-Vantage 250 ML 250 MG IV (02:18)
[2024-10-03] MEDS: predniSONE 5 mg Tablet 6 MG PO (02:19)
[2024-10-03] MEDS: ondansetron 2 mg/ML SDV 2 mL 4 MG IVP (03:06)
[2024-10-03] MEDS: ipratropium-albuterol 3 mL Neb INHALATION ×5 (03:33→20:16)
[2024-10-03 04:01] LABS: Hematocrit 39.3 % (36-47); Lymphocytes # 0.2 10^3/uL (0.8-4.8); Lymphocytes % 2.3 %; Mean Corpuscular Hemoglobin 30.6 pg (27-33); Mean Corpuscular Volume 98.5 fl (85-98); Monocytes # 0.1 10^3/uL (0.2-0.9); Monocytes % 1.5 %; Neutrophils # 6.29 10^3/uL (1.8-7.7); Neutrophils % 95.1 %; Nucleated Red Blood Cells % 0 %; Platelet Count 149 10^3/cmm (157-399); Red Blood Count 3.99 10^6/uL (3.85-5.65); Red Cell Distribution Width 12.6 % (12.1-15.1); White Blood Count 6.61 10^3/uL (3.29-11.43)
[2024-10-03 04:22] LABS: Alanine Aminotransferase 70 U/L (0-33); Albumin Level 3.9 g/dL (3.5-5.2); Alkaline Phosphatase 70 U/L (35-105); Anion Gap 13.1 (5-19); Aspartate Amino Transferase 37 U/L (0-32); Blood Urea Nitrogen 12 mg/dL (8-23); Calcium 8.8 mg/dL (8.5-10.5); Carbon Dioxide 38 mmol/L (22-29); Chloride 92 mmol/L (98-107); Creatinine Clr Calc Pharmacy 56.8023; Globulin 2.4 g/dL (1.3-4.6); Glomerular Filtration Rate 157.8 mL/min (90-130); Glucose 127 mg/dL (65-115); Osmolality Calculated 287 mOsm/kg (285-295); Potassium 5.1 mmol/L (3.5-5.1); Sodium 138 mmol/L (136-145); Total Bilirubin 0.4 mg/dL (0.15-1.2); Total Protein 6.3 g/dL (6.6-8.7)
[2024-10-03 04:41] LABS: Troponin 5 6HR < 6.0 ng/L (0-10); Troponin 5 6HR Delta 0 ng/L (0-12)
--- NOTE | 2024-10-03 06:24 | CTR_ITS ---
PROCEDURE INFORMATION: Exam: CT Chest With Contrast; Diagnostic Exam date and time: 10/03/2024 6:36 AM Age: 68 years old Clinical indication: Abnormal findings; Abnormal diagnostic tests; Abnormal wbc; Cough and shortness of breath; Worsening cough with SOB. Hypercapnic. RT upper lobe opacity on cxr. Recently discharged from hospital for covid pneumonia. ; Additional info: Abnormal chest x-ray regarding a right upper lobe opacity vs, opacity versus cavity at the right upper lobe TECHNIQUE: Imaging protocol: Diagnostic computed tomography of the chest with contrast. Radiation optimization: All CT scans at this facility use at least one of these dose optimization techniques: automated exposure control; mA and/or kV adjustment per patient size (includes targeted exams where dose is matched to clinical indication); or iterative reconstruction. Contrast material: OMNI 350; Contrast volume: 100 ml; Contrast route: INTRAVENOUS (IV); COMPARISON: CT angio chest PE protcl [id number] 09/27/2024 5:05 PM RADIATION DOSE METRICS: Total DLP (mGy-cm): 247.31 FINDINGS: Lungs: Severe emphysematous COPD. Pleural spaces: Fairly extensive pleural and parenchymal fibrosis greatest in the upper lobes and apices. This is greater on the right side than the left. Heart: Unremarkable. No cardiomegaly. No pericardial effusion. Lymph nodes: Unremarkable. No enlarged lymph nodes. Vasculature: Unremarkable. No aortic aneurysm. Liver: Enhancement of the liver near the falciform ligament is probably transient hepatic attenuation differences. Spleen: There is a heterogeneous appearance to the enhanced spleen. The findings could represent splenic abscess or hematoma. Bones/joints: Unremarkable. No acute fracture. Soft tissues: See Spleen finding. CT/CT chest w con* [id number] IMPRESSION: 1. No change within the lungs. 2. Heterogeneous and possibly abnormal spleen. Differential considerations include hematoma or abscess. Correlate clinically. COMMENTS: The presence of pulmonary emphysema on CT is an independent risk factor for lung cancer. In the absence of a history or active diagnosis of lung cancer, it is recommended that this patient with emphysema be evaluated for enrollment in a low dose CT lung cancer screening program.
[2024-10-03] MEDS: iohexol 350 mg/mL 500 mL Btl (per mL) IV (06:39)
[2024-10-03] MEDS: heparin 5,000 unit/mL INJ 1 mL 5000 UNIT SUBCUT ×2 (08:40→21:32)
[2024-10-03] MEDS: pantoprazole DR 40 mg Tablet PO (08:40)
[2024-10-03] MEDS: acetaminophen 325 mg Tablet 650 MG PO (08:40)
[2024-10-03] MEDS: dexamethasone 10 mg/mL INJ 6 MG IVP (13:58)
[2024-10-03] MEDS: piperacillin-tazobactam 3.375 GM in sodium chloride 0.9% (plus) 50 ML IV ×2 (14:04→21:33)
--- NOTE | 2024-10-03 14:13 | P.PN_ITS ---
Subjective 2 Subjective: Admitted overnight. Patient seen at edge of the bed. Currently on 4 L. States she is feeling better than when she had come in. Denies any nausea, vomiting, headache. Vitals/I&O/Wt Last Vital Signs Temp 97.8 F 10/03/24 11:24 Pulse 74 10/03/24 11:24 Resp 19 H 10/03/24 11:24 BP 100/62 10/03/24 11:24 Pulse Ox 95 10/03/24 11:24 O2 Del Method Nasal Cannula 10/03/24 11:24 O2 Flow Rate 5 10/03/24 11:11 10/02/24 10/03/24 10/03/24 22:59 06:59 14:59 Intake Total 1421.25 / 1421.25 Balance 1421.25 / 1421.25 Weight last 48 hrs Weight 67.631 kg Weight 65.771 kg Physical Exam 2 Narrative: General: No acute distress, AO x3 HEENT: PERRLA, pupils bilaterally equal and reactive Chest: Bronchial breath sounds present all over lung renee with occasional rhonchi CVS: S1-S2 regular, no murmurs, no tachycardia, no gallops, no rubs Abdomen: Soft, nontender, no organomegaly, bowel sounds present Neuro: No focal deficits, no facial deformity, AO x3, power 5/5 in all limbs Data 10/03/24 03:47 10/03/24 03:47 Micro: Microbiology 10/02/24 22:12 Blood Culture - Preliminary Blood SPECIMEN COLLECTED 10/02/24 22:03 Blood Culture - Preliminary Blood SPECIMEN COLLECTED A&P Assessment and plan (1) Acute hypoxic on chronic hypercapnic respiratory failure: Most likely in setting of COPD exacerbation due to recent COVID-19. Cannot rule out superimposed bacterial pneumonia. Cannot rule out PE. Appreciate CT chest. No significant consolidation. Check D-dimer, MRSA swab, sputum culture. History of Takotsubo cardiomyopathy in the past. Check echocardiogram. Oxygen supplementation keeping saturation over 88%. Wean accordingly. Empirically start on IV Zosyn for now. If MRSA swab positive will add vancomycin. (2) Pneumonia due to COVID-19 virus: Already finished course of treatment for COVID-19 with remdesivir and received in-house dexamethasone. Start dexamethasone 6 mg IV daily. Appreciate ESR, CRP. Isolation precautions. (3) Acute bronchitis: (4) Acute exacerbation of chronic obstructive airways disease: Steroid as above. Pulmicort twice daily, DuoNebs every 6 hour. Oxygen supplementation keeping saturation Orrie 8%. Plan History of type 2 diabetes mellitus: Not on antidiabetic medication at home. Check A1c. Depending on A1c will plan for insulin sliding scale. Full code Carbohydrate consistent diet Heparin for DVT prophylaxis Protonix for PUD prophylaxis PDMP PDMP Reviewed: Not Reviewed Attestations 2 Medical Necessity Statement*: Requested hospitalization for management of acute on chronic hypoxic and hypercapnic respiratory failure in setting of COPD exacerbation in a patient with recent COVID-19 with superimposed bacterial infection, PE is ruled out Diagnoses Acute hypoxic on chronic hypercapnic respiratory failure J96.01; J96.12 Pneumonia due to COVID-19 virus U07.1; J12.82 Acute bronchitis J20.9 Acute exacerbation of chronic obstructive airways disease J44.1
--- NOTE | 2024-10-03 14:44 | USCV_ITS ---
Sheba Lira Age: 68 Gender: F : 1955 Exam Date: 10/03/2024 15:27 Ordering Phys: Abe Logan MD Technologist: Exam Location: [facility] [place] Indication: cp sob BP: 105 / 68 HR: 74 Rhythm: Sinus Technical Quality: Adequate MEASUREMENTS (Male / Female) Normal Values 2D ECHO LV Diastolic Diameter PLAX 3.9 cm 4.2 - 5.9 / 3.9 - 5.3 cm IVS Diastolic Thickness 1.1 cm 0.6 - 1.0 / 0.6 - 0.9 cm IVS Systolic Thickness 1.4 cm LVPW Diastolic Thickness 1.1 cm 0.6 - 1.0 / 0.6 - 0.9 cm LVPW Systolic Thickness 1.3 cm LVOT Diameter 2.0 cm LV Ejection Fraction 2D Teich 65.4 % LV Ejection Fraction MOD 4C 60.6 % LV Ejection Fraction MOD 2C 60.5 % LV Ejection Fraction 2C AL 62.1 % LA Diameter 2.6 cm RA Systolic Volume 4C AL 49.6 ml RA Systolic Volume 4C MOD 47.5 ml Aorta at Sinotubular Diameter 2.7 cm M-MODE LA Ao Ratio MM 1.5 AV Cusp Separation MM 1.9 cm DOPPLER AV Peak Velocity 152.0 cm/s LVOT Peak Velocity 87.0 cm/s AV Area Cont Eq vti 2.3 cm squared AV Area Cont Eq pk 1.9 cm squared MV Peak Velocity 91.0 cm/s MV Area PHT 6.9 cm squared Mitral E to A Ratio 1.4 TV Peak Velocity 276.3 cm/s TR Peak Velocity 371.0 cm/s TR Peak Gradient 55.1 mmHg TV Peak E Velocity 143.0 cm/s PV Peak Velocity 98.0 cm/s FINDINGS Left Ventricle Left ventricle is normal in size. LV systolic function is normal with EF of 55-60%. No regional wall motion abnormalities are seen. Right Ventricle Normal in size and function Right Atrium Normal in size Left Atrium Normal in size Mitral Valve Structurally normal mitral valve. Trace mitral regurgitation. Aortic Valve Aortic valve is thickened. No significant stenosis or regurgitation Tricuspid Valve Mild tircuspid regurgitation. Insufficient TR jet to calculate RVSP Pulmonic Valve Not well visualized Pericardium Normal Aorta Normal in size IVC Not well visualized CONCLUSIONS LV systolic function is normal with EF of 55-60% Trace mitral regurgitation Mild tricuspid regurgitation Compared to prior echocardiogram from 2021, no significant changes are seen Kilo Dangelo MD (Electronically Signed) Final Date: 04 October 2024 10:27 S
[2024-10-03 14:45] LABS: Estmated Average Glucose 128; Hemoglobin A1C 6.1 % (4.0-6.0)
[2024-10-03 14:48] LABS: D Dimer <= 0.27 ug/mLFEU (0-0.59)
[2024-10-03 15:10] LABS: Procalcitonin 0.04 ng/mL (0-0.5); Thyroid Stimulating Hormone 0.37 uIU/mL (0.27-4.20)
[2024-10-03 15:17] LABS: Vitamin B12 > 2000 pg/mL (232-1245)
[2024-10-03 15:20] LABS: Iron 174 ug/dL (37-145); Total Iron Binding Capacity 245 mcg/dl; Unsaturated Iron Binding 71 ug/dL (112-347)
[2024-10-03 15:31] LABS: MRSA PCR OZH (swab) NOT DETECTED (Not Detecte)
[2024-10-03] MEDS: CLONazepam 0.5 mg Tablet PO (16:40)
[2024-10-03] MEDS: budesonide 0.5 mg/2 mL Neb INHALATION (20:16)
[2024-10-03] MEDS: sennosides 8.6 mg Tablet 17.2 MG PO (21:32)
[2024-10-04] VITALS (7 sets, daily range): BP systolic 114–149; BP diastolic 64–69; PULSE 63–72; RESP 14–18; TEMP 36.6–36.7; O2SAT 87–94
[2024-10-04] MEDS: piperacillin-tazobactam 3.375 GM in sodium chloride 0.9% (plus) 50 ML IV (05:14)
[2024-10-04 06:10] LABS: Basophils % 0.1 %; Hematocrit 39.5 % (36-47); Lymphocytes # 0.6 10^3/uL (0.8-4.8); Lymphocytes % 7.6 %; Mean Corpuscular HGB Conc 30.9 g/dL (30-55); Mean Corpuscular Volume 100.3 fl (85-98); Mean Platelet Volume 10.7 fL (7.4-10.4); Monocytes # 0.8 10^3/uL (0.2-0.9); Monocytes % 9.6 %; Nucleated Red Blood Cells % 0 %; Platelet Count 156 10^3/cmm (157-399); Red Blood Count 3.94 10^6/uL (3.85-5.65); Red Cell Distribution Width 12.5 % (12.1-15.1)
[2024-10-04 06:40] LABS: Alanine Aminotransferase 63 U/L (0-33); Albumin Level 3.6 g/dL (3.5-5.2); Alkaline Phosphatase 73 U/L (35-105); Anion Gap 9.4 (5-19); Aspartate Amino Transferase 31 U/L (0-32); Blood Urea Nitrogen 13 mg/dL (8-23); Calcium 9.1 mg/dL (8.5-10.5); Chloride 90 mmol/L (98-107); Creatinine Clr Calc Pharmacy 57.5518; Globulin 2.5 g/dL (1.3-4.6); Glomerular Filtration Rate 157.8 mL/min (90-130); Glucose 88 mg/dL (65-115); Magnesium 2.1 mg/dL (1.7-2.3); Osmolality Calculated 286 mOsm/kg (285-295); Potassium 4.4 mmol/L (3.5-5.1); Sodium 138 mmol/L (136-145); Total Bilirubin 0.4 mg/dL (0.15-1.2); Total Protein 6.1 g/dL (6.6-8.7)
[2024-10-04 06:41] LABS: Chol HDL Ratio 2.15 mg/dL (0.0-4.40); Cholesterol 155 mg/dL (0-200); HDL Cholesterol 72 mg/dL (60-100); LDL Cholesterol Calculated 69 mg/dL (50-129); Triglycerides 72 mg/dL (0-150); VLDL Cholestrol Calculation 14 mg/dL (0-30)
[2024-10-04 06:49] LABS: Carbon Dioxide 43 mmol/L (22-29)
[2024-10-04 06:53] LABS: Folate Level 8.3 ng/mL (4.8-37.3)
--- NOTE | 2024-10-04 08:24 | PM.DCS ---
Discharge Providers Date of Admission: 10/02/24 23:35 Date of Discharge: October 04, 2024 Attending Provider at Admission: Nanci Caal MD Attending Provider at Discharge: Abe Logan MD Primary Care Provider: Gerson Alfred MD Diagnoses at Discharge Discharge Diagnosis (1) Acute hypoxic on chronic hypercapnic respiratory failure: Status: Acute (2) Pneumonia due to COVID-19 virus: Status: Acute (3) Acute bronchitis: Status: Acute (4) Acute exacerbation of chronic obstructive airways disease: Status: Acute Reason for Visit Reason for Visit: SOB Brief History: Sheba Lira is a 68 year old female with medical history significant for COPD who had presented to the emergency room 2 days ago and was admitted to the hospital after she had been found to have COVID and requiring more oxygen. Patient is on chronic home oxygen at 2 L at home. She was in-house optimize and then discharged with inhaler and steroid therapy to go home. Patient was discharged a day before Thursday to come back to the emergency room today because of shortness of breath that is not improving at home. I have seen and evaluated patient she was coughing up very thick sputum continuously. Chest x-ray was done and there was no significant difference patient did have right upper lobe medially some opacity that has a surrounding ring like us to is a cavity most likely will need a CT scan to further evaluate. Patient had COVID get into now a week and was treated in the last hospitalization with supportive care. I do not have any thing new to active care patient will be on COVID prednisone therapy of the 6 mg once daily anticoagulation with heparin for DVT prophylaxis protocol. And empiric antibiotics with azithromycin. Patient at this time is feeling much better patient needs further optimization of care with supportive therapy of supplemental oxygen steroid therapy anticoagulation and also to trend the inflammatory indicis. I have ordered C-reactive protein sed rate D-dimers and this could be used to target the progress of illness. Hospital Course Hospital Course Patient was admitted to the hospital further evaluation and management of hypoxic respiratory failure in setting of COPD exacerbation due to recent COVID-19. Superadded bacterial infection was ruled out with repeat CT. She responded well to the treatment with nebulization and oral steroids. She is back to her oxygen supplementation. She is discharged in medically stable condition on steroid therapy, nebulization treatment along with oral Augmentin and Levaquin for next 3 days. Home O2 evaluation has been done prior to discharge. Physical Exam Narrative: General: No acute distress, AO x3 HEENT: PERRLA, pupils bilaterally equal and reactive Chest: Bronchial breath sounds present all over lung renee with occasional rhonchi CVS: S1-S2 regular, no murmurs, no tachycardia, no gallops, no rubs Abdomen: Soft, nontender, no organomegaly, bowel sounds present Neuro: No focal deficits, no facial deformity, AO x3, power 5/5 in all limbs Discharge Data Studies Completed and Pending Completed Studies During Hospitalization Category Date Time Status CT chest w con* [id number] Routine Cat Scan 10/03/24 06:24 Completed XR chest 1V portable [id number] Stat Exams 10/02/24 21:25 Completed Pending at discharge Category Date Time Status Blood Culture Stat Lab 10/02/24 22:12 Results MAG [Magnesium] AM LABS Lab 10/05/24 04:00 Ordered MAG [Magnesium] AM LABS Lab 10/06/24 04:00 Ordered Sputum Culture and Gram Stain Stat Lab 10/03/24 14:47 Received CV. echo complete* [id number] Routine Ultrasound 10/03/24 14:44 Taken Radiology Impressions Chest X-Ray 10/02/24 21:25 IMPRESSION: As above. Chest CT 10/03/24 06:24 IMPRESSION: 1. No change within the lungs. 2. Heterogeneous and possibly abnormal spleen. Differential considerations include hematoma or abscess. Correlate clinically. COMMENTS: The presence of pulmonary emphysema on CT is an independent risk factor for lung cancer. In the absence of a history or active diagnosis of lung cancer, it is recommended that this patient with emphysema be evaluated for enrollment in a low dose CT lung cancer screening program. Microbiology 10/02/24 22:12 Blood Blood Culture - Preliminary NEGATIVE TO DATE 10/02/24 22:03 Blood Blood Culture - Preliminary NEGATIVE TO DATE Laboratory Results WBC 8.30 10^3/uL (3.29-11.43) 10/04/24 05:25 RBC 3.94 10^6/uL (3.85-5.65) 10/04/24 05:25 Hgb 12.20 g/dL (11.27-16.99) 10/04/24 05:25 Hct 39.5 % (36-47) 10/04/24 05:25 MCV 100.3 fl (85-98) H 10/04/24 05:25 MCH 31.0 pg (27-33) 10/04/24 05:25 MCHC 30.9 g/dL (30-55) 10/04/24 05:25 RDW 12.5 % (12.1-15.1) 10/04/24 05:25 Plt Count 156 10^3/cmm (157-399) L 10/04/24 05:25 MPV 10.7 fL (7.4-10.4) H 10/04/24 05:25 Neut % (Auto) 82.0 % 10/04/24 05:25 Lymph % (Auto) 7.6 % 10/04/24 05:25 Montgomery % (Auto) 9.6 % 10/04/24 05:25 Eos % (Auto) 0.0 % 10/04/24 05:25 Baso % (Auto) 0.1 % 10/04/24 05:25 Neut # (Auto) 6.80 10^3/uL (1.8-7.7) 10/04/24 05:25 Lymph # (Auto) 0.6 10^3/uL (0.8-4.8) L 10/04/24 05:25 Montgomery # (Auto) 0.8 10^3/uL (0.2-0.9) 10/04/24 05:25 Eos # (Auto) 0.0 10^3/uL (0.0-0.8) 10/04/24 05:25 Baso # (Auto) 0.0 10^3/uL (0.0-0.1) 10/04/24 05:25 Nucleated RBC % (auto) 0 % 10/04/24 05:25 Nucleated RBCs # 0.0 /100WBC 10/04/24 05:25 D-Dimer <= 0.27 ug/mLFEU (0-0.59) 10/03/24 13:10 Specimen Type Arterial 10/02/24 23:29 Sample Site Brachial, left 10/02/24 23:29 ABG pH 7.32 (7.35-7.45) L 10/02/24 23:29 ABG pCO2 82.1 mmHg (35-45) H* 10/02/24 23:29 ABG pO2 99.3 mmHg (80.0-100.0) 10/02/24 23: ABG PO2/FiO2 Ratio 310 10/02/24 23:29 ABG HCO3 42.3 mmol/L (22-26) H 10/02/24 23:29 ABG Base Excess 12.7 mmol/L (-2.0-2.0) H 10/02/24 23:29 Edgardo Test N/a 10/02/24 23:29 Hematocrit 38.9 % (37-47) 10/02/24 23:29 Hgb O2 Saturation 94.7 % (95-100) L 10/02/24 21:42 Carboxyhemoglobin 1.2 %THgb (0.4-20.1) 10/02/24 21:42 Methemoglobin 0.8 % (0.4-1.5) 10/02/24 21:42 Total Hemoglobin 12.6 g/dL (12-16) 10/02/24 21:42 O2 Delivery Device Nc 10/02/24 23: O2 Liters/Min 3.0 % 10/02/24 23: FiO2 32.0 % 10/02/24 23:29 Facility Rehab Director ID [facility] 10/02/24 23:29 Sodium 138 mmol/L (136-145) 10/04/24 05:25 Potassium 4.4 mmol/L (3.5-5.1) 10/04/24 05:25 Chloride 90 mmol/L (98-107) L 10/04/24 05:25 Carbon Dioxide 43 mmol/L (22-29) H* 10/04/24 05:25 Anion Gap 9.4 (5-19) 10/04/24 05:25 BUN 13 mg/dL (8-23) 10/04/24 05:25 Creatinine 0.4 mg/dL (0.5-0.9) L 10/04/24 05:25 GFR Calculation 157.8 mL/min (90-130) H 10/04/24 05:25 Glucose 88 mg/dL (65-115) 10/04/24 05:25 Estimat Average Glucose 128 10/03/24 13:10 Hemoglobin A1c 6.1 % (4.0-6.0) H 10/03/24 13:10 Calculated Osmolality 286 mOsm/kg (285-295) 10/04/24 05:25 Lactic Acid 0.9 mmol/L (0.5-2.2) 10/02/24 21:29 Calcium 9.1 mg/dL (8.5-10.5) 10/04/24 05:25 Phosphorus 4.0 mg/dL (2.5-4.5) 10/03/24 03:47 Magnesium 2.1 mg/dL (1.7-2.3) 10/04/24 05:25 Iron 174 ug/dL (37-145) H 10/03/24 13:10 TIBC 245 mcg/dl 10/03/24 13:10 % Saturation 71.0 % (20-50) H 10/03/24 13:10 Unsat Iron Binding 71 ug/dL (112-347) L 10/03/24 13:10 Total Bilirubin 0.4 mg/dL (0.15-1.2) 10/04/24 05:25 AST 31 U/L (0-32) 10/04/24 05:25 ALT 63 U/L (0-33) H 10/04/24 05:25 Alkaline Phosphatase 73 U/L (35-105) 10/04/24 05:25 Troponin T Baseline < 6 ng/L (0-10) 10/02/24 21:29 Troponin T 120 Minute 6.11 ng/L (0-10) 10/02/24 23:30 Delta Troponin T 0.82440 ABS# (0-10) 10/02/24 23:30 Troponin T Hi Sens 6Hr < 6.0 ng/L (0-10) 10/03/24 03:47 Troponin T Hi Sens 6Hr Delta 0 ng/L (0-12) 10/03/24 03:47 NT-Pro-B Natriuret Pep 368 pg/mL (0-125) H 10/02/24 21:29 Total Protein 6.1 g/dL (6.6-8.7) L 10/04/24 05:25 Albumin 3.6 g/dL (3.5-5.2) 10/04/24 05:25 Globulin 2.5 g/dL (1.3-4.6) 10/04/24 05:25 Triglycerides 72 mg/dL (0-150) 10/04/24 05:25 Cholesterol 155 mg/dL (0-200) 10/04/24 05:25 LDL Cholesterol, Calc 69 mg/dL (50-129) 10/04/24 05:25 Total VLDL Cholesterol 14 mg/dL (0-30) 10/04/24 05:25 HDL Cholesterol 72 mg/dL (60-100) 10/04/24 05:25 Cholesterol/HDL Ratio 2.15 mg/dL (0.0-4.40) 10/04/24 05:25 Vitamin B12 > 2000 pg/mL (232-1245) H 10/03/24 13:10 Folate 8.3 ng/mL (4.8-37.3) 10/04/24 05:25 Procalcitonin 0.04 ng/mL (0-0.5) 10/03/24 13:10 TSH 0.37 uIU/mL (0.27-4.20) 10/03/24 13:10 Nasal MRSA (PCR) Not detected (Not Detecte) 10/03/24 14:06 Vitals Last Vital Signs Temp 98.0 F 10/04/24 07:12 Pulse 63 10/04/24 07:12 Resp 17 10/04/24 07:12 BP 125/69 10/04/24 07:12 Pulse Ox 91 10/04/24 07:12 O2 Del Method Room Air 10/04/24 07:12 O2 Flow Rate 3 10/03/24 20:16 Discharge Plan Discharge Patient Disposition: Home Condition: Fair Prescriptions: New levofloxacin 750 mg tablet 750 mg PO Q24H 3 Days Qty: 3 0RF amoxicillin-pot clavulanate 875-125 mg tablet 1 tab PO BID Qty: 6 0RF dexamethasone 6 mg tablet 6 mg PO DAILY Qty: 8 0RF Pulmicort Flexhaler 90 mcg/actuation aerosol powdr breath activated 1 inh inhalation BID Qty: 1 0RF Continued (DME) oxygen small portable concentrator See Rx Instructions .Route .MEDSUPPLY Qty: 1 0RF Rx Instructions: As directed budesonide-formoterol [Symbicort] 160-4.5 mcg/actuation HFA aerosol inhaler 2 puff inhalation BID Qty: 10.2 3RF (DME) nebulizer compressor with kit See Rx Instructions .Route .MEDSUPPLY Qty: 1 0RF Rx Instructions: As directed (DME) nebulizer accessories Kit See Rx Instructions .Route Qty: 1 0RF Rx Instructions: nebulizer kit/accessories/tubing clonazepam 0.5 mg tablet 0.5 mg PO BID PRN (Reason: Anxiety) benzonatate 100 mg Capsule 200 mg PO TID 7 Days Qty: 42 0RF albuterol sulfate 2.5 mg /3 mL (0.083 %) solution for nebulization 2.5 mg inhalation Q6H PRN (Reason: Shortness Of Breath Or Wheezing) Changed ipratropium-albuterol 0.5 mg-3 mg(2.5 mg base)/3 mL solution for nebulization 0.5 ml INHALATION Q8H 30 Days Qty: 90 0RF Discontinued prednisone 10 mg tablet 10 mg PO DIRECTED Qty: 53 0RF Rx Instructions: 4tabs a day for 5 days, 3tab for 5 days, 2 tab for 5 days, 1 tab for 5 days, 0.5 tab for 5 days doxycycline hyclate 100 mg tablet 100 mg PO BID 7 Days Qty: 14 0RF Discharge Orders: Discharge Order (Routine); Ordered 10/04/24 Ordered By: Abe Logan Referrals: Gerson Alfred MD [Primary Care Provider, Primary Care Provider] - 10/11/24 1:40 pm Discharge Diet: Cardiac Discharge Activity: Resume usual activity and Increase activity as tolerated Patient Instructions: Prednisone (By mouth), Amoxicillin/Clavulanate Potassium (By mouth), Dexamethasone (By mouth), Using Oxygen at Home (GEN), COPD Stoplight, Opioid Safety, Patient Portal & Brendan Instructions Activity Restrictions/Additional Instructions: Continue nebulization with DuoNeb every 6 hours. Take Augmentin and Levaquin for the antibiotics for next 3 days. Discharge Attestations Time Spent in Discharge Care*: greater than 30 min Specific Discharge Activities: educating patient, educating and/or supporting family/caregiver, discussing with pcp/other providers, discussing with manager rn case/social workers/dc planners, documenting/other paperwork and evaluating patient/reviewing data Status at Discharge: Cognitive status at discharge: cognitively intact, Behavioral status at discharge: cooperative, Functional status at discharge: independent ambulation, Overall status at discharge: patient is back to baseline Quality Metrics Clinical Quality Measures [ No reported AMI, CVA or VTE this stay] Coding Level of Care Code 45760 Total time (in minutes) for Discharge: 65 Diagnoses Acute hypoxic on chronic hypercapnic respiratory failure J96.01; J96.12 Pneumonia due to COVID-19 virus U07.1; J12.82 Acute bronchitis J20.9 Acute exacerbation of chronic obstructive airways disease J44.1
[2024-10-04] MEDS: budesonide 0.5 mg/2 mL Neb INHALATION (08:30)
[2024-10-04] MEDS: ipratropium-albuterol 3 mL Neb INHALATION ×2 (08:30→11:30)
[2024-10-04] MEDS: acetaminophen 325 mg Tablet 650 MG PO (09:23)
[2024-10-04] MEDS: CLONazepam 0.5 mg Tablet PO (09:23)
[2024-10-04] MEDS: heparin 5,000 unit/mL INJ 1 mL 5000 UNIT SUBCUT (09:23)
[2024-10-04] MEDS: pantoprazole DR 40 mg Tablet PO (09:23)
[2024-10-04] MEDS: docusate sodium 100 mg Capsule PO (09:23)
== END 2024-10-04 11:50 | disposition home or self-care (01) | DRG 177 ==
LOC: ER 23:49 → ER IP 23:52 → MEDSURG 10-03 06:51
PROVIDERS: Admitting Provider Internal Medicine; Emergency Provider Emergency Medicine; PCP Internal Medicine; Visit Provider Student in an Organized Health Care Education/Training Program
DX: U07.1 COVID-19 (principal); J12.82 Pneumonia due to coronavirus disease 2019; J96.22 Acute and chronic respiratory failure with hypercapnia; J96.21 Acute and chronic respiratory failure with hypoxia; J44.1 Chronic obstructive pulmonary disease with (acute) exacerbation; J20.9 Acute bronchitis, unspecified; Z99.81 Dependence on supplemental oxygen; Z87.891 Personal history of nicotine dependence
CPT/HCPCS: 36415; 36600; 71045; 71260; 80053; 80061; 82607; 82746; 82803; 82805; 83036; 83540; 83550; 83605; 83735; 83880; 84100; 84145; 84443; 84484; 85025; 85378; 87040; 87070; 87205; 93005; 93306; 94640; 94664; 94760; 96372; 96374; 96375; 96376; 99285; J0456; J1100; J1644; J2405; J2543; J2919; J7030; J7050; J7512; J7613; J7626; J9999

== ENCOUNTER 2025-02-23 08:30 | Emergency (ER) | payer MEDICARE, MEDICAID, SELFPAY ==
--- OUTSIDE RECORDS SUMMARY | 2024-08-23 04:20 | XMS_ITS ---
Author Organization [facility] Address [address] [place] [address] Care Team Providers Care Fountain Dispenser Name Role Phone Onofre Alfred Primary Care Provider [phone] REASON FOR VISIT 1 MONTH F/U Encounters Encounter Location Date Provider Diagnosis [facility] [address] [address] 08/23/2024 Onofre Alfred Plan Of Treatment Next Appt Details Provider Name:Onofre Alfred, 03/21/2025 11:00:00 AM, [address], [address], Progress Notes * Sheba VALVERDE ADOB:[birth year] (69 yo F)Acc No.[id number]:08/23/2024 Progress Notes Patient: Sheba Malhotra Provider: Ghazala Alfred MD :1955 A ge:68 Y S ex:Female Date:08/23/2024 Address:[address] [id number] Subjective: * Chief Complaints: * 1 MONTH F/U Care Plan Details* * Electronic signature of Eugenio Alfred MD on 02/23/2025 at 08:39 AM VETERINARY TOXICOLOGIST Sign off status: Pending * Provider: Ghazala Alfred MD Date: 0 08/23/2024 Generated for Mignon ng/Fasukhig/eTransmitting on: 1 04/25/2024 08:39 AM VETERINARY TOXICOLOGIST
--- OUTSIDE RECORDS SUMMARY | 2025-01-03 04:40 | XMS_ITS ---
Author Organization [facility] Address [address] [place] [address] Care Team Providers Care Dip Unit Operator Name Role Phone Onofre Alfred Primary Care Provider [phone] REASON FOR VISIT 1 MONTH F/U Encounters Encounter Location Date Provider Diagnosis [facility] [address] [address] 01/03/2025 Onofre Alfred Plan Of Treatment Next Appt Details Provider Name:Onofre Alfred, 03/21/2025 11:00:00 AM, [address], [address], Progress Notes * Sheba VALVERDE ADOB:[birth year] (69 yo F)Acc No.[id number]:01/03/2025 Progress Notes Patient: Sheba Malhotra Provider: Ghazala Alfred MD :1955 A ge:69 Y S ex:Female Date:01/03/2025 Address:[id number] Subjective: * Chief Complaints: * 1 MONTH F/U Care Plan Details* * Electronic signature of Eugenio Alfred MD on 02/23/2025 at 08:39 AM MORTGAGE LOAN ASSISTANT Sign off status: Pending * Provider: Ghazala Alfred MD Date: 0 01/03/2025 Generated for Mignon ng/Fasukhig/eTransmitting on: 04/25/2024 08:39 AM MORTGAGE LOAN ASSISTANT
[2025-02-23 08:31] VITALS: BP 137/81; PULSE 82; RESP 20; TEMP 36.6; O2SAT 96; BMI 27.3
--- NOTE | 2025-02-23 08:33 | ECG_ITS ---
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 Measurements Intervals [place] Rate: 80 P: 46 UT: 137 QRS: 79 QRSD: 105 T: 75 QT: 355 QTc: 411 Interpretive Statements SINUS RHYTHM POSSIBLE LEFT ATRIAL ENLARGEMENT [-0.1mV P-WAVE IN V1/V2] INCOMPLETE RIGHT BUNDLE BRANCH BLOCK [90+ ms QRS DURATION, TERMINAL R IN V1/V2, 40+ ms S IN I/aVL/V4/V5/V6] Compared to ECG 10/02/2024 23:32:20 No significant changes Electronically Signed On 02-24-2025 13:12:42 CHISEL TRIMMER by Kilo Dangelo M.D. [email or web address]
--- NOTE | 2025-02-23 08:34 | XR_ITS ---
WS: [id number] Exam: XR chest 1V portable [id number] Date/Time of Exam: 02/23/2025 8:34 AM Reason For Exam: sob Comparison 10/02/2024. Lungs are hyperinflated. No acute infiltrates. Extensive pulmonary parenchymal and pleural scarring in the upper RIGHT lung zone. Also chronic interstitial changes throughout the LEFT lung. Enlarged right ventricle unchanged in appearance. Chronic rightward tracheal deviation. Bony structures are intact. XR/XR chest 1V portable [id number] IMPRESSION: 1. Extensive chronic pleural and pulmonary changes and hyperinflation. 2. Chronic RIGHT ventricular enlargement. 3. No acute process.
--- OUTSIDE RECORDS SUMMARY | 2025-02-23 08:40 | XMS_ITS | Clinical Summary ---
Author Organization [facility] Address [address] Patiñon: Epic Prelude ADT [place] LADD [address] Care Team Providers Care Leather Shaver Name Role Phone Unavailable Primary Care Provider Unavailabl e Social History Tobacco Use Types Packs/Day Years Used Date Smoking Tobacco: Never Assessed Comments Unknown Sex and Gender Information Value Date Recorded Sex Assigned at Not on file Legal Sex Female 3:15 PM CDT Gender Identity Not on file Sexual Orientation Not on file Plan of Treatment Health Maintenance Due Date Last Done Comments DTAP/TDAP/TD VACCINES (1 - Tdap) 1972 PNEUMOCOCCAL VACCINE 50+ YEARS (1 of 2 - PCV) 10/17/18 73 BREAST CANCER SCREENING 1993 COLORECTAL SCREENING 1998 Colorectal Cancer Screening 1998 FIT-DNA Q 3 years 1998 FIT/FOBT Q 1 year 1998 Flex Sig/CT Colonography Q 5 years 1998 RSV VACCINE (60+ or ) (1 - Risk 50-74 years 1-dose series) 10/18/2003 ZOSTER VACCINE (1 of 2) 10/18/2003 OSTEOPOROSIS SCREENING 2018 INFLUENZA VACCINE (#1) 2024
--- OUTSIDE RECORDS SUMMARY | 2025-02-23 08:40 | XMS_ITS | Patient Health Record ---
Author Organization [facility] Address [address] [place] [address] [place] [address] Care Team Providers Care Telecommunications Clerk Name Role Phone Onofre Alfred Primary Care Provider Brittany Ovalle Unavailable [phone] Allergies Allergen (clinical drug ingredient) Drug/Non Drug Allergy documented on EMR Reaction Allergy Type Onset Date Status fluticasone / umeclidinium / vilanterol Trelegy Ellipta rash Drug Allergy Active aspirin Aspirin Unknown Drug Allergy Active codeine Codeine nausea and vomiting Drug Allergy Active Results Component Value Reference Range Flag Notes Comprehensive Metabolic Pane l (CMP) 15036 Reviewed date:03/02/2024 07:26:54 AM Interpretation: Performing Lab: Notes/Report: Diagnosis Description: Heart failure, unspecified Glucose Serum 127 71-110 MG/DL HI Testing p erformed at [facility], [address] [place] [address] [place] [address]. CLIA ID#: [id number] BUN 12 7-21 MG/DL Creat .58 .51-1.17 MG/DL K-ovyhtb-r-benzoquinone imine (NAPQI) is a metabolite of acetaminophen, NAPQI concentrations of apparoximately 10 mg/L correlation to toxic levels of acetaminophen demonstrates a greater than or equil to 10% change in results. NAPQI concentrations greater than this may lead to falsely depressed results for patient samples. Use of this assay is not recommended for patients undergoing treatment with phenindione, due to the potential for falsely depressed results. GFR 97.2 NA Calculation pe rformed from GFR calculator provided by the [employer]. Glomerular Filtration rate(GRF) is the best overall index of kidney function. Normal GFR varies according to age,sex, body size, and declines with age. The [employer] recommends using the CKD-EPI Creatinine Equation(2020) to estimate GFR. BUN/Creat Ratio 20.7 12.0-20.0 % HI Total Protein 6.2 5.8-8.0 G/DL Albumin 4.2 3.2-4.8 G/DL Globulin 2.0 2.3-3.5 G/DL LOW Alb/Glob 2.1 0.8-2.2 Calcium 9.8 8.7-10.4 MG/DL Sodium 142 136-145 MMOL/L Potassium 3.8 3.5-5.1 MMOL/L Chloride 99 98-107 MMOL/L CO2 34.9 20.0-31.0 MMOL/L HI Anion Gap 12 5-15 Alk Phos 78 46-116 Bili Total .2 .3-1.2 MG/DL LOW Use of this assay is not recommended for patients undergoing treatment with eltrombopag due to the potential for falsely elevated results. AST/SGOT 29 15-37 UNIT/L ALT/SGPT 35 12-78 UNIT/L Osmo Serum,Calculated 295 280-300 MOSM/KG IH Lumbosacral Spine AP/Lat - 20548 Reviewed date:03/08/2024 04:14:05 PM Interpretation: Performing Lab: Notes/Report: See Below For Report Lumbosacral Spine AP/Lat Hip w/ AP Pelvis Min 2V Bila [id number] Reviewed date:03/08/2024 04:14:56 PM Interpretation: Performing Lab: Notes/Report: See Below For Report Hip w/ AP Pelvis Min 2V Bilat Read See Below For Report Hip 2 View Bilat w/Pelvis-[id number] Reviewed date:03/15/2024 03:44:25 PM Interpretation: Performing Lab: Notes/Report: Lumbosacral Spine AP/Lat-[id number] Reviewed date:03/03/2024 01:13:24 PM Interpretation: Performing Lab: Notes/Report: [id number] Hip w/ AP Pelvis Min 2V Bila [id number] Reviewed date:03/03/2024 01:13:32 PM Interpretation: Performing Lab: Notes/Report: [id number] Reason For Referral No Information Medications Medication SIG (Take, Route, Frequency, Duration) Notes Start Date End Date Status Levalbuterol HCl 0.63 MG/3ML Nebulization Solution 3 mL as needed Inhalation every 8 hrs; Duration: 30 days 09/09/2024 Not-Takin g Furosemide 20 MG Tablet 1 tablet Orally Once a day as needed with a 3 lb weight gain Not-Taking Albuterol Sulfate HFA 108 (90 Base) MCG/ACT Aerosol Solution 2 puff as needed Inhalation every 4 hrs; Duration: 30 days Active Lyrica 25 MG Capsule 1 capsule Orally On ce a day; Duration: 30 days 01/23/2025 05/23/2025 Active Ipratropium-Albuterol 0.5-2.5 (3) MG/3ML Solution 3 mL Inhalation every 6 hrs; Duration: 30 days Not-Taking Budesonide 0.5 MG/2ML Suspension USE 1 VIAL IN NEBULIZER TWICE DAILY - RINSE MOUTH AFTER TREATMENT Not-Taking Fluticasone-Salmeterol 500-50 MCG/ACT Aerosol Powder Breath Activated 1 puff Inhalation Twice a day; Duration: 30 days 01/23/2025 Active Ipratropium-Albuterol 0.5-2.5 (3) MG/3ML Solution 3 mL as needed Inhalation every 6 hrs; Duration: 30 days 12/01/2024 Active Oxygen - Home Use 2 L NC PRN A ctive clonazePAM 0.5 MG Tablet 1 tablet Orally twice a day; Duration: 30 days 08/22/2024 Active predniSONE 10 MG Tablet 5 tablets once a day for 5 days, 4 tablets once a day for 5 days, 3 tablets once a day for 5 days, 2 tablets once a day for 5 days, 1 tablet once a day for 5 days Orally; Duration: 25 days 12/26/2024 Not-Taking Immunizations Vaccine Route Administration Date Status Comme nts Flucelvax Trivalent, Syringe 0.5 mL, PF Unknown 024 Refused Flucelvax Trivalent, Syringe 0.5 mL, PF Unknown 025 Refused Social History Tobacco Use: Social History Observation Description Date Details (start date - stop date) Former Smoker NA - NA Social History Depression Screening Social Info Question Answer Notes depression screening findings Findings Negative (0-4) 07/25/24 PHQ-9 Little interest or pleasure in doing things More than half the days Feeling down, depressed, or hopeless Not at all Trouble falling or staying asleep, or sleeping t oo much More than half the days Feeling tired or having little energy More than half the days Poor appetite or overeating Not at all Feeling bad about yourself, or that you are a failure, or have let yourself or your family down Not at all Trouble concentrating on thi ngs, such as reading the newspaper or watching television Not at all Moving or speaking so slowly that other people could have noticed. Or the opposite ? being so fidgety or restless that you have been moving around a lot more than usual Not at all Thoughts that you would be b basim off , or of hurting yourself in some way Not at all Total Score 6 Interpretation Mild Depression Comprehensive Health Assessm ent Social Info Question Answer Notes *Social Determinants of Health Has lack of transportation kept you from medical appointments, meetings, work or from getting things needed for daily living? No Recently, have you worried t hat your food would run out before you got money to buy more? No Do you feel physically and emotionally safe wher e you currently live? Yes Are you worried about losing your housing? No Have you recently been lindsey rned that your utilities would be turned off (electricity, gas, or water)? No Drug/Alcohol: Social Info Question Answer Notes AUDIT-C (Standard) Did you have a drink containing alcohol in the past year? Yes How often did you have six or more drinks on one occasion in the past year? 4 or more times a week (4 points) How many drinks did you have on a typical day when you were drinking in the past year? 3 or 4 drinks (1 point) How often did you have a drink containing alcohol in the past year? Daily or almost daily (4 points) Points 9 Interpretation Positive Tobacco Use: Social Info Question Answer Notes Tobacco Control (Standard) Tobacco use: Former smoker How long has it been since you last smoked? 1-5 years Section Notes: uses nicorette gum to help w ith not smoking 01/26/24 PHQ9 CIME Dep/tob - 07/25/24 01/26/24 PHQ9 CIME Dep/tob - 07/25/24 01/26/24 PHQ9 CIME Dep/tob - 07/25/24 01/26/24 PHQ9 CIME Dep/tob - 07/25/24 01/26/24 PHQ9 CIME Dep/tob - 07/25/24 01/26/24 PHQ9 CIME Dep/tob - 07/25/24 01/26/24 PHQ9 01/26/24 PHQ9 uses nicorette gum to help w ith not smoking uses nicorette gum to help w ith not smoking 01/26/24 PHQ9 CIME Dep/tob - 07/25/24 Problems Problem Type SNOMED Code ICD Code Onset Dates Problem Status W/U Status Risk Notes Problem Tobacco user (327110042) Nicotine dependence, cigarettes, 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) Active confirmed Problem Centrilobular emphysema (14445154) Centrilobular emphysema (J43.2) Active confirmed Problem Emphysema (88065959) Emphysema, unspecified (J43.9) Active confirmed Problem Dependence on supplemental oxygen (281521616205) Dependence on supplemental oxygen (Z99.81) Active confirmed Problem Anxiety (35271204) Anxiety (F41.9) Active confirmed Problem Arthritis (8081117) Arthritis (M19.90) Active confirmed Problem Acute exacerbation of chronic obstructive airways disease (406152766) COPD exacerbation (J44.1) Active confirmed Problem Radiology result abnormal (897833623) Abnormal chest CT (R93.89) Active confirmed Problem Chest tube in place (Z96.89) Active confirmed Problem Congestive heart failure (63790660) CHF (congestive heart failure) (I50.9) Active confirmed Problem Chronic hypoxemic respiratory failure (614846861) Chronic hypoxemic respiratory failure (J96.11) Active confirmed Problem Chronic hypercapnic respiratory failure (581404709) Chronic hypercapnic respiratory failure (J96.12) Active confirmed Problem Chronic obstructive pulmonary disease (63160213) Stage 3 severe COPD by GOLD classification (J44.9) Active confirmed Vital Signs Heart Rate 97 /min 01/23/2025 Temperature 96.8 degrees Fahrenheit 01/23/2025 Respiratory Rate 20 /min 03/01/2024 Height-cm 154.94 cm 01/23/2025 Oximetry 95 % 01/23/2025 Blood pressure diastolic 74 mm Hg 01/23/2025 Weight-kg 65.77 kg 01/23/2025 Height 61 in 01/23/2025 Blood pressure systolic 135 mm Hg 01/23/2025 Weight 145 lbs 01/23/2025 BMI 27.39 kg/m2 01/23/2025 Encounters Encounter Location Date Provider Diagnosis [facility] [address] [address] 08/22/2024 Onofre Alfred Anxiety F41.9 ; Chronic hypoxemic respiratory failure J96.11 ; Stage 3 severe COPD by GOLD classification J44.9 and Depression screen Z13.31 [facility] [address] [address] 01/23/2025 Onofre Alfred COPD exacerbation J44.1 ; Dependence on supplemental oxygen Z99.81 ; Encounter for immunization Z23 and Immunization not carried out because of patient refusal Z28.21 [facility] [address] [address] 12/01/2024 Onofre Alfred Encounter for Medica re annual wellness exam Z00.00 ; Hip pain, left M25.552 ; Stage 3 severe COPD by GOLD classification J44.9 and Depression screening negative Z13.31 [facility] [address] [address] 03/01/2024 Brittany Ovalle COPD exacerbation J44.1 ; Dependence on supplemental oxygen Z99.81 ; CHF (congestive heart failure) I50.9 ; Lumbosacral pain M54.50 ; Hip pain M25.559 ; Encounter for immunization Z23 and Immunization not carried out because of patient refusal Z28.21 [facility] [address] [address] 07/25/2024 Onofre Alfred Stage 3 severe COPD by GOLD classification J44.9 ; Nicotine dependence, cigarettes, in remission F17.211 ; COPD exacerbation J44.1 and Depression screen Z13.31 [facility] [address] [address] 09/09/2024 Onofre Alfred Stage 3 severe COPD by GOLD classification J44.9 and Depression screen Z13.31 [facility] [address] [address] 10/11/2024 Onofre Alfred Stage 3 severe COPD by GOLD classification J44.9 and Chronic hypoxemic respiratory failure J96.11 [facility] [address] [facility] [address] [place] [address] 12/26/2024 Onofre Alfred COPD exacerbation J44.1 [facility] [address] [facility] [address] [place] [address] 01/31/2025 Onofre Alfred [facility] [address] [facility] [address] [place] [address] 10/04/2024 Onofre Alfred Assessments Encounter Date Diagnosis (ICD Code) Assessment Notes Treatment Notes Treatment Clinical Notes Section Notes 01/23/2025 COPD exacerbation (ICD-10 - J44.1) 12/26/2024 COPD exacerbation (ICD-10 - J44.1) 12/01/2024 Encounter for Medicare annual wellness exam (ICD-10 - Z00.00) Please schedule your next AWV in 1 year. Depression screening performed using PHQ-9 Depression Scale with a score less than 5. No treatment plan indicated at this time, and screenings will be performed as indicated. 12/01/2024 Hip pain, left (ICD-10 - M25.552) Depression screening performed using PHQ-9 Depression Scale with a score less than 5. No treatment plan indicated at this time, and screenings will be performed as indicated. 10/11/2024 Stage 3 severe COPD by GOLD classification (ICD-10 - J44.9) All patient's questions are encouraged and addressed to their apparent satisfaction. They are agreeable with the proposed plan of care and deny further needs or concerns. Patient is advised to take medications as prescribed. Patient agrees to contact the clinic with any new, worsening or increase of symptons. I am happy to see patient prior to next office visit as needed for acute concerns. 09/09/2024 Stage 3 severe COPD by GOLD classification (ICD-10 - J44.9) 08/22/2024 Anxiety (ICD-10 - F41.9) 08/22/2024 Chronic hypoxemic respiratory failure (ICD-10 - J96.11) 03/01/2024 Dependence on supplemental oxygen (ICD-10 - Z99.81) Order sent to [facility] for pt to get a portable concentrator. 03/01/2024 COPD exacerbation (ICD-10 - J44.1) Neb medication order sent to [facility]. 07/25/2024 Stage 3 severe COPD by GOLD classification (ICD-10 - J44.9) 01/23/2025 Dependence on supplemental oxygen (ICD-10 - Z99.81) 03/01/2024 CHF (congestive heart failure) (ICD-10 - I50.9) 08/22/2024 Stage 3 severe COPD by GOLD classification (ICD-10 - J44.9) 07/25/2024 Nicotine dependence, cigarettes, in remission (ICD-10 - F17.211) 09/09/2024 Depression screen (ICD-10 - Z13.31) 12/01/2024 Stage 3 severe COPD by GOLD classification (ICD-10 - J44.9) Depression screening performed using PHQ-9 Depression Scale with a score less than 5. No treatment plan indicated at this time, and screenings will be performed as indicated. 10/11/2024 Chronic hypoxemic respiratory failure (ICD-10 - J96.11) 12/01/2024 Depression screening negative (ICD-10 - Z13.31) Depression screening performed using PHQ-9 Depression Scale with a score less than 5. No treatment plan indicated at this time, and screenings will be performed as indicated. 01/23/2025 Encounter for immunization (ICD-10 - Z23) 08/22/2024 Depression screen (ICD-10 - Z13.31) 07/25/2024 COPD exacerbation (ICD-10 - J44.1) 03/01/2024 Lumbosacral pain (ICD-10 - M54.50) 07/25/2024 Depression screen (ICD-10 - Z13.31) 03/01/2024 Hip pain (ICD-10 - M25.559) 01/23/2025 Immunization not carried out because of patient refusal (ICD-10 - Z28.21) 03/01/2024 Encounter for immunization (ICD-10 - Z23) 03/01/2024 Immunization not carried out because of patient refusal (ICD-10 - Z28.21) Plan Of Treatment Pending Test Test Name Order Date Chest inspiratory/expiratory-34720 01/05 Future Test Test Name Order Date CT Chest w/o Contrast diagnostic-[id number] 08/25/2023 Next Appt Details Provider Name:Onofre Osborne Aubrie, 03/21/2025 11:00:00 AM, [address] [place] [address], [place], [address], Insurance Providers Payer Name Payer Address Payer Phone Subscriber Number Group Number Insured Name Patient Relationship to Insured Coverage Start Date Coverage End Date [place] [address] [place] [address] [id number] Sheba Lira Self - patient is the insured [place] Medicaid [address] [place] [address] [phone] [id number] Sheba Lira Self - patient is the insured Medications Administered Medication Instructions Date of Administration Dosage Notes dexAMETHasone 12/26/2024 10 mg Rocephin 12/26/2024 1 g Medical (General) History Medical History History ICD Code anxiety emphysema COPD Pneumonia right pneumothorax Measles,Mumps arthritis bladder infections bronchitis Surgical History Surgery Date(Month/Year) c section cyst removal x 2 right tube thoracostomy Hospitalization History Reason Date(Month/Year) COVID- Pneumonia- [facility] - 5 days and then 2 more days 10/05 [facility] 02/2024 cardiomyopathy 2020 COPD exacerbation pneumothorax / right tube thoracostomy 0 12/2022
--- NOTE | 2025-02-23 08:48 | W.ED.SOB ---
HPI - SOB/Dyspnea General: Chief Complaint: Shortness of Breath/Dyspnea Stated Complaint: sob, hopkins Time Seen by Provider: 02/23/25 08:33 Source: patient and EMS Mode of arrival: EMS Limitations: no limitations History of Present Illness: HPI Narrative: 69-year-old female history of COPD states that over the last 2 to 3 days she has been having increasing shortness of breath along with wheezing states she has had a slight cough as well. She has oxygen at home as needed she denies any chest pain denies any fevers did receive a breathing treatment and Solu-Medrol and route states she is feeling slightly improved. Related Data Home Medications ?Medication ?Instructions ?Recorded ?Confirmed clonazepam 0.5 mg tablet 0.5 mg PO BID PRN Anxiety 09/28/24 10/03/24 albuterol sulfate 2.5 mg/3 mL 2.5 mg inhalation Q6H PRN 10/03/24 10/03/24 (0.083 %) solution for nebulization Shortness Of Breath Or Wheezing Previous Rx's ?Medication ?Instructions ?Recorded nebulizer compressor with kit #1 ea 02/18/21 nebulizer accessories #1 ea 12/06/21 oxygen small portable concentrator #1 ea 01/07/23 budesonide-formoterol HFA 160 2 puff inhalation BID #10.2 grams 09/21/23 mcg-4.5 mcg/actuation aerosol inhaler (Symbicort) amoxicillin 875 mg-potassium 1 tab PO BID #6 tabs 10/04/24 clavulanate 125 mg tablet budesonide 90 mcg/actuation breath 1 inh inhalation BID #1 ea 10/04/24 activated powder inhaler (Pulmicort Flexhaler) dexamethasone 6 mg tablet 6 mg PO DAILY #8 tabs 10/04/24 ipratropium 0.5 mg-albuterol 3 mg 0.5 ml inhalation Q8H Shortness Of 10/04/24 (2.5 mg base)/3 mL nebulization Breath Or Wheezing 30 days #90 mL soln cephalexin 500 mg capsule 500 mg PO TID 7 days #21 caps 02/23/25 prednisone 50 mg tablet 50 mg PO DAILY #5 tabs 02/23/25 Allergies Allergy/AdvReac Type Severity Reaction Status Date / Time aspirin Allergy Intermediate ADR/ALGY-Pa Verified 12/15/23 14:01 lpitations fluticasone furoate (From Allergy Intermediate hives Verified 12/15/23 14:01 Trelegy Ellipta) umeclidinium (From Trelegy Allergy Intermediate hives Verified 12/15/23 14:01 Ellipta) vilanterol (From Trelegy Allergy Intermediate hives Verified 12/15/23 14:01 Ellipta) roflumilast (From Daliresp) AdvReac Intermediate ADR-Abdominal Verified 12/15/23 14:01 Pain codeine AdvReac ADR-Nausea Verified 12/15/23 14:01 Review of Systems Resp: Reports: dyspnea, non-productive cough and wheezing PFSH ED PFSH: Medical History (Updated 02/23/25 @ 10:48 by Karime Jaimes MD) Enrolled in chronic care management Takotsubo cardiomyopathy COPD (chronic obstructive pulmonary disease) Sciatic pain Osteoarthritis of left knee Surgical History H/O eye surgery History of History of partial hysterectomy Family History Other CAD (coronary artery disease) Cancer Social History Smoking and tobacco/nicotine status: former use of tobacco/nicotine Quit status (tobacco/nicotine): has quit using Year quit tobacco: quit 2 months ago Second hand smoke exposure: No Alcohol intake: never Substance/Drug Use: never Lives independently: Yes Household members: none Marital status: / Number of children: 2 Number of grandchildren: 8 Current occupational status: retired Physical Exam Const: COMMON NORMALS: patient oriented x3 HENMT: COMMON NORMALS: normocephalic and atraumatic HEAD & SCALP: normocephalic and atraumatic Eye: COMMON NORMALS: conjunctivae normal CONJUNCTIVA: Yes conjunctivae normal Neck/C-Spine: COMMON NORMALS: full ROM and supple Chest: COMMONS NORMALS: normal inspection of the chest and normal palpation of entire chest wall Resp: COMMON NORMALS: No retractions and No use of accessory muscles AUSCULTATION: wheezes Cardio: COMMON NORMALS: regular rate, regular rhythm and No murmurs present (Cardio) RATE: regular rate RHYTHM: regular rhythm GI: COMMON NORMALS: Normal to inspection, nondistended, normoactive bowel sounds present, Soft to palpation, non-tender and no masses PALPATION: Yes Soft to palpation Extremity: COMMON NORMALS: normal to inspection and full ROM Neuro: COMMON NORMALS: patient oriented x3, moves all extremities and no focal motor deficits Psych: COMMON NORMALS: mental status grossly normal, Normal thought process present and cooperative THOUGHT PROCESS: Normal thought process present Skin: COMMON NORMALS: no rashes or lesions noted and no wounds GENERAL SKIN EXAM: no rashes or lesions noted Course Vital Signs: Vital signs: Vital Signs Temperature 97.8 F 02/23/25 08:31 Pulse Rate 87 02/23/25 09:51 Respiratory Rate 18 02/23/25 09:51 Blood Pressure 123/83 02/23/25 09:51 Pulse Oximetry 97 02/23/25 09:51 Oxygen Delivery Me thod Nasal Cannula 02/23/25 09:51 Oxygen Flow Rate 3 02/23/25 09:51 MDM - SOB/Dyspnea Medical Decision Making Patient presents here with increased dyspnea with history of asthma. Differential includes COPD exacerbation, congestive heart failure, pneumonia. I did review patient's chest x-ray she has no acute findings no signs of pneumonia. Blood work showed no significant abnormality no increased white count. She has no signs of cardiac cause I did interpret her EKG here normal sinus rhythm heart rate [address] elevation QRS 105 QTc 391. She felt much improved after Solu-Medrol and breathing treatments does wear 2 L of oxygen as needed has not no hypoxia here she feels much improved like to go home I feel she is stable for discharge we will place her on 5 days a steroids along with Keflex she is follow-up her PCP and return if worsening she understands agrees to plan. Medical Records I reviewed the patient's medical records. Lab Data I reviewed the patient's lab results. 02/23/25 09:43 02/23/25 09:43 Labs/Radiology: Radiology Impressions Chest X-Ray 02/23/25 08:34 IMPRESSION: 1. Extensive chronic pleural and pulmonary changes and hyperinflation. 2. Chronic RIGHT ventricular enlargement. 3. No acute process. Laboratory Results WBC 7.73 10^3/uL (3.29-11.43) 02/23/25 09:43 RBC 4.10 10^6/uL (3.85-5.65) 02/23/25 09:43 Hgb 12.90 g/dL (11.27-16.99) 02/23/25 09:43 Hct 40.8 % (36-47) 02/23/25 09:43 MCV 99.5 fl (85-98) H 02/23/25 09:43 MCH 31.5 pg (27-33) 02/23/25 09:43 MCHC 31.6 g/dL (30-55) 02/23/25 09:43 RDW 12.5 % (12.1-15.1) 02/23/25 09:43 Plt Count 197 10^3/cmm (157-399) 02/23/25 09:43 MPV 10.0 fL (7.4-10.4) 02/23/25 09:43 Neut % (Auto) 93.6 % 02/23/25 09:43 Lymph % (Auto) 3.8 % 02/23/25 09:43 [place] % (Auto) 1.9 % 02/23/25 09:43 Eos % (Auto) 0.0 % 02/23/25 09:43 Baso % (Auto) 0.4 % 02/23/25 09:43 Neut # (Auto) 7.24 10^3/uL (1.8-7.7) 02/23/25 09:43 Lymph # (Auto) 0.3 10^3/uL (0.8-4.8) L 02/23/25 09:43 [place] # (Auto) 0.2 10^3/uL (0.2-0.9) 02/23/25 09:43 Eos # (Auto) 0.0 10^3/uL (0.0-0.8) 02/23/25 09:43 Baso # (Auto) 0.0 10^3/uL (0.0-0.1) 02/23/25 09:43 Nucleated RBC % (auto) 0 % 02/23/25 09:43 Nucleated RBCs # 0.0 /100WBC 02/23/25 09:43 Sodium 141 mmol/L (136-145) 02/23/25 09:43 Potassium 4.3 mmol/L (3.5-5.1) 02/23/25 09:43 Chloride 96 mmol/L (98-107) L 02/23/25 09:43 Carbon Dioxide 34 mmol/L (22-29) H 02/23/25 09:43 Anion Gap 15.3 (5-19) 02/23/25 09:43 BUN 7 mg/dL (8-23) L 02/23/25 09:43 Creatinine 0.4 mg/dL (0.5-0.9) L 02/23/25 09:43 GFR Calculation Not Reportable 02/23/25 09:43 Glucose 121 mg/dL (65-115) H 02/23/25 09:43 Calculated Osmolality 291 mOsm/kg (285-295) 02/23/25 09:43 Calcium 9.3 mg/dL (8.5-10.5) 02/23/25 09:43 Total Bilirubin 0.2 mg/dL (0.15-1.2) 02/23/25 09:43 AST 20 U/L (0-32) 02/23/25 09:43 ALT 13 U/L (0-33) 02/23/25 09:43 Alkaline Phosphatase 83 U/L (35-105) 02/23/25 09:43 NT-Pro-B Natriuret Pep 180 pg/mL (0-125) H 02/23/25 09:43 Total Protein 6.9 g/dL (6.6-8.7) 02/23/25 09:43 Albumin 4.3 g/dL (3.5-5.2) 02/23/25 09:43 Globulin 2.6 g/dL (1.3-4.6) 02/23/25 09:43 All radiology interpretation(s) finalized by discharge EKG Data EKG 1: I personally reviewed and interpreted this EKG as follows: EKG Interpretation Date: 02/23/25 EKG interpretation time: 08:36 Interpretation: nsr hr [address] elevation qrs 105 qtc 391 Discharge Plan Discharge Patient Disposition: Home Clinical Impression: Acute exacerbation of chronic obstructive airways disease Condition: Stable Prescriptions: New cephalexin 500 mg capsule 500 mg PO TID 7 Days Qty: 21 0RF prednisone 50 mg tablet 50 mg PO DAILY Qty: 5 0RF No Action (DME) oxygen small portable concentrator See Rx Instructions .Route .MEDSUPPLY Qty: 1 0RF Rx Instructions: As directed budesonide-formoterol [Symbicort] 160-4.5 mcg/actuation HFA aerosol inhaler 2 puff inhalation BID Qty: 10.2 3RF (DME) nebulizer compressor with kit See Rx Instructions .Route .MEDSUPPLY Qty: 1 0RF Rx Instructions: As directed (DME) nebulizer accessories Kit See Rx Instructions .Route Qty: 1 0RF Rx Instructions: nebulizer kit/accessories/tubing clonazepam 0.5 mg tablet 0.5 mg PO BID PRN (Reason: Anxiety) albuterol sulfate 2.5 mg /3 mL (0.083 %) solution for nebulization 2.5 mg inhalation Q6H PRN (Reason: Shortness Of Breath Or Wheezing) amoxicillin-pot clavulanate 875-125 mg tablet 1 tab PO BID Qty: 6 0RF dexamethasone 6 mg tablet 6 mg PO DAILY Qty: 8 0RF ipratropium-albuterol 0.5 mg-3 mg(2.5 mg base)/3 mL solution for nebulization 0.5 ml INHALATION Q8H 30 Days Qty: 90 0RF Pulmicort Flexhaler 90 mcg/actuation aerosol powdr breath activated 1 inh inhalation BID Qty: 1 0RF Discharge Orders: Discharge ED (Routine); Ordered 02/23/25 Ordered By: Karime Jaimes Referrals: Gerson Alfred MD [Primary Care Provider, Internal Medicine] - 4-7 days Discharge Diet: Advance as tolerated Discharge Activity: Resume usual activity Patient Instructions: COPD (Chronic Obstructive Pulmonary Disease) (ED) Print Language: Maldivian Coding Level of Care Code ED Site Acquisition Manager for Laura Bonilla
[2025-02-23 08:56] VITALS: BP 137/81; PULSE 73; RESP 20; O2SAT 97
[2025-02-23 09:51] VITALS: BP 123/83; PULSE 87; RESP 18; O2SAT 97
[2025-02-23 09:53] LABS: Hematocrit 40.8 % (36-47); Hemoglobin 12.90 g/dL (11.27-16.99); Mean Corpuscular HGB Conc 31.6 g/dL (30-55); Mean Corpuscular Hemoglobin 31.5 pg (27-33); Mean Corpuscular Volume 99.5 fl (85-98); Nucleated Red Blood Cells % 0 %; Platelet Count 197 10^3/cmm (157-399); Red Blood Count 4.10 10^6/uL (3.85-5.65); White Blood Count 7.73 10^3/uL (3.29-11.43)
[2025-02-23 10:27] LABS: Alanine Aminotransferase 13 U/L (0-33); Albumin Level 4.3 g/dL (3.5-5.2); Alkaline Phosphatase 83 U/L (35-105); Anion Gap 15.3 (5-19); Aspartate Amino Transferase 20 U/L (0-32); Blood Urea Nitrogen 7 mg/dL (8-23); Calcium 9.3 mg/dL (8.5-10.5); Carbon Dioxide 34 mmol/L (22-29); Chloride 96 mmol/L (98-107); Globulin 2.6 g/dL (1.3-4.6); Glucose 121 mg/dL (65-115); NT Pro B Type Natriuretic Pept 180 pg/mL (0-125); Osmolality Calculated 291 mOsm/kg (285-295); Potassium 4.3 mmol/L (3.5-5.1); Sodium 141 mmol/L (136-145); Total Protein 6.9 g/dL (6.6-8.7)
[2025-02-23 11:17] VITALS: BP 123/82; PULSE 84; RESP 22; TEMP 36.7; O2SAT 96
== END 2025-02-23 11:20 | disposition home or self-care (01) ==
PROVIDERS: Emergency Provider Emergency Medicine; PCP Internal Medicine
DX: J44.1 Chronic obstructive pulmonary disease with (acute) exacerbation (principal); Z87.891 Personal history of nicotine dependence; J44.9 Chronic obstructive pulmonary disease, unspecified
CPT/HCPCS: 36415; 71045; 80053; 83880; 85025; 93005; 99285

== ENCOUNTER 2025-02-27 10:35 | Inpatient (IN) | payer MEDICARE, MEDICAID, SELFPAY ==
--- OUTSIDE RECORDS SUMMARY | 2024-08-23 04:20 | XMS_ITS ---
Author Organization [facility] Address [address] [place] [address] Care Team Providers Care Meter Mechanic Name Role Phone Onofre Alfred Primary Care Provider [phone] REASON FOR VISIT 1 MONTH F/U Encounters Encounter Location Date Provider Diagnosis [facility] [address] [address] 08/23/2024 Onofre Alfred Plan Of Treatment Next Appt Details Provider Name:Onofre Alfred, 03/21/2025 11:00:00 AM, [address], [id number], Progress Notes * Sheba VALVERDE ADOB:[birth year] (69 yo F)Acc No.[id number]:08/23/2024 Progress Notes Patient: Sheba Malhotra Provider: Ghazala Alfred MD :1955 A ge:68 Y S ex:Female Date:08/23/2024 Address:[address] [id number] Subjective: * Chief Complaints: * 1 MONTH F/U Care Plan Details* * Electronic signature of Eugenio Alfred MD on 02/27/2025 at 07:53 PM POWER ENGINEER Sign off status: Pending * Provider: Ghazala Alfred MD Date: 0 08/23/2024 Generated for Mignon melo/Fasukhig/eTransmitting on: 1 04/29/2024 07:53 PM POWER ENGINEER
--- OUTSIDE RECORDS SUMMARY | 2025-01-03 04:40 | XMS_ITS ---
Author Organization [facility] Address [address] [place] [address] Care Team Providers Care Rfid Specialist Name Role Phone Onofre Alfred Primary Care Provider [phone] REASON FOR VISIT 1 MONTH F/U Encounters Encounter Location Date Provider Diagnosis [facility] [address] [address] 01/03/2025 Onofre Alfred Plan Of Treatment Next Appt Details Provider Name:Onofre Alfred, 03/21/2025 11:00:00 AM, [address], [address], Progress Notes * Sheba VALVERDE ADOB:[birth year] (69 yo F)Acc No.[id number]:01/03/2025 Progress Notes Patient: Sheba Malhotra Provider: Ghazala Alfred MD :1955 A ge:69 Y S ex:Female Date:01/03/2025 Address[id number] Subjective: * Chief Complaints: * 1 MONTH F/U Care Plan Details* * Electronic signature of Eugenio Alfred MD on 02/27/2025 at 07:53 PM CIVIL LABORATORY TECHNICIAN Sign off status: Pending * Provider: Ghazala Alfred MD Date: 0 01/03/2025 Generated for Mignon ng/Fasukhig/eTransmitting on: 1 04/29/2024 07:53 PM CIVIL LABORATORY TECHNICIAN
[2025-02-27] VITALS (30 sets, daily range): BP systolic 90–140; BP diastolic 57–87; PULSE 67–125; RESP 12–24; TEMP 36.6–36.9; O2SAT 89–100; BMI 27.3
--- NOTE | 2025-02-27 10:35 | XR_ITS ---
WS: [id number] XR chest 1V portable [id number] REASON FOR EXAM: dyspnea/cough FINDINGS: The chest is unchanged compared to 02/23/2025. Extensive central lobar emphysematous changes in the upper lobes with large bullous formation in the lung bases. Upward retraction of the hilar regions with extensive calcified granulomatous change centrally. Pleural thickening and parenchymal scarring and subpleural bullous formation in the lung apices more significant on the right. Right ventricular enlargement. XR/XR chest 1V portable [id number] IMPRESSION: Stable chest. Chronic complex abnormal lungs and pleura as above, with no definite acute abno rmality. Chronic right ventricular enlargement.
--- NOTE | 2025-02-27 10:36 | ECG_ITS ---
[facility] Test Date: 2025-02-27 Pat Name: Sheba Lira Department: Room: Gender: Female Bolter Helper: : 1955 Requested By: Kyler Webster Order Number: [id number] Latricia MD: Shan Hernandez M.D. Measurements Intervals [place] Rate: 90 P: 75 FL: 154 QRS: 80 QRSD: 102 T: 74 QT: 318 QTc: 389 Interpretive Statements SINUS RHYTHM POSSIBLE LEFT ATRIAL ENLARGEMENT [-0.1mV P-WAVE IN V1/V2] INCOMPLETE RIGHT BUNDLE BRANCH BLOCK [90+ ms QRS DURATION, TERMINAL R IN V1/V2, 40+ ms S IN I/aVL/V4/V5/V6] Compared to ECG 02/23/2025 08:36:16 No significant changes Electronically Signed On 03-01-2025 09:50:44 LINE TENDER FLAKEBOARD by Shan Hernandez M.D. [email or web address] [id number]
[2025-02-27 10:51] LABS: ABG PH Result 7.31 (7.35-7.45); Arterial Blood Gas Hematocrit 40.3 % (37-47); Blood Gas Allen Test Pos; Blood Gas LPM 8.0 %; Blood Gas Operator Identificat MONRO; Blood Gas Sample Site Radial, right; Blood Gas Sample Type Arterial; Carboxyhemoglobin 1.4 %THgb (0.4-20.1); Glucose Level-ABG 81.0 mg/dL (70-115); HCO3 ABG 41.1 mmol/L (22-26); Ionized Calcium Level - ABG 1.3 mmol/L (1.1-1.4); Methemoglobin 0.2 % (0.4-1.5); Oxygen Saturation ABG > 99.1; PO2 ABG 170.0 mmHg (80.0-100.0); Potassium Level - ABG 4.2 mmol/L (3.5-5.0); Sodium Level - ABG 138.0 mmol/L (131-143)
[2025-02-27 10:52] LABS: ABG PCO2 82.4 mmHg (35-45)
--- NOTE | 2025-02-27 11:11 | ED_ITS ---
HPI - SOB/Dyspnea 2 General: Chief Complaint: Shortness of Breath/Dyspnea Stated Complaint: resp distress Time Seen by Provider: 02/27/25 10:35 History of Present Illness: HPI Narrative: * 69-year-old female who presents to the emergency room with complaints of respiratory distress. She had increasing shortness of breath over the last 3 days nonproductive cough no hemoptysis. She was recently emergency room discharged home with nebulizer and antibiotic. EMS reported her oxygen sat at home was in the low 80s improved slightly with oxygen supplementation she was increased to 8 L by mask and given a nebulizer she had sats in the upper 90s with this. She denies any fever sweats or chills she has had a little bit of intermittent chest pain over the last few days. Associated symptoms: Reports chest congestion; Deny abdominal pain, chest pain or fever(s) Related Data Home Medications ?Medication ?Instructions ?Recorded ?Confirmed clonazepam 0.5 mg tablet 0.5 mg PO BID PRN Anxiety 10/03/24 albuterol sulfate 2.5 mg/3 mL 2.5 mg inhalation Q6H VA N 10/03/24 10/03/24 (0.083 %) solution for nebulization Shortness Of Breat h Or Wheezing Previous Rx's ?Medication ?Instructions ?Recorded nebulizer compressor with kit #1 ea 02/18/21 nebulizer accessories #1 ea 12/06/21 oxygen small portable concentrator #1 ea 01/07/23 budesonide-formoterol HFA 160 2 puff inhalation BID #1 0.2 grams 09/21/23 mcg-4.5 mcg/actuation aerosol inhaler (Symbicort) amoxicillin 875 mg-potassium 1 tab PO BID #6 tabs 09/12 08/05 clavulanate 125 mg tablet budesonide 90 mcg/actuation breath 1 inh inhalation BI D #1 ea 10/04/24 activated powder inhaler (Pulmicort Flexhaler) dexamethasone 6 mg tablet 6 mg PO DAILY #8 tabs ipratropium 0.5 mg-albuterol 3 mg 0.5 ml inhalation Q8 H Shortness Of 10/04/24 (2.5 mg base)/3 mL nebulization Breath Or Wheezing 30 days #90 mL soln cephalexin 500 mg capsule 500 mg PO TID 7 days #21 cap s 02/23/25 prednisone 50 mg tablet 50 mg PO DAILY #5 tabs 02/23 Allergies Allergy/AdvReac Type Severity Reaction Status Date / Time aspirin Allergy Intermediate ADR/ALGY-Pa Verified 12/15/23 14:01 lpitations fluticasone furoate (From Allergy Intermediate hives Verified 12/15/23 14:01 Trelegy Ellipta) umeclidinium (From Trelegy Allergy Intermediate hives Verified 12/15/23 14:01 Ellipta) vilanterol (From Trelegy Allergy Intermediate hives Verified 12/15/23 14:01 Ellipta) roflumilast (From Daliresp) AdvReac Intermediate ADR-Abdominal Verified 12/15/23 14:01 Pain codeine AdvReac ADR-Nausea Verified 12/15/23 14:01 Review of Systems 2 Const: Denies: fever(s) or chills Card: Denies: chest pain Resp: Reports: dyspnea, non-productive cough, wheezing and chest congestion GI: Denies: abdominal pain : Denies: dysuria, urinary frequency or urinary urgency Musc: Denies: neck pain or back pain Skin/Breast: Denies: rash PFSH ED 2 PFSH: Medical History Enrolled in chronic care management Takotsubo cardiomyopathy COPD (chronic obstructive pulmonary disease) Sciatic pain Osteoarthritis of left knee Surgical History H/O eye surgery History of History of partial hysterectomy Family History Other CAD (coronary artery disease) Cancer Social History Smoking and tobacco/nicotine status: former use of tobacco/nicotine Quit status (tobacco/nicotine): has quit using Year quit tobacco: quit 2 months ago Second hand smoke exposure: No Alcohol intake: never Substance/Drug Use: never Lives independently: Yes Household members: none Marital status: / Number of children: 2 Number of grandchildren: 8 Current occupational status: retired Physical Exam 2 Const: GENERAL APPEARANCE: cooperative ORIENTATION/CONSCIOUSNESS: Yes awake, Yes oriented to person, Yes oriented to place and Yes oriented to time HENMT: COMMON NORMALS: normocephalic, atraumatic and hearing grossly normal bilaterally HEAD & SCALP: normocephalic and atraumatic Resp: COMMON NORMALS: normal respiratory effort, No retractions and No use of accessory muscles AUSCULTATION: rhonchi and wheezes Cardio: COMMON NORMALS: regular rate, regular rhythm and No murmurs present (Cardio) RATE: regular rate RHYTHM: regular rhythm GI: COMMON NORMALS: Soft to palpation and No hepatosplenomegaly present A USCULTATION: Yes normoactive bowel sounds PALPATION: Yes Soft to palpation, No Tenderness to palpation present (GI), No Guarding due to palpation present (GI) and Yes No hepatosplenomegaly present Extremity: COMMON NORMALS: normal to inspection, capillary refill normal, no clubbing, cyanosis or edema, no calf tenderness and no pedal edema Neuro: SENSORIUM/ORIENTATION: Yes oriented to person, Yes oriented to place and Yes oriented to time Skin: COMMON NORMALS: no rashes or lesions noted GENERAL SKIN EXAM: no rashes or lesions noted Course 2 Vital Signs: Vital signs: Vital Signs Temperature 98.4 F 02/27/25 10:37 Pulse Rate 90 02/27/25 11:34 Respiratory Rate 23 H 02/27/25 11:33 Blood Pressure 140/87 02/27/25 10:37 Pulse Oximetry 98 02/27/25 11:34 Oxygen Delivery Me thod BiPAP 02/27/25 11:33 Oxygen Flow Rate 8 02/27/25 10:37 Fraction of Inspir ed Oxygen 35 02/27/25 11:34 MDM - SOB/Dyspnea Medical Decision Making Acute respiratory distress hypercapnia, hypoxic respiratory failure. Patient has chronic interstitial changes does appear there may be some upper lobe and right middle lobe infiltrates slightly increased. Her white count is normal. Initial blood gas patient is severely hypercapnic with pCO2 in the 80s. Lactic acid is pending. He started IV antibiotics. She has improved on the BiPAP discussed with the hospitalist orders written Medical Records I reviewed the patient's medical records. Lab Data I reviewed the patient's lab results. 02/27/25 10:58 02/27/25 10:58 Labs/Radiology: Radiology Impressions Chest X-Ray 02/27/25 10:35 IMPRESSION: Stable chest. Chronic complex abnormal lungs and pleura as above, with no definite acute abnormality. Chronic right ventricular enlargement. Laboratory Results WBC 9.39 10^3/uL (3.29-11.43) 02/27/25 10:58 RBC 4.43 10^6/uL (3.85-5.65) 02/27/25 10:58 Hgb 13.60 g/dL (11.27-16.99) 02/27/25 10:58 Hct 44.1 % (36-47) 02/27/25 10:58 MCV 99.5 fl (85-98) H 02/27/25 10:58 MCH 30.7 pg (27-33) 02/27/25 10:58 MCHC 30.8 g/dL (30-55) 02/27/25 10:58 RDW 12.4 % (12.1-15.1) 02/27/25 10:58 Plt Count 200 10^3/cmm (157-399) 02/27/25 10:58 MPV 10.2 fL (7.4-10.4) 02/27/25 10:58 Neut % (Auto) 75.7 % 02/27/25 10:58 Lymph % (Auto) 10.0 % 02/27/25 10:58 [place] % (Auto) 13.8 % 02/27/25 10:58 Eos % (Auto) 0.0 % 02/27/25 10:58 Baso % (Auto) 0.3 % 02/27/25 10:58 Neut # (Auto) 7.10 10^3/uL (1.8-7.7) 02/27/25 10:58 Lymph # (Auto) 0.9 10^3/uL (0.8-4.8) 02/27/25 10:58 [place] # (Auto) 1.3 10^3/uL (0.2-0.9) H 02/27/25 10:58 Eos # (Auto) 0.0 10^3/uL (0.0-0.8) 02/27/25 10:58 Baso # (Auto) 0.0 10^3/uL (0.0-0.1) 02/27/25 10:58 Nucleated RBC % (auto) 0 % 02/27/25 10:58 Nucleated RBCs # 0.0 /100WBC 02/27/25 10:58 Specimen Type Arterial 02/27/25 12:04 Sample Site Radial, right 02/27/25 12:04 ABG pH 7.34 (7.35-7.45) L 02/27/25 12:04 ABG pCO2 77.2 mmHg (35-45) H* 02/27/25 12:04 ABG pO2 86.5 mmHg (80.0-100.0) 02/27/25 12:04 ABG PO2/FiO2 Ratio 247 02/27/25 12:04 ABG HCO3 41.2 mmol/L (22-26) H 02/27/25 12:04 ABG O2 Saturation 96.8 02/27/25 12:04 ABG Base Excess 12.0 mmol/L (-2.0-2.0) H 02/27/25 12:04 Edgardo Test Pos 02/27/25 12:04 A-a O2 Gradient 9.1 mmHg (5-10) 02/27/25 12:04 Hematocrit 40.1 % (37-47) 02/27/25 12:04 Hgb O2 Saturation 94.7 % (95-100) L 02/27/25 12:04 Carboxyhemoglobin 1.3 %THgb (0.4-20.1) 02/27/25 12:04 Methemoglobin 0.9 % (0.4-1.5) 02/27/25 12:04 Total Hemoglobin 13.1 g/dL (12-16) 02/27/25 12:04 Sodium 140.0 mmol/L (131-143) 02/27/25 12:04 Potassium 4.1 mmol/L (3.5-5.0) 02/27/25 12:04 Glucose 91.0 mg/dL (70-115) 02/27/25 12:04 Ionized Calcium 1.2 mmol/L (1.1-1.4) 02/27/25 12:04 O2 Delivery Device Bipap 02/27/25 12:04 O2 Liters/Min 8.0 % 02/27/25 10:39 FiO2 35.0 % 02/27/25 12:04 Thread Cutter Tender ID [place] 02/27/25 12:04 Sodium 137 mmol/L (136-145) 02/27/25 10:58 Potassium 4.1 mmol/L (3.5-5.1) 02/27/25 10:58 Chloride 91 mmol/L (98-107) L 02/27/25 10:58 Carbon Dioxide 35 mmol/L (22-29) H 02/27/25 10:58 Anion Gap 15.1 (5-19) 02/27/25 10:58 BUN 12 mg/dL (8-23) 02/27/25 10:58 Creatinine 0.4 mg/dL (0.5-0.9) L 02/27/25 10:58 GFR Calculation Not Reportable 02/27/25 10:58 Glucose 79 mg/dL (65-115) 02/27/25 10:58 Calculated Osmolality 283 mOsm/kg (285-295) L 02/27/25 10:58 Lactic Acid Cancelled 02/27/25 10:58 Calcium 9.4 mg/dL (8.5-10.5) 02/27/25 10:58 Total Bilirubin 0.2 mg/dL (0.15-1.2) 02/27/25 10:58 AST 19 U/L (0-32) 02/27/25 10:58 ALT 15 U/L (0-33) 02/27/25 10:58 Alkaline Phosphatase 84 U/L (35-105) 02/27/25 10:58 Troponin T Baseline 7 ng/L (0-10) 02/27/25 10:58 NT-Pro-B Natriuret Pep 509 pg/mL (0-125) H 02/27/25 10:58 Total Protein 6.7 g/dL (6.6-8.7) 02/27/25 10:58 Albumin 4.6 g/dL (3.5-5.2) 02/27/25 10:58 Globulin 2.1 g/dL (1.3-4.6) 02/27/25 10:58 Procalcitonin 0.02 ng/mL (0-0.5) 02/27/25 10:58 Influenza A (PCR) Negative (Negative) 02/27/25 11:26 Influenza Type B (PCR) Negative (Negative) 02/27/25 11: RSV (PCR) Negative (Negative) 02/27/25 11: SARS-CoV-2 (PCR) Negative (Negative) 02/27/25 11:26 All radiology interpretation(s) finalized by discharge EKG Data EKG 1: I personally reviewed and interpreted this EKG as follows: Interpretation: EKG 02/27/2025 10:42 AM sinus rhythm rate of 90 VA interval 154 QTc 318 incomplete bundle branch block. No acute ST changes. Compared to EKG 02/23/2025 no significant change EKG 2: I personally reviewed and interpreted this EKG as follows: Interpretation: EKG 02/27/2025 12:22 AM sinus rhythm occasional PVCs incomplete right bundle branch block rate of 93 VA interval 137 QTc [address] changes noted no STEMI. Compared to EKG done earlier same day no significant change Discharge Plan Discharge Patient Disposition: Admitted As Inpatient Admit Provider: Shukri Ellsworth Clinical Impression: Acute on chronic respiratory failure with hypoxia and hypercapnia Condition: Stable Coding Level of Care Code ED Core Laying Machine Operator for Geethag Irene
[2025-02-27 11:16] LABS: Hematocrit 44.1 % (36-47); Hemoglobin 13.60 g/dL (11.27-16.99); Mean Corpuscular HGB Conc 30.8 g/dL (30-55); Mean Corpuscular Hemoglobin 30.7 pg (27-33); Mean Corpuscular Volume 99.5 fl (85-98); Nucleated Red Blood Cells % 0 %; Platelet Count 200 10^3/cmm (157-399); Red Blood Count 4.43 10^6/uL (3.85-5.65); White Blood Count 9.39 10^3/uL (3.29-11.43)
[2025-02-27 11:35] LABS: Troponin(5th) Baseline 7 ng/L (0-10)
[2025-02-27] MEDS: methylPREDNISolone sod succ 125 mg/2 mL INJ IVP (11:36)
[2025-02-27] MEDS: piperacillin-tazobactam 3.375 GM in sodium chloride 0.9% (plus) 50 ML IV (11:37)
[2025-02-27 11:51] LABS: Alanine Aminotransferase 15 U/L (0-33); Albumin Level 4.6 g/dL (3.5-5.2); Alkaline Phosphatase 84 U/L (35-105); Aspartate Amino Transferase 19 U/L (0-32); Blood Urea Nitrogen 12 mg/dL (8-23); Calcium 9.4 mg/dL (8.5-10.5); Carbon Dioxide 35 mmol/L (22-29); Chloride 91 mmol/L (98-107); Globulin 2.1 g/dL (1.3-4.6); Glucose 79 mg/dL (65-115); NT Pro B Type Natriuretic Pept 509 pg/mL (0-125); Osmolality Calculated 283 mOsm/kg (285-295); Sodium 137 mmol/L (136-145); Total Protein 6.7 g/dL (6.6-8.7)
[2025-02-27 11:52] LABS: Anion Gap 15.1 (5-19); Potassium 4.1 mmol/L (3.5-5.1)
[2025-02-27 12:06] LABS: Procalcitonin 0.02 ng/mL (0-0.5)
[2025-02-27 12:15] LABS: Respiratory Syncytial Virus Ce NEGATIVE (Negative); SARS-CoV-2 PCR NEGATIVE (Negative)
[2025-02-27 12:17] LABS: ABG PCO2 77.2 mmHg (35-45); ABG PH Result 7.34 (7.35-7.45); Alveolar-Arterial Oxygen Gradi 9.1 mmHg (5-10); Arterial Blood Gas Hematocrit 40.1 % (37-47); Blood Gas Allen Test Pos; Blood Gas Operator Identificat MONRO; Blood Gas Sample Site Radial, right; Blood Gas Sample Type Arterial; Carboxyhemoglobin 1.3 %THgb (0.4-20.1); Glucose Level-ABG 91.0 mg/dL (70-115); HCO3 ABG 41.2 mmol/L (22-26); Ionized Calcium Level - ABG 1.2 mmol/L (1.1-1.4); Methemoglobin 0.9 % (0.4-1.5); Oxygen Saturation ABG 96.8; PO2 ABG 86.5 mmHg (80.0-100.0); PO2 FiO2 Ratio Arterial Blood 247; Potassium Level - ABG 4.1 mmol/L (3.5-5.0); Sodium Level - ABG 140.0 mmol/L (131-143)
--- NOTE | 2025-02-27 12:22 | ECG_ITS ---
[facility] Date: 2025-02-27 Pat Name: Sheba Lira Department: Room: Gender: Female Corporate Quality Engineer: : 1955 Requested By: Kyler Webster Order Number: [id number] Latricia MD: Shan Hernandez M.D. Measurements Intervals [place] Rate: 93 P: 68 [place]: 137 QRS: 76 QRSD: 105 T: 72 QT: 333 QTc: 416 Interpretive Statements SINUS RHYTHM WITH OCCASIONAL VENTRICULAR PREMATURE COMPLEXES POSSIBLE LEFT ATRIAL ENLARGEMENT [-0.1mV P-WAVE IN V1/V2] INCOMPLETE RIGHT BUNDLE BRANCH BLOCK [90+ ms QRS DURATION, TERMINAL R IN V1/V2, 40+ ms S IN I/aVL/V4/V5/V6] Compared to ECG 02/27/2025 10:42:19 Ventricular premature complex(es) now present Electronically Signed On 03-02-2025 00:24:55 FIRE SAFETY INSPECTOR by Shan Hernandez M.D. [email or web address]
--- NOTE | 2025-02-27 12:42 | PM.HP ---
Providers/Chief Complaint Admitting Physician: Shukri Ellsworth MD Primary Care Provider: Gerson Alfred MD Chief Complaint: resp distress History of Present Illness Sheba Lira is a 69 year old female with a past medical history of bullous emphysema, COPD, type 2 diabetes mellitus not on insulin, who presents [facility] for shortness of breath, cough. Currently patient is alert oriented x 3, follows all commands, on BiPAP therapy at 35% FiO2, in mild respiratory distress with nasal flaring, mild intercostal suprasternal retractions, tachypnea, tachycardia. She reports shortness of breath, productive cough for the last few days, no lightheadedness, dizziness, no diaphoresis no recent travel, no hemoptysis, she does report anterior chest discomfort Review of Systems Const: Reports: fever(s) and chills Card: Denies: chest pain Resp: Reports: dyspnea and productive cough GI: Denies: abdominal pain Medications/Allergies Home Medications ?Medication ?Instructions ?Recorded ?Confirmed ?Last Taken ?Type nebulizer compressor with kit #1 ea 02/18/21 10/03/24 Unknown Rx nebulizer accessories #1 ea 12/06/21 10/03/24 Unknown Rx oxygen small portable concentrator #1 ea 01/07/23 10/03/24 Unknown Rx budesonide-formoterol HFA 160 2 puff inhalation BID #10.2 grams 09/21/23 10/03/24 Unknown Rx mcg-4.5 mcg/actuation aerosol inhaler (Symbicort) clonazepam 0.5 mg tablet 0.5 mg PO BID PRN Anxiety 09/28/24 10/03/24 09/27/24 History albuterol sulfate 2.5 mg/3 mL 2.5 mg inhalation Q6H PRN 10/03/24 10/03/24 Unknown History (0.083 %) solution for nebulization Shortness Of Breath Or Wheezing amoxicillin 875 mg-potassium 1 tab PO BID #6 tabs 10/04/24 Unknown Rx clavulanate 125 mg tablet budesonide 90 mcg/actuation breath 1 inh inhalation BID #1 ea 10/04/24 Unknown Rx activated powder inhaler (Pulmicort Flexhaler) dexamethasone 6 mg tablet 6 mg PO DAILY #8 tabs 10/04/24 Unknown Rx ipratropium 0.5 mg-albuterol 3 mg 0.5 ml inhalation Q8H Shortness Of 10/04/24 10/03/24 10/02/24 Rx (2.5 mg base)/3 mL nebulization Breath Or Wheezing 30 days #90 mL soln cephalexin 500 mg capsule 500 mg PO TID 7 days #21 caps 02/23/25 Unknown Rx prednisone 50 mg tablet 50 mg PO DAILY #5 tabs 02/23/25 Unknown Rx Allergies Allergy/AdvReac Type Severity Reaction Status Date / Time aspirin Allergy Intermediate ADR/ALGY-Pa Verified 12/15/23 14:01 lpitations fluticasone furoate (From Allergy Intermediate hives Verified 12/15/23 14:01 Trelegy Ellipta) umeclidinium (From Trelegy Allergy Intermediate hives Verified 12/15/23 14:01 Ellipta) vilanterol (From Trelegy Allergy Intermediate hives Verified 12/15/23 14:01 Ellipta) roflumilast (From Daliresp) AdvReac Intermediate ADR-Abdominal Verified 12/15/23 14:01 Pain codeine AdvReac ADR-Nausea Verified 12/15/23 14:01 PFSH Acute PFSH: Medical History Enrolled in chronic care management Takotsubo cardiomyopathy COPD (chronic obstructive pulmonary disease) Sciatic pain Osteoarthritis of left knee Surgical History H/O eye surgery History of History of partial hysterectomy Family History Other CAD (coronary artery disease) Cancer Social History Smoking and tobacco/nicotine status: former use of tobacco/nicotine Quit status (tobacco/nicotine): has quit using Year quit tobacco: quit 2 months ago Second hand smoke exposure: No Alcohol intake: never Substance/Drug Use: never Lives independently: Yes Household members: none Marital status: / Number of children: 2 Number of grandchildren: 8 Current occupational status: retired Vitals/I&O/Wt Last Vital Signs Temp 98.4 F 02/27/25 10:37 Pulse 90 02/27/25 11:34 Resp 23 H 02/27/25 11:33 BP 140/87 02/27/25 10:37 Pulse Ox 98 02/27/25 11:34 O2 Del Method BiPAP 02/27/25 11:33 O2 Flow Rate 8 02/27/25 10:37 FiO2 35 02/27/25 11:34 Weight last 48 hrs Weight 65.771 kg Physical Exam Const: COMMON NORMALS: no acute distress and patient oriented x3 HENMT: COMMON NORMALS: normocephalic HEAD & SCALP: normocephalic Eye: COMMON NORMALS: Equal, round and reactive pupils present Neck/C-Spine: COMMON NORMALS: no JVD Lymph: LYMPHATIC: no lymphadenopathy noted Resp: COMMON NORMALS: normal respiratory effort, No retractions and No use of accessory muscles AUSCULTATION: crackles and wheezes Cardio: COMMON NORMALS: no JVD, regular rate, regular rhythm, S1 normal heart sound present and S2 normal heart sound present RATE: regular rate RHYTHM: regular rhythm HEART SOUNDS: S1 normal heart sound present and S2 normal heart sound present GI: COMMON NORMALS: Normal to inspection, nondistended, normoactive bowel sounds present, Soft to palpation and non-tender Extremity: COMMON NORMALS: no calf tenderness and no pedal edema Neuro: COMMON NORMALS: patient oriented x3, CN's II-XII intact bilaterally and moves all extremities Psych: COMMON NORMALS: mental status grossly normal Data 02/27/25 10:58 02/27/25 10:58 Micro: Microbiology 02/27/25 10:59 Blood Culture - Preliminary Blood SPECIMEN COLLECTED 02/27/25 10:58 Blood Culture - Preliminary Blood SPECIMEN COLLECTED A&P Assessment and plan 1. Acute hypercapnic respiratory failure: 2. Pneumonia: Plan: Acute hypoxic respiratory failure with hypercarbia Secondary to COPD exacerbation Concerns for pneumonia Plan - Monitor in ICU - BiPAP therapy - DuoNeb - Budesonide - Rocephin - Azithromycin - Sputum culture - Blood culture - Full code - Lovenox for DVT prophylaxis Chest pain Serial EKGs, serial troponins, telemetry monitoring Aspirin allergy Statin Cardiac echo PDMP PDMP Reviewed: Not Reviewed Attestations Medical Necessity Statement*: Patient requires hospitalization, for acute hypoxic respiratory failure, secondary to COPD, pneumonia Diagnoses Acute hypercapnic respiratory failure J96.02 Pneumonia J18.9
[2025-02-27 13:26] LABS: Troponin 5 2HR 6.91 ng/L (0-10)
[2025-02-27 13:27] LABS: Troponin 5 2HR Delta -0.09 ABS# (0-10)
[2025-02-27 13:30] LABS: Lactic Sepsis W/Reflex 1.8 mmol/L (0.5-2.2)
--- NOTE | 2025-02-27 13:35 | USCV_ITS ---
Pankaj Sheba Age: 69 Gender: F : 1955 Exam Date: 02/27/2025 15:08 Ordering Phys: Shukri Ellsworth MD Technologist: MASON [place] [facility] [place]: SoB BP: 132 / 87 HR: 73 Rhythm: Sinus Technical Quality: Adequate MEASUREMENTS (Male / Female) Normal Values 2D ECHO LV Diastolic Diameter PLAX 4.0 cm 4.2 - 5.9 / 3.9 - 5.3 cm IVS Diastolic Thickness 0.7 cm 0.6 - 1.0 / 0.6 - 0.9 cm IVS Systolic Thickness 0.9 cm LVPW Diastolic Thickness 0.8 cm 0.6 - 1.0 / 0.6 - 0.9 cm LVPW Systolic Thickness 0.9 cm LVOT Diameter 2.0 cm LV Ejection Fraction 2D Teich 21.2 % LV Ejection Fraction MOD 4C 54.0 % LV Ejection Fraction MOD 2C 55.6 % LV Ejection Fraction 2C AL 53.8 % LA Diameter 2.2 cm RA Systolic Volume 4C AL 71.3 ml RA Systolic Volume 4C MOD 70.0 ml LA Sys Volume AL 80.8 cm cubed LA Sys Volume Index AL 47.5 cm cubed/m squared Aorta at Sinotubular Diameter 2.6 cm IVC Diameter 1.3 cm M-MODE LA Ao Ratio MM 1.1 AV Cusp Separation MM 1.1 cm DOPPLER AV Peak Velocity 156.0 cm/s LVOT Peak Velocity 89.0 cm/s AV Area Cont Eq vti 1.7 cm squared AV Area Cont Eq pk 1.8 cm squared MV Peak Velocity 97.0 cm/s MV Area PHT 5.9 cm squared Mitral E to A Ratio 1.1 TV Peak Velocity 270.5 cm/s TR Peak Velocity 290.0 cm/s TR Peak Gradient 33.6 mmHg TV Peak E Velocity 63.0 cm/s PV Peak Velocity 112.0 cm/s FINDINGS Left Ventricle Normal left ventricular size and systolic function, EF 55%.. No regional wall motion abnormalities. Right Ventricle Normal right ventricular size and systolic function. Right Atrium Normal right atrial size. Left Atrium Normal left atrial size. IA Septum Appears to be intact Mitral Valve No gross abnormalities noted . Aortic Valve Thickened aortic valve. Tricuspid Valve No gross abnormalities noted Pulmonic Valve No gross abnormalities noted Pericardium No pericardial effusion. Aorta Normal aortic annulus size. IVC Inferior vena cava not visualized. CONCLUSIONS Normal left ventricular size and systolic function, EF 55%.. No regional wall motion abnormalities. Normal right ventricular size and systolic function. No gross valvular abnormalities noted There is no pericardial effusion. There are no intracardiac masses. Compared to the study from 10/03/2024, no significant change in the 2D findings Dr Shan Hernandez MD FACC (Electronically Signed) Final Date: 27 February 2025 17:14 S
[2025-02-27 14:21] LABS: Estmated Average Glucose 111; Hemoglobin A1C 5.5 % (4.0-6.0)
[2025-02-27 14:25] LABS: Cholesterol 226 mg/dL (0-200); HDL Cholesterol 95 mg/dL (60-100); Thyroid Stimulating Hormone 1.85 uIU/mL (0.27-4.20); Triglycerides 52 mg/dL (0-150)
[2025-02-27] MEDS: pantoprazole 40 mg SDV IVP (14:43)
[2025-02-27 15:06] LABS: Glucose Urine UA Negative (Normal); Nitrate Urine Negative (Negative); Specific Gravity, Urine 1.008 (1.005-1.030)
[2025-02-27 15:10] LABS: Add Urine Microscopic? YES
--- NOTE | 2025-02-27 15:50 | ECG_ITS ---
[facility] Test Date: 2025-02-27 Pat Name: Sheba Lira Department: Room: ICU03 Gender: Female Cop Examiner: : 1955 Requested By: Kyler Webster Order Number: [id number] Latricia MD: Shan Hernandez M.D. Measurements Intervals [place] Rate: 83 P: 85 VA: 145 QRS: 75 QRSD: 97 T: 78 QT: 341 QTc: 402 Interpretive Statements SINUS RHYTHM INCOMPLETE RIGHT BUNDLE BRANCH BLOCK [90+ ms QRS DURATION, TERMINAL R IN V1/V2, 40+ ms S IN I/aVL/V4/V5/V6] Compared to ECG 02/27/2025 12:22:18 Ventricular premature complex(es) no longer present Electronically Signed On 03-02-2025 00:22:41 RN TRANSPLANT by Shan Hernandez M.D. [email or web address]
[2025-02-27 17:34] LABS: Troponin 5 6HR 6.31 ng/L (0-10)
[2025-02-27 17:35] LABS: Troponin 5 6HR Delta -0.69 ng/L (0-12)
--- OUTSIDE RECORDS SUMMARY | 2025-02-27 19:54 | XMS_ITS | Clinical Summary ---
Author Organization [facility] Address [address] Attn: Epic Prelude ADT [place] [address] Care Team Providers Care Nut Process Helper Name Role Phone Unavailable Primary Care Provider [...]
--- OUTSIDE RECORDS SUMMARY | 2025-02-27 19:54 | XMS_ITS | Patient Health Record ---
Author Organization [facility] Address [address] [place] [address] Care Team Providers Care Property And Supply Officer Name Role Phone Onofre Alfred Primary Care Provider Brittany Ovalle Unavailable [phone] Allergies Allergen (clinical drug ingredient) Drug/Non Drug Allergy documented on EMR Reaction Allergy Type Onset Date Status fluticasone / umeclidinium / vilanterol Trelegy Ellipta rash Drug Allergy Active aspirin Aspirin Unknown Drug Allergy Active codeine Codeine nausea and vomiting Drug Allergy Active Results Component Value Reference Range Flag Notes Hip w/ AP Pelvis Min 2V Bila [id number] Reviewed date:03/03/2024 01:13:32 PM Interpretation: Performing Lab: Notes/Report: [id number]&org=iSite Hip w/ AP Pelvis Min 2V Bila [id number] Reviewed date:03/08/2024 04:14:56 PM Interpretation: Performing Lab: Notes/Report: See Below For Report Hip w/ AP Pelvis Min 2V Bilat Read See Below For Report IH Lumbosacral Spine AP/Lat - [id number] Reviewed date:03/08/2024 04:14:05 PM Interpretation: Performing Lab: Notes/Report: See Below For Report Lumbosacral Spine AP/Lat Lumbosacral Spine AP/Lat-721 00 Reviewed date:03/03/2024 01:13:24 PM Interpretation: Performing Lab: Notes/Report: [id number]&org=iSite Hip 2 View Bilat w/Pelvis-[id number] 521 Reviewed date:03/15/2024 03:44:25 PM Interpretation: Performing Lab: Notes/Report: Comprehensive Metabolic Pane l ([facility]) [address] Reviewed date:03/02/2024 07:26:54 AM Interpretation: Performing Lab: Notes/Report: Diagnosis Description: Heart failure, unspecified Glucose Serum 127 71-110 MG/DL HI Testing p erformed at [address] Tyree Lal, [place] [address]. CLIA ID#: [id number] BUN 12 7-21 MG/DL Creat .58 .51-1.17 MG/DL Y-pyveet-o-benzoquinone imine (NAPQI) is a metabolite of acetaminophen, [...] 12-78 UNIT/L Osmo Serum,Calculated 295 280-300 MOSM/KG Reason For Referral No Information Medications Medication [...] you last smoked? 1-5 years Section Notes: 01/26/24 PHQ9 CIME Dep/tob - 07/25/24 01/26/24 PHQ9 CIME Dep/tob - 07/25/24 01/26/24 PHQ9 CIME Dep/tob - 07/25/24 01/26/24 PHQ9 CIME Dep/tob - 07/25/24 01/26/24 PHQ9 01/26/24 PHQ9 CIME Dep/tob - 07/25/24 uses nicorette gum to help w ith not smoking 01/26/24 PHQ9 01/26/24 PHQ9 CIME Dep/tob - 07/25/24 uses nicorette gum to help w ith not smoking 01/26/24 PHQ9 CIME Dep/tob - 07/25/24 uses nicorette gum to help w ith not smoking Problems Problem Type SNOMED Code ICD Code Onset Dates Problem Status W/U Status Risk Notes Problem Tobacco user (883651323) Nicotine dependence, cigarettes, 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) Active confirmed Problem Centrilobular emphysema (04274378) Centrilobular emphysema (J43.2) Active confirmed Problem Emphysema (67336632) Emphysema, unspecified (J43.9) Active confirmed Problem Dependence on supplemental oxygen (780771765110) Dependence on supplemental oxygen (Z99.81) Active confirmed Problem Anxiety (98857779) Anxiety (F41.9) Active confirmed Problem Arthritis (5040347) Arthritis (M19.90) Active confirmed Problem Acute exacerbation of chronic obstructive airways disease (341661986) COPD exacerbation (J44.1) Active confirmed Problem Radiology result abnormal (131223536) Abnormal chest CT (R93.89) Active confirmed Problem Chest tube in place (Z96.89) Active confirmed Problem Congestive heart failure (02838325) CHF (congestive heart failure) (I50.9) Active confirmed Problem Chronic hypoxemic respiratory failure (362204755) Chronic hypoxemic respiratory failure (J96.11) Active confirmed Problem Chronic hypercapnic respiratory failure (446867359) Chronic hypercapnic respiratory failure (J96.12) Active confirmed Problem Chronic obstructive pulmonary disease (64497516) Stage 3 severe COPD by GOLD classification [...] 01/23/2025 Encounters Encounter Location Date Provider Diagnosis [facility] [address] [address] 08/22/2024 Onofre Alfred Anxiety F41.9 ; Chronic hypoxemic respiratory failure J96.11 ; Stage 3 severe COPD by GOLD classification J44.9 and Depression screen Z13.31 [facility] [address] [address] 01/23/2025 Onofre Alfred COPD exacerbation J44.1 ; Dependence on supplemental oxygen Z99.81 ; Encounter for immunization Z23 and Immunization not carried out because of patient refusal Z28.21 [facility] [address] [address] 12/01/2024 Onofre Alfred Encounter for Medica re annual wellness exam Z00.00 ; Hip pain, left M25.552 ; Stage 3 severe COPD by GOLD classification J44.9 and Depression screening negative Z13.31 [facility] Office [address] [address] 03/01/2024 Brittany Ovalle COPD exacerbation J44.1 ; Dependence on supplemental oxygen Z99.81 ; CHF (congestive heart failure) I50.9 ; Lumbosacral pain M54.50 ; Hip pain M25.559 ; Encounter for immunization Z23 and Immunization not carried out because of patient refusal Z28.21 [facility] [address] [address] 07/25/2024 Onofre Alfred Stage 3 severe COPD by GOLD classification J44.9 ; Nicotine dependence, cigarettes, in remission F17.211 ; COPD exacerbation J44.1 and Depression screen Z13.31 [facility] [address] [address] 09/09/2024 Onofre Alfred Stage 3 severe COPD by GOLD classification J44.9 and Depression screen Z13.31 [facility] [address] [address] 10/11/2024 Onofre Alfred Stage 3 severe COPD by GOLD classification J44.9 and Chronic hypoxemic respiratory failure J96.11 [facility] [address] [facility] [address] [place] [address] 12/26/2024 Onofre Alfred COPD exacerbation J44.1 [facility] [address] [facility] [address] [place] [address] 01/31/2025 Onofre Alfred [facility] [address] [facility] [address] [place] [address] 10/04/2024 Onofre Alfred Assessments Encounter Date Diagnosis (ICD Code) Assessment Notes Treatment Notes Treatment Clinical Notes Section Notes 03/01/2024 Dependence on supplemental oxygen (ICD-10 - Z99.81) Order sent to [facility] for pt to get a portable concentrator. 03/01/2024 COPD exacerbation (ICD-10 - J44.1) Neb medication order sent to [facility]. 08/22/2024 Anxiety (ICD-10 - F41.9) 08/22/2024 Chronic hypoxemic respiratory failure (ICD-10 - J96.11) 09/09/2024 Stage 3 severe COPD by GOLD classification (ICD-10 - J44.9) 10/11/2024 Stage 3 severe COPD by GOLD [...] office visit as needed for acute concerns. 12/01/2024 Encounter for Medicare annual wellness exam [...] screenings will be performed as indicated. 01/23/2025 COPD exacerbation (ICD-10 - J44.1) 12/26/2024 COPD exacerbation (ICD-10 - J44.1) 07/25/2024 Stage 3 severe COPD by GOLD classification (ICD-10 - J44.9) 01/23/2025 Dependence on supplemental oxygen (ICD-10 - Z99.81) 07/25/2024 Nicotine dependence, cigarettes, in remission (ICD-10 - F17.211) 12/01/2024 Stage 3 severe COPD by GOLD classification (ICD-10 - J44.9) Depression screening performed using PHQ-9 Depression Scale with a score less than 5. No treatment plan indicated at this time, and screenings will be performed as indicated. 10/11/2024 Chronic hypoxemic respiratory failure (ICD-10 - J96.11) 08/22/2024 Stage 3 severe COPD by GOLD classification (ICD-10 - J44.9) 09/09/2024 Depression screen (ICD-10 - Z13.31) 03/01/2024 CHF (congestive heart failure) (ICD-10 - I50.9) 08/22/2024 Depression screen (ICD-10 - Z13.31) 12/01/2024 Depression screening negative (ICD-10 - Z13.31) Depression screening performed using PHQ-9 Depression Scale with a score less than 5. No treatment plan indicated at this time, and screenings will be performed as indicated. 01/23/2025 Encounter for immunization (ICD-10 - Z23) 07/25/2024 COPD exacerbation (ICD-10 - J44.1) 03/01/2024 Lumbosacral pain (ICD-10 - M54.50) 07/25/2024 Depression screen (ICD-10 - Z13.31) 01/23/2025 Immunization not carried out because of patient refusal (ICD-10 - Z28.21) 03/01/2024 Hip pain (ICD-10 - M25.559) 03/01/2024 Encounter for immunization (ICD-10 - Z23) 03/01/2024 Immunization not carried out because of patient refusal (ICD-10 - Z28.21) Plan Of Treatment Pending Test Test Name Order Date Chest inspiratory/expiratory-03920 01/05 Future Test Test Name Order Date CT Chest w/o Contrast diagnostic-[id number] 08/25/2023 Next Appt Details Provider Name:Onofre Osborne Aubrie, 03/21/2025 11:00:00 AM, [address] [address], [place], [address], Insurance Providers Payer Name Payer Address Payer Phone Subscriber Number Group Number Insured Name Patient Relationship to Insured Coverage Start Date Coverage End Date [place] Medicare [address] [place] [address] [phone] [id number] Sheba Lira Self - patient is the insured [place] Medicaid [address] [place] [address] [phone] [id number] Sheba Lira Self - patient is the [...] days and then 2 more days 10/05 [facility] 02/2024 cardiomyopathy 2020 COPD exacerbation pneumothorax / right tube thoracostomy 0 12/2022
[2025-02-27] MEDS: cefTRIAXone 1,000 mg SDV 1000 MG IVP (20:40)
--- NOTE | 2025-02-27 20:55 | PC.NURSE ---
Patient refused atorvastatin stating I dont take those statins because they have more bad side effects than good. I control my diet Patient educated and still refused medication.
[2025-02-27] MEDS: ondansetron 2 mg/ML SDV 2 mL 4 MG IVP ×2 (21:33→23:20)
--- NOTE | 2025-02-27 23:10 | PC.NURSE ---
notified of patients continued complaints of nausea after administration of 4mg zofran at 2130. Gave orders for a one time dose of 4mg IVP zofran now. Order placed. See MAR
[2025-02-28] VITALS (67 sets, daily range): BP systolic 88–139; BP diastolic 54–78; PULSE 70–103; RESP 11–36; TEMP 36.4–36.8; O2SAT 86–100
[2025-02-28 03:52] LABS: Hematocrit 38.6 % (36-47); Hemoglobin 12.30 g/dL (11.27-16.99); Mean Corpuscular HGB Conc 31.9 g/dL (30-55); Mean Corpuscular Hemoglobin 31.1 pg (27-33); Mean Corpuscular Volume 97.7 fl (85-98); Nucleated Red Blood Cells % 0 %; Platelet Count 231 10^3/cmm (157-399); Red Blood Count 3.95 10^6/uL (3.85-5.65); White Blood Count 8.71 10^3/uL (3.29-11.43)
[2025-02-28 04:01] LABS: Alanine Aminotransferase 18 U/L (0-33); Albumin Level 4.1 g/dL (3.5-5.2); Alkaline Phosphatase 76 U/L (35-105); Anion Gap 12.0 (5-19); Aspartate Amino Transferase 19 U/L (0-32); Blood Urea Nitrogen 10 mg/dL (8-23); Calcium 8.9 mg/dL (8.5-10.5); Carbon Dioxide 39 mmol/L (22-29); Chloride 96 mmol/L (98-107); Globulin 2.3 g/dL (1.3-4.6); Glucose 134 mg/dL (65-115); Magnesium 2.2 mg/dL (1.7-2.3); Osmolality Calculated 295 mOsm/kg (285-295); Potassium 5.0 mmol/L (3.5-5.1); Sodium 142 mmol/L (136-145); Total Protein 6.4 g/dL (6.6-8.7)
[2025-02-28 04:22] LABS: NT Pro B Type Natriuretic Pept 473 pg/mL (0-125)
[2025-02-28] MEDS: methylPREDNISolone sod succ 40 mg/mL INJ IVP ×3 (04:39→23:02)
[2025-02-28] MEDS: FUROsemide 10 mg/mL SDV 4mL 40 MG IVP (09:27)
[2025-02-28 09:57] LABS: ABG PH Result 7.28 (7.35-7.45); Alveolar-Arterial Oxygen Gradi 7.3 mmHg (5-10); Arterial Blood Gas Hematocrit 39.1 % (37-47); Blood Gas Allen Test Pos; Blood Gas Operator Identificat GD; Blood Gas Sample Site Radial, right; Blood Gas Sample Type Arterial; Blood Gas Tidal Volume 0.40; Carboxyhemoglobin 1.3 %THgb (0.4-20.1); Glucose Level-ABG 111.0 mg/dL (70-115); HCO3 ABG 43.7 mmol/L (22-26); Ionized Calcium Level - ABG 1.2 mmol/L (1.1-1.4); Methemoglobin 0.4 % (0.4-1.5); Oxygen Saturation ABG 97.2; PEEP 8.0 cmH20; PO2 ABG 82.0 mmHg (80.0-100.0); PO2 FiO2 Ratio Arterial Blood 234; Potassium Level - ABG 4.6 mmol/L (3.5-5.0); Sodium Level - ABG 142.0 mmol/L (131-143)
--- NOTE | 2025-02-28 11:18 | CT_ITS ---
WS: [id number] CTA OF THE CHEST WITH PULMONARY EMBOLISM PROTOCOL TECHNIQUE: High-resolution contrast enhanced CTA of the chest with coronal and sagittal reformatted images with pulmonary embolism protocol. MIP images are also reviewed. CLINICAL INFORMATION: resp failure COMPARISON: 09/27/2024 DLP: 258.[address] scans at [facility] use at least one of these dose optimization techniques: automated exposure control; mA and/or kV adjustment per patient size (includes targeted exams where dose is matched to clinical indication); or iterative reconstruction. FINDINGS: Proximal main pulmonary arteries are normal. No evidence of pulmonary embolus. Beam hardening artifact from contrast injection degrades some images in the RIGHT midlung. Normal caliber thoracic aorta. Aortic calcification. Coronary calcification. Advanced chronic emphysematous changes with bulla formation. Evidence of traction bronchiectasis and fibrosis in both lungs worse in the upper lobes and perihilar regions with bronchovascular thickening. This is similar to the prior studies. Areas of fibrosis in the lung apices. A few scattered groundglass opacities also similar to the prior studies. No focal pneumonia or significant pleural fluid. Cardiomegaly. RIGHT heart enlargement. Aortic calcification. Coronary calcification. No mediastinal or hilar lymphadenopathy. No axillary lymphadenopathy. Adrenal glands are normal. Small esophageal hiatal hernia. Distended stomach with air-fluid level. Predominant gaseous distention of the stomach. Mild thoracic kyphosis. CT/CT angio chest PE protcl 19304 IMPRESSION: 1. No evidence for pulmonary embolus. 2. Chronic narrowing changing described above similar to the prior studies. 3. No new focal pneumonia. 4. Gaseous distention of the stomach with air-fluid level. 5. Cardiomegaly with marked RIGHT heart enlargement
[2025-02-28 12:11] LABS: ABG PH Result 7.32 (7.35-7.45); Alveolar-Arterial Oxygen Gradi 10.4 mmHg (5-10); Arterial Blood Gas Hematocrit 37.6 % (37-47); Blood Gas Allen Test Pos; Blood Gas Operator Identificat GD; Blood Gas Sample Site Radial, right; Blood Gas Sample Type Arterial; Blood Gas Tidal Volume 0.40; Carboxyhemoglobin 2.3 %THgb (0.4-20.1); Glucose Level-ABG 115.0 mg/dL (70-115); HCO3 ABG 47.2 mmol/L (22-26); Ionized Calcium Level - ABG 1.2 mmol/L (1.1-1.4); Methemoglobin 0.4 % (0.4-1.5); Oxygen Saturation ABG 91.4; PEEP 8.0 cmH20; PO2 ABG 58.9 mmHg (80.0-100.0); PO2 FiO2 Ratio Arterial Blood 168; Potassium Level - ABG 4.0 mmol/L (3.5-5.0); Sodium Level - ABG 142.0 mmol/L (131-143)
[2025-02-28 12:12] LABS: ABG PCO2 92.3 mmHg (35-45)
[2025-02-28 12:16] LABS: ABG PCO2 92.9 mmHg (35-45)
[2025-02-28] MEDS: pantoprazole 40 mg SDV IVP (13:09)
--- NOTE | 2025-02-28 16:15 | PM.CONSULT ---
Providers/Reason For Consult Consulting Physician/Specialty*: Dr. Quintero Reason for Consult*: Acute respiratory failure Attending Physician: Shukri Ellsworth MD Primary Care Provider: Gerson Alfred MD History of Present Illness History of Present Illness Sheba Lira is a 69 year old female with past medical history of bullous emphysema, COPD, diabetes presents to [facility] with symptoms of cough and shortness of breath. Was found to be test negative BiPAP initiated for mild respiratory distress. On 30% FiO2 DuoNebs azithromycin started and patient being observed in ICU due to high risk of respiratory failure and need for mechanical ventilation. Also complaining of some chest pain along with shortness of breath. Medications/Allergies Home Medications ?Medication ?Instructions ?Recorded ?Confirmed ?Last Taken ?Type nebulizer compressor with kit #1 ea 02/18/21 02/27/25 Unknown Rx nebulizer accessories #1 ea 12/06/21 02/27/25 Unknown Rx oxygen small portable concentrator #1 ea 01/07/23 02/27/25 Unknown Rx budesonide-formoterol HFA 160 2 puff inhalation BID #10.2 grams 09/21/23 02/27/25 02/26/25 Rx mcg-4.5 mcg/actuation aerosol inhaler (Symbicort) clonazepam 0.5 mg tablet 0.5 mg PO BID PRN Anxiety 09/28/24 02/27/25 02/27/25 07:00 History albuterol sulfate 2.5 mg/3 mL 2.5 mg inhalation Q6H PRN 10/03/24 02/27/25 Unknown History (0.083 %) solution for nebulization Shortness Of Breath Or Wheezing ipratropium 0.5 mg-albuterol 3 mg 0.5 ml inhalation Q8H Shortness Of 10/04/24 02/27/25 02/27/25 07:00 Rx (2.5 mg base)/3 mL nebulization Breath Or Wheezing 30 days #90 mL soln cephalexin 500 mg capsule 500 mg PO TID 7 days #21 caps 02/23/25 02/27/25 02/27/25 07:00 Rx prednisone 50 mg tablet 50 mg PO DAILY #5 tabs 02/23/25 02/27/25 02/27/25 08:00 Rx Allergies Allergy/AdvReac Type Severity Reaction Status Date / Time aspirin Allergy Intermediate ADR/ALGY-Pa Verified 12/15/23 14:01 lpitations fluticasone furoate (From Allergy Intermediate hives Verified 12/15/23 14:01 Trelegy Ellipta) umeclidinium (From Trelegy Allergy Intermediate hives Verified 12/15/23 14:01 Ellipta) vilanterol (From Trelegy Allergy Intermediate hives Verified 12/15/23 14:01 Ellipta) roflumilast (From Dalires) AdvReac Intermediate ADR-Abdominal Verified 12/15/23 14:01 Pain codeine AdvReac ADR-Nausea Verified 12/15/23 14:01 Current Medications Generic Name Dose Route Start Last Admin Trade Name Freq PRN Reason Stop Dose Admin Albuterol/Ipratropium 3 ml 02/27/25 16:00 02/28/25 15:05 Ipratropium-Albuterol 3 Ml Neb INHALATION 3 ml QID.RESPIRATORY YARON Administration Atorvastatin Calcium 40 mg 02/27/25 21:00 02/27/25 20:39 Atorvastatin 40 Mg Tablet PO Not Given BEDTIME YARON Budesonide 0.5 mg 02/27/25 20:00 02/28/25 07:53 Budesonide 0.5 Mg/2 Ml Neb INHALATION 0.5 mg BID.RESPIRATORY YARON Administration Ceftriaxone Sodium 1,000 mg 02/27/25 20:00 02/27/25 20:40 Ceftriaxone 1,000 Mg Sdv IVP 1,000 mg Q24H YARON Administration Protocol Clonazepam 0.5 mg 02/27/25 13:35 02/27/25 17:43 Clonazepam 0.5 Mg Tablet PO 0.5 mg BID PRN Administration ANXIETY Enoxaparin Sodium 40 mg 02/27/25 13:35 02/28/25 13:26 Enoxaparin 40 Mg/0.4 Ml Syringe SUBCUT 40 mg Q24H YARON Administration Azithromycin 500 mg/ Sodium 250 mls @ 250 mls/hr 02/27/25 20:00 02/27/25 22:00 Chloride IV Infused Q24H YARON Infusion Protocol Methylprednisolone Sodium Succinate 40 mg 02/28/25 04:00 02/28/25 13:09 Methylprednisolone Sod Succ 40 Mg/Ml Inj IVP 40 mg Q8H YARON Administration Ondansetron HCl 4 mg 02/27/25 13:35 02/27/25 21:33 Ondansetron 2 Mg/Ml Sdv 2 Ml IVP 4 mg Q8H PRN Administration vomiting, or N/V if npo Pantoprazole Sodium 40 mg 02/27/25 13:35 02/28/25 13:09 Pantoprazole 40 Mg Sdv IVP 40 mg Q24H YARON Administration PFSH Acute PFSH: Medical History Enrolled in chronic care management Takotsubo cardiomyopathy COPD (chronic obstructive pulmonary disease) Sciatic pain Osteoarthritis of left knee Surgical History H/O eye surgery History of History of partial hysterectomy Family History Other CAD (coronary artery disease) Cancer Social History Smoking and tobacco/nicotine status: former use of tobacco/nicotine Quit status (tobacco/nicotine): has quit using Year quit tobacco: quit 2 months ago Second hand smoke exposure: No Alcohol intake: never Substance/Drug Use: never Lives independently: Yes Household members: none Marital status: / Number of children: 2 Number of grandchildren: 8 Current occupational status: retired Vitals/I&O/Wt Last Vital Signs Temp 97.6 F 02/28/25 08:00 Pulse 93 02/28/25 16:00 Resp 20 H 02/28/25 15:00 BP 111/74 02/28/25 12:30 Pulse Ox 96 02/28/25 15:08 O2 Del Method BiPAP 02/28/25 15:00 O2 Flow Rate 3 02/28/25 07:53 FiO2 35 02/28/25 15:08 02/28/25 02/28/25 02/28/25 06:59 14:59 22:59 Output Total 750 / 1575 1000 / 1000 Balance -750 / -785 -1000 / -1000 Weight last 48 hrs Weight 145 lb 2.438 oz Weight 145 lb Physical Exam Narrative: Per RN General: alert, NAD HEENT: EOMI Pulmonary: Diminished breath sounds bilaterally Cardiovascular: rrr, nl s1s2, Abdomen: soft, nd, no r/g, mildly distended Extremities: no edema Neurologic: grossly intact Agree with above exam Data 02/28/25 02:59 02/28/25 03:04 Micro: Microbiology 02/27/25 14:35 Gram Stain - Final Sputum - Expectorated Sputum Sputum Culture - Preliminary 02/27/25 10:58 Blood Culture - Preliminary Blood NEGATIVE TO DATE 02/27/25 10:59 Blood Culture - Preliminary Blood NEGATIVE TO DATE A&P Assessment and plan 1. Acute hypercapnic respiratory failure: 2. COPD (chronic obstructive pulmonary disease): Plan: # Acute hypercarbic/hypoxemic respiratory failure Patient on BiPAP tolerating well. She is feeling improved we will continue current efforts. High risk for respiratory collapse. - Reviewed ABG pH 7.32/pCO2 92/pO2 58. # Acute COPD exacerbation - Agree with Indira. Continue Pulmicort. Cannot do Brovana secondary to long-acting beta agonist allergy. continue steroids for now. # Acute bronchiectasis exacerbation-CT reviewed from 02/28/2025 showing evidence of traction bronchiectasis and fibrosis in the upper lobes and perihilar regions with bronchovascular thickening some ground glass opacities noted as well.I reviewed the CT myself, interpretted findings independently and showed patient the images explaining findings. Agree with current course of antibiotics. Patient may have had frequent prior pneumonias and possibly COVID-19 that may have caused severe pulmonary fibrosis with bronchiectasis # Possible ileus Abdomen is slightly distended on physical exam. Will get KUB. if clear, okay to start tube feeds via Dobbhoff tube # Hyperglycemia-insulin sliding scale medium. Avoid hypoglycemia. Maintain blood sugars between 140-180. Dextrose drip if needed # Sedation-: Likely sedation high risk for respiratory failure # Nutrition-n.p.o. for now # DVT GI prophylaxis-SCDs and Lovenox # Goals of care-per primary team # CODE STATUS- FULL but does not want to be intubated. # Disposition-Will need full ICU support The high probability of a clinically significant, sudden or life threatening deterioration of the patient's [Respiratory, cardiac and renal] system(s) required my full and direct attention, intervention and personal management. The critical care time is as shown. This time is in addition to time spent performing any reported procedures but includes the following: [x] Data and vital sign review and interpretation [x] Patient assessment, examination and intervention [x] Documentation [x] Medication orders and management Critical Care Time (min): 45 Telemedicine Consent Patient seen today via Telemedicine by agreement and consent of patient.? Telemedicine technology used during the visit includes audio and, as available, review of images.? The patient encounter is appropriate and reasonable under the circumstances given the patient?s particular presentation at this time.? The patient has been advised of the potential risks and limitations of this mode of treatment (including but not limited to the absence of in-person examination) and has agreed to be treated in a remote fashion in spite of them.? Any, and all, of the patient?s/patient?s family?s questions on this issue have been answered and I have made no promises or guarantees to the patient. The patient has also been advised to contact this office for worsening conditions or problems, and seek emergency medical treatment and/or call 911 if the patient deems either necessary This encounter was conducted remotely via interactive audio and video through our telehealth system. The patient was physically present at our [facility], accompanied by our pulmonary nurse and nurse practitioner, who performed an in-person examination. My in-person evaluation was not required, and the use of telemedicine did not compromise the quality of care delivered. On the day of the encounter, I spent a total of 5 minutes on this telemedicine visit, including: Time spent reviewing the patient?s EMR, documenting the visit, and performing related follow-up tasks, directly evaluating, counseling, and communicating with the patient or their proxy. PDMP PDMP Reviewed: Not Reviewed Coding Level of Care Code Critical Care >/= 30 minutes Diagnoses Acute hypercapnic respiratory failure J96.02 COPD (chronic obstructive pulmonary disease) J44.9
--- NOTE | 2025-02-28 16:29 | P.PN_ITS ---
Subjective 2 Subjective: - Patient was examined this morning -overnight she refused to use BiPAP - This morning she awakens to sternal ru b, but falls back asleep -Reexamined, she is more alert awake wit h the BiPAP on, can follow commands, she easily falls back asleep, she denies any chest pain, does report shortness of breath - Her BiPAP settings were changed, repea t ABG ordered - Her pH is 7.32, pCO2 92.3 - Patient was reexamined early this afte rnoon - She remains alert to person, to place, to time she follows all commands - Continues to complain of shortness of breath - We discussed her goals of care - This goals of care discussion was made with nursing staff at bedside to nurses were at bedside Jarred - I discussed Sheba's goals of care - She tells me she absolutely does not w ant to be intubated - We discussed the morbidity and mortali ty associated with her respiratory failure but she keeps telling me she does not want to be intubated - We discussed that if there was a choic e between her passing away and being intubated - She tells me that she does not want to be intubated she would rather just pass away and then be put on a ventilator - She understands morbidity and mortalit y, voices understanding, all questions answered - Will change her CODE STATUS to DO NOT INTUBATE - This discussion was made with nursing staff at bedside and she multiple times said no to the ventilator during my discussion - Discussed continued medical interventi ons watch her closely, as I am worried about clinical deterioration with respiratory failure and her somnolence Vitals/I&O/Wt Last Vital Signs Temp 97.6 F 02/28/25 08:00 Pulse 88 02/28/25 16:00 Resp 21 H 02/28/25 16:00 BP 113/63 02/28/25 16:00 Pulse Ox 93 02/28/25 16:00 O2 Del Method BiPAP 02/28/25 15:00 O2 Flow Rate 3 02/28/25 07:53 FiO2 35 02/28/25 15:08 02/28/25 02/28/25 02/28/25 06:59 14:59 22:59 Output Total 750 / 1575 1000 / 1000 Balance -750 / -785 -1000 / -1000 Weight last 48 hrs Weight 65.84 kg Weight 65.771 kg Physical Exam 2 Const: COMMON NORMALS: no acute distress ORIENTATION/CONSCIOUSNESS: Yes awake, Yes oriented to person, Yes oriented to place and Yes oriented to time Resp: AUSCULTATION: crackles and wheezes OTHER: Nasal flaring, intercostal retractions, suprasternal retractions, tachypnea, wheezing in all lung renee Cardio: COMMON NORMALS: regular rate, regular rhythm, S1 normal heart sound present and S2 normal heart sound present RATE: regular rate RHYTHM: r egular rhythm HEART SOUNDS: S1 normal heart sound present and S2 normal heart sound present GI: COMMON NORMALS: Normal to inspection, nondistended, normoactive bowel sounds present and non-tender Extremity: COMMON NORMALS: no pedal edema Neuro: SENSORIUM/ORIENTATION: Yes oriented to person, Yes oriented to place and Yes oriented to time Data 02/28/25 02:59 02/28/25 03:04 Micro: Microbiology 02/27/25 14:35 Gram Stain - Final Sputum - Expectorated Sputum Sputum Culture - Preliminary 02/27/25 10:58 Blood Culture - Preliminary Blood NEGATIVE TO DATE 02/27/25 10:59 Blood Culture - Preliminary Blood NEGATIVE TO DATE A&P Assessment and plan 1. Acute hypercapnic respiratory failure: 2. Pneumonia: Plan: Acute hypoxic respiratory failure with hypercarbia Secondary to COPD exacerbation Concerns for pneumonia Plan - Monitor in ICU - BiPAP therapy - DuoNeb - Budesonide - Rocephin - Azithromycin -IV Solu-Medrol - Sputum culture - Blood culture - Patient is a DNI, she does not want to be intubated or placed on mechanical ventilation -She is okay with CPR, defibrillation, drugs per ACLS, ICU admission - Lovenox for DVT prophylaxis Chest pain Serial EKGs, serial troponins, telemetry monitoring Aspirin allergy Statin Cardiac echo CONCLUSIONS Normal left ventricular size and systolic function, EF 55%.. No regional wall motion abnormalities. Normal right ventricular size and systolic function. No gross valvular abnormalities noted There is no pericardial effusion. There are no intracardiac masses. Compared to the study from 10/03/2024, no significant change in the 2D findings PDMP PDMP Reviewed: Not Reviewed Attestations 2 Medical Necessity Statement*: Patient requires hospitalization for acute hypoxic respiratory failure Diagnoses Acute hypercapnic respiratory failure J96.02 Pneumonia J18.9
--- NOTE | 2025-02-28 18:00 | XRR_ITS ---
PROCEDURE INFORMATION: Exam: XR Abdomen Exam date and time: 02/28/2025 7:06 PM Age: 69 years old Clinical indication: Abdominal tenderness and bloating; Additional info: Possible ileus TECHNIQUE: Imaging protocol: Radiologic exam of the abdomen. Views: Frontal supine view of the abdomen. 1 View. COMPARISON: CT abdomen pelvis w con* [id number] 02/16/2022 8:49 PM FINDINGS: Gastrointestinal tract: Dilated small bowel with stool and gas in the large bowel ; findings may favor small bowel obstruction given preferential small bowel dilatation rather than ileus. Organs: Excreted urinary contrast with Campbell catheter. Bones/joints: Unremarkable. XR/XR KUB portable [id number] IMPRESSION: Small bowel obstruction versus ileus.
--- NOTE | 2025-02-28 20:02 | PC.NURSE ---
KUB and ABD CT resulted. Dr. Zhao updated that abdominal distension and tenderness was new onset during dayshift and report had not resulted til recently. Clinical impression stated SBO versus illeus. gave orders for NG tube placement set to low intermittent suction and KUB to verify placement.
[2025-02-28] MEDS: morphine 4 mg/mL SDV 1 mL 2 MG IVP (21:52)
--- NOTE | 2025-02-28 22:10 | XRR_ITS ---
PROCEDURE INFORMATION: Exam: XR Abdomen Exam date and time: 02/28/2025 11:16 PM Age: 69 years old Clinical indication: Device placement; Gi device; Nasogastric tube; Additional info: Ng confirmation. TECHNIQUE: Imaging protocol: Radiologic exam of the abdomen. Views: Frontal supine view of the abdomen. 1 View. COMPARISON: CR (ABDOMEN, ) 02/28/2025 7:06 PM FINDINGS: Tubes, catheters and devices: Nasogastric tube tip is in the stomach. Lungs: Findings of pulmonary emphysema and fibrosis not significantly changed compared with earlier CT scan Gastrointestinal tract: Visualized upper abdomen demonstrates dilated small bowel loops concerning for small bowel obstruction. Bones/joints: Unremarkable. XR/XR KUB portable [id number] IMPRESSION: Nasogastric tube tip is in the stomach.
[2025-02-28] MEDS: cefTRIAXone 1,000 mg SDV 1000 MG IVP (23:02)
[2025-03-01] VITALS (106 sets, daily range): BP systolic 97–171; BP diastolic 51–108; PULSE 56–106; RESP 12–84; TEMP 36.1–37.1; O2SAT 81–99
[2025-03-01] MEDS: methylPREDNISolone sod succ 40 mg/mL INJ IVP ×3 (04:49→20:48)
[2025-03-01 05:00] LABS: ABG PH Result 7.39 (7.35-7.45); Arterial Blood Gas Hematocrit 39.0 % (37-47); Blood Gas Allen Test Pos; Blood Gas Sample Site Radial, right; Blood Gas Sample Type Arterial; Blood Gas Tidal Volume 0.45; HCO3 ABG 47.6 mmol/L (22-26); PEEP 8.0 cmH20; PO2 ABG 76.8 mmHg (80.0-100.0); PO2 FiO2 Ratio Arterial Blood 219
[2025-03-01 05:01] LABS: ABG PCO2 78.1 mmHg (35-45)
[2025-03-01 05:29] LABS: Hematocrit 42.4 % (36-47); Hemoglobin 12.70 g/dL (11.27-16.99); Mean Corpuscular HGB Conc 30.0 g/dL (30-55); Mean Corpuscular Hemoglobin 30.2 pg (27-33); Mean Corpuscular Volume 101.0 fl (85-98); Nucleated Red Blood Cells % 0 %; Platelet Count 219 10^3/cmm (157-399); Red Blood Count 4.20 10^6/uL (3.85-5.65); White Blood Count 8.90 10^3/uL (3.29-11.43)
[2025-03-01 05:36] LABS: Alanine Aminotransferase 19 U/L (0-33); Albumin Level 4.1 g/dL (3.5-5.2); Alkaline Phosphatase 77 U/L (35-105); Anion Gap 12.8 (5-19); Aspartate Amino Transferase 28 U/L (0-32); Blood Urea Nitrogen 18 mg/dL (8-23); Calcium 9.4 mg/dL (8.5-10.5); Chloride 92 mmol/L (98-107); Globulin 2.3 g/dL (1.3-4.6); Glucose 111 mg/dL (65-115); Osmolality Calculated 297 mOsm/kg (285-295); Potassium 4.8 mmol/L (3.5-5.1); Sodium 142 mmol/L (136-145); Total Protein 6.4 g/dL (6.6-8.7)
[2025-03-01 06:06] LABS: Carbon Dioxide 42 mmol/L (22-29)
--- NOTE | 2025-03-01 08:18 | CT_ITS ---
WS: [id number] CT ABDOMEN PELVIS TECHNIQUE: Contrast-enhanced CT of the abdomen and pelvis with coronal and sagittal reformatted images. CLINICAL INFORMATION: sbo vs ileus COMPARISON: None. DLP: 458.[address] scans at [facility] use at least one of these dose optimization techniques: automated exposure control; mA and/or kV adjustment per patient size (includes targeted exams where dose is matched to clinical indication); or iterative reconstruction. FINDINGS: Enteric tube with tip in the stomach. Mild distention of the stomach with air- fluid level. Campbell catheter. Contrast in the bladder. Vicarious excretion of contrast in the gallbladder from recent contrast injection. Mild fatty infiltration the liver. Splenic granulomas. Cardiomegaly. RIGHT heart enlarge ment. Bulla formation RIGHT lower lobe. Normal portal vein and splenic vein. Dilatation of the IVC can be seen with RIGHT heart failure. Small esophageal hiatal hernia. Normal pancreas. Normal caliber abdominal aorta. Aortic calcification. 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 A few distended loops of proximal small bowel in the midabdomen with air-fluid levels. No significant wall thickening. Enhancing small bowel loops in the pelvis with wall thickening and surrounding fluid suspicious for small bowel enteritis. Persistent air within the colon. Findings compatible with persistent partial small bowel obstruction. No pneumatosis or free air. There is slight mesenteric swirling and bowel tethering in the LEFT lower quadrant and pelvis with areas of segmental small bowel narrowing. This may be due to adhesions. No high-grade obstruction. Small amount of free fluid in the pelvis. Sigmoid constipation. CT/CT abdomen pelvis w con* [id number] IMPRESSION: 1. Enhancing thick-walled small bowel loops in the pelvis with mild fluid dist ention with surrounding free fluid. Recommend correlation for small bowel enter itis. Persistent air within the colon. 2. Findings favor persistent partial small bowel obstruction with areas of sma ll bowel segmental narrowing in the pelvis. Slight mesenteric swirling in the L EFT lower quadrant. Some this may be due to adhesions. No high-grade obstructio n. 3. No other acute findings.
[2025-03-01] MEDS: iohexol 350 mg/mL 500 mL Btl (per mL) IV (09:33)
--- NOTE | 2025-03-01 11:13 | PM.CONSULT ---
Providers/Reason For Consult Consulting Physician/Specialty*: Dr. Fernandes general surgery Reason for Consult*: SBO Attending Physician: Shukri Ellsworth MD Primary Care Provider: Gerson Alfred MD History of Present Illness History of Present Illness Sheba Lira is a 69 year old female with multiple medical problems including COPD exacerbation now on nasal cannula whom surgery was consulted for CT scan findings suspicious for partial SBO. Hospitalist obtain a CT scan given the fact the patient reports being constipated. Patient denies any abdominal pain. Patient denies nausea or vomiting. Patient reports passing gas consistently. Has not had a bowel movement in several days. On exam the abdomen is completely benign. Vital signs are within normal limits. CT scan reported by radiology as suspicious for partial SBO with some mesenteric swirl as well as small amount of free fluid in the pelvis. I reviewed the images myself. No leukocytosis. Medications/Allergies Home Medications ?Medication ?Instructions ?Recorded ?Confirmed ?Last Taken ?Type nebulizer compressor with kit #1 ea 02/18/21 02/27/25 Unknown Rx nebulizer accessories #1 ea 12/06/21 02/27/25 Unknown Rx oxygen small portable concentrator #1 ea 01/07/23 02/27/25 Unknown Rx budesonide-formoterol HFA 160 2 puff inhalation BID #10.2 grams 09/21/23 02/27/25 02/26/25 Rx mcg-4.5 mcg/actuation aerosol inhaler (Symbicort) clonazepam 0.5 mg tablet 0.5 mg PO BID PRN Anxiety 09/28/24 02/27/25 02/27/25 07:00 History albuterol sulfate 2.5 mg/3 mL 2.5 mg inhalation Q6H PRN 10/03/24 02/27/25 Unknown History (0.083 %) solution for nebulization Shortness Of Breath Or Wheezing ipratropium 0.5 mg-albuterol 3 mg 0.5 ml inhalation Q8H Shortness Of 10/04/24 02/27/25 02/27/25 07:00 Rx (2.5 mg base)/3 mL nebulization Breath Or Wheezing 30 days #90 mL soln cephalexin 500 mg capsule 500 mg PO TID 7 days #21 caps 02/23/25 02/27/25 02/27/25 07:00 Rx prednisone 50 mg tablet 50 mg PO DAILY #5 tabs 02/23/25 02/27/25 02/27/25 08:00 Rx Allergies Allergy/AdvReac Type Severity Reaction Status Date / Time aspirin Allergy Intermediate ADR/ALGY-Pa Verified 12/15/23 14:01 lpitations fluticasone furoate (From Allergy Intermediate hives Verified 12/15/23 14:01 Trelegy Ellipta) umeclidinium (From Trelegy Allergy Intermediate hives Verified 12/15/23 14:01 Ellipta) vilanterol (From Trelegy Allergy Intermediate hives Verified 12/15/23 14:01 Ellipta) roflumilast (From Daliresp) AdvReac Intermediate ADR-Abdominal Verified 12/15/23 14:01 Pain codeine AdvReac ADR-Nausea Verified 12/15/23 14:01 Current Medications Generic Name Dose Route Start Last Admin Trade Name Freq PRN Reason Stop Dose Admin Albuterol/Ipratropium 3 ml 02/27/25 16:00 03/01/25 08:14 Ipratropium-Albuterol 3 Ml Neb INHALATION 3 ml QID.RESPIRATORY YARON Administration Atorvastatin Calcium 40 mg 02/27/25 21:00 02/28/25 23:04 Atorvastatin 40 Mg Tablet PO Not Given BEDTIME YARON Budesonide 0.5 mg 02/27/25 20:00 03/01/25 08:14 Budesonide 0.5 Mg/2 Ml Neb INHALATION 0.5 mg BID.RESPIRATORY YARON Administration Ceftriaxone Sodium 1,000 mg 02/27/25 20:00 02/28/25 23:02 Ceftriaxone 1,000 Mg Sdv IVP 1,000 mg Q24H YARON Administration Protocol Clonazepam 0.5 mg 02/27/25 13:35 03/01/25 07:57 Clonazepam 0.5 Mg Tablet PO 0.5 mg BID PRN Administration ANXIETY Enoxaparin Sodium 40 mg 02/27/25 13:35 02/28/25 13:26 Enoxaparin 40 Mg/0.4 Ml Syringe SUBCUT 40 mg Q24H YARON Administration Azithromycin 500 mg/ Sodium 250 mls @ 250 mls/hr 02/27/25 20:00 02/28/25 23:58 Chloride IV Infused Q24H YARON Infusion Protocol Methylprednisolone Sodium Succinate 40 mg 02/28/25 04:00 03/01/25 04:49 Methylprednisolone Sod Succ 40 Mg/Ml Inj IVP 40 mg Q8H YARON Administration Morphine Sulfate 2 mg 02/27/25 13:35 02/28/25 21:52 Morphine 4 Mg/Ml Sdv 1 Ml IVP 2 mg Q4H PRN Administration SEVERE PAIN Ondansetron HCl 4 mg 02/27/25 13:35 02/27/25 21:33 Ondansetron 2 Mg/Ml Sdv 2 Ml IVP 4 mg Q8H PRN Administration vomiting, or N/V if npo Pantoprazole Sodium 40 mg 02/27/25 13:35 02/28/25 13:09 Pantoprazole 40 Mg Sdv IVP 40 mg Q24H YARON Administration PFSH Acute PFSH: Medical History (Updated 03/01/25 @ 11:26 by Linden Fernandes MD) Enrolled in chronic care management Takotsubo cardiomyopathy COPD (chronic obstructive pulmonary disease) Sciatic pain Osteoarthritis of left knee Surgical History H/O eye surgery History of History of partial hysterectomy Family History Other CAD (coronary artery disease) Cancer Social History Smoking and tobacco/nicotine status: former use of tobacco/nicotine Quit status (tobacco/nicotine): has quit using Year quit tobacco: quit 2 months ago Second hand smoke exposure: No Alcohol intake: never Substance/Drug Use: never Lives independently: Yes Household members: none Marital status: / Number of children: 2 Number of grandchildren: 8 Current occupational status: retired Vitals/I&O/Wt Last Vital Signs Temp 98.1 F 03/01/25 08:00 Pulse 93 03/01/25 10:00 Resp 26 H 03/01/25 09:00 BP 113/93 03/01/25 10:00 Pulse Ox 90 03/01/25 10:00 O2 Del Method BiPAP 03/01/25 08:14 O2 Flow Rate 3 02/28/25 07:53 FiO2 35 03/01/25 08:17 02/28/25 03/01/25 03/01/25 22:59 06:59 14:59 Intake Total 0 / 0 250 / 250 Output Total 350 / 1350 250 / 1600 100 / 100 Balance -350 / -1350 0 / -1350 -100 / -100 Weight last 48 hrs Weight 145 lb 1.027 oz Weight 145 lb 2.438 oz Physical Exam Narrative: Chest: Tachypneic on nasal cannula. Heart: Regular rate and rhythm. Abdomen: Soft, nontender, nondistended. No masses or lymphadenopathy. Data 03/01/25 04:32 03/01/25 04:32 Micro: Microbiology 02/27/25 14:35 Gram Stain - Final Sputum - Expectorated Sputum Sputum Culture - Preliminary 02/27/25 10:58 Blood Culture - Preliminary Blood NEGATIVE TO DATE 02/27/25 10:59 Blood Culture - Preliminary Blood NEGATIVE TO DATE A&P Assessment and plan 1. SBO (small bowel obstruction): Plan: 69-year-old female whom surgery was consulted for possible SBO. CT scan read by radiology and read include findings suspicious for partial SBO, small amount of free fluid in the pelvis, some mesenteric swirling of the small bowel mesentery. This prompted a surgical consult. Clinically patient is not obstructed any passing gas and denies any nausea. The abdomen is completely benign and she is a reliable historian. No leukocytosis. I have had an extensive discussion with the patient. Answered all of her questions. I explained that in the setting of free fluid in the pelvis and mesenteric swirling there is a possibility of threatened small bowel which can be life-threatening. To rule this out we would proceed with exploratory laparotomy and possible bowel resection. I have explained that she is at higher risk for perioperative complications including prolonged intubation given her severe COPD. Patient understands the risks of not proceeding with surgery and elects not to do surgery. I explained that I recommend treating her with bowel rest, NG tube to low continuous suction, serial physical exams. At this point my suspicion for threatened bowel is low given her overall clinical picture. I explained this to the patient and she is in agreement with not proceeding with surgery. She however wants to drink and eat and I have explained that this is against my medical advice. I have explained the risks and have tried to reeducate the patient with the nurse present. She will discuss with the hospitalist regarding how she would like to proceed. PDMP PDMP Reviewed: Not Reviewed Coding Level of Care Code 99118 Diagnoses SBO (small bowel obstruction) K56.609
--- NOTE | 2025-03-01 13:38 | P.PN_ITS ---
Subjective 2 Subjective: Patient was seen this morning, she is alert oriented x 3, following all commands, denies any chest pain, palpitations she is passing gas from below does feel bloated she has not had a bowel movement, she had an NG tube placed overnight due to concerns for bowel obstruction, discussed surgical consultation and a CT scan of abdomen, she is agreeable, we had a discussion about her goals of care, this was made with respiratory therapy and his nurse at bedside, she confirms that she wants to be a DNI, she does not want to be intubated for any reason, as she is worried about being put on a machine, even for short time she tells me Vitals/I&O/Wt Last Vital Signs Temp 97.3 F L 03/01/25 12:30 Pulse 91 03/01/25 13:15 Resp 25 H 03/01/25 13:15 BP 121/80 03/01/25 12:45 Pulse Ox 93 03/01/25 13:15 O2 Del Method Nasal Cannula 03/01/25 12:30 O2 Flow Rate 2 03/01/25 12:30 FiO2 35 03/01/25 08:17 02/28/25 03/01/25 03/01/25 22:59 06:59 14:59 Intake Total 0 / 0 250 / 250 Output Total 350 / 1350 250 / 1600 350 / 350 Balance -350 / -1350 0 / -1350 -350 / -350 Weight last 48 hrs Weight 65.8 kg Weight 65.84 kg Physical Exam 2 Const: COMMON NORMALS: no acute distress and patient oriented x3 Resp: COMMON NORMALS: normal respiratory effort, No retractions, No use of accessory muscles and clear to auscultation bilaterally AUSCULTATION: clear to auscultation bilaterally Cardio: COMMON NORMALS: regular rate, regular rhythm, S1 normal heart sound present and S2 normal heart sound present RATE: regular rate RHYTHM: r egular rhythm HEART SOUNDS: S1 normal heart sound present and S2 normal heart sound present GI: OTHER: Abdomen soft, distended, scattered bowel sounds, no guarding, rebound, rigidity Extremity: COMMON NORMALS: no pedal edema Neuro: COMMON NORMALS: patient oriented x3 Psych: COMMON NORMALS: mental status grossly normal Data 03/01/25 04:32 03/01/25 04:32 Micro: Microbiology 02/27/25 14:35 Gram Stain - Final Sputum - Expectorated Sputum Sputum Culture - Preliminary 02/27/25 10:58 Blood Culture - Preliminary Blood NEGATIVE TO DATE 02/27/25 10:59 Blood Culture - Preliminary Blood NEGATIVE TO DATE A&P Assessment and plan 1. Acute hypercapnic respiratory failure: 2. Pneumonia: Plan: Acute hypoxic respiratory failure with hypercarbia Secondary to COPD exacerbation Concerns for pneumonia Plan - Monitor in ICU - BiPAP therapy - DuoNeb - Budesonide - Rocephin - Azithromycin -IV Solu-Medrol - Sputum culture - Blood culture - Patient is a DNI, she does not want to be intubated or placed on mechanical ventilation, she confirms again with me on 03/01/2025 with nursing staff at bedside and respiratory therapy -She is okay with CPR, defibrillation, drugs per ACLS, ICU admission - Lovenox for DVT prophylaxis Chest pain Serial EKGs, serial troponins, telemetry monitoring Aspirin allergy Statin Cardiac echo CONCLUSIONS Normal left ventricular size and systolic function, EF 55%.. No regional wall motion abnormalities. Normal right ventricular size and systolic function. No gross valvular abnormalities noted There is no pericardial effusion. There are no intracardiac masses. Compared to the study from 10/03/2024, no significant change in the 2D findings Concerns for bowel obstruction? - He is passing gas has not had a bowel movement, abdomen distended - NG tube in place - Consult general surgery - CT scan abdomen pelvis ordered PDMP PDMP Reviewed: Not Reviewed Attestations 2 Medical Necessity Statement*: Patient requires hospitalization for acute hypoxic respiratory failure, concern for bowel obstruction Diagnoses Acute hypercapnic respiratory failure J96.02 Pneumonia J18.9
[2025-03-01] MEDS: pantoprazole 40 mg SDV IVP (14:27)
--- NOTE | 2025-03-01 15:49 | P.PN_ITS ---
Subjective 2 Subjective: Sheba Lira is a 69 year old female with multiple medical problems including COPD exacerbation now on nasal cannula whom surgery was consulted for CT scan findings suspicious for partial SBO. Hospitalist obtain a CT scan given the fact the patient reports being constipated. Patient denies any abdominal pain. Patient denies nausea or vomiting. Patient reports passing gas consistently. Has not had a bowel movement in several days. On exam the abdomen is completely benign. Vital signs are within normal limits. CT scan reported by radiology as suspicious for partial SBO with some mesenteric swirl as well as small amount of free fluid in the pelvis. I reviewed the images myself. No leukocytosis. 03/01/25 Feels well. off of bipap conversing well. used bipap last night and is willing to use it again. Describes 4 hospitalizations for respiratory failure in the last one year. Vitals/I&O/Wt Last Vital Signs Temp 97.3 F L 03/01/25 12:30 Pulse 91 03/01/25 13:15 Resp 25 H 03/01/25 13:15 BP 121/80 03/01/25 12:45 Pulse Ox 93 03/01/25 13:15 O2 Del Method Nasal Cannula 03/01/25 12:30 O2 Flow Rate 2 03/01/25 12:30 FiO2 35 03/01/25 08:17 03/01/25 03/01/25 03/01/25 06:59 14:59 22:59 Intake Total 250 / 250 Output Total 250 / 1600 350 / 350 Balance 0 / -1350 -350 / -350 Weight last 48 hrs Weight 145 lb 1.027 oz Weight 145 lb 2.438 oz Physical Exam 2 Narrative: Per RN General: alert, NAD HEENT: EOMI Pulmonary: Diminished breath sounds bilaterally Cardiovascular: rrr, nl s1s2, Abdomen: soft, nd, no r/g, mildly distended Extremities: no edema Neurologic: grossly intact Agree with above exam Data 03/01/25 04:32 03/01/25 04:32 Micro: Microbiology 02/27/25 14:35 Gram Stain - Final Sputum - Expectorated Sputum Sputum Culture - Final 02/27/25 10:58 Blood Culture - Preliminary Blood NEGATIVE TO DATE 02/27/25 10:59 Blood Culture - Preliminary Blood NEGATIVE TO DATE A&P Assessment and plan 1. Acute hypercapnic respiratory failure: 2. COPD (chronic obstructive pulmonary disease): Plan: # Acute hypercarbic/hypoxemic respiratory failure Patient on BiPAP tolerating well. - Reviewed ABG pH 7.32/pCO2 92/pO2 ABG today 7.39/78/76- 03/01/25 Patient is requiring home non-invasive ventilator due to chronic hypercapnic respiratory failure with increasing CO2 levels. NIV is more effective than BiLEVEL to reduce CO2 levels and to prevent future readmissions due to inadequate ventilatory support. BiLEVEL does not have advanced features of backup rate, respiratory parameter monitoring & alarms, auto-EPAP, and detailed respiratory monitoring & reporting to reduce readmissions. Patient requires AVAPS-AE and advanced features to reduce risk of future readmission due to respiratory failure. Failure to use NIV could lead to serious health issues, decreased qualify of life, and readmission to hospital & is medically necessary. # Acute COPD exacerbation - Agree with Indira. Continue Pulmicort. Cannot do Brovana secondary to long- acting beta agonist allergy. continue steroids for now. # Acute bronchiectasis exacerbation-CT reviewed from 02/28/2025 showing evidence of traction bronchiectasis and fibrosis in the upper lobes and perihilar regions with bronchovascular thickening some ground glass opacities noted as well.I reviewed the CT myself, interpretted findings independently and showed patient the images explaining findings. Agree with current course of antibiotics. Patient may have had frequent prior pneumonias and possibly COVID-19 that may have caused severe pulmonary fibrosis with bronchiectasis # Possible ileus Advance PO diet # Hyperglycemia-insulin sliding scale medium. Avoid hypoglycemia. Maintain blood sugars between 140-180. # Sedation-: avoid sedation # Nutrition- advance po diet # DVT GI prophylaxis-SCDs and Lovenox # Goals of care-per primary team # CODE STATUS- FULL but does not want to be intubated. DNI # Disposition-Will need full ICU support Medical decision making level- high high MDM includes number and complexity of problems actively addressed during encounter, amount and/or complexity of data reviewed/ordered [ previous or external records, resulted lab(s)/test(s), ordered lab(s)/test(s), independent historian, independent test interpretation and other healthcare professional discussion] and described risk of complication, morbidity or mortality of management as documented This documentation was created by [employer] certified nutritionist software (known for inherent certified nutritionist error). Every effort was made to assure accuracy of certified nutritionist. Any obvious errors or omissions should be clarified with the author of the document Telemedicine Consent Patient seen today via Telemedicine by agreement and consent of patient.? Telemedicine technology used during the visit includes audio and, as available, review of images.? The patient encounter is appropriate and reasonable under the circumstances given the patient?s particular presentation at this time.? The patient has been advised of the potential risks and limitations of this mode of treatment (including but not limited to the absence of in-person examination) and has agreed to be treated in a remote fashion in spite of them.? Any, and all, of the patient?s/patient?s family?s questions on this issue have been answered and I have made no promises or guarantees to the patient. PDMP PDMP Reviewed: Not Reviewed Attestations 2 Medical Necessity Statement*: okay to go to the floor Coding Level of Care Code 98003 Diagnoses Acute hypercapnic respiratory failure J96.02 COPD (chronic obstructive pulmonary disease) J44.9
--- NOTE | 2025-03-01 18:35 | PC.NURSE ---
Shift Summary: Uneventful shift. Up to a chair for about half the day. Taken off of bipap at 0830, placed on 2L NC. Has remained alert and oriented. No signs of Hypercapnia. Partial small bowel obstruction identified. Patient was able to have a moderate sized, soft bowel movememnt. Keeping NPO, will reassess in the morning. SLeep study tonight to try and qualify for home cpap/bipap
[2025-03-01] MEDS: cefTRIAXone 1,000 mg SDV 1000 MG IVP (20:48)
[2025-03-02] VITALS (40 sets, daily range): BP systolic 103–167; BP diastolic 66–95; PULSE 61–88; RESP 13–28; TEMP 35.9–36.7; O2SAT 89–99
--- NOTE | 2025-03-02 01:44 | PC.NURSE ---
PO medications Patient NPO with PRN PO klonopin ordered. Patient requested PRN dose. Dr. Zhao contacted and order received to allow patient PO medications with sips and chips.
[2025-03-02] MEDS: methylPREDNISolone sod succ 40 mg/mL INJ IVP ×2 (03:30→11:35)
[2025-03-02 05:19] LABS: Hematocrit 38.8 % (36-47); Hemoglobin 12.20 g/dL (11.27-16.99); Mean Corpuscular HGB Conc 31.4 g/dL (30-55); Mean Corpuscular Hemoglobin 30.0 pg (27-33); Mean Corpuscular Volume 95.6 fl (85-98); Nucleated Red Blood Cells % 0 %; Platelet Count 213 10^3/cmm (157-399); Red Blood Count 4.06 10^6/uL (3.85-5.65); White Blood Count 7.53 10^3/uL (3.29-11.43)
[2025-03-02 05:35] LABS: Alanine Aminotransferase 20 U/L (0-33); Albumin Level 4.2 g/dL (3.5-5.2); Alkaline Phosphatase 74 U/L (35-105); Anion Gap 9.9 (5-19); Aspartate Amino Transferase 33 U/L (0-32); Blood Urea Nitrogen 17 mg/dL (8-23); Calcium 9.7 mg/dL (8.5-10.5); Chloride 92 mmol/L (98-107); Globulin 2.3 g/dL (1.3-4.6); Glucose 125 mg/dL (65-115); Osmolality Calculated 291 mOsm/kg (285-295); Potassium 3.9 mmol/L (3.5-5.1); Sodium 139 mmol/L (136-145); Total Protein 6.5 g/dL (6.6-8.7)
[2025-03-02 05:49] LABS: Carbon Dioxide 41 mmol/L (22-29)
--- NOTE | 2025-03-02 08:07 | XR_ITS ---
WS: [id number] XR KUB portable [id number] REASON FOR EXAM: ileus vs sbo, pt had BM FINDINGS: Multiple mild to moderately dilated small bowel loops in the central abdomen with minimal colon gas. The bowel gas pattern is similar to the CT scan of 03/01/2025 with decreased degree of distention of the small bowel. The stomach is no longer significantly dilated. Without colon dilatation this more likely represents small bowel obstruction rather than ileus. XR/XR KUB portable [id number] IMPRESSION: Findings more compatible with small bowel obstruction which may be resolving.
--- NOTE | 2025-03-02 08:30 | P.PN_ITS ---
Subjective 2 Subjective: Sheba Lira is a 69 year old female with multiple medical problems including COPD exacerbation now on nasal cannula whom surgery was consulted for CT scan findings suspicious for partial SBO. Hospitalist obtain a CT scan given the fact the patient reports being constipated. Patient denies any abdominal pain. Patient denies nausea or vomiting. Patient reports passing gas consistently. Has not had a bowel movement in several days. On exam the abdomen is completely benign. Vital signs are within normal limits. CT scan reported by radiology as suspicious for partial SBO with some mesenteric swirl as well as small amount of free fluid in the pelvis. I reviewed the images myself. No leukocytosis. 03/01/25 Feels well. off of bipap conversing well. used bipap last night and is willing to use it again. Describes 4 hospitalizations for respiratory failure in the last one year. 03/02/2025 Patient feels well was on 2 L nasal cannula and used BiPAP for about 7 hours overnight. Vitals/I&O/Wt Last Vital Signs Temp 97.7 F 03/02/25 04:30 Pulse 78 03/02/25 07:22 Resp 19 H 03/02/25 07:22 BP 167/83 03/02/25 06:30 Pulse Ox 90 03/02/25 07:22 O2 Del Method Nasal Cannula 03/02/25 07:22 O2 Flow Rate 3 03/02/25 07:22 FiO2 30 03/02/25 00:00 03/01/25 03/02/25 03/02/25 22:59 06:59 14:59 Intake Total 250 / 250 Output Total 600 / 950 450 / 1400 Balance -600 / -950 -200 / -1150 Weight last 48 hrs Weight 145 lb 8 oz Weight 145 lb 1.027 oz Physical Exam 2 Narrative: Per RN General: alert, NAD HEENT: EOMI Pulmonary: Diminished breath sounds bilaterally Cardiovascular: rrr, nl s1s2, Abdomen: soft, nd, no r/g, mildly distended Extremities: no edema Neurologic: grossly intact Agree with above exam Urinary Catheter Management: Campbell: Cath Placed During This Visit: no Reason for Continuing Indwelling Catheter: Accurate Measurement of Urinary Output in Critically Ill Patients Data 03/02/25 05:01 03/02/25 05:01 Micro: Microbiology 02/27/25 14:35 Gram Stain - Final Sputum - Expectorated Sputum Sputum Culture - Final A&P Assessment and plan 1. Acute hypercapnic respiratory failure: 2. COPD (chronic obstructive pulmonary disease): Plan: # Acute hypercarbic/hypoxemic respiratory failure Patient on BiPAP tolerating well. - Reviewed ABG pH 7.32/pCO2 92/pO2 ABG today 7.39/78/76- 03/01/25 Orders to [facility] Patient is requiring home non-invasive ventilator due to chronic hypercapnic respiratory failure with increasing CO2 levels. NIV is more effective than BiLEVEL to reduce CO2 levels and to prevent future readmissions due to inadequate ventilatory support. BiLEVEL does not have advanced features of backup rate, respiratory parameter monitoring & alarms, auto-EPAP, and detailed respiratory monitoring & reporting to reduce readmissions. Patient requires AVAPS-AE and advanced features to reduce risk of future readmission due to respiratory failure. Failure to use NIV could lead to serious health issues, decreased qualify of life, and readmission to hospital & is medically necessary. Overnight pulse oximeter noted patient was placed on AVAPS for the past under 230. After then 2 L nasal cannula. Reviewed results. Total desaturation time was only 10 minutes. # Acute COPD exacerbation - Agree with Indira. Continue Pulmicort. Cannot do Brovana secondary to long- acting beta agonist allergy. continue prednisone 40 mg daily-total 5 days # Acute bronchiectasis exacerbation-CT reviewed from 02/28/2025 showing evidence of traction bronchiectasis and fibrosis in the upper lobes and perihilar regions with bronchovascular thickening some ground glass opacities noted as well.I reviewed the CT myself, interpretted findings independently and showed patient the images explaining findings. Agree with current course of antibiotics. Patient may have had frequent prior pneumonias and possibly COVID-19 that may have caused severe pulmonary fibrosis with bronchiectasis # Possible ileus Advance PO diet # Hyperglycemia-insulin sliding scale medium. Avoid hypoglycemia. Maintain blood sugars between 140-180. # Sedation-: avoid sedation # Nutrition- advance po diet # DVT GI prophylaxis-SCDs and Lovenox # Goals of care-per primary team # CODE STATUS- FULL but does not want to be intubated. DNI # Disposition-GERD rule out of the ICU from pulmonary standpoint. Will sign off please call again if needed. Medical decision making level-low Lung MDM includes number and complexity of problems actively addressed during encounter, amount and/or complexity of data reviewed/ordered [ previous or external records, resulted lab(s)/test(s), ordered lab(s)/test(s), independent historian, independent test interpretation and other healthcare professional discussion] and described risk of complication, morbidity or mortality of management as documented This documentation was created by [employer] wet pan mixer software (known for inherent wet pan mixer error). Every effort was made to assure accuracy of wet pan mixer. Any obvious errors or omissions should be clarified with the author of the document Telemedicine Consent Patient seen today via Telemedicine by agreement and consent of patient.? Telemedicine technology used during the visit includes audio and, as available, review of images.? The patient encounter is appropriate and reasonable under the circumstances given the patient?s particular presentation at this time.? The patient has been advised of the potential risks and limitations of this mode of treatment (including but not limited to the absence of in-person examination) and has agreed to be treated in a remote fashion in spite of them.? Any, and all, of the patient?s/patient?s family?s questions on this issue have been answered and I have made no promises or guarantees to the patient. PDMP PDMP Reviewed: Not Reviewed Attestations 2 Medical Necessity Statement*: Okay to move from ICU. Coding Level of Care Code 85523 Diagnoses Acute hypercapnic respiratory failure J96.02 COPD (chronic obstructive pulmonary disease) J44.9
[2025-03-02] MEDS: pantoprazole 40 mg SDV IVP (13:08)
--- NOTE | 2025-03-02 13:46 | P.PN_ITS ---
Subjective 2 Subjective: - Patient was seen this morning - She is alert oriented x 3, following a ll commands, shortness of breath significantly improving - She tells me that she had 3 large gifty l movements overnight, she had a bowel movement this morning is passing gas, no abdominal pain, no distention -Discussed trying to obtain a BiPAP for her, she had an overnight pulse ox done, we might need to repeated tonight, will submit her information to [facility] for her pulse ox study and her ABGs - Discussed clinical monitoring, will hannah burns with general surgery about advancing diet - Spoke to general surgery, discussed ca se, he is in agreement start patient on clear liquids diet Vitals/I&O/Wt Last Vital Signs Temp 98.0 F 03/02/25 12:00 Pulse 78 03/02/25 12:00 Resp 21 H 03/02/25 12:00 BP 144/80 03/02/25 12:00 Pulse Ox 94 03/02/25 12:00 O2 Del Method Nasal Cannula 03/02/25 12:00 O2 Flow Rate 2 03/02/25 12:00 FiO2 30 03/02/25 00:00 03/01/25 03/02/25 03/02/25 22:59 06:59 14:59 Intake Total 250 / 250 700 / 700 Output Total 600 / 950 450 / 1400 Balance -600 / -950 -200 / -1150 700 / 700 Weight last 48 hrs Weight 65.998 kg Weight 65.8 kg Physical Exam 2 Const: COMMON NORMALS: no acute distress and patient oriented x3 Resp: COMMON NORMALS: normal respiratory effort, No retractions, No use of accessory muscles and clear to auscultation bilaterally AUSCULTATION: clear to auscultation bilaterally Cardio: COMMON NORMALS: regular rate, regular rhythm, S1 normal heart sound present and S2 normal heart sound present RATE: regular rate RHYTHM: r egular rhythm HEART SOUNDS: S1 normal heart sound present and S2 normal heart sound present GI: COMMON NORMALS: Normal to inspection, nondistended, normoactive bowel sounds present OTHER: Good bowel sounds, no guarding, no rebound, no rigidity Extremity: COMMON NORMALS: no pedal edema Neuro: COMMON NORMALS: patient oriented x3 Psych: COMMON NORMALS: mental status grossly normal Urinary Catheter Management: Campbell: Cath Placed During This Visit: no Reason for Continuing Indwelling Catheter: Accurate Measurement of Urinary Output in Critically Ill Patients Data 03/02/25 05:01 03/02/25 05:01 Micro: Microbiology 02/27/25 14:35 Gram Stain - Final Sputum - Expectorated Sputum Sputum Culture - Final A&P Assessment and plan 1. Acute hypercapnic respiratory failure: 2. Pneumonia: Plan: Acute hypoxic respiratory failure with hypercarbia Secondary to COPD exacerbation Concerns for pneumonia Plan - Moved to medical floors - BiPAP therapy -Patient will clinically benefit from a home BiPAP for chronic hypercarbic respiratory failure secondary to COPD, will decrease the risk of rehospitalization - DuoNeb - Budesonide - Rocephin - Azithromycin - Transition to p.o. prednisone - Sputum culture - Blood culture - Patient is a DNI, she does not want to be intubated or placed on mechanical ventilation, she confirms again with me on 03/01/2025 with nursing staff at bedside and respiratory therapy -She is okay with CPR, defibrillation, drugs per ACLS, ICU admission - Lovenox for DVT prophylaxis Chest pain Serial EKGs, serial troponins, telemetry monitoring Aspirin allergy Statin Cardiac echo CONCLUSIONS Normal left ventricular size and systolic function, EF 55%.. No regional wall motion abnormalities. Normal right ventricular size and systolic function. No gross valvular abnormalities noted There is no pericardial effusion. There are no intracardiac masses. Compared to the study from 10/03/2024, no significant change in the 2D findings Concerns for bowel obstruction? CT/CT abdomen pelvis w con* [id number] IMPRESSION: 1. Enhancing thick-walled small bowel loops in the pelvis with mild fluid distention with surrounding free fluid. Recommend correlation for small bowel enteritis. Persistent air within the colon. 2. Findings favor persistent partial small bowel obstruction with areas of small bowel segmental narrowing in the pelvis. Slight mesenteric swirling in the LEFT lower quadrant. Some this may be due to adhesions. No high-grade obstruction. 3. No other acute findings. - Has had several bowel movements, passing gas - NG tube moved - Consult general surgery - Trial of clear liquids PDMP PDMP Reviewed: Not Reviewed Attestations 2 Medical Necessity Statement*: Patient requires hospital for acute hypoxic respiratory failure Diagnoses Acute hypercapnic respiratory failure J96.02 Pneumonia J18.9
--- NOTE | 2025-03-02 17:23 | PC.NURSE ---
Campbell discontinued as ordered. Transferred to [facility] via wheelchair.
[2025-03-02] MEDS: cefTRIAXone 1,000 mg SDV 1000 MG IVP (21:22)
[2025-03-03 01:25] VITALS: BP 121/61; PULSE 61; RESP 17; TEMP 36.8; O2SAT 97
[2025-03-03 05:08] LABS: Hematocrit 37.3 % (36-47); Hemoglobin 11.80 g/dL (11.27-16.99); Mean Corpuscular HGB Conc 31.6 g/dL (30-55); Mean Corpuscular Hemoglobin 31.0 pg (27-33); Mean Corpuscular Volume 97.9 fl (85-98); Nucleated Red Blood Cells % 0 %; Platelet Count 186 10^3/cmm (157-399); Red Blood Count 3.81 10^6/uL (3.85-5.65); White Blood Count 8.25 10^3/uL (3.29-11.43)
[2025-03-03 05:29] LABS: Anion Gap 8.5 (5-19); Blood Urea Nitrogen 12 mg/dL (8-23); Calcium 9.1 mg/dL (8.5-10.5); Chloride 94 mmol/L (98-107); Glucose 93 mg/dL (65-115); Osmolality Calculated 291 mOsm/kg (285-295); Potassium 3.5 mmol/L (3.5-5.1); Sodium 141 mmol/L (136-145)
[2025-03-03 05:36] LABS: Carbon Dioxide 42 mmol/L (22-29)
[2025-03-03 06:00] VITALS: BP 129/73; PULSE 67; RESP 16; TEMP 36.5; O2SAT 95
[2025-03-03 07:01] VITALS: PULSE 70
[2025-03-03 08:37] VITALS: PULSE 70; RESP 17; O2SAT 98
[2025-03-03 08:50] VITALS: BP 145/73; PULSE 79; RESP 16; TEMP 36.7; O2SAT 93
--- NOTE | 2025-03-03 09:27 | PC.SOCIAL ---
IMM Update pg 2 of IMM updated and reviewed w/ patient. Copy provided and copy dated, initialed and placed in chart.
--- NOTE | 2025-03-03 10:52 | P.DS_ITS ---
Discharge Providers Date of Admission: 02/27/25 12:40 Date of Discharge: March 03, 2025 Attending Provider at Admission: Shukri Ellsworth MD Attending Provider at Discharge: Matheus Ross Primary Care Provider: Gerson Alfred MD Diagnoses at Discharge Discharge Diagnosis 1. Acute hypercapnic respiratory failure: 2. COPD (chronic obstructive pulmonary disease): Reason for Visit Reason for Visit: resp distress Brief History: Sheba Lira is a 69 year old female with a past medical history of bullous emphysema, COPD, type 2 diabetes mellitus not on insulin, who presents [facility] for shortness of breath, cough. Currently patient is alert oriented x 3, follows all commands, on BiPAP therapy at 35% FiO2, in mild respiratory distress with nasal flaring, mild intercostal suprasternal retractions, tachypnea, tachycardia. She reports shortness of breath, productive cough for the last few days, no lightheadedness, dizziness, no diaphoresis no recent travel, no hemoptysis, she does report anterior chest discomfort Hospital Course Hospital Course She underwent assessment and treatment of acute hypercapnic respite failure, severe exacerbation of COPD, pneumonia. Chest pain evaluated with serial EKG and troponin. Echocardiogram with normal ejection fraction, no RWMA. Severe exacerbation of COPD treated with IV corticosteroids, empiric antibiotic coverage with ceftriaxone and azithromycin, transitioned over to oral corticosteroids. Today she is feeling back to her usual baseline. On 2 L nasal cannula. Lungs still somewhat diminished, however she states is feeling much better, would like to return home. Discussed with her prednisone taper, prescription given to complete that together with course of azithromycin. She has a nebulizer at home which she uses and states has a good supply of medication. She is referred for follow-up with pulmonology in office for continued optimization. BiPAP arrangements underway for her to be able to continue use at home, requiring AVAPS. NIV support is needed to be continued at home. Additionally requiring Aflo vest to assist with mobilization of secretions for bronchiectasis. With transient concern for possible bowel obstruction, diet was downgraded, possible small bowel enteritis, question of possible adhesions. Symptoms improved and resolved with conservative management, she has been tolerating clears, has been hungry, has had several bowel movements, and wanting to advance diet. Physical Exam Narrative: She is awake and alert, pleasant, conversant, speaking in full sentences. Const: COMMON NORMALS: patient oriented x3 and alert GENERAL APPEARANCE: cooperative ORIENTATION/CONSCIOUSNESS: Yes awake HENMT: COMMON NORMALS: oropharynx normal Neck/C-Spine: COMMON NORMALS: no JVD Resp: COMMON NORMALS: normal respiratory effort AUSCULTATION: diminished lung sounds Cardio: COMMON NORMALS: no JVD, regular rhythm, S1 normal heart sound present, S2 normal heart sound present and No murmurs present (Cardio) RHYTHM: regular rhythm HEART SOUNDS: S1 normal heart sound present and S2 normal heart sound present GI: COMMON NORMALS: Normal to inspection, nondistended, normoactive bowel sounds present, Soft to palpation and non-tender PALPATION: Yes Soft to palpation Extremity: COMMON NORMALS: no joint enlargement and no pedal edema Neuro: COMMON NORMALS: patient oriented x3 and moves all extremities SENSORIUM/ORIENTATION: Yes alert Skin: COMMON NORMALS: no rashes or lesions noted GENERAL SKIN EXAM: no rashes or lesions noted Urinary Catheter Management: Campbell: Cath Placed During This Visit: no Reason for Continuing Indwelling Catheter: Accurate Measurement of Urinary Output in Critically Ill Patients Discharge Data Studies Completed and Pending Completed Studies During Hospitalization Category Date Time Status CT abdomen pelvis w con* [id number] Routine Cat Scan 03/01/25 08:[address] angio chest PE protcl [id number] Routine Cat Scan 02/28/25 11:18 Completed XR KUB portable [id number] Routine Exams 02/28/25 18:00 Completed XR KUB portable [id number] Stat Exams 02/28/25 22:10 Completed XR KUB portable [id number] Stat Exams 03/02/25 08:07 Completed XR chest 1V portable [id number] Stat Exams 02/27/25 10:35 Completed CV. echo complete* [id number] Routine Ultrasound 02/27/25 13:35 Completed Pending at discharge Category Date Time Status Basic Metabolic Panel AM LABS Lab 03/04/25 04:00 Ordered Basic Metabolic Panel AM LABS Lab 03/05/25 04:00 Ordered Blood Culture Stat Lab 02/27/25 10:59 Results Complete Blood Count w/Auto AM LABS Lab 03/04/25 04:00 Ordered Complete Blood Count w/Auto AM LABS Lab 03/05/25 04:00 Ordered Radiology Impressions Chest X-Ray 02/27/25 10:35 IMPRESSION: Stable chest. Chronic complex abnormal lungs and pleura as above, with no definite acute abnormality. Chronic right ventricular enlargement. Chest CTA 02/28/25 11:18 IMPRESSION: 1. No evidence for pulmonary embolus. 2. Chronic narrowing changing described above similar to the prior studies. 3. No new focal pneumonia. 4. Gaseous distention of the stomach with air-fluid level. 5. Cardiomegaly with marked RIGHT heart enlargement Abdomen/Pelvis CT 03/01/25 08:18 IMPRESSION: 1. Enhancing thick-walled small bowel loops in the pelvis with mild fluid dis tention with surrounding free fluid. Recommend correlation for small bowel enteritis. Persistent air within the colon. 2. Findings favor persistent partial small bowel obstruction with areas of small bowel segmental narrowing in the pelvis. Slight mesenteric swirling in the LEFT lower quadrant. Some this may be due to adhesions. No high-grade obstruction. 3. No other acute findings. KUB X-Ray 03/02/25 08:07 IMPRESSION: Findings more compatible with small bowel obstruction which may be resolving. Laboratory Results WBC 8.25 10^3/uL (3.29-11.43) 03/03/25 04:42 RBC 3.81 10^6/uL (3.85-5.65) L 03/03/25 04:42 Hgb 11.80 g/dL (11.27-16.99) 03/03/25 04:42 Hct 37.3 % (36-47) 03/03/25 04:42 MCV 97.9 fl (85-98) 03/03/25 04:42 MCH 31.0 pg (27-33) 03/03/25 04:42 MCHC 31.6 g/dL (30-55) 03/03/25 04:42 RDW 13.0 % (12.1-15.1) 03/03/25 04:42 Plt Count 186 10^3/cmm (157-399) 03/03/25 04:42 MPV 9.7 fL (7.4-10.4) 03/03/25 04:42 Neut % (Auto) 76.7 % 03/03/25 04:42 Lymph % (Auto) 11.0 % 03/03/25 04:42 [place] % (Auto) 11.8 % 03/03/25 04:42 Eos % (Auto) 0.0 % 03/03/25 04:42 Baso % (Auto) 0.1 % 03/03/25 04:42 Neut # (Auto) 6.33 10^3/uL (1.8-7.7) 03/03/25 04:42 Lymph # (Auto) 0.9 10^3/uL (0.8-4.8) 03/03/25 04:42 [place] # (Auto) 1.0 10^3/uL (0.2-0.9) H 03/03/25 04:42 Eos # (Auto) 0.0 10^3/uL (0.0-0.8) 03/03/25 04:42 Baso # (Auto) 0.0 10^3/uL (0.0-0.1) 03/03/25 04:42 Nucleated RBC % (auto) 0 % 03/03/25 04:42 Nucleated RBCs # 0.0 /100WBC 03/03/25 04:42 Specimen Type Arterial 03/01/25 04:47 Sample Site Radial, right 03/01/25 04:47 ABG pH 7.39 (7.35-7.45) 03/01/25 04:47 ABG pCO2 78.1 mmHg (35-45) H* 03/01/25 04:47 ABG pO2 76.8 mmHg (80.0-100.0) L 03/01/25 04:47 ABG PO2/FiO2 Ratio 219 03/01/25 04:47 ABG HCO3 47.6 mmol/L (22-26) H 03/01/25 04:47 ABG O2 Saturation 91.4 02/28/25 11:53 ABG Base Excess 18.6 mmol/L (-2.0-2.0) H 03/01/25 04:47 Edgardo Test Pos 03/01/25 04:47 A-a O2 Gradient 10.4 mmHg (5-10) H 02/28/25 11:53 Hematocrit 39.0 % (37-47) 03/01/25 04:47 Hgb O2 Saturation 88.9 % (95-100) L 02/28/25 11:53 Carboxyhemoglobin 2.3 %THgb (0.4-20.1) 02/28/25 11:53 Methemoglobin 0.4 % (0.4-1.5) 02/28/25 11:53 Total Hemoglobin 12.3 g/dL (12-16) 02/28/25 11:53 Sodium 142.0 mmol/L (131-143) 02/28/25 11:53 Potassium 4.0 mmol/L (3.5-5.0) 02/28/25 11:53 Glucose 115.0 mg/dL (70-115) 02/28/25 11:53 Ionized Calcium 1.2 mmol/L (1.1-1.4) 02/28/25 11:53 O2 Delivery Device Bipap 03/01/25 04:47 O2 Liters/Min 8.0 % 02/27/25 10:39 FiO2 35.0 % 03/01/25 04:47 Tidal Volume 0.45 03/01/25 04:47 PEEP 8.0 cmH20 03/01/25 04:47 Personal Lines Appraiser ID Ib 03/01/25 04:47 Sodium 141 mmol/L (136-145) 03/03/25 04:42 Potassium 3.5 mmol/L (3.5-5.1) 03/03/25 04:42 Chloride 94 mmol/L (98-107) L 03/03/25 04:42 Carbon Dioxide 42 mmol/L (22-29) H* 03/03/25 04:42 Anion Gap 8.5 (5-19) 03/03/25 04:42 BUN 12 mg/dL (8-23) 03/03/25 04:42 Creatinine 0.4 mg/dL (0.5-0.9) L 03/03/25 04:42 GFR Calculation Not Reportable 03/03/25 04:42 Glucose 93 mg/dL (65-115) 03/03/25 04:42 POC Glucose 107 mg/dL (70-110) 03/02/25 16:45 Estimat Average Glucose 111 02/27/25 10:58 Hemoglobin A1c 5.5 % (4.0-6.0) 02/27/25 10:58 Calculated Osmolality 291 mOsm/kg (285-295) 03/03/25 04:42 Lactic Acid 1.8 mmol/L (0.5-2.2) 02/27/25 10:58 Lactic Acid Cancelled 02/27/25 10:58 Calcium 9.1 mg/dL (8.5-10.5) 03/03/25 04:42 Phosphorus 5.3 mg/dL (2.5-4.5) H 02/28/25 03:04 Magnesium 2.2 mg/dL (1.7-2.3) 02/28/25 03:04 Total Bilirubin 0.3 mg/dL (0.15-1.2) 03/02/25 05:01 AST 33 U/L (0-32) H 03/02/25 05:01 ALT 20 U/L (0-33) 03/02/25 05:01 Alkaline Phosphatase 74 U/L (35-105) 03/02/25 05:01 Troponin T Baseline 7 ng/L (0-10) 02/27/25 10:58 Troponin T 120 Minute 6.91 ng/L (0-10) 02/27/25 12:46 Delta Troponin T -0.09 ABS# (0-10) L 02/27/25 12:46 Troponin T Hi Sens 6Hr 6.31 ng/L (0-10) 02/27/25 17:05 Troponin T Hi Sens 6Hr Delta -0.69 ng/L (0-12) L 02/27/25 17:05 NT-Pro-B Natriuret Pep 473 pg/mL (0-125) H 02/28/25 03:04 Total Protein 6.5 g/dL (6.6-8.7) L 03/02/25 05:01 Albumin 4.2 g/dL (3.5-5.2) 03/02/25 05:01 Globulin 2.3 g/dL (1.3-4.6) 03/02/25 05:01 Triglycerides 52 mg/dL (0-150) 02/27/25 10:58 Cholesterol 226 mg/dL (0-200) H 02/27/25 10:58 LDL Cholesterol, Calc 121 mg/dL (50-129) 02/27/25 10:58 HDL Cholesterol 95 mg/dL (60-100) 02/27/25 10:58 LDL/HDL Ratio 1.27 RATIO (0.00-3.22) 02/27/25 10:58 Cholesterol/HDL Ratio 2.38 mg/dL (0.0-4.40) 02/27/25 10:58 Procalcitonin 0.02 ng/mL (0-0.5) 02/27/25 10:58 TSH 1.85 uIU/mL (0.27-4.20) 02/27/25 10:58 Urine Color Yellow (Yellow) 02/27/25 14:35 Urine Appearance Clear (CLEAR) 02/27/25 14:35 Urine pH 6.5 (5-7) 02/27/25 14:35 Ur Specific [place] 1.008 (1.005-1.030) 02/27/25 14:35 Urine Protein Negative (Negative) 02/27/25 14:35 Urine Glucose (UA) Negative (Normal) 02/27/25 14:35 Urine Ketones Negative (Negative) 02/27/25 14:35 Urine Blood Negative (Negative) 02/27/25 14:35 Urine Nitrate Negative (Negative) 02/27/25 14:35 Urine Bilirubin Negative (Negative) 02/27/25 14:35 Urine Urobilinogen 0.2 mg/dL (Negative) 02/27/25 14:35 Ur Leukocyte Esterase Negative (Negative) 02/27/25 14:35 Urine RBC 0-2 /hpf (0-2) 02/27/25 14:35 Urine WBC 0-5 /hpf (0-5) 02/27/25 14:35 Ur Squamous Epith Cells 0-5 /hpf (0-5) 02/27/25 14:35 Amorphous Sediment Not Reportable 02/27/25 14:35 Urine Bacteria None seen /hpf (NONE) 02/27/25 14:35 Hyaline Casts 0-4 /lpf H 02/27/25 14:35 Influenza A (PCR) Negative (Negative) 02/27/25 11:26 Influenza Type B (PCR) Negative (Negative) 02/27/25 11:26 RSV (PCR) Negative (Negative) 02/27/25 11:26 SARS-CoV-2 (PCR) Negative (Negative) 02/27/25 11:26 Vitals Last Vital Signs Temp 98.1 F 03/03/25 08:50 Pulse 79 03/03/25 08:50 Resp 16 03/03/25 08:50 BP 145/73 03/03/25 08:50 Pulse Ox 93 03/03/25 08:50 O2 Del Method Nasal Cannula 03/03/25 08:50 O2 Flow Rate 2 03/03/25 08:50 FiO2 35 03/02/25 22:59 Discharge Plan Discharge Patient Disposition: Home Condition: Stable Prescriptions: New prednisone 20 mg Tablet See Rx Instructions .ROUTE .COMPLEX Qty: 20 0RF Rx Instructions: 3 tab daily for 3 days, then 2 tab for 3 days, then 1 tab for 3 days, then 1/2 tab for 4 days. azithromycin 250 mg tablet 250 mg PO DAILY 5 Days Qty: 5 0RF Continued (DME) oxygen small portable concentrator See Rx Instructions .Route .MEDSUPPLY Qty: 1 0RF Rx Instructions: As directed budesonide-formoterol [Symbicort] 160-4.5 mcg/actuation HFA aerosol inhaler 2 puff inhalation BID Qty: 10.2 3RF (DME) nebulizer compressor with kit See Rx Instructions .Route .MEDSUPPLY Qty: 1 0RF Rx Instructions: As directed (DME) nebulizer accessories Kit See Rx Instructions .Route Qty: 1 0RF Rx Instructions: nebulizer kit/accessories/tubing clonazepam 0.5 mg tablet 0.5 mg PO BID PRN (Reason: Anxiety) cephalexin 500 mg capsule 500 mg PO TID 7 Days Qty: 21 0RF albuterol sulfate 2.5 mg /3 mL (0.083 %) solution for nebulization 2.5 mg inhalation Q6H PRN (Reason: Shortness Of Breath Or Wheezing) ipratropium-albuterol 0.5 mg-3 mg(2.5 mg base)/3 mL solution for nebulization 0.5 ml INHALATION Q8H 30 Days Qty: 90 0RF Discontinued prednisone 50 mg tablet 50 mg PO DAILY Qty: 5 0RF Discharge Order = DC NOW: Discharge Order (Routine); Ordered 03/03/25 Ordered By: Matheus Ross Referrals: Johan Mccormick MD [Physician, Pulmonology] - 03/16/25 9:30 am Referral Note: COPD Gerson Alfred MD [Primary Care Provider, Internal Medicine] - 03/07/25 8:00 am Discharge Diet: GI Soft Patient Instructions: Prednisone (By mouth), Azithromycin (By mouth), COPD (Chronic Obstructive Pulmonary Disease) (DC), Bacterial Pneumonia (DC), Bowel Obstruction (DC), COPD Stoplight, Opioid Safety, Pain Management, Patient Portal & Brendan Instructions Activity Restrictions/Additional Instructions: Please follow-up with your primary doctor as well as with pulmonology for reassessment after COPD exacerbation and for continued optimization of management. Complete prednisone taper and antibiotic course. Seek medical attention in case of any worsening or new concerning symptoms. Continue arrangements for home BiPAP and revisit with your primary provider. Advance diet cautiously to GI soft after possible partial bowel obstruction. Watch for any symptoms of abdominal distention, fullness, nausea, in case of vomiting, intolerance of oral intake, seek medical attention. Ambulate as tolerating. Avoid constipation. Discharge Attestations Time Spent in Discharge Care*: greater than 30 min Status at Discharge: Cognitive status at discharge: cognitively intact , Behavioral status at discharge: cooperative , Quality Metrics Clinical Quality Measures [ No reported AMI, CVA or VTE this stay] Coding Level of Care Code 88867 Total time (in minutes) for Discharge: 50 Diagnoses Acute hypercapnic respiratory failure J96.02 COPD (chronic obstructive pulmonary disease) J44.9
[2025-03-03 11:53] VITALS: BP 145/73; PULSE 79; RESP 16; TEMP 36.7; O2SAT 93
== END 2025-03-03 11:55 | disposition home or self-care (01) | DRG 193 ==
LOC: ER 12:39 → ICU 12:40 → MEDSURG 03-02 17:24
PROVIDERS: Admitting Provider Family Medicine; Emergency Provider Family Medicine; PCP Internal Medicine; Visit Provider Internal Medicine
DX: J18.9 Pneumonia, unspecified organism (principal); J96.01 Acute respiratory failure with hypoxia; J96.02 Acute respiratory failure with hypercapnia; J44.1 Chronic obstructive pulmonary disease with (acute) exacerbation; J44.0 Chronic obstructive pulmonary disease with (acute) lower respiratory infection; J47.1 Bronchiectasis with (acute) exacerbation; K56.609 Unspecified intestinal obstruction, unspecified as to partial versus complete obstruction; Z87.891 Personal history of nicotine dependence; Z79.51 Long term (current) use of inhaled steroids; E11.65 Type 2 diabetes mellitus with hyperglycemia
CPT/HCPCS: 36415; 36416; 36600; 71045; 71275; 74018; 74177; 80048; 80051; 80053; 80061; 81001; 82330; 82803; 82805; 82962; 83036; 83605; 83735; 83880; 84100; 84145; 84443; 84484; 85025; 87040; 87070; 87205; 87637; 93005; 93306; 94640; 94660; 94664; 94762; 96365; 96367; 96372; 96375; 99291; J0456; J0696; J1650; J1938; J2270; J2405; J2470; J2543; J2919; J3373; J7050; J7512; J7626; J9999; Q0144